=== PATIENT | female | born 1970 | race African-American/Black ===

== ENCOUNTER 2020-07-30 13:55 | Inpatient (IN) | payer MEDICARE, MEDICAID, SELFPAY ==
--- NOTE | ~2020-07-30 | US_ITS ---
EXAMINATION: US renal BI DATE: 07/31/2020 14:46 INDICATION: Urinary tract infection. TECHNIQUE: Multiple ultrasound grayscale images of the kidneys were obtained. COMPARISON: Ultrasound abdomen 07/13/2019 FINDINGS: The right kidney measures 13.0 x 6.8 x 7.1 cm. The left kidney measures 11.8 x 7.6 x 7.6 cm. The kidn eys demonstrate normal parenchymal echogenicity. There is a 2.0 cm cyst in right kidney. There is mil d bilateral hydronephrosis and hydroureter. The bladder is markedly distended with volume of 1084 mL. There is material at the right posterior bladder wall. IMPRESSION: 1. Mild bilateral hydronephrosis and hydroureter. 2. Markedly distended bladder. Material at the right posterior bladder wall may be hematoma or urothe lial carcinoma. Reviewed, dictated and finalized at location A. IMPRESSION: 1. Mild bilateral hydronephrosis and hydroureter. 2. Markedly distended bladder. Material at the right posterior bladder wall may be hematoma or urothelial carcinoma.
--- NOTE | ~2020-07-30 | XR_ITS ---
EXAMINATION: XR chest 2V DATE: 07/30/2020 14:32 INDICATION: Weakness. TECHNIQUE: Frontal and lateral views of the chest were obtained. COMPARISON: Chest 2 views 07/13/2019, neck CT 10/04/2019 FINDINGS: The lung volumes are small. A calcified right lung nodule and calcified right hilar lymph n odes are consistent with old granulomatous disease. No pleural effusion or pneumothorax. The heart si ze is normal. IMPRESSION: 1. Small lung volumes. Reviewed, dictated and finalized at location A. IMPRESSION: 1. Small lung volumes.
[2020-07-30 13:57] VITALS: BP 114/61; PULSE 99; RESP 18; TEMP 36.9; O2SAT 99
[2020-07-30 14:01] VITALS: PULSE 98
--- NOTE | 2020-07-30 14:02 | ECG_ITS ---
Measurements Intervals [place] Rate: 100 P: 61 AK: 176 QRS: -29 QRSD: 132 T: 32 QT: 339 QTc: 439 Interpretive Statements SINUS TACHYCARDIA RIGHT BUNDLE BRANCH BLOCK VOLTAGE CRITERIA FOR LVH MINIMAL Q WAVES- HIGH LATERAL LEADS ABNORMAL ECG Electronically Signed On 07-30-2020 14:25:02 CDT by Morris Francis D.O.
[2020-07-30 14:27] LABS: Basophils Percent Auto 0.4 % (0.2-1.2); Eosinophils Absolute Auto 0.1 K/mm3 (0-0.3); Eosinophils Percent Auto 0.5 % (0-4.4); Hematocrit 25.6 % (37.0-47.0); Hemoglobin 8.6 g/dL (12.0-15.0); Immature Granulocyte Absolute 0.04 K/mm3 (0.00-0.031); Immature Granulocyte Percent A 0.4 % (0-0.5); Lymphocytes Absolute Auto 0.86 K/mm3 (0.9-3.2); Lymphocytes Percent Auto 8.2 % (18.3-44.2); Mean Corpuscular HGB Conc 33.6 g/dl (32-36); Mean Corpuscular Volume 89.2 fl (80-100); Monocytes Absolute Auto 1.1 K/mm3 (0.1-0.6); Monocytes Percent Auto 10.1 % (2.6-8.5); Neutrophils Absolute Auto 8.5 K/mm3 (1.3-6.7); Neutrophils Percent Auto 80.4 % (45.5-73.1); Platelet Count Result 349 k/mm3 (150-375); Red Blood Count 2.87 M/mm3 (4.2-5.4); Red Cell Distribution Width 12.9 % (11.5-14.5); White Blood Count 10.5 K/mm3 (4.5-10.0)
[2020-07-30 14:38] LABS: Alanine Aminotransferase 34 U/L (4-35); Albumin Level 3.5 g/dL (3.5-5.1); Alkaline Phosphatase 226 U/L (38-126); Anion Gap 9 mmol/L (8-16); Aspartate Amino Transferase 45 U/L (14-36); Bilirubin,Total 0.4 mg/dL (0.2-1.3); Blood Urea Nitrogen 36 mg/dL (7-17); Calcium 8.6 mg/dL (8.4-10.2); Carbon Dioxide 22 mmol/L (22-30); Chloride 98 mmol/L (98-107); Estimated CRCL calculation 50 ml/min; Estimated Glomerular Filt Rate 49; Glucose 64 mg/dL (65-105); Potassium 4.4 mmol/L (3.4-5.0); Sodium 129 mmol/L (137-145)
--- NOTE | 2020-07-30 14:59 | ED.GENADULT ---
HPI - General Adult General Chief complaint: Weakness Stated complaint: weakness/lethargic Time Seen by Provider: 07/30/20 14:17 History of Present Illness HPI narrative: Patient is a 50-year-old female who presents from the skilled nursing with weakness. They found her slumped over earlier today. 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 Patient is oriented x3 but is slow to answer questions and has difficulty giving history due to previous stroke. There is concern patient may have UTI as she smells prominently of urine. Related Data Home Medications Medication Instructions Recorded Confirmed Januvia 100 mg PO DAILY 10/04/19 10/08/19 benztropine 0.5 mg PO DAILY 10/04/19 10/08/19 dorzolamide [Trusopt] See Rx Instructions .ROUTE .COMPLEX 10/04/19 10/08/19 haloperidol 5 mg PO DAILY 10/04/19 10/08/19 latanoprost [Xalatan] See Rx Instructions .ROUTE .COMPLEX 10/04/19 10/08/19 aspirin [Aspir-81] 81 mg PO QAM 10/08/19 10/08/19 gabapentin 07/30/20 glimepiride mg 07/30/20 methocarbamol mg 07/30/20 sertraline mg 07/30/20 07/30/20 sitagliptin [Januvia] mg 07/30/20 Allergies Allergy/AdvReac Type Severity Reaction Status Date / Time amoxicillin Allergy Unknown Unknown Verified 07/30/20 14:02 Penicillins Allergy Unknown Unknown Verified 07/30/20 14:02 cillins Allergy Mild hives, Uncoded 05/02/09 16:51 itching Review of Systems Review of Systems: ROS unobtainable: Yes unobtainable due to medical condition [facility] Social History Social History Social History: Single. Resides in subsidized apartment in [place], [place] (the [facility]). Smoking packs per day: 0.5 Smoking cigarettes per day: 10.0 Years smoked: 5 Smoking pack-years: 2.50 Smoking status: Never smoker Alcohol intake: former Substance use: never Additional occupation/education comments: disabled due to mental illness Gender identity (if verbalized by the patient): Female Spiritual care concerns: No Agree to blood products: Yes Exam Narrative: Exam Narrative: GENERAL: Chronically ill-appearing, well-nourished, and in no acute distress. HEAD: Normocephalic, atraumatic. ENT: Mucous membranes moist. CHEST: Clear to auscultation. No respiratory distress. HEART: Regular rate and rhythm. Normal peripheral pulses. ABDOMEN: Soft, nontender, nondistended, heme-negative stool on guaiac testing. EXTREMITIES: Normal range of motion. No edema. Chronic left-sided weakness SKIN: Warm, dry, no rash. NEURO: Alert and oriented x3. Course Course Emergency Course: Admit to hospitalist service. Significant UTI. Ceftriaxone ordered. Vital Signs Vital signs: Vital Signs Temperature 98.4 F 07/30/20 13:57 Pulse Rate 99 07/30/20 13:57 Respiratory Rate 18 07/30/20 13:57 Blood Pressure 114/61 07/30/20 13:57 Pulse Oximetry 99 07/30/20 13:57 Temperature 97.7 F 07/30/20 18:54 Pulse Rate 95 07/30/20 18:54 Respiratory Rate 18 07/30/20 18:54 Blood Pressure 145/78 H 07/30/20 18:54 Pulse Oximetry 100 07/30/20 18:54 Medical Decision Making Vital Signs Vital Signs: Vital Signs Temperature 98.4 F 07/30/20 13:57 Pulse Rate 99 07/30/20 13:57 Respiratory Rate 18 07/30/20 13:57 Blood Pressure 114/61 07/30/20 13:57 Pulse Oximetry 99 07/30/20 13:57 Temperature 97.7 F 07/30/20 18:54 Pulse Rate 95 07/30/20 18:54 Respiratory Rate 18 07/30/20 18:54 Blood Pressure 145/78 H 07/30/20 18:54 Pulse Oximetry 100 07/30/20 18:54 Lab Data Result diagrams: 07/30/20 14:18 07/30/20 14:18 Labs: Lab Results 07/30/20 07/30/20 07/30/20 Range/Units 14:18 14:18 14:49 WBC 10.5 H (4.5-10.0) K/mm3 RBC 2.87 L (4.2-5.4) M/mm3 Hgb 8.6 L D (12.0-15.0) g/dL Hct 25.6 L (37.0-47.0) % MCV 89.2 (80-100) fl MCH 30.0 (26-34) pg MCHC 33.6 (32-36) g/dl RDW 12.9 (1
[2020-07-30 15:00] LABS: Add Urine Microscopic? YES; Appearance Urine Turbid (Clear); Bacteria Urine 4+ /hpf; Bilirubin Urine Negative (Negative); Blood Urine 2+ (Negative); Color Urine Yellow (Yellow); Glucose Urine UA Negative (Negative); Ketones Urine Negative (Negative); Leukocyte Esterase Ur 2+ LEU/UL (Negative); Mucus Urine Rare /lpf; Nitrate Urine Negative (Negative); Protein Urine 2+ mg/dL (Negative); RBC Urine >75 /hpf (0-2); Specific Grav Ur 1.011 (1.001-1.035); Urobilinogen Urine Negative mg/dL (<2.0); WBC Urine >75 /hpf
[2020-07-30] MEDS: SODIUM CHLORIDE 0.9% IV 1,000 ML 999 ML IV CONT (15:12)
[2020-07-30 16:09] VITALS: BP 130/63; PULSE 95; RESP 17; O2SAT 98
[2020-07-30 17:16] VITALS: BP 142/77; PULSE 91; RESP 17; O2SAT 97
--- NOTE | 2020-07-30 18:32 | PC.NURSE ---
This patient, Jasmin Lopez, was admitted to Medical Room 343-01. Patient/family oriented to hospital policies and general routines including ID bracelet, bed and alarms, visiting hours, pain management, procedures, bathroom and other care routines, personal items, smoking policy, room service/diet, and visiting hours. Valuables list has been completed. Information on how to activate the Rapid Response Team has been discussed. Patient/Family are encouraged to report perceived risks to care and to ask questions if they do not understand what they are told or what they should do.
[2020-07-30 18:54] VITALS: BP 145/78; PULSE 95; RESP 18; TEMP 36.5; O2SAT 100
[2020-07-30 18:55] VITALS: BMI 26.9
[2020-07-30 18:56] VITALS: BMI 27.3
[2020-07-30] MEDS: SODIUM CHLORIDE 0.9% IV 1,000 ML 125 ML IV CONT (19:03)
[2020-07-30 22:00] VITALS: BP 142/84; PULSE 98; RESP 21; TEMP 36.4; O2SAT 100
--- NOTE | 2020-07-30 23:20 | PM.IMHP ---
H&P: HPI History of Present Illness Date/Time: 07/30/20 23:20 Chief complaint: uti,acute renal failure,anemia Narrative: This is a 50 year old Diabetic female with known left sided hemiparesis following a CVA who [facility] secondary to increased weakness. Apparently the patient was found slumped over at the jail. The patient denies any fevers, chills, cough, shortness of breath, abdominal pain, dysuria, hematuria or any active bleeding. She was evaluated in the ER and found to be anemic, with acute renal failure, and had a suspicious urinalysis for a possible UTI. The patient had verbalized that she thought she might have a UTI because of foul smelling urine. No other complaints. Review of Systems Review of Systems: All systems reviewed & are unremarkable except as noted in HPI and below PMFSH Past Medical History Medical History Anxiety Arthritis Cataracts, bilateral Cerebrovascular disease Diabetic retinopathy Glaucoma HLD (hyperlipidemia) HTN (hypertension) Hypertension, essential IDDM (insulin dependent diabetes mellitus) Peripheral polyneuropathy Schizophrenia Schizophrenia, undifferentiated Type 2 diabetes mellitus with hyperglycemia Surgical History Surgical History H/O removal of cyst Family History Family History Grandparent Diabetes mellitus Father Family history of cardiovascular disease Other Cerebrovascular accident Social History Social History Social History: Single. Resides in subsidized apartment in [place], [place] (the [facility]). Smoking packs per day: 0.5 Smoking cigarettes per day: 10.0 Years smoked: 5 Smoking pack-years: 2.50 Smoking status: Never smoker Alcohol intake: former Substance use: never Additional occupation/education comments: disabled due to mental illness Gender identity (if verbalized by the patient): Female Spiritual care concerns: No Agree to blood products: Yes Meds Home Medications and Allergies Home Medications Medication Instructions Recorded Confirmed Type Januvia 100 mg PO DAILY 10/04/19 07/30/20 History benztropine 0.5 mg PO DAILY 10/04/19 07/30/20 History dorzolamide [Trusopt] 1 drp OPHTHALMIC (EYE) BID 10/04/19 07/30/20 History haloperidol 5 mg PO DAILY 10/04/19 07/30/20 History latanoprost [Xalatan] 1 drp OPHTHALMIC (EYE) BID 10/04/19 07/30/20 History Lantus U-100 Insulin 30 units SUBCUT HS #30 ml 10/08/19 07/30/20 Rx acetaminophen [Mapap 650 mg PO Q6H PRN #30 tablet 10/08/19 07/30/20 Rx (acetaminophen)] aspirin [Aspir-81] 81 mg PO QAM 10/08/19 07/30/20 History clopidogrel 75 mg PO QAM #30 tablet 10/08/19 07/30/20 Rx docusate sodium 100 mg PO Q12HR #0 cap 10/20/19 07/30/20 Rx promethazine 12.5 mg PO Q4H PRN #0 tablet 10/20/19 07/30/20 Rx Vitamin C 1 tablet BYMOUTH DAILY 07/30/20 07/30/20 History ascorbic acid (vitamin C) 500 mg PO DAILY 07/30/20 07/30/20 History bisacodyl [Dulcolax (bisacodyl)] 10 mg CO DAILY PRN 07/30/20 07/30/20 History ergocalciferol (vitamin D2) 1,250 mcg PO WEEKLY 07/30/20 07/30/20 History ferrous sulfate 325 tab-cap BYMOUTH BID 07/30/20 07/30/20 History gabapentin 300 mg PO TID 07/30/20 07/30/20 History glimepiride 1 mg PO DAILY 07/30/20 07/30/20 History insulin aspart U-100 [Novolog 12 units SUBCUT TIDWM 07/30/20 07/30/20 History U-100 Insulin aspart] insulin aspart U-100 [Novolog See Rx Instructions .ROUTE .COMPLEX 07/30/20 07/30/20 History U-100 Insulin aspart] methocarbamol 750 mg PO DAILY 07/30/20 07/30/20 History sertraline 50 mg PO DAILY 07/30/20 07/30/20 History sitagliptin [Januvia] 100 mg PO DAILY 07/30/20 07/30/20 History Allergies Allergy/AdvReac Type Severity Reaction Status Date / Time amoxicillin Allergy Unknown Unkn
[2020-07-30 23:46] LABS: Hematocrit 28.5 % (37.0-47.0); Hemoglobin 9.5 g/dL (12.0-15.0)
[2020-07-31] VITALS (10 sets, daily range): BP systolic 123–157; BP diastolic 59–92; PULSE 101–114; RESP 12–20; TEMP 36.9–38; O2SAT 97–100
[2020-07-31 00:40] LABS: Glucose Point of Care 127 (65-105)
[2020-07-31] MEDS: SODIUM CHLORIDE 0.9% IV 1,000 ML 125 ML IV CONT ×3 (02:48→20:15)
[2020-07-31] MEDS: methocarbamoL 750 MG TABLET PO ×3 (06:03→21:05)
[2020-07-31 07:15] LABS: Basophils Percent Auto 0.3 % (0.2-1.2); Eosinophils Absolute Auto 0.1 K/mm3 (0-0.3); Eosinophils Percent Auto 0.8 % (0-4.4); Hematocrit 23.3 % (37.0-47.0); Hemoglobin 7.8 g/dL (12.0-15.0); Immature Granulocyte Absolute 0.03 K/mm3 (0.00-0.031); Immature Granulocyte Percent A 0.3 % (0-0.5); Lymphocytes Absolute Auto 1.69 K/mm3 (0.9-3.2); Lymphocytes Percent Auto 18.3 % (18.3-44.2); Mean Corpuscular HGB Conc 33.5 g/dl (32-36); Mean Corpuscular Hemoglobin 30.1 pg (26-34); Mean Platelet Volume 10.1 fl (7.4-10.4); Monocytes Absolute Auto 1.1 K/mm3 (0.1-0.6); Monocytes Percent Auto 11.7 % (2.6-8.5); Neutrophils Absolute Auto 6.4 K/mm3 (1.3-6.7); Neutrophils Percent Auto 68.6 % (45.5-73.1); Platelet Count Result 370 k/mm3 (150-375); Red Blood Count 2.59 M/mm3 (4.2-5.4); White Blood Count 9.3 K/mm3 (4.5-10.0)
[2020-07-31 07:33] LABS: Anion Gap 7 mmol/L (8-16); Blood Urea Nitrogen 34 mg/dL (7-17); Calcium 8.2 mg/dL (8.4-10.2); Carbon Dioxide 20 mmol/L (22-30); Chloride 105 mmol/L (98-107); Estimated CRCL calculation 58 ml/min; Estimated Glomerular Filt Rate > 60; Glucose 106 mg/dL (65-105); Potassium 4.3 mmol/L (3.4-5.0); Sodium 132 mmol/L (137-145)
[2020-07-31 08:11] LABS: Iron 33 ug/dL (37-170)
[2020-07-31 08:19] LABS: Percent Iron Saturation 17 % (20-50)
[2020-07-31 08:20] LABS: Transferrin 110 mg/dL (206-381)
[2020-07-31 08:46] LABS: Hepatitis B Surface Antigen Negative (Negative)
[2020-07-31] MEDS: INSULIN ASPART (*BKC) 100 UNITS/ML 12 UNITS SUB-Q ×2 (08:47→12:28)
[2020-07-31 08:48] LABS: Glucose Point of Care 116 (65-105)
[2020-07-31 08:51] LABS: HAV RESULT Negative (Negative); Hepatitis B Core IgM Result Negative (Negative)
[2020-07-31] MEDS: LATANOPROST 0.005% OP SOLN 2.5 ML BTL 1 DROP EACH EYE ×2 (08:52→18:51)
[2020-07-31] MEDS: HALOPERIDOL 5 MG TABLET PO (08:54)
[2020-07-31] MEDS: CLOPIDOGREL BISULFATE 75 MG TABLET PO (08:54)
[2020-07-31] MEDS: SERTRALINE HCL 50 MG TABLET PO (08:55)
[2020-07-31] MEDS: ASPIRIN 81 MG ENTERIC TABLET PO (08:55)
[2020-07-31] MEDS: DORZOLAMIDE HCL 2% OPHTH DROPS 1 DROP EACH EYE ×2 (08:55→16:35)
[2020-07-31] MEDS: FERROUS SULFATE 324 MG TABLET BY MOUTH ×2 (08:56→16:35)
[2020-07-31 09:03] LABS: Hepatitis C Virus Antibody Negative (Negative)
[2020-07-31] MEDS: BENZTROPINE MESYLATE 0.5 MG TABLET PO (09:19)
--- NOTE | 2020-07-31 10:27 | PM.IMPN ---
Progress Note: A&P Assessment and Plan (1) Complicated UTI (urinary tract infection): Code(s): N39.0 - Urinary tract infection, site not specified Status: Acute Assessment and Plan: UA was highly suspicious for UTI. The patient reports vomiting and nausea prior to admission. Urine culture was obtained and pending. Leukocytosis resolved. She feels much better. Continue IV ceftriaxone. Await final culture. Order renal US. (2) Acute renal failure: Qualifiers: Acute renal failure type: unspecified Qualified Code(s): N17.9 - Acute kidney failure, unspecified Code(s): N17.9 - Acute kidney failure, unspecified Status: Acute Assessment and Plan: Appears pre-renal. Likely due to UTI, poor PO intake, and GI loss given hx of vomiting. Cr is responding well to IV fluids. Continue gentle IV fluids. Continue to monitor renal function. Renally dose medications and avoid nephrotoxins. (3) Anemia: Qualifiers: Anemia type: unspecified type Qualified Code(s): D64.9 - Anemia, unspecified Code(s): D64.9 - Anemia, unspecified Status: Acute Assessment and Plan: Per ED documentation, guaiac testing was negative. Repeat stool occult blood testing. She has no signs of acute bleeding. She denies melena and hematochezia. UA demonstrated RBCs which is likely due to UTI. Iron studies are consistent with anemia of chronic disease. Vitamin B12 is low and will be replaced. Folate is pending. Continue to monitor closely. Hb is 7.8 and Hct 23.3. Will repeat H&H this afternoon. Transfuse PRN to maintain Hb >7. 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 Hold glimepiride and januvia. Continue lantus, mealtime insulin, and SSI. Continue ACHS glucose monitoring and hypoglycemia protocol. (5) Hypertension, essential: Code(s): I10 - Essential (primary) hypertension Status: Chronic Assessment and Plan: Stable. She is not on any prior to admission antihypertensives. Continue to monitor blood pressure. (6) Glaucoma: Qualifiers: Glaucoma type: unspecified Laterality: unspecified laterality Qualified Code(s): H40.9 - Unspecified glaucoma Code(s): H40.9 - Unspecified glaucoma Status: Chronic Assessment and Plan: Continue home eye drops. Subjective Date/time seen: 07/31/20 10:27 Mrs. Lopez is a 50 y.o. female with PMH significant for right hemispheric stroke with left hemiparesis who is seen in follow-up for a urinary tract infection. She has no concerns today and feels much better. She expresses that she does not want to go back to the prison because she does not like the food there. She denies dysuria, hematuria, urgency, and frequency. She reports a mild frontal headache but has no other complaints. She denies nausea, vomiting, and abdominal pain. She denies dizziness and lightheadedness. She denies chest pain and dyspnea. She is not having any constipation or diarrhea. Review of Systems Review of Systems: All systems reviewed & are unremarkable except as noted in HPI and below Exam Narrative: Exam Narrative: General: Pleasant, chronically-ill appearing, well-nourished 50 y.o. female lying supine in bed watching TV in no acute distress. HEENT: Normocephalic and atraumatic. Sclerae anicteric. Conjuctival pallor. PERRL. EOMI with exotropia of the left eye. Oral mucosa moist with no posterior pharyngeal erythema. Neck: Supple with large neck circumference. Cardiac: Regular rate and rhythm. S1 and S2 normal. Lungs: Lula
[2020-07-31 12:10] LABS: Glucose Point of Care 124 (65-105)
[2020-07-31] MEDS: CYANOCOBALAMIN INJ 1,000 MCG/ML VIAL 1000 MCG IM (13:19)
[2020-07-31 14:05] LABS: Folic Acid 10.2 ng/mL (2.76->20)
[2020-07-31 14:25] LABS: Hematocrit 24.5 % (37.0-47.0)
[2020-07-31 17:16] LABS: Glucose Point of Care 91 (65-105)
[2020-07-31] MEDS: INSULIN ASPART (*BKC) 100 UNITS/ML 6 UNITS SUB-Q (18:10)
[2020-07-31] MEDS: INSULIN GLARGINE (*BKC) 100 UNITS/ML 30 UNITS SUB-Q (21:04)
[2020-07-31] MEDS: DOCUSATE SODIUM 100 MG CAPSULE PO (21:05)
[2020-07-31 21:23] LABS: Glucose Point of Care 138 (65-105)
[2020-07-31] MEDS: ACETAMINOPHEN 325 MG TABLET 650 MG PO (21:57)
[2020-08-01 02:48] VITALS: BP 139/66; PULSE 91; RESP 12; TEMP 36.8; O2SAT 100
[2020-08-01] MEDS: SODIUM CHLORIDE 0.9% IV 1,000 ML 125 ML IV CONT (04:25)
[2020-08-01 04:43] VITALS: BP 135/51; PULSE 86; RESP 14; TEMP 36.3; O2SAT 96
[2020-08-01 06:18] LABS: Basophils Percent Auto 0.5 % (0.2-1.2); Eosinophils Absolute Auto 0.2 K/mm3 (0-0.3); Eosinophils Percent Auto 2.6 % (0-4.4); Hematocrit 22.1 % (37.0-47.0); Hemoglobin 7.3 g/dL (12.0-15.0); Immature Granulocyte Absolute 0.05 K/mm3 (0.00-0.031); Immature Granulocyte Percent A 0.6 % (0-0.5); Lymphocytes Absolute Auto 1.73 K/mm3 (0.9-3.2); Lymphocytes Percent Auto 20.3 % (18.3-44.2); Mean Corpuscular Hemoglobin 29.9 pg (26-34); Mean Corpuscular Volume 90.6 fl (80-100); Mean Platelet Volume 9.4 fl (7.4-10.4); Monocytes Percent Auto 11.2 % (2.6-8.5); Neutrophils Absolute Auto 5.5 K/mm3 (1.3-6.7); Neutrophils Percent Auto 64.8 % (45.5-73.1); Platelet Count Result 413 k/mm3 (150-375); Red Blood Count 2.44 M/mm3 (4.2-5.4); Red Cell Distribution Width 13.1 % (11.5-14.5); White Blood Count 8.5 K/mm3 (4.5-10.0)
[2020-08-01] MEDS: methocarbamoL 750 MG TABLET PO ×2 (06:29→14:53)
[2020-08-01 06:45] LABS: Anion Gap 5 mmol/L (8-16); Blood Urea Nitrogen 19 mg/dL (7-17); Calcium 8.5 mg/dL (8.4-10.2); Carbon Dioxide 21 mmol/L (22-30); Chloride 111 mmol/L (98-107); Estimated CRCL calculation 78 ml/min; Estimated Glomerular Filt Rate > 60; Glucose 107 mg/dL (65-105); Sodium 137 mmol/L (137-145)
[2020-08-01 07:37] LABS: Glucose Point of Care 102 (65-105)
[2020-08-01 08:00] VITALS: BP 171/77; PULSE 88; RESP 16; TEMP 36.2; O2SAT 97
[2020-08-01 08:41] LABS: Hematocrit 27.5 % (37.0-47.0); Hemoglobin 8.4 g/dL (12.0-15.0); Immature Reticulocyte Fraction 7.9 % (3.0-15.9); Reticulocyte Hemoglobin Conten 28.6 pg (28.2-35.7); Reticulocyte Percent 1.66 % (0.7-4.3); Reticulocytes Absolute 0.05 B/L (32.2-175.7)
[2020-08-01 09:26] LABS: Lactate Dehydrogenase 500 U/L (313-618)
[2020-08-01] MEDS: DORZOLAMIDE HCL 2% OPHTH DROPS 1 DROP EACH EYE ×2 (10:18→17:09)
[2020-08-01] MEDS: SERTRALINE HCL 50 MG TABLET PO (10:18)
[2020-08-01] MEDS: ASPIRIN 81 MG ENTERIC TABLET PO (10:19)
[2020-08-01] MEDS: FERROUS SULFATE 324 MG TABLET BY MOUTH ×2 (10:19→17:09)
[2020-08-01] MEDS: HALOPERIDOL 5 MG TABLET PO (10:19)
[2020-08-01] MEDS: DOCUSATE SODIUM 100 MG CAPSULE PO (10:19)
[2020-08-01] MEDS: LATANOPROST 0.005% OP SOLN 2.5 ML BTL 1 DROP EACH EYE ×2 (10:19→17:09)
[2020-08-01] MEDS: CLOPIDOGREL BISULFATE 75 MG TABLET PO (10:19)
[2020-08-01] MEDS: BENZTROPINE MESYLATE 0.5 MG TABLET PO (10:19)
[2020-08-01 11:43] LABS: Glucose Point of Care 128 (65-105)
[2020-08-01] MEDS: INSULIN ASPART (*BKC) 100 UNITS/ML SUB-Q ×2 (11:55→17:07)
[2020-08-01 12:00] VITALS: BP 177/74; PULSE 92; RESP 18; TEMP 36.6; O2SAT 100
--- NOTE | 2020-08-01 14:19 | WPDURCON ---
Assessment and Plan Assessment and plan (1) UTI (urinary tract infection): Code(s): N39.0 - Urinary tract infection, site not specified Status: Acute Assessment and Plan: urine cultures grown out multidrug sensitive E coli. Can be discharged on appropriate p.o. antibiotics (2) Urinary retention with incomplete bladder emptying: Code(s): R33.9 - Retention of urine, unspecified Status: Acute Assessment and Plan: very likely to be neurogenic secondary to her stroke and diabetes. Could also be transient due to urinary tract infection. He is stable for discharge back to her senior living today. Will need to be with a Bailey catheter. Outpatient follow-up in 1-2 weeks for a voiding trial. (3) Hydronephrosis: Code(s): N13.30 - Unspecified hydronephrosis Status: Acute Assessment and Plan: this is due to incomplete bladder emptying. Should resolve with Bailey catheter. Creatinine is normal Urology Consult Note HPI Date Seen: 08/01/20 Requesting Physician: Scarlett Willoughby PA-C Primary Care Provider: Armaan Clarke DO Consult Narrative Narrative: Jasmin Lopez is a 50 year old female With Karma paresis secondary to a stroke. She was sent in from her nursing facility with increased weakness and foul-smelling urine. She was diagnosed with a urinary tract infection. She has grown E coli which is multiple drug sensitive. As part of her workup she had a renal ultrasound. It shows mild bilateral hydronephrosis and a distended bladder with over 1 L. there is also some debris in the bladder likely secondary to her infection. She is a poor historian but she denies previous voiding symptoms. She denies previous history of urinary tract infection. She denies hematuria. I talked to the nurses aide. They have incision on the toilet and she does void small amounts. She is set for discharge today. Review of Systems Review of Systems: All systems reviewed & are unremarkable except as noted in HPI and below PMFSH Past Medical History Medical History Anxiety Arthritis Cataracts, bilateral Cerebrovascular disease Diabetic retinopathy Glaucoma HLD (hyperlipidemia) HTN (hypertension) Hypertension, essential IDDM (insulin dependent diabetes mellitus) Peripheral polyneuropathy Schizophrenia Schizophrenia, undifferentiated Type 2 diabetes mellitus with hyperglycemia Surgical History Surgical History H/O removal of cyst Family History Family History Grandparent Diabetes mellitus Father Family history of cardiovascular disease Other Cerebrovascular accident Social History Social History Social History: Single. Resides in subsidized apartment in [place], [place] ([facility]). Smoking packs per day: 0.5 Smoking cigarettes per day: 10.0 Years smoked: 5 Smoking pack-years: 2.50 Smoking status: Never smoker Alcohol intake: former Substance use: never Additional occupation/education comments: disabled due to mental illness Gender identity (if verbalized by the patient): Female Spiritual care concerns: No Agree to blood products: Yes Meds Home Medications and Allergies Home Medications Medication Instructions Recorded Confirmed Type Januvia 100 mg PO DAILY 10/04/19 07/30/20 History benztropine 0.5 mg PO DAILY 10/04/19 07/30/20 History dorzolamide [Trusopt] 1 drp OPHTHALMIC (EYE) BID 10/04/19 07/30/20 History haloperidol 5 mg PO DAILY 10/04/19 07/30/20 History latanoprost [Xalatan] 1 drp OPHTHALMIC (EYE) BID 10/04/19 07/30/20 History Lantus U-100 Insulin 30 units SUBCUT HS #30 ml 10/08/19 07/30/20 Rx acetaminophen [Mapap 650 mg PO Q6H PRN #30 tablet 10/08/19 07/30/20 Rx (acetaminophen)] aspirin [
--- NOTE | 2020-08-01 16:05 | PM.DS ---
DS: Admitting Diagnosis Admitting Diagnosis Admitting Diagnosis: uti,acute renal failure,anemia DS: Discharge Diagnosis Discharge Diagnosis (1) Complicated UTI (urinary tract infection): Code(s): N39.0 - Urinary tract infection, site not specified Status: Acute Assessment and Plan: Discharge Summary (Date of service 08/01/20): Mrs. Lopez is a 50 y.o. female with PMH significant for CVA with residual left sided weakness, HTN, HLD, IDDM, and schizophrenia who presented to the emergency department for the evaluation of weakness. Initial workup in the emergency department was notable for UA which was highly suspicious for UTI. Anemia was also noted with Hb 8.6 and Hct 25.6. She was admitted to the hospitalist service and treated with IV ceftriaxone for UTI. Urine culture demonstrated E. coli susceptible to ceftriaxone. She was discharged on PO cefdinir. She had evidence of mild hydronephrosis and hydroureter on renal ultrasound with markedly distended bladder and material at the right posterior bladder wall suggestive of hematoma vs. urothelial carcinoma. Bland catheter was placed and urology was consulted and recommended bland catheter at discharge with outpatient follow-up in 1-2 weeks. Retention was felt to be neurogenic due to hx of CVA vs acute due to UTI. She was found to be vitamin B12 deficient and hematology was consulted and recommended ferrous sulfate and vitamin B12 supplementation. She felt much better and was stable for discharge. She was cleared from a urology and hematology standpoint as well. She was discharged in stable condition on the afternoon of 08/01/20. (2) Acute renal failure: Qualifiers: Acute renal failure type: unspecified Qualified Code(s): N17.9 - Acute kidney failure, unspecified Code(s): N17.9 - Acute kidney failure, unspecified Status: Acute Assessment and Plan: Appears pre-renal. Likely due to UTI, poor PO intake, and GI loss given hx of vomiting. Cr is responding well to IV fluids. (3) Anemia: Qualifiers: Anemia type: unspecified type Qualified Code(s): D64.9 - Anemia, unspecified Code(s): D64.9 - Anemia, unspecified Status: Acute Assessment and Plan: Per ED documentation, guaiac testing was negative. She hads no signs of acute bleeding and denied melena and hematochezia. UA demonstrated RBCs which is likely due to UTI. Vitamin B12 was low replaced with 1,000mcg IM 07/31/20. She will need to continued vitamin B12 supplementation outpatient. Folate was sufficient. Hematology was consulted for further recommendations. H&H remained stable and hematology was fine for discharge from their standpoint. Hematology recommended she discharge on ferrous sulfate 325mg TID and vitamin B12 1,000 mcg daily. 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 Glimepiride and januvia were held while inpatient. Insulin regimen was continued. (5) Hypertension, essential: Code(s): I10 - Essential (primary) hypertension Status: Chronic Assessment and Plan: Blood pressures were reviewed and reasonably controlled. She was not on any prior to admission antihypertensives. (6) Glaucoma: Qualifiers: Glaucoma type: unspecified Laterality: unspecified laterality Qualified Code(s): H40.9 - Unspecified glaucoma Code(s): H40.9 - Unspecified glaucoma Status: Chronic Assessment and Plan: Home eye drops were continued. (7) Urinary retention with incomplete bladder emptying: Code(s): R33.9 - Retention
--- NOTE | 2020-08-01 16:42 | PDONCCN ---
HPI - Date of Consult Date/Time: 08/01/20 16:42 Requesting Physician: Scarlett Willoughby PA-C Primary Care Provider: Armaan Clarke, - Consult Narrative Reason for consult: Normocytic anemia Narrative: Jasmin Lopez is a 50 year old female This is a 50-year-old obese female with history of stroke and who is a jail resident was brought into the hospital with left-sided weakness. Nausea is complaining of generalized weakness. She is not able to 1 due to her stroke. She denies any hematuria and melena hematochezia. She denies any other bleeding complain. She denies any weight loss. She denies any bone pain. Urine analysis showed possible UTI. Renal ultrasound showed possibly bladder mass versus hematoma. She denies any history of sickle cell anemia. Review of Systems - Review of Systems All systems reviewed & are unremarkable except as noted in HPI and [facility] Medical History: Medical History (Last Reviewed 07/31/20 @ 04:03 by Armaan Bryant MD) Anxiety Arthritis Cataracts, bilateral Cerebrovascular disease Diabetic retinopathy Glaucoma HLD (hyperlipidemia) HTN (hypertension) Hypertension, essential IDDM (insulin dependent diabetes mellitus) Peripheral polyneuropathy Schizophrenia Schizophrenia, undifferentiated Type 2 diabetes mellitus with hyperglycemia Surgical History: Surgical History (Last Reviewed 07/31/20 @ 04:03 by Armaan Bryant MD) H/O removal of cyst Family History: Family History (Last Reviewed 07/31/20 @ 04:03 by Armaan Bryant MD) Grandparent Diabetes mellitus Father Family history of cardiovascular disease Other Cerebrovascular accident - Social History Social History: Social History (Last Reviewed 07/31/20 @ 04:03 by Armaan Bryant MD) Gender Identity: Gender identity (if verbalized by the patient): Female Alcohol Use: Alcohol intake: former Substance Use: Substance use: never Others: Spiritual care concerns: No Agree to blood products: Yes Smoking Status: Smoking status: Never smoker Smoking Pack-years: Smoking packs per day: 0.5 Smoking cigarettes per day: 10.0 Years smoked: 5 Smoking pack-years: 2.50 Meds Home Medications Medication Instructions Recorded Confirmed Type Januvia 100 mg PO DAILY 10/04/19 07/30/20 History benztropine 0.5 mg PO DAILY 10/04/19 07/30/20 History dorzolamide [Trusopt] 1 drp OPHTHALMIC (EYE) BID 10/04/19 07/30/20 History haloperidol 5 mg PO DAILY 10/04/19 07/30/20 History latanoprost [Xalatan] 1 drp OPHTHALMIC (EYE) BID 10/04/19 07/30/20 History Lantus U-100 Insulin 30 units SUBCUT HS #30 ml 10/08/19 07/30/20 Rx acetaminophen [Mapap 650 mg PO Q6H PRN #30 tablet 10/08/19 07/30/20 Rx (acetaminophen)] aspirin [Aspir-81] 81 mg PO QAM 10/08/19 07/30/20 History clopidogrel 75 mg PO QAM #30 tablet 10/08/19 07/30/20 Rx docusate sodium 100 mg PO Q12HR #0 cap 10/20/19 07/30/20 Rx promethazine 12.5 mg PO Q4H PRN #0 tablet 10/20/19 07/30/20 Rx Januvia 100 mg PO DAILY 07/30/20 07/30/20 History Vitamin C 1 tablet BYMOUTH DAILY 07/30/20 07/30/20 History ascorbic acid (vitamin C) 500 mg PO DAILY 07/30/20 07/30/20 History bisacodyl [Dulcolax (bisacodyl)] 10 mg SD DAILY PRN 07/30/20 07/30/20 History ergocalciferol (vitamin D2) 1,250 mcg PO WEEKLY 07/30/20 07/30/20 History ferrous sulfate 325 tab-cap BYMOUTH BID 07/30/20 07/30/20 History gabapentin 300 mg PO TID 07/30/20 07/30/20 History glimepiride 1 mg PO DAILY 07/30/20 07/30/20 History insulin aspart U-100 [Novolog 12 units SUBCUT TIDWM 07/30/20 07/30/20 History U-100 Insulin aspart] insulin aspart U-100 [Novolog See Rx Instructions .ROUTE .COMPLEX 07/30/20 07/30/20 History U-100 Insulin aspart] methocarbamol 750 mg PO DAILY 07/30/20 07/30/20 History sertraline 50 mg PO DAILY 07/30/20 07/30/20 History cefdinir 300 mg PO Q12H 5 Days #10 cap 08/01/20 Rx Allergies Allergy/AdvRe
[2020-08-01 17:13] LABS: Glucose Point of Care 117 (65-105)
[2020-08-04 22:36] LABS: Haptoglobin 370 mg/dL (43-212)
== END 2020-08-01 17:37 | DRG 690 ==
LOC: ANHED 16:28 → ANH3MED 17:22
PROVIDERS: Emergency Medicine; Family Medicine; Physician Assistant; Admitting Provider Hospitalist; Emergency Provider Emergency Medicine; PCP Internal Medicine; Visit Provider Hospitalist
DX: N39.0 Urinary tract infection, site not specified (principal); N17.9 Acute kidney failure, unspecified; I69.354 Hemiplegia and hemiparesis following cerebral infarction affecting left non-dominant side; D64.9 Anemia, unspecified; E11.9 Type 2 diabetes mellitus without complications; F20.9 Schizophrenia, unspecified; I10 Essential (primary) hypertension; B96.20 Unspecified Escherichia coli [E. coli] as the cause of diseases classified elsewhere; N13.30 Unspecified hydronephrosis
CPT/HCPCS: 36415; 71046; 76775; 80048; 80053; 80074; 81001; 82607; 82728; 82746; 83010; 83540; 83550; 83615; 84466; 85014; 85018; 85025; 85046; 87077; 87086; 87088; 87186; 93005; 96361; 96374; 97161; 97166; 99285; A9270; G0378; J0696; J1815; J3420; J7030

== ENCOUNTER 2020-08-13 17:28 | Inpatient (IN) | payer MEDICARE, MEDICAID, SELFPAY ==
[2020-08-13] VITALS (7 sets, daily range): BP systolic 101–141; BP diastolic 58–71; PULSE 94–110; RESP 16–20; TEMP 36.2–39.4; O2SAT 92–98; BMI 28.3
--- NOTE | ~2020-08-13 | XR_ITS ---
EXAMINATION: XR chest 1V portable INDICATION: Fever and headache TECHNIQUE: Portable AP chest at 1815 hours COMPARISON: 07/30/2020 FINDINGS: The lungs are free of acute opacities. There is no pleural effusion or pneumothorax. The ca rdiomediastinal silhouette is normal. The visualized bones and soft tissues are unremarkable. IMPRESSION: 1. No acute cardiopulmonary abnormality. Reviewed, dictated and finalized at location A.
--- NOTE | ~2020-08-13 | CT_ITS ---
EXAMINATION: CT brain wo con INDICATION: Generalized headache COMPARISON: 10/07/2019 TECHNIQUE: Standard unenhanced head CT. The dose-length product (DLP) was 605.33 mGy-cm. The mA was a djusted according to patient size. Iterative reconstruction technique was employed. FINDINGS: There is no intracranial hemorrhage, acute infarction, or abnormal mass lesion. There are o ld infarcts involving the right basal ganglia and the right frontal lobe zamorano radiata. There is ex vacuo enlargement of the right lateral ventricle. There is no abnormal mass effect or midline shift. The childress-white matter differentiation is normal. The basal cisterns are patent. The orbits are normal . Intracranial calcified cerebral atherosclerosis is noted. The paranasal sinuses, mastoids and tariq rium are normal. IMPRESSION: 1. Areas of prior infarction without acute intracranial abnormality. Reviewed, dictated and finalized at location A.
--- NOTE | 2020-08-13 17:41 | ECG_ITS ---
Measurements Intervals [place] Rate: 109 P: 45 MT: 175 QRS: -37 QRSD: 122 T: 46 QT: 335 QTc: 452 Interpretive Statements SINUS TACHYCARDIA LEFT AXIS DEVIATION RIGHT BUNDLE BRANCH BLOCK VOLTAGE CRITERIA FOR LVH MINIMAL Q WAVES- HIGH LATERAL LEADS ABNORMAL ECG Electronically Signed On 08-14-2020 7:43:04 CDT by Morris Francis D.O.
[2020-08-13 18:24] LABS: Basophils Absolute Auto 0.1 K/mm3 (0.0-0.1); Basophils Percent Auto 0.6 % (0.2-1.2); Eosinophils Absolute Auto 0.1 K/mm3 (0-0.3); Eosinophils Percent Auto 0.6 % (0-4.4); Hematocrit 29.9 % (37.0-47.0); Hemoglobin 9.4 g/dL (12.0-15.0); Immature Granulocyte Absolute 0.09 K/mm3 (0.00-0.031); Immature Granulocyte Percent A 0.6 % (0-0.5); Mean Corpuscular HGB Conc 31.4 g/dl (32-36); Mean Corpuscular Hemoglobin 29.5 pg (26-34); Mean Corpuscular Volume 93.7 fl (80-100); Mean Platelet Volume 10.1 fl (7.4-10.4); Monocytes Absolute Auto 1.3 K/mm3 (0.1-0.6); Monocytes Percent Auto 7.9 % (2.6-8.5); Neutrophils Absolute Auto 12.9 K/mm3 (1.3-6.7); Neutrophils Percent Auto 80.3 % (45.5-73.1); Platelet Count Result 442 k/mm3 (150-375); Red Blood Count 3.19 M/mm3 (4.2-5.4); Red Cell Distribution Width 13.3 % (11.5-14.5)
[2020-08-13 18:34] LABS: Add Urine Microscopic? YES; Amorphous Sediment Urine Few; Appearance Urine Cloudy (Clear); Bacteria Urine 2+ /hpf; Bilirubin Urine Negative (Negative); Blood Urine 1+ (Negative); Color Urine Yellow (Yellow); Glucose Urine UA Negative (Negative); Ketones Urine Negative (Negative); Leukocyte Esterase Ur 3+ LEU/UL (Negative); Nitrate Urine Negative (Negative); Protein Urine 1+ mg/dL (Negative); Specific Grav Ur 1.011 (1.001-1.035); Squamous Epithelial Cell Urine Occasional /hpf (Few); Urobilinogen Urine Negative mg/dL (<2.0); WBC Clumps Urine Present /HPF; WBC Urine >75 /hpf
[2020-08-13 18:37] LABS: Lactic Acid Reflex 2.5 mmol/L (0.7-2.1)
[2020-08-13 18:39] LABS: Alanine Aminotransferase 14 U/L (4-35); Albumin Level 3.6 g/dL (3.5-5.1); Alkaline Phosphatase 128 U/L (38-126); Anion Gap 7 mmol/L (8-16); Aspartate Amino Transferase 21 U/L (14-36); Bilirubin,Total 0.4 mg/dL (0.2-1.3); Blood Urea Nitrogen 29 mg/dL (7-17); Calcium 9.1 mg/dL (8.4-10.2); Carbon Dioxide 24 mmol/L (22-30); Chloride 100 mmol/L (98-107); Estimated Glomerular Filt Rate 58; Glucose 162 mg/dL (65-105); Potassium 5.1 mmol/L (3.4-5.0); Sodium 131 mmol/L (137-145)
[2020-08-13 18:44] LABS: Lipase 49 U/L (23-300)
[2020-08-13] MEDS: SODIUM CHLORIDE 0.9% IV 1,000 ML 999 ML IV CONT ×2 (18:50→19:49)
[2020-08-13 18:51] LABS: INR 1.1; Prothrombin Time 13.6 Seconds (11.1-14.7)
[2020-08-13 18:52] LABS: Partial Thromboplastin Time 32.8 SECONDS (22.3-36.8)
--- NOTE | 2020-08-13 18:55 | ED.HA ---
HPI - Headache General Chief Complaint: Headache Stated Complaint: headache Time Seen by Provider: 08/13/20 18:27 Source: patient Mode of arrival: EMS Limitations: no limitations History of Present Illness HPI Narrative: This is a 50 year old female that presents to the ER for headache x 3 days. Reports she has had intermittent headaches. Reports she feels generally unwell. Reports she had an episode of vomiting today. Noted to be febrile in the ED on arrival. Denies vision changes, chest pain, shortness of breath, abdominal pain, or new numbness or weakness. Related Data Home Medications Medication Instructions Recorded Confirmed benztropine 0.5 mg PO DAILY 10/04/19 07/30/20 dorzolamide [Trusopt] 1 drp OPHTHALMIC (EYE) BID 10/04/19 07/30/20 haloperidol 5 mg PO DAILY 10/04/19 07/30/20 latanoprost [Xalatan] 1 drp OPHTHALMIC (EYE) BID 10/04/19 07/30/20 aspirin [Aspir-81] 81 mg PO QAM 10/08/19 07/30/20 Januvia 100 mg PO DAILY 07/30/20 07/30/20 Vitamin C 1 tablet BYMOUTH DAILY 07/30/20 07/30/20 ergocalciferol (vitamin D2) 1,250 mcg PO WEEKLY 07/30/20 07/30/20 gabapentin 300 mg PO TID 07/30/20 07/30/20 glimepiride 1 mg PO DAILY 07/30/20 07/30/20 insulin aspart U-100 [Novolog 12 units SUBCUT TIDWM 07/30/20 07/30/20 U-100 Insulin aspart] methocarbamol 750 mg PO DAILY 07/30/20 07/30/20 sertraline 50 mg PO DAILY 07/30/20 07/30/20 Allergies Allergy/AdvReac Type Severity Reaction Status Date / Time amoxicillin Allergy Unknown Unknown Verified 08/13/20 17:48 Penicillins Allergy Unknown Unknown Verified 08/13/20 17:48 cillins Allergy Mild hives, Uncoded 08/13/20 17:48 itching Review of Systems Review of Systems: Narrative: CONSTITUTIONAL: Reports fever EYES: Denies visual changes ENT: Denies sore throat CARDIOVASCULAR: Denies chest pain RESPIRATORY: Denies cough or dyspnea. GASTROINTESTINAL: Reports nausea and vomiting. Denies abdominal pain GENITOURINARY: Denies dysuria or hematuria. NEUROLOGIC: Reports headache. Denies new numbness, or weakness. All systems reviewed & are unremarkable except as noted in HPI and below PMFSH Past Medical History Medical History (Updated 08/13/20 @ 22:18 by Inessa Boucher PA-C) Anxiety Arthritis Cataracts, bilateral Cerebrovascular disease Diabetic retinopathy Glaucoma HLD (hyperlipidemia) HTN (hypertension) Hypertension, essential IDDM (insulin dependent diabetes mellitus) Peripheral polyneuropathy Schizophrenia Schizophrenia, undifferentiated Type 2 diabetes mellitus with hyperglycemia Surgical History Surgical History H/O removal of cyst Family History Family History Grandparent Diabetes mellitus Father Family history of cardiovascular disease Other Cerebrovascular accident Social History Social History Social History: Single. Resides in subsidized apartment in [place], [place] ([facility] Smoking packs per day: 0.5 Smoking cigarettes per day: 10.0 Years smoked: 5 Smoking pack-years: 2.50 Smoking status: Never smoker Alcohol intake: former Substance use: never Additional occupation/education comments: disabled due to mental illness Gender identity (if verbalized by the patient): Female Spiritual care concerns: No Agree to blood products: Yes Exam Narrative: Exam Narrative: GENERAL: Well-appearing, well-nourished, and in no acute distress. HEAD: Normocephalic, atraumatic. EYES: PERRLA and EOMI. ENT: Nares clear, no rhinorrhea or epistaxis. Mucous membranes moist. Oropharynx without tonsillar hypertrophy exudate or other lesions. Bilateral TMs pearly childress non-bulging NECK: Supple. No adenopathy or masses. CHEST: Clear to auscultation. No respiratory distress. No wheezes rales or rhonchi HEART: Regular rate and rhythm. No murmur heard. Normal peripheral pulses. ABD
[2020-08-13 18:56] LABS: Troponin I < 0.012 ng/mL (0.000-0.034)
[2020-08-13] MEDS: diphenhydrAMINE HCl INJ 50 MG/ML VIAL 25 MG IV PUSH (20:16)
[2020-08-13] MEDS: IBUPROFEN IV 400 MG in SODIUM CHLORIDE 0.9% IV 100 ML 200 MG IVPB (20:16)
[2020-08-13] MEDS: METOCLOPRAMIDE HCL INJ 10 MG/2 ML VIAL IV PUSH (20:17)
[2020-08-13] MEDS: SODIUM CHLORIDE 0.9% IV 500 ML 999 ML IV CONT (21:12)
[2020-08-13 21:21] LABS: Reflex Lactic Acid Yes or No Add Lactic
--- NOTE | 2020-08-13 21:42 | PM.IMHP ---
H&P: HPI History of Present Illness Date/Time: 08/13/20 21:42 Chief complaint: headache Narrative: This is a pleasant 50-year-old diabetic female with known left side upper and lower extremity paralysis following stroke and well known to me from a recent hospitalization earlier this month who returned to the hospital today with a complaint of a headache. The patient has complained of intermittent global headaches for the past 3 days. The patient denies any new focal neurological deficits, visual changes, chest pain, shortness of breath, nausea, vomiting, numbness, tingling, or new weakness. The patient was diagnosed with a complicated UTI during her most recent hospitalization and this was thought to be due to urinary retention. The patient was evaluated by Urology during her most recent hospitalization and was discharged with a urinary catheter in place. She reports to me that the urinary catheter was recently removed few days ago. Tonight she denies any dysuria, hematuria, or other urinary symptoms. She denies any urinary retention. The patient was evaluated emergency room this evening and found to be septic with a fever, tachycardia, leukocytosis and a grossly abnormal urinalysis. She again was found to be in acute renal failure. Her most recent urine culture from earlier this month grew out E coli which was pansensitive. Patient has been started on ceftriaxone IV and we have been asked to admit the patient to the hospital for further care. She has no other complaints at this time. The patient was treated for her acute headache in the ER and has been given a 30cc /kg NS IV bolus. Review of Systems Review of Systems: All systems reviewed & are unremarkable except as noted in HPI and below PMFSH Past Medical History Medical History (Updated 08/13/20 @ 21:59 by Armaan Bryant MD) Anxiety Arthritis Cataracts, bilateral Cerebrovascular disease Diabetic retinopathy Glaucoma HLD (hyperlipidemia) HTN (hypertension) Hypertension, essential IDDM (insulin dependent diabetes mellitus) Peripheral polyneuropathy Schizophrenia Schizophrenia, undifferentiated Type 2 diabetes mellitus with hyperglycemia Surgical History Surgical History H/O removal of cyst Family History Family History Grandparent Diabetes mellitus Father Family history of cardiovascular disease Other Cerebrovascular accident Social History Social History Social History: Single. Resides in subsidized apartment in [place], [place] ([facility]). Smoking packs per day: 0.5 Smoking cigarettes per day: 10.0 Years smoked: 5 Smoking pack-years: 2.50 Smoking status: Never smoker Alcohol intake: former Substance use: never Additional occupation/education comments: disabled due to mental illness Gender identity (if verbalized by the patient): Female Spiritual care concerns: No Agree to blood products: Yes Meds Home Medications and Allergies Home Medications Medication Instructions Recorded Confirmed Type benztropine 0.5 mg PO DAILY 10/04/19 07/30/20 History dorzolamide [Trusopt] 1 drp OPHTHALMIC (EYE) BID 10/04/19 07/30/20 History haloperidol 5 mg PO DAILY 10/04/19 07/30/20 History latanoprost [Xalatan] 1 drp OPHTHALMIC (EYE) BID 10/04/19 07/30/20 History Lantus U-100 Insulin 30 units SUBCUT HS #30 ml 10/08/19 07/30/20 Rx aspirin [Aspir-81] 81 mg PO QAM 10/08/19 07/30/20 History clopidogrel 75 mg PO QAM #30 tablet 10/08/19 07/30/20 Rx docusate sodium 100 mg PO Q12HR #0 cap 10/20/19 07/30/20 Rx Januvia 100 mg PO DAILY 07/30/20 07/30/20 History Vitamin C 1 tablet BYMOUTH DAILY 07/30/20 07/30/20 History ergocalciferol (vitamin D2) 1,250 mcg PO WEEKLY 07/30/20 07/30/20 History gabapentin 300 mg PO TID 07/30/20 07/30/20 History glimepiride 1 mg PO SRI
[2020-08-13 21:52] LABS: Lactic Acid 1.9 mmol/L (0.7-2.1)
[2020-08-13 22:42] LABS: Anion Gap 6 mmol/L (8-16); Blood Urea Nitrogen 25 mg/dL (7-17); Calcium 8.1 mg/dL (8.4-10.2); Carbon Dioxide 21 mmol/L (22-30); Chloride 106 mmol/L (98-107); Estimated Glomerular Filt Rate 58; Glucose 160 mg/dL (65-105); Potassium 4.7 mmol/L (3.4-5.0); Sodium 133 mmol/L (137-145)
--- NOTE | 2020-08-13 22:50 | ADMGEN ---
This patient, Jasmin Lopez, was admitted to Medical Room 244-01 at 2235. Patient/family oriented to hospital policies and general routines including ID bracelet, bed and alarms, visiting hours, pain management, procedures, bathroom and other care routines, personal items, smoking policy, room service/diet, and visiting hours. Valuables list has been completed. Information on how to activate the Rapid Response Team has been discussed. Patient/Family are encouraged to report perceived risks to care and to ask questions if they do not understand what they are told or what they should do.
[2020-08-14] MEDS: ACETAMINOPHEN 325 MG TABLET 650 MG PO ×2 (04:29→11:31)
[2020-08-14 06:00] VITALS: BP 147/66; PULSE 96; RESP 18; TEMP 36.3; O2SAT 99
[2020-08-14 06:01] LABS: Basophils Absolute Auto 0.1 K/mm3 (0.0-0.1); Basophils Percent Auto 0.4 % (0.2-1.2); Eosinophils Absolute Auto 0.1 K/mm3 (0-0.3); Eosinophils Percent Auto 0.7 % (0-4.4); Hematocrit 28.2 % (37.0-47.0); Hemoglobin 8.9 g/dL (12.0-15.0); Immature Granulocyte Absolute 0.05 K/mm3 (0.00-0.031); Immature Granulocyte Percent A 0.4 % (0-0.5); Lymphocytes Absolute Auto 1.59 K/mm3 (0.9-3.2); Lymphocytes Percent Auto 11.4 % (18.3-44.2); Mean Corpuscular HGB Conc 31.6 g/dl (32-36); Mean Corpuscular Hemoglobin 29.6 pg (26-34); Mean Corpuscular Volume 93.7 fl (80-100); Mean Platelet Volume 9.7 fl (7.4-10.4); Monocytes Absolute Auto 1.1 K/mm3 (0.1-0.6); Monocytes Percent Auto 7.9 % (2.6-8.5); Neutrophils Absolute Auto 11.1 K/mm3 (1.3-6.7); Neutrophils Percent Auto 79.2 % (45.5-73.1); Platelet Count Result 395 k/mm3 (150-375); Red Blood Count 3.01 M/mm3 (4.2-5.4); Red Cell Distribution Width 13.2 % (11.5-14.5)
[2020-08-14 06:14] LABS: Anion Gap 6 mmol/L (8-16); Blood Urea Nitrogen 24 mg/dL (7-17); Calcium 8.6 mg/dL (8.4-10.2); Carbon Dioxide 25 mmol/L (22-30); Chloride 108 mmol/L (98-107); Estimated CRCL calculation 60 ml/min; Estimated Glomerular Filt Rate 58; Glucose 153 mg/dL (65-105); Sodium 139 mmol/L (137-145)
[2020-08-14 08:05] LABS: Glucose Point of Care 150 (65-105)
[2020-08-14] MEDS: HALOPERIDOL 5 MG TABLET PO (09:46)
[2020-08-14] MEDS: CLOPIDOGREL BISULFATE 75 MG TABLET PO (09:46)
[2020-08-14] MEDS: BENZTROPINE MESYLATE 0.5 MG TABLET PO (09:46)
[2020-08-14] MEDS: ASCORBIC ACID 500 MG TABLET PO (09:46)
[2020-08-14] MEDS: SERTRALINE HCL 50 MG TABLET PO (09:46)
[2020-08-14] MEDS: LATANOPROST 0.005% OP SOLN 2.5 ML BTL 1 DROP EACH EYE ×2 (09:46→17:18)
[2020-08-14] MEDS: FERROUS SULFATE 324 MG TABLET PO ×3 (09:46→17:18)
[2020-08-14] MEDS: methocarbamoL 750 MG TABLET PO (09:46)
[2020-08-14] MEDS: DORZOLAMIDE HCL 2% OPHTH DROPS 1 DROP EACH EYE ×2 (09:47→17:18)
--- NOTE | 2020-08-14 10:12 | PM.IMPN ---
Progress Note: A&P Assessment and Plan (1) Complicated UTI (urinary tract infection): Code(s): N39.0 - Urinary tract infection, site not specified Status: Acute Assessment and Plan: Likely related to the patient recently having a urinary catheter that was just removed a few days ago. E. coli on her last culture from 07/30/20 was resistant to ampicillin and cefazolin but otherwise pansensitive. Continue IV ceftriaxone. Continue antiemetics and antipyretics as needed. Await urine and blood cultures which are pending. (2) Acute renal failure: Qualifiers: Acute renal failure type: unspecified Qualified Code(s): N17.9 - Acute kidney failure, unspecified Code(s): N17.9 - Acute kidney failure, unspecified Status: Acute Assessment and Plan: Likely secondary to dehydration and UTI. Cr is 1.2 and BUN 24. She received 2.5L fluid bolus in the ED. She had evidence of urinary retention during her last stay. Will repeat BMP this afternoon and consider adding IV fluids back if it is not improving. (3) Urinary retention with incomplete bladder emptying: Code(s): R33.9 - Retention of urine, unspecified Status: Acute Assessment and Plan: Check bladder scan due to prior hx of urinary retention. Bailey was removed 3 days ago. (4) Severe sepsis: Code(s): A41.9 - Sepsis, unspecified organism; R65.20 - Severe sepsis without septic shock Status: Acute Assessment and Plan: Supported by fever, tachycardia, leukocytosis, and elevated lactic acid level. Source of sepsis appears to be urinary. Continue IV ceftriaxone. She received 2.5L fluid bolus in the emergency department. Lactic acid has normalized. She is hemodynamically stable. Blood and urine cultures were obtained and are pending. Await final cultures. (5) Hyperkalemia: Code(s): E87.5 - Hyperkalemia Status: Resolved Assessment and Plan: Mild hyperkalemia was likely secondary to GEGE. Potassium has normalized to 5.0 today. Continue to monitor. (6) Schizophrenia, undifferentiated: Code(s): F20.3 - Undifferentiated schizophrenia Status: Chronic Assessment and Plan: Mood is stable. Continue home regimen. (7) Anemia: Qualifiers: Anemia type: unspecified type Qualified Code(s): D64.9 - Anemia, unspecified Code(s): D64.9 - Anemia, unspecified Status: Chronic Assessment and Plan: Likely multifactorial. She was seen by hematology during her last hospitalization. H&H have improved. Vitamin B12 and iron were deficient and she is supposed to be taking ferrous sulfate 325mg PO TID and cyanocobalamin 1000mcg daily which will be resumed. She has no evidence of acute blood loss. Continue to monitor hemoglobin and hematocrit and transfuse PRN to maintain Hb >7. (8) IDDM (insulin dependent diabetes mellitus): Code(s): E11.9 - Type 2 diabetes mellitus without complications; Z79.4 - shelter (current) use of insulin Status: Chronic Assessment and Plan: Hemoglobin A1c 11.3% 09/2019. Will recheck. Blood sugars are adequately controlled. Hold januvia and glimepiride. Continue basal lantus at bedtime. Hold scheduled insulin with meals since blood sugars are at target. Continue ACHS glucose monitoring, sliding scale insulin, and hypoglycemia protocol. (9) Glaucoma: Qualifiers: Glaucoma type: unspecified Laterality: unspecified laterality Qualified Code(s): H40.9 - Unspecified glaucoma Code(s): H40.9 - Unspecified glaucoma Status: Chronic Assessment and Plan: Continue latanoprost and dorzolamide eye drops. Subjective Date/time seen: 08/14/20 10:12 Mrs. Lopez is a 50 y.o. female with PMH significant for right hemispheric stroke with left hemiparesis who is seen in follow-up for a urinary tract infection and GEGE. She is feeling well today. She reports a fronta
[2020-08-14 11:50] LABS: Glucose Point of Care 187 (65-105)
[2020-08-14 13:20] LABS: Anion Gap 5 mmol/L (8-16); Blood Urea Nitrogen 21 mg/dL (7-17); Calcium 8.7 mg/dL (8.4-10.2); Carbon Dioxide 26 mmol/L (22-30); Chloride 105 mmol/L (98-107); Estimated CRCL calculation 65 ml/min; Estimated Glomerular Filt Rate > 60; Glucose 187 mg/dL (65-105); Potassium 5.2 mmol/L (3.4-5.0); Sodium 136 mmol/L (137-145)
[2020-08-14 14:00] VITALS: BP 140/69; PULSE 107; RESP 16; TEMP 37.1; O2SAT 99
[2020-08-14 17:00] LABS: Glucose Point of Care 197 (65-105)
[2020-08-14] MEDS: GABAPENTIN 300 MG CAPSULE PO (17:18)
[2020-08-14] MEDS: DOCUSATE SODIUM 100 MG CAPSULE PO (21:12)
[2020-08-14] MEDS: INSULIN GLARGINE (*BKC) 100 UNITS/ML 30 UNITS SUB-Q (21:15)
[2020-08-14 21:52] VITALS: BP 115/68; PULSE 88; RESP 16; TEMP 37.2; O2SAT 97
[2020-08-14 21:52] LABS: Glucose Point of Care 195 (65-105)
[2020-08-15 05:42] VITALS: BP 112/61; PULSE 108; RESP 18; TEMP 37.1; O2SAT 100
[2020-08-15 06:06] LABS: Basophils Absolute Auto 0.1 K/mm3 (0.0-0.1); Basophils Percent Auto 0.6 % (0.2-1.2); Eosinophils Absolute Auto 0.1 K/mm3 (0-0.3); Eosinophils Percent Auto 0.7 % (0-4.4); Hematocrit 26.7 % (37.0-47.0); Hemoglobin 8.4 g/dL (12.0-15.0); Immature Granulocyte Absolute 0.07 K/mm3 (0.00-0.031); Immature Granulocyte Percent A 0.6 % (0-0.5); Lymphocytes Percent Auto 15.1 % (18.3-44.2); Mean Corpuscular HGB Conc 31.5 g/dl (32-36); Mean Corpuscular Hemoglobin 29.8 pg (26-34); Mean Corpuscular Volume 94.7 fl (80-100); Mean Platelet Volume 10.4 fl (7.4-10.4); Monocytes Absolute Auto 1.1 K/mm3 (0.1-0.6); Neutrophils Absolute Auto 9.3 K/mm3 (1.3-6.7); Platelet Count Result 391 k/mm3 (150-375); Red Blood Count 2.82 M/mm3 (4.2-5.4); Red Cell Distribution Width 13.3 % (11.5-14.5); White Blood Count 12.6 K/mm3 (4.5-10.0)
[2020-08-15 06:26] LABS: Anion Gap 7 mmol/L (8-16); Blood Urea Nitrogen 19 mg/dL (7-17); Calcium 8.9 mg/dL (8.4-10.2); Carbon Dioxide 26 mmol/L (22-30); Chloride 102 mmol/L (98-107); Estimated CRCL calculation 60 ml/min; Estimated Glomerular Filt Rate 58; Glucose 169 mg/dL (65-105); Potassium 4.9 mmol/L (3.4-5.0); Sodium 135 mmol/L (137-145)
[2020-08-15 07:49] LABS: Glucose Point of Care 165 (65-105)
[2020-08-15] MEDS: methocarbamoL 750 MG TABLET PO (10:24)
[2020-08-15] MEDS: SERTRALINE HCL 50 MG TABLET PO (10:24)
[2020-08-15] MEDS: FERROUS SULFATE 324 MG TABLET PO ×3 (10:24→17:07)
[2020-08-15] MEDS: CLOPIDOGREL BISULFATE 75 MG TABLET PO (10:24)
[2020-08-15] MEDS: HALOPERIDOL 5 MG TABLET PO (10:24)
[2020-08-15] MEDS: GABAPENTIN 300 MG CAPSULE PO ×3 (10:24→17:07)
[2020-08-15] MEDS: BENZTROPINE MESYLATE 0.5 MG TABLET PO (10:24)
[2020-08-15] MEDS: ASCORBIC ACID 500 MG TABLET PO (10:24)
[2020-08-15] MEDS: DORZOLAMIDE HCL 2% OPHTH DROPS 1 DROP EACH EYE ×2 (10:24→17:07)
[2020-08-15] MEDS: DOCUSATE SODIUM 100 MG CAPSULE PO ×2 (10:24→21:08)
[2020-08-15] MEDS: LATANOPROST 0.005% OP SOLN 2.5 ML BTL 1 DROP EACH EYE ×2 (10:25→17:07)
[2020-08-15] MEDS: SODIUM CHLORIDE 0.9% IV 1,000 ML 65 ML IV CONT (10:30)
[2020-08-15 11:23] LABS: Glucose Point of Care 159 (65-105)
[2020-08-15] MEDS: CYANOCOBALAMIN 1,000 MCG TABLET 1000 MCG PO (12:40)
--- NOTE | 2020-08-15 13:50 | PM.IMPN ---
Progress Note: A&P Assessment and Plan (1) Complicated UTI (urinary tract infection): Code(s): N39.0 - Urinary tract infection, site not specified Status: Acute Assessment and Plan: Likely related to the patient recently having a urinary catheter that was just removed a few days ago. E. coli on her last culture from 07/30/20 was resistant to ampicillin and cefazolin but otherwise pansensitive. Continue IV ceftriaxone. Preliminary urine culture demonstrates E. coli and klebsiella pneumoniae. Sensitivities are pending. Blood cultures reveal NGTD. Continue antiemetics and antipyretics as needed. (2) Acute renal failure: Qualifiers: Acute renal failure type: unspecified Qualified Code(s): N17.9 - Acute kidney failure, unspecified Code(s): N17.9 - Acute kidney failure, unspecified Status: Acute Assessment and Plan: Likely secondary to dehydration and UTI. She received 2.5L fluid bolus in the ED. She had evidence of urinary retention during her last stay and repeat bladder scan 08/14 demonstrated retention and bland was placed. Cr is 1.2 and BUN 19 today. Will add gentle IV fluids and continue to monitor. Check BMP daily. Avoid nephrotoxins and renally dose medications. (3) Urinary retention with incomplete bladder emptying: Code(s): R33.9 - Retention of urine, unspecified Status: Acute Assessment and Plan: Bland was reportedly removed at the facility 3 days prior to admission. She had evidence of urinary retention during her last stay 07/30-08/01. Etiology may be secondary to acute infection but it is also possible that she has neurogenic bladder due to hx of CVA. She was seen by urology during her previous hospitalization and Dr. Owens recommended bland at discharge with follow-up outpatient in 1-2 weeks. Bladder scan yesterday demonstrated 950cc residual and bland was placed. I have reached out to urology for further recommendations. (4) Abnormal ultrasound of bladder: Code(s): R93.41 - Abnormal radiologic findings on diagnostic imaging of renal pelvis, ureter, or bladder Status: Acute Assessment and Plan: Renal US 07/31 demonstrated material at the right posterior bladder wall which may be hematoma or urothelial carcinoma. She was seen by urology during her last hospital stay and outpatient follow-up was recommended. She will need a cystoscopy for further evaluation. I discussed this with the patient and her mother today and they verbalized understanding. I have also reached out to urology. (5) Severe sepsis: Code(s): A41.9 - Sepsis, unspecified organism; R65.20 - Severe sepsis without septic shock Status: Acute Assessment and Plan: Supported by fever, tachycardia, leukocytosis, and elevated lactic acid level. Source of sepsis appears to be urinary. Continue IV ceftriaxone. She received 2.5L fluid bolus in the emergency department. Lactic acid has normalized. She is hemodynamically stable. Blood cultures were obtained and are pending. Urine cultures demonstrate E. coli and klebsiella pneumoniae. Await final cultures. (6) Hyperkalemia: Code(s): E87.5 - Hyperkalemia Status: Resolved Assessment and Plan: Mild hyperkalemia is likely secondary to GEGE. Potassium has normalized to 4.9. Continue to monitor. (7) Schizophrenia, undifferentiated: Code(s): F20.3 - Undifferentiated schizophrenia Status: Chronic Assessment and Plan: Mood is stable. Continue home regimen. (8) Anemia: Qualifiers: Anemia type: unspecified type Qualified Code(s): D64.9 - Anemia, unspecified Code(s): D64.9 - Anemia, unspecified Status: Chronic Assessment and Plan: Likely multifactorial. She was seen by hematology during her last hospitalization. H&H have improved. Vitamin B12 and iron were deficient and she is supposed to be taking ferrous sulfate 325mg PO TID and c
[2020-08-15 14:00] VITALS: BP 151/73; PULSE 94; RESP 20; TEMP 36.4; O2SAT 100
[2020-08-15 16:25] LABS: Glucose Point of Care 153 (65-105)
[2020-08-15] MEDS: ENOXAPARIN 30 MG/0.3 ML SYRINGE SUB-Q (21:08)
[2020-08-15] MEDS: INSULIN GLARGINE (*BKC) 100 UNITS/ML 30 UNITS SUB-Q (21:08)
[2020-08-15 21:14] LABS: Glucose Point of Care 163 (65-105)
[2020-08-15 22:00] VITALS: BP 123/52; PULSE 98; RESP 16; TEMP 37.1; O2SAT 97
[2020-08-16] VITALS (8 sets, daily range): BP systolic 93–169; BP diastolic 58–74; PULSE 77–91; RESP 11–18; TEMP 35.9–36.9; O2SAT 95–100
[2020-08-16] MEDS: SODIUM CHLORIDE 0.9% IV 1,000 ML 65 ML IV CONT (01:51)
[2020-08-16 06:15] LABS: Basophils Percent Auto 0.4 % (0.2-1.2); Eosinophils Absolute Auto 0.1 K/mm3 (0-0.3); Hematocrit 24.5 % (37.0-47.0); Hemoglobin 7.8 g/dL (12.0-15.0); Immature Granulocyte Absolute 0.01 K/mm3 (0.00-0.031); Immature Granulocyte Percent A 0.1 % (0-0.5); Lymphocytes Absolute Auto 1.85 K/mm3 (0.9-3.2); Mean Corpuscular HGB Conc 31.8 g/dl (32-36); Mean Corpuscular Hemoglobin 29.9 pg (26-34); Mean Corpuscular Volume 93.9 fl (80-100); Mean Platelet Volume 10.3 fl (7.4-10.4); Monocytes Absolute Auto 0.8 K/mm3 (0.1-0.6); Monocytes Percent Auto 11.3 % (2.6-8.5); Neutrophils Percent Auto 59.2 % (45.5-73.1); Platelet Count Result 355 k/mm3 (150-375); Red Blood Count 2.61 M/mm3 (4.2-5.4); Red Cell Distribution Width 13.1 % (11.5-14.5); White Blood Count 6.8 K/mm3 (4.5-10.0)
[2020-08-16 06:33] LABS: Alanine Aminotransferase 13 U/L (4-35); Albumin Level 2.9 g/dL (3.5-5.1); Alkaline Phosphatase 142 U/L (38-126); Anion Gap 5 mmol/L (8-16); Aspartate Amino Transferase 16 U/L (14-36); Bilirubin,Total 0.2 mg/dL (0.2-1.3); Blood Urea Nitrogen 21 mg/dL (7-17); Calcium 9.2 mg/dL (8.4-10.2); Carbon Dioxide 26 mmol/L (22-30); Chloride 107 mmol/L (98-107); Estimated CRCL calculation 56 ml/min; Estimated Glomerular Filt Rate 53; Glucose 121 mg/dL (65-105); Magnesium 2.8 mg/dL (1.6-2.3); Potassium 4.6 mmol/L (3.4-5.0); Sodium 138 mmol/L (137-145)
[2020-08-16 06:40] LABS: Hemoglobin A1C 6.5 % (<5.7)
--- NOTE | 2020-08-16 07:53 | PC.NURSE ---
Consent obtained for diagnostic cystoscopy - from mother Julia Lopez. Patient sent to OR via stretcher with OR staff. SBAR completed and faxed to preop area.
[2020-08-16] MEDS: LACTATED RINGERS 1,000 ML 30 ML IV CONT (08:16)
[2020-08-16 08:23] LABS: Glucose Point of Care 108 (65-105)
--- NOTE | 2020-08-16 08:30 | WPDURCON ---
Assessment and Plan Assessment and plan (1) Urinary tract infection: Qualifiers: Hematuria presence: without hematuria Urinary tract infection type: acute cystitis Qualified Code(s): N30.00 - Acute cystitis without hematuria Code(s): N39.0 - Urinary tract infection, site not specified Status: Acute Assessment and Plan: Will plan to do a diagnostic cystoscopy today in the OR. Obtain Consent. Keep NPO. (2) Abnormal ultrasound of bladder: Code(s): R93.41 - Abnormal radiologic findings on diagnostic imaging of renal pelvis, ureter, or bladder Status: Acute Assessment and Plan: BETTY notes material on the bladder wall which will be evaluated further today during her cystoscopy. Bilateral hydronephrosis secondary to retention. Patient will need an indwelling bland that should be changed monthly at the [place], she would also likely benefit from an SP tube correction. Her retention is likely secondary to her stroke and also the cause of her chronic UTI's. (3) Hydronephrosis: Code(s): N13.30 - Unspecified hydronephrosis Status: Acute Urology Consult Note HPI Date Seen: 08/16/20 Requesting Physician: Florecita Cisse PA-C Primary Care Provider: Armaan Clarke DO Consult Narrative Narrative: Jasmin Lopez is a 50 year old female who presents to the hospital with intermittent headaches and vomiting on 08/13/2020. She was seen by Dr. Owens two weeks ago while hospitalized for a UTI. Her culture on 08/01/2020 grew E-Coli, she was treated for the UTI. Her BETTY at that time noted material along the bladder wall, but not specific to a mass or hematoma. It also noted 1L of urine in her bladder and bilateral hydronephrosis indicating an atonic bladder. She is s/p a stroke and lives in a retirement. She is non verbal but does answer yes and no to questions. She is a poor historian and has no family at the bedside. All information was obtained from the chart. Her WBC is 6.8 and creatinine is 1.30, urine culture is growing E-Coli and Klebsiella. She is not currently catheterized. Review of Systems Review of Systems: ROS unobtainable: Yes unobtainable due to mental status PMFSH Past Medical History Medical History Anxiety Arthritis Cataracts, bilateral Cerebrovascular disease Diabetic retinopathy Glaucoma HLD (hyperlipidemia) HTN (hypertension) Hypertension, essential IDDM (insulin dependent diabetes mellitus) Peripheral polyneuropathy Schizophrenia Schizophrenia, undifferentiated Type 2 diabetes mellitus with hyperglycemia Surgical History Surgical History H/O removal of cyst Family History Family History Grandparent Diabetes mellitus Father Family history of cardiovascular disease Other Cerebrovascular accident Social History Social History Social History: Single. Resides in subsidized apartment in [place], [place] (the [facility]). Smoking packs per day: 0.5 Smoking cigarettes per day: 10.0 Years smoked: 5 Smoking pack-years: 2.50 Smoking status: Never smoker Alcohol intake: former Substance use: former Substance use type: does not use Additional occupation/education comments: disabled due to mental illness Gender identity (if verbalized by the patient): Female Spiritual care concerns: No Agree to blood products: Yes Meds Home Medications and Allergies Home Medications Medication Instructions Recorded Confirmed Type benztropine 0.5 mg PO DAILY 10/04/19 08/13/20 History dorzolamide [Trusopt] 1 drp OPHTHALMIC (EYE) BID 10/04/19 08/13/20 History haloperidol 5 mg PO DAILY 10/04/19 08/13/20 History latanoprost [Xalatan] 1 drp OPHTHALMIC (EYE) BID 10/04/19 08/13/20 History Lantus U-100 Insulin 30 unit
--- NOTE | 2020-08-16 08:35 | WPDANESEPPF ---
Anes - Initial Pre Proc Eval Procedure: Operation Date: 08/16/20 09:30 Proposed Procedures p Diagnostic Cystoscopy - Jamar Estrella MD Date/Time: 08/16/20 08:35 Surgeon: Florecita Cisse PA-C Pre Op Diagnosis: Sepsis, UTI, GEGE Patient Data Age: 50 Gender: F Height: 5 ft 9 in Weight: 86.9 kg Last Vital Signs Temp 36.5 C 08/16/20 08:10 Pulse 91 08/16/20 08:10 Resp 18 08/16/20 08:10 BP 169/74 H 08/16/20 08:10 Pulse Ox 97 08/16/20 08:10 Allergies Allergy/AdvReac Type Severity Reaction Status Date / Time amoxicillin Allergy Mild Rash Verified 08/16/20 08:09 Penicillins Allergy Mild Unknown Verified 08/15/20 14:06 Home Medications Medication Instructions Recorded Confirmed Type benztropine 0.5 mg PO DAILY 10/04/19 08/13/20 History dorzolamide [Trusopt] 1 drp OPHTHALMIC (EYE) BID 10/04/19 08/13/20 History haloperidol 5 mg PO DAILY 10/04/19 08/13/20 History latanoprost [Xalatan] 1 drp OPHTHALMIC (EYE) BID 10/04/19 08/13/20 History Lantus U-100 Insulin 30 units SUBCUT HS #30 ml 10/08/19 08/13/20 Rx aspirin [Aspir-81] 81 mg PO QAM 10/08/19 08/13/20 History clopidogrel 75 mg PO QAM #30 tablet 10/08/19 08/13/20 Rx docusate sodium 100 mg PO Q12HR #0 cap 10/20/19 08/13/20 Rx Januvia 100 mg PO DAILY 07/30/20 08/13/20 History ascorbate calcium (vitamin C) 500 mg PO DAILY #0 07/30/20 08/13/20 History ergocalciferol (vitamin D2) 1,250 mcg PO WEEKLY 07/30/20 08/13/20 History gabapentin 300 mg PO TID 07/30/20 08/13/20 History glimepiride 1 mg PO DAILY 07/30/20 08/13/20 History insulin aspart U-100 [Novolog 12 units SUBCUT TIDWM 07/30/20 08/13/20 History U-100 Insulin aspart] methocarbamol 750 mg PO DAILY 07/30/20 08/13/20 History sertraline 50 mg PO DAILY 07/30/20 08/13/20 History cefdinir 300 mg PO Q12H 5 Days #10 cap 08/01/20 08/13/20 Rx ferrous sulfate [Iron (ferrous 325 mg PO BID 08/13/20 08/13/20 History sulfate)] Laboratory Tests 08/15/20 08/15/20 08/15/20 11:19 16:22 21:07 WBC RBC Hgb Hct MCV MCH MCHC RDW Plt Count MPV Immature Gran % (Auto) Neut % (Auto) Lymph % (Auto) [place] % (Auto) Eos % (Auto) Baso % (Auto) Lymph # (Auto) [place] # (Auto) Eos # (Auto) Baso # (Auto) Abs Immat Gran (auto) Absolute Neuts (auto) Absolute Nucleated RBC Nucleated RBC % Sodium Potassium Chloride Carbon Dioxide Anion Gap BUN Creatinine Estim Creat Clear Calc Estimated GFR Glucose POC Capillary Glucose 159 mg/dl H mg/dl 153 mg/dl H mg/dl 163 mg/dl H mg/dl (65-105) (65-105) (65-105) Hemoglobin A1c Calcium Magnesium Total Bilirubin AST ALT Alkaline Phosphatase Total Protein Albumin 08/16/20 08/16/20 08/16/20 05:40 05:40 05:40 WBC 6.8 K/mm3 K/mm3 (4.5-10.0) RBC 2.61 M/mm3 L M/mm3 (4.2-5.4) Hgb 7.8 g/dL L g/dL (12.0-15.0) Hct 24.5 % L % (37.0-47.0) MCV 93.9 fl fl (80-100) MCH 29.9 pg pg (26-34) MCHC 31.8 g/dl L g/dl (32-36) RDW 13.1 % % (11.5-14.5) Plt Count 355 k/mm3 k/mm3 (150-375) MPV 10.3 fl fl (7.4-10.4) Immature Gran % (Auto) 0.1 % % (0-0.5) Neut % (Auto) 59.2 % % (45.5-73.1) Lymph % (Auto) 27.0 % % (18.3-44.2) [place] % (Auto) 11.3 % H % (2.6-8.5) Eos % (Auto) 2.0 % % (0-4.4) Baso % (Auto) 0.4 % % (0.2-1.2) Lymph # (Auto) 1.85 K/mm3 K/mm3 (0.9-3.2) Sp[place]ding # (
--- NOTE | 2020-08-16 09:02 | WPDHPUPDATE1 ---
History and Physical Update Update Date/Time: 08/16/20 09:02 History and Physical has been reviewed, including an updated exam of the patient. There are NO changes in the patient's condition. Risks, benefits, and alternatives have been discussed and questions answered. Patient agrees to proceed with procedure. Plan for cystoscopy.
[2020-08-16] MEDS: LIDOCAINE HCL 2% GEL UROJET 10 ML PKG MUCOUS MEM (09:32)
--- NOTE | 2020-08-16 09:36 | P.OP_ITS ---
Procedure Note - Detailed Date of procedure: 08/16/20 Pre-op diagnosis: Sepsis, UTI, GEGE Post-op diagnosis: same Procedure performed: Cystoscopy Description of procedure: Patient is taken to the operative suite and correctly identified. Once anesthesia was obtained she was placed in dorsal lithotomy position and prepped and draped usual sterile fashion. Twenty-two Kiswahili scope was inserted in the bladder. She had 900 cc of residual urine which was extremely cloudy in nature. The bladder was irrigated out completely. Inspection of the bladder revealed no papillary growths. Both ureteral orifices normal anatomic position. Scope was removed. 2% viscous lidocaine was inserted urethra. Sixteen Kiswahili Bailey was placed and 10 cc were placed in balloon. She taken recovery room stable condition. This patient will require a chronic indwelling Bailey with monthly catheter exchanges. Anesthesia: GLMA Surgeon: Jamar Estrella MD Drains: Yes Packing: No Pathology: none sent Complications: No immediate complications Condition: stable Disposition: PACU
[2020-08-16 10:09] LABS: Glucose Point of Care 108 (65-105)
--- NOTE | 2020-08-16 10:19 | SUR.PHASEI ---
pt awakens easily. states she is hungry. meets discharge criteria.
[2020-08-16] MEDS: FERROUS SULFATE 324 MG TABLET PO ×3 (10:41→16:54)
[2020-08-16] MEDS: BENZTROPINE MESYLATE 0.5 MG TABLET PO (10:43)
[2020-08-16] MEDS: ASCORBIC ACID 500 MG TABLET PO (10:43)
--- NOTE | 2020-08-16 10:46 | PC.NURSE ---
Patient returned from surgery via stretcher with OR staff. Settled into room. No c/o pain. Bailey catheter in place and draining without difficulty.
--- NOTE | 2020-08-16 10:58 | PM.IMPN ---
Progress Note: A&P Assessment and Plan (1) Complicated UTI (urinary tract infection): Code(s): N39.0 - Urinary tract infection, site not specified Status: Acute Assessment and Plan: Likely related to the patient recently having a urinary catheter that was just removed a few days ago And now having urinary retention. E. coli on her last culture from 07/30/20 was resistant to ampicillin and cefazolin but otherwise pansensitive. urine culture is growing E coli and Klebsiella pneumonia, pending sensitivity report Continue IV ceftriaxone at this time. Blood cultures are negative to date. Patient went for a cystoscopy today by Dr. Estrella and he recommends chronic indwelling Bland catheter with changes every month. Continue antiemetics and antipyretics as needed. (2) Acute renal failure: Qualifiers: Acute renal failure type: unspecified Qualified Code(s): N17.9 - Acute kidney failure, unspecified Code(s): N17.9 - Acute kidney failure, unspecified Status: Acute Assessment and Plan: Likely secondary to dehydration and UTI. She received 2.5L fluid bolus in the ED. She had evidence of urinary retention during her last stay and repeat bladder scan 08/14 demonstrated retention of 950 cc and bland was placed. Cr is 1.3 and BUN 21 today. she was started on IV fluids last night and creatinine umberto slightly. Could be secondary to hydronephrosis from urinary retention. she otherwise appears euvolemic at this time Continue with Bland placement. Will continue gentle IV fluids and continue to monitor. Check BMP daily. Avoid nephrotoxins and renally dose medications. (3) Urinary retention with incomplete bladder emptying: Code(s): R33.9 - Retention of urine, unspecified Status: Acute Assessment and Plan: Bland was reportedly removed at the facility 3 days prior to admission. She had evidence of urinary retention during her last stay 07/30-08/01. Etiology may be secondary to acute infection but it is also possible that she has neurogenic bladder due to hx of CVA. She was seen by urology during her previous hospitalization and Dr. Owens recommended bland at discharge with follow-up outpatient in 1-2 weeks. Bladder scan on arrival showed demonstrated 950cc residual and bland was placed. urology to the patient for a cysto which showed no underlying pathology in otherwise recommend chronic indwelling Bland catheter with monthly catheter changes. Continue monitoring. Urology is input is greatly appreciated. Follow-up with them as an outpatient. (4) Abnormal ultrasound of bladder: Code(s): R93.41 - Abnormal radiologic findings on diagnostic imaging of renal pelvis, ureter, or bladder Status: Acute Assessment and Plan: Renal US 07/31 demonstrated material at the right posterior bladder wall which may be hematoma or urothelial carcinoma. She was seen by urology during her last hospital stay and outpatient follow-up was recommended. Urology to the patient for a cysto which showed no underlying pathology in otherwise recommend chronic indwelling Bland catheter with monthly catheter changes. (5) Severe sepsis: Code(s): A41.9 - Sepsis, unspecified organism; R65.20 - Severe sepsis without septic shock Status: Acute Assessment and Plan: Supported by fever, tachycardia, leukocytosis, and elevated lactic acid level. Source of sepsis appears to be urinary. Continue IV ceftriaxone. She received 2.5L fluid bolus in the emergency department. Lactic acid has normalized. She is hemodynamically stable. Blood cultures were obtained and are pending. Urine cultures demonstrate E. coli and klebsiella pneumoniae. Await final cultures. (6) Hyperkalemia: Code(s): E87.5 - Hyperkalemia Status: Resolved Assessment and Plan: Mild hyperkalemia is likely secondary to GEGE. Potassium has normalized to 4.6. Continue to monitor. (7)
[2020-08-16] MEDS: HALOPERIDOL 5 MG TABLET PO (11:14)
[2020-08-16] MEDS: DOCUSATE SODIUM 100 MG CAPSULE PO ×2 (11:14→20:56)
[2020-08-16] MEDS: CLOPIDOGREL BISULFATE 75 MG TABLET PO (11:14)
[2020-08-16] MEDS: GABAPENTIN 300 MG CAPSULE PO ×3 (11:14→16:54)
[2020-08-16] MEDS: LATANOPROST 0.005% OP SOLN 2.5 ML BTL 1 DROP EACH EYE ×2 (11:14→16:54)
[2020-08-16] MEDS: CYANOCOBALAMIN 1,000 MCG TABLET 1000 MCG PO (11:14)
[2020-08-16] MEDS: DORZOLAMIDE HCL 2% OPHTH DROPS 1 DROP EACH EYE ×2 (11:14→17:16)
[2020-08-16] MEDS: methocarbamoL 750 MG TABLET PO (11:15)
[2020-08-16] MEDS: SERTRALINE HCL 50 MG TABLET PO (11:15)
[2020-08-16 11:30] LABS: Glucose Point of Care 102 (65-105)
--- NOTE | 2020-08-16 11:30 | PC.NURSE ---
Called Florecita FONSECA about patient's scheduled insulin dose of Novolog 12 units SQ with blood glucose of 102. Orders received.
[2020-08-16] MEDS: INSULIN ASPART (*BKC) 100 UNITS/ML 8 UNITS SUB-Q (11:54)
[2020-08-16] MEDS: polyethylene glycoL 3350 17 GM POWD.PACK PO (13:48)
[2020-08-16 15:09] LABS: Hematocrit 25.3 % (37.0-47.0); Hemoglobin 7.9 g/dL (12.0-15.0)
[2020-08-16 16:20] LABS: Glucose Point of Care 89 (65-105)
--- NOTE | 2020-08-16 16:34 | PC.NURSE ---
Blood glucose 89. Called Florecita FONSECA to verify scheduled Novolog dose to be given. Orders received.
[2020-08-16] MEDS: INSULIN ASPART (*BKC) 100 UNITS/ML SUB-Q (16:53)
[2020-08-16] MEDS: SODIUM CHLORIDE 0.9% IV 1,000 ML 85 ML IV CONT (16:54)
[2020-08-16] MEDS: ENOXAPARIN 30 MG/0.3 ML SYRINGE SUB-Q (20:56)
[2020-08-16 21:59] LABS: Glucose Point of Care 105 (65-105)
[2020-08-16] MEDS: INSULIN GLARGINE (*BKC) 100 UNITS/ML 15 UNITS SUB-Q (21:59)
[2020-08-17] MEDS: SODIUM CHLORIDE 0.9% IV 1,000 ML 85 ML IV CONT (05:02)
[2020-08-17 05:52] VITALS: BP 169/76; PULSE 83; RESP 18; TEMP 36.1; O2SAT 99
[2020-08-17 06:34] LABS: Hematocrit 26.6 % (37.0-47.0); Hemoglobin 8.3 g/dL (12.0-15.0); Mean Corpuscular HGB Conc 31.2 g/dl (32-36); Mean Corpuscular Hemoglobin 29.7 pg (26-34); Mean Corpuscular Volume 95.3 fl (80-100); Mean Platelet Volume 9.8 fl (7.4-10.4); Platelet Count Result 382 k/mm3 (150-375); Red Blood Count 2.79 M/mm3 (4.2-5.4); Red Cell Distribution Width 12.9 % (11.5-14.5); White Blood Count 5.8 K/mm3 (4.5-10.0)
[2020-08-17 06:46] LABS: Anion Gap 7 mmol/L (8-16); Blood Urea Nitrogen 12 mg/dL (7-17); Calcium 9.3 mg/dL (8.4-10.2); Carbon Dioxide 29 mmol/L (22-30); Chloride 108 mmol/L (98-107); Estimated CRCL calculation 79 ml/min; Estimated Glomerular Filt Rate > 60; Glucose 84 mg/dL (65-105); Potassium 4.6 mmol/L (3.4-5.0); Sodium 144 mmol/L (137-145)
[2020-08-17 07:42] LABS: Glucose Point of Care 75 (65-105)
[2020-08-17] MEDS: FERROUS SULFATE 324 MG TABLET PO ×2 (09:24→12:45)
[2020-08-17] MEDS: HALOPERIDOL 5 MG TABLET PO (09:24)
[2020-08-17] MEDS: CYANOCOBALAMIN 1,000 MCG TABLET 1000 MCG PO (09:24)
[2020-08-17] MEDS: GABAPENTIN 300 MG CAPSULE PO ×2 (09:24→12:45)
[2020-08-17] MEDS: BENZTROPINE MESYLATE 0.5 MG TABLET PO (09:24)
[2020-08-17] MEDS: ERGOCALCIFEROL 50,000 UNIT CAPSULE 50000 UNITS PO (09:24)
[2020-08-17] MEDS: methocarbamoL 750 MG TABLET PO (09:24)
[2020-08-17] MEDS: DORZOLAMIDE HCL 2% OPHTH DROPS 1 DROP EACH EYE (09:24)
[2020-08-17] MEDS: LATANOPROST 0.005% OP SOLN 2.5 ML BTL 1 DROP EACH EYE (09:24)
[2020-08-17] MEDS: SERTRALINE HCL 50 MG TABLET PO (09:24)
[2020-08-17] MEDS: DOCUSATE SODIUM 100 MG CAPSULE PO (09:24)
[2020-08-17] MEDS: CLOPIDOGREL BISULFATE 75 MG TABLET PO (09:25)
[2020-08-17] MEDS: INSULIN ASPART (*BKC) 100 UNITS/ML 12 UNITS SUB-Q (09:25)
[2020-08-17] MEDS: ASCORBIC ACID 500 MG TABLET PO (09:25)
--- NOTE | 2020-08-17 10:53 | PM.DS ---
DS: Admitting Diagnosis Admitting Diagnosis Admitting Diagnosis: Sepsis, UTI, GEGE DS: Discharge Diagnosis Discharge Diagnosis (1) Complicated UTI (urinary tract infection): Code(s): N39.0 - Urinary tract infection, site not specified Status: Acute Assessment and Plan: Likely related to the patient recently having a urinary catheter that was just removed a few days ago And now having urinary retention. E. coli on her last culture from 07/30/20 was resistant to ampicillin and cefazolin but otherwise pansensitive. urine culture is growing E coli and Klebsiella pneumonia, With sensitivity report showing ESBL Klebsiella with sensitivities to cefepime, ertapenem, gentamicin, imipenem, Zosyn, tobramycin, and Bactrim. she was switched to IV cefepime last night Blood cultures are negative to date. Patient went for a cystoscopy today by Dr. Estrella and he recommends chronic indwelling Bland catheter with changes every month. At this time she is stable without any complaints. She will be discharged on Bactrim for 7 days Along with florastor probiotic (2) Acute renal failure: Qualifiers: Acute renal failure type: unspecified Qualified Code(s): N17.9 - Acute kidney failure, unspecified Code(s): N17.9 - Acute kidney failure, unspecified Status: Acute Assessment and Plan: Likely secondary to dehydration and UTI. She received 2.5L fluid bolus in the ED. She had evidence of urinary retention during her last stay and repeat bladder scan 08/14 demonstrated retention of 950 cc and bland was placed. Cr is 0.9 today, back to her baseline. she otherwise appears euvolemic at this time will check BMP in 1 week (3) Urinary retention with incomplete bladder emptying: Code(s): R33.9 - Retention of urine, unspecified Status: Acute Assessment and Plan: Bland was reportedly removed at the facility 3 days prior to admission. She had evidence of urinary retention during her last stay 07/30-08/01. Etiology may be secondary to acute infection but it is also possible that she has neurogenic bladder due to hx of CVA. She was seen by urology during her previous hospitalization and Dr. Owens recommended bland at discharge with follow-up outpatient in 1-2 weeks. Bladder scan on arrival showed demonstrated 950cc residual and bland was placed. urology to the patient for a cysto which showed no underlying pathology in otherwise recommend chronic indwelling Bland catheter with monthly catheter changes. she will follow-up with urology as an outpatient and continue changes once monthly (4) Abnormal ultrasound of bladder: Code(s): R93.41 - Abnormal radiologic findings on diagnostic imaging of renal pelvis, ureter, or bladder Status: Acute Assessment and Plan: Renal US 07/31 demonstrated material at the right posterior bladder wall which may be hematoma or urothelial carcinoma. She was seen by urology during her last hospital stay and outpatient follow-up was recommended. Urology to the patient for a cysto which showed no underlying pathology in otherwise recommend chronic indwelling Bland catheter with monthly catheter changes. (5) Severe sepsis: Code(s): A41.9 - Sepsis, unspecified organism; R65.20 - Severe sepsis without septic shock Status: Acute Assessment and Plan: Supported by fever, tachycardia, leukocytosis, and elevated lactic acid level. Source of sepsis appears to be urinary. Continue IV ceftriaxone. She received 2.5L fluid bolus in the emergency department. Lactic acid has normalized. She is hemodynamically stable. Blood cultures were obtained and negative at this time. Urine cultures show a resistant bacteria in antibiotics have been changed based on the sensitivity results. she is at her baseline at this time. (6) Hyperkalemia: Code(s): E87.5 - Hyperkalemia Status: Resolved Assessment and Plan: Mild
--- NOTE | 2020-08-17 12:04 | WPDUROPN2 ---
Progress Note: A&P Assessment and Plan (1) Abnormal ultrasound of bladder: Code(s): R93.41 - Abnormal radiologic findings on diagnostic imaging of renal pelvis, ureter, or bladder Status: Acute Assessment and Plan: Normal Cystoscopy yesterday with DR. Estrella. No masses or clots present in the bladder. (2) Urinary tract infection: Qualifiers: Hematuria presence: without hematuria Urinary tract infection type: acute cystitis Qualified Code(s): N30.00 - Acute cystitis without hematuria Code(s): N39.0 - Urinary tract infection, site not specified Status: Acute Assessment and Plan: Continue IV antibiotics. (3) Hydronephrosis: Code(s): N13.30 - Unspecified hydronephrosis Status: Acute Assessment and Plan: Will likely resolve since catheter has been placed. Will do a BETTY to ensure. THis is also the cause of her chronic UTI's, upper tracts are normal on imaging and cysto was negative for urologic concerns. (4) Urinary retention with incomplete bladder emptying: Code(s): R33.9 - Retention of urine, unspecified Status: Acute Assessment and Plan: Keep a catheter in indefinitely and change monthly at [place]. THis should decrease the amount of UTI's for the patient since she is now allowing her bladder to drain. No further evaluation needed. Subjective Subjective Date/Time Seen: 08/17/20 12:04 POD #1 Diagnostic Cystoscopy, normal. Review of Systems Review of Systems: ROS unobtainable: Yes unobtainable due to mental status Exam Resp: Effort & Inspection: normal respiratory effort Cardio: Rate: regular rate GI: GI Palp: Yes Soft to palpation and No Tenderness to palpation present (GI) Urinary Catheter: Urinary Catheter: patent and draining and urine clear Extrem: General: no edema Objective Data Vital Signs Vital Signs: Vital Signs - 24 hr 08/16/20 13:24 08/16/20 22:01 08/16/20 22:35 Temperature 96.7 F L 97.1 F L Pulse Rate 81 85 77 Respiratory Rate 18 18 Blood Pressure 93/67 L 149/74 H Pulse Oximetry 100 98 95 08/17/20 05:52 Temperature 97 F L Pulse Rate 83 Respiratory Rate 18 Blood Pressure 169/76 H Pulse Oximetry 99 Intake/Output Intake/Output: Intake & Output 09/2708/15/20 08/16/20 08/17/20 23:59 23:59 23:59 23:59 Intake Total 2180 1230 3680 1350 Output Total 3150 375 1100 3800 Balance -391 179 0062 -2450 Meds/Results Medications: Active Medications Generic Name Dose Route Start Last Admin Trade Name Freq PRN Reason Stop Dose Admin Acetaminophen 650 mg 08/13/20 22:00 08/14/20 11:31 Tylenol Tablet PO 650 mg Q4H PRN Administration Mild Pain (1-3) or Fever Ascorbic Acid 500 mg 08/14/20 09:00 08/17/20 09:25 Vitamin C PO 500 mg DAILY VITO Administration Benztropine Mesylate 0.5 mg 08/14/20 09:00 08/17/20 09:24 Benztropine Mesylate PO 0.5 mg DAILY VITO Administration Clopidogrel Bisulfate 75 mg 08/14/20 09:00 08/17/20 09:25 Plavix PO 75 mg QAM VITO Administration Cyanocobalamin 1,000 mcg 08/15/20 09:00 08/17/20 09:24 Vitamin B-12 Tab PO 1,000 mcg QAM VITO Administration Dextrose 12.5 gm 08/13/20 21:59 Dextrose 50% Syringe IV PUSH PRN PRN Hypoglycemia Protocol Docusate Sodium 100 mg 08/14/20 09:00 08/17/20 09:24 Colace Capsule PO 100 mg Q12HR VITO Administration Dorzolamide HCl 1 drop 08/14/20 09:00 08/17/20 09:24 Trusopt EACH EYE 1 drop BID VITO Administration Enoxaparin Sodium 30 mg 08/15/20 21:00 08/16/20 20:56 Lovenox SUB-Q 30 mg HS VITO Administration Ergocalciferol 50,000 unit 08/17/20 09:00 08/17/20 09:24 Drisdol PO 50,000 unit WEEKLY VITO Administration Fentanyl Citrate 25 mcg 08/16/20 08:36 Sublimaze IV PUSH Q2M PRN Pain Ferrous Sulfate 324 mg 08/14/20 12:00 08/17/20 09:24 Ferrous Sulfate PO 324 mg TIDWM VITO Administration Ga
[2020-08-17 12:07] LABS: Glucose Point of Care 60 (65-105)
--- NOTE | 2020-08-17 12:48 | WPDANESPN ---
Anes - Prog Note Post-Op Date/Time: 08/17/20 12:48 Cardiovascular status: normal Respiratory status: normal Airway patency: baseline Mental status: baseline Post-Op hydration status: normal Vital Signs: Last Vital Signs Temp 36.1 C L 08/17/20 05:52 Pulse 83 08/17/20 05:52 Resp 18 08/17/20 05:52 BP 169/76 H 08/17/20 05:52 Pulse Ox 99 08/17/20 05:52 Pain Score (VAS): 0/10. Patient resting in bedside chair at time of assessment, appears comfortable. No additional concerns or issues addressed by patient at time of assessment. I/O: Intake & Output 08/16/20 08/17/20 08/17/20 23:59 07:59 15:59 Intake Total 2290 1110 240 Output Total 1100 3800 Balance 1190 -2690 240 Laboratory Tests 08/17/20 05:52 08/17/20 05:52 08/16/20 08/16/20 08/16/20 14:23 16:14 20:55 WBC RBC Hgb 7.9 L Hct 25.3 L MCV MCH MCHC RDW Plt Count MPV Sodium Potassium Chloride Carbon Dioxide Anion Gap BUN Creatinine Estim Creat Clear Calc Estimated GFR Glucose POC Capillary Glucose 89 105 Calcium 08/17/20 08/17/20 08/17/20 05:52 05:52 07:36 WBC 5.8 RBC 2.79 L Hgb 8.3 L Hct 26.6 L MCV 95.3 MCH 29.7 MCHC 31.2 L RDW 12.9 Plt Count 382 H MPV 9.8 Sodium 144 Potassium 4.6 Chloride 108 H Carbon Dioxide 29 Anion Gap 7 L BUN 12 D Creatinine 0.90 Estim Creat Clear Calc 79 Estimated GFR > 60 Glucose 84 POC Capillary Glucose 75 Calcium 9.3 08/17/20 11:50 WBC RBC Hgb Hct MCV MCH MCHC RDW Plt Count MPV Sodium Potassium Chloride Carbon Dioxide Anion Gap BUN Creatinine Estim Creat Clear Calc Estimated GFR Glucose POC Capillary Glucose 60 L Calcium Microbiology 08/13/20 18:13 Urine Catheterized Urine Culture - Final Escherichia Coli Klebsiella pnemoniae (ESBL) Post-procedural complaints: none Patient Feedback: Patient satisfied with anesthetic care.
[2020-08-17 13:52] LABS: Glucose Point of Care 79 (65-105)
--- NOTE | 2020-08-23 15:25 | PC.NURSE ---
Blood cx showed no growth
== END 2020-08-17 13:28 | DRG 698 ==
LOC: ANHED 21:18 → ANH2MED 22:18
PROVIDERS: Emergency Medicine; Physician Assistant; Urology; Admitting Provider Family Medicine; Emergency Provider Emergency Medicine; PCP Internal Medicine; Visit Provider Physician Assistant
PROC: 0TJB8ZZ Inspection of Bladder, Via Natural or Artificial Opening Endoscopic (ICD-10-PCS; CPT 52352; principal; 2020-08-16 09:30)
DX: T83.511A Infection and inflammatory reaction due to indwelling urethral catheter, initial encounter (principal); A41.9 Sepsis, unspecified organism; R65.20 Severe sepsis without septic shock; N17.9 Acute kidney failure, unspecified; I69.354 Hemiplegia and hemiparesis following cerebral infarction affecting left non-dominant side; N13.30 Unspecified hydronephrosis; N39.0 Urinary tract infection, site not specified; B96.20 Unspecified Escherichia coli [E. coli] as the cause of diseases classified elsewhere; B96.1 Klebsiella pneumoniae [K. pneumoniae] as the cause of diseases classified elsewhere; E86.0 Dehydration; R33.9 Retention of urine, unspecified; E87.5 Hyperkalemia; F20.3 Undifferentiated schizophrenia; D64.9 Anemia, unspecified; E11.9 Type 2 diabetes mellitus without complications; H40.9 Unspecified glaucoma; E11.319 Type 2 diabetes mellitus with unspecified diabetic retinopathy without macular edema; E78.5 Hyperlipidemia, unspecified; E11.42 Type 2 diabetes mellitus with diabetic polyneuropathy; I10 Essential (primary) hypertension; M19.90 Unspecified osteoarthritis, unspecified site; Z79.4 Long term (current) use of insulin
CPT/HCPCS: 36415; 51701; 70450; 71045; 80048; 80053; 81001; 83036; 83605; 83690; 83735; 84484; 85014; 85018; 85025; 85027; 85610; 85730; 86140; 87040; 87077; 87086; 87088; 87186; 93005; 96361; 96365; 96367; 96375; 97110; 97161; 97166; 97535; 99285; A9270; C1769; J0131; J0692; J0696; J1200; J1650; J1741; J1815; J2250; J2704; J2765; J3010; J7030; J7040; J7120

== ENCOUNTER 2020-11-29 09:02 | Inpatient (IN) | payer MEDICARE, MEDICAID, SELFPAY ==
[2020-11-29] VITALS (61 sets, daily range): BP systolic 127–217; BP diastolic 68–108; PULSE 104–122; RESP 10–24; TEMP 36.8–36.9; O2SAT 94–100; BMI 25.5
--- NOTE | ~2020-11-29 | CT_ITS ---
EXAMINATION: CT brain wo con DATE: 11/29/2020 16:46 INDICATION: Multiple strokes presenting with nausea and vomiting of indeterminate etiology.. TECHNIQUE: Computed tomography (CT) of the head was performed without intravenous contrast. Sagittal and coronal reconstructions were performed. The mA was adjusted according to patient size. Iterative reconstruction technique was employed. The dose-length product was 605.33 mGy-cm. COMPARISON: head CT dated 08/13/20 FINDINGS: Portable change in regions of encephalomalacia consistent with chronic infarcts involving the right b stanislaw ganglia, corpus callosum and right frontal lobe zamorano radiata. No acute intracranial hemorrhage , acute infarction or abnormal extra axial fluid collection. Mild ex vacuo dilation of the anterior h orn of the right lateral ventricle. Ventricles are otherwise normal and symmetric. No mass/mass effec t. The orbits, paranasal sinuses and mastoid air cells are normal. Stable appearance of chronic galea l scarring at the vertex. Intracranial calcified cerebral atherosclerosis is noted. IMPRESSION: 1. No acute intracranial process. 2. Old infarcts involving the right basal ganglia, corpus callosum and right frontal lobe zamorano radi maximo. Reviewed, dictated and finalized at location A. T ETIOLOGIST IMPRESSION: 1. No acute intracranial process. 2. Old infarcts involving the right basal ganglia, corpus callosum and right fr ontal lobe zamorano radiata.
--- NOTE | ~2020-11-29 | XR_ITS ---
EXAMINATION: XR chest 1V DATE: 11/29/2020 10:24 INDICATION: Nausea and vomiting. TECHNIQUE: A single frontal view of the chest was obtained. COMPARISON: Chest single view 08/13/2020 FINDINGS: Calcified pulmonary nodules and calcified hilar lymph nodes are consistent with old granulo matous disease. No pleural effusion or pneumothorax. The heart size is normal. IMPRESSION: 1. No acute cardiopulmonary disease. Reviewed, dictated and finalized at location A. E OILER
--- NOTE | ~2020-11-29 | CT_ITS ---
EXAMINATION: CT abdomen pelvis w con EXAM DATE: 11/29/2020 10:18 INDICATION: Nausea vomiting constipation. TECHNIQUE: Spiral CT of the abdomen and pelvis was performed following intravenous injection of 100 m L Omnipaque 350. Axial, coronal and sagittal images were reviewed. The dose-length product (DLP) fo r this examination was 1162.42 mGy-cm. The exposure was tailored according to patient size (auto mA exposure control), and iterative reconstruction (ASIR) was used as additional dose reduction techniqu e. There is no prior study for comparison. FINDINGS: The liver, spleen, adrenal glands and pancreas are unremarkable. Gallbladder is unremarkab le. No biliary obstruction. Portal and splenic veins are patent. Kidneys enhance symmetrically. Po ssible enhancing right renal urothelium, correlate with urinalysis. There is no hydronephrosis. There is a right renal lesion consistent with cyst measuring 2.1 cm. The uterus and ovaries are unremarka ble, no adnexal mass. There is a Bailey catheter in a collapsed bladder. There is no retroperitoneal or pelvic lymphadenopathy. There is mild scattered arteriosclerotic disease. The appendix is normal. The stomach and small bowel are unremarkable. There is expected amount of c olonic stool. No free intraperitoneal gas. The heart is normal in size. There are no pericardial or pleural effusions. The lung bases are unremarkable. There are no osteoblastic or osteolytic les ions identified. IMPRESSION: 1. Possible right-sided upper urinary tract infection, correlate with urinalysis. 2. Chronic findings. Reviewed, dictated and finalized at location B. SETTER IMPRESSION: 1. Possible right-sided upper urinary tract infection, correlate with urinalys is. 2. Chronic findings.
[2020-11-29 09:23] LABS: Basophils Absolute Auto 0.1 K/mm3 (0.0-0.1); Basophils Percent Auto 0.4 % (0.2-1.2); Hematocrit 36.4 % (37.0-47.0); Hemoglobin 12.3 g/dL (12.0-15.0); Immature Granulocyte Absolute 0.05 K/mm3 (0.00-0.031); Immature Granulocyte Percent A 0.4 % (0-0.5); Lymphocytes Absolute Auto 1.85 K/mm3 (0.9-3.2); Lymphocytes Percent Auto 14.8 % (18.3-44.2); Mean Corpuscular HGB Conc 33.8 g/dl (32-36); Mean Corpuscular Hemoglobin 29.9 pg (26-34); Mean Corpuscular Volume 88.3 fl (80-100); Mean Platelet Volume 10.5 fl (7.4-10.4); Monocytes Absolute Auto 0.6 K/mm3 (0.1-0.6); Monocytes Percent Auto 4.9 % (2.6-8.5); Neutrophils Percent Auto 79.5 % (45.5-73.1); Platelet Count Result 351 k/mm3 (150-375); Red Blood Count 4.12 M/mm3 (4.2-5.4); Red Cell Distribution Width 12.8 % (11.5-14.5); White Blood Count 12.5 K/mm3 (4.5-10.0)
[2020-11-29 09:27] LABS: Add Urine Microscopic? YES; Appearance Urine Cloudy (Clear); Bacteria Urine Trace /hpf; Bilirubin Urine Negative (Negative); Blood Urine 1+ (Negative); Color Urine Straw (Yellow); Glucose Urine UA 3+ mg/dL (Negative); Ketones Urine 1+ mg/dL (Negative); Leukocyte Esterase Ur 1+ LEU/UL (Negative); Mucus Urine Rare /lpf; Nitrate Urine Negative (Negative); Protein Urine 3+ mg/dL (Negative); RBC Urine 21-50 /hpf (0-2); Specific Grav Ur 1.021 (1.001-1.035); Squamous Epithelial Cell Urine Rare /hpf (Few); Urobilinogen Urine Negative mg/dL (<2.0); WBC Urine 51-75 /hpf
[2020-11-29 09:35] LABS: Alanine Aminotransferase 21 U/L (4-35); Albumin Level 4.4 g/dL (3.5-5.1); Alkaline Phosphatase 151 U/L (38-126); Anion Gap 7 mmol/L (8-16); Aspartate Amino Transferase 24 U/L (14-36); Bilirubin,Total 0.4 mg/dL (0.2-1.3); Blood Urea Nitrogen 20 mg/dL (7-17); Calcium 9.8 mg/dL (8.4-10.2); Carbon Dioxide 29 mmol/L (22-30); Chloride 100 mmol/L (98-107); Estimated CRCL calculation 88 ml/min; Estimated Glomerular Filt Rate > 60; Glucose 321 mg/dL (65-105); Lipase 31 U/L (23-300); Sodium 136 mmol/L (137-145)
--- NOTE | 2020-11-29 09:47 | ED.GENADULT ---
HPI - General Adult General Chief complaint: Nausea/Vomiting/Diarrhea Stated complaint: NAUSEA/VOMITING Time Seen by Provider: 11/29/20 09:12 Source: patient and family (mother) Mode of arrival: EMS Limitations: physical limitation (left sided deficit due to two prior strokes) History of Present Illness HPI narrative: Patient presents with chief complaint of nausea and vomiting that began last night at 10:30 PM. Patient denies having abdominal pain but states that she has had constipation for the past 2 to 3 days. Patient's mother states that she generally has bowel movements daily or is giving her Dulcolax and is then able to have a bowel movement but for the past 2 days she has not been able to. Patient denies any fever, chills, cough, chest pain, shortness of breath, changes in mentation or speech. Patient has a chronic neurologic deficits on the left side and with slow speech that are results of 2 strokes 1 in 2014 and in September 2019. Patient does not have a history of abdominal issues or having frequent bouts of nausea and vomiting or constipation. Patient has not seen any blood in previous stools. Patient has a chronic indwelling Bailey catheter and has not noted foul-smelling or discolored urine. Related Data Home Medications Medication Instructions Recorded Confirmed dorzolamide [Trusopt] 1 drp OPHTHALMIC (EYE) BID 10/04/19 08/25/20 latanoprost [Xalatan] 1 drp OPHTHALMIC (EYE) BID 10/04/19 08/25/20 Allergies Allergy/AdvReac Type Severity Reaction Status Date / Time amoxicillin Allergy Mild Rash Verified 08/16/20 08:09 Penicillins Allergy Mild Unknown Verified 08/15/20 14:06 Review of Systems Review of Systems: Narrative: CONSTITUTIONAL: Denies fever, chills, or sweats. EYES: Denies visual changes, redness, or discharge. ENT: Denies rhinorrhea, congestion, sore throat, or otalgia. CARDIOVASCULAR: Denies chest pain, palpitations, or edema. RESPIRATORY: Denies cough or dyspnea. GASTROINTESTINAL: Reports nausea, vomiting, and constipation denies abdominal pain or diarrhea. GENITOURINARY: Denies dysuria or hematuria. SKIN: Denies rash or itching. MUSCULOSKELETAL: Denies back pain, joint pain, or myalgia. NEUROLOGIC: Denies headache, numbness, dizziness, or weakness. PSYCHIATRIC: Denies anxiety or depression. PMFSH Past Medical History Medical History (Updated 11/29/20 @ 19:08 by Ruba Sainz PA-C) Anxiety Arthritis Cataracts, bilateral Cerebrovascular disease Diabetic retinopathy Glaucoma History of stroke with current residual effects HLD (hyperlipidemia) HTN (hypertension) Hypertension, essential IDDM (insulin dependent diabetes mellitus) Peripheral polyneuropathy Schizophrenia Schizophrenia, undifferentiated Type 2 diabetes mellitus with hyperglycemia Surgical History Surgical History H/O removal of cyst Family History Family History Grandparent Diabetes mellitus Father Family history of cardiovascular disease Other Cerebrovascular accident Social History Social History Social History: Single. Resides in subsidized apartment in [place], [place] (the [facility]). Smoking packs per day: 0.5 Smoking cigarettes per day: 10.0 Years smoked: 5 Smoking pack-years: 2.50 Smoking status: Never smoker Alcohol intake: former Substance use: former Substance use type: does not use Additional occupation/education comments: disabled due to mental illness Gender identity (if verbalized by the patient): Female Spiritual care concerns: No Agree to blood products: Yes Exam Narrative: Exam Narrative: GENERAL: well-nourished in no acute distress. HEAD: Normocephalic, atraumatic. EYES: PERRLA and EOMI. NECK: Supple. No adenopathy or masses. CHEST: Clear to auscultation. No respiratory distress. No wheezes rales
[2020-11-29] MEDS: hydrALAZINE HCL 20 MG/ML VIAL IV PUSH (12:47)
[2020-11-29 12:54] LABS: Glucose Point of Care 287 (65-105)
--- NOTE | 2020-11-29 12:54 | PC.NURSE ---
Blood glucose was 287 at 12:54
[2020-11-29] MEDS: INSULIN ASPART (*BKC) 100 UNITS/ML SUB-Q (13:28)
[2020-11-29] MEDS: ONDANSETRON INJ 4 MG/2 ML VIAL (13:37)
[2020-11-29 14:38] LABS: Glucose Point of Care 323 (65-105)
--- NOTE | 2020-11-29 14:41 | ECG_ITS ---
Measurements Intervals [place] Rate: 117 P: 187 [place]: 217 QRS: -43 QRSD: 133 T: 56 QT: 349 QTc: 487 Interpretive Statements SINUS TACHYCARDIA LEFT AXIS DEVIATION RIGHT BUNDLE BRANCH BLOCK VOLTAGE CRITERIA FOR LVH BASELINE ARTIFACT- I, II, III, AVR, AVL, AVF, V1-V3 ABNORMAL ECG Electronically Signed On 11-29-2020 15:17:23 CENTRIFUGAL OPERATOR by Morris Francis D.O.
[2020-11-29] MEDS: SODIUM CHLORIDE 0.9% IV 1,000 ML 999 ML IV CONT (14:51)
[2020-11-29 15:19] LABS: Troponin I < 0.012 ng/mL (0.000-0.034)
[2020-11-29] MEDS: METOCLOPRAMIDE HCL INJ 10 MG/2 ML VIAL (16:10)
[2020-11-29 16:52] LABS: Lactate Dehydrogenase 508 U/L (313-618)
[2020-11-29 16:53] LABS: Lactic Acid Reflex 2.2 mmol/L (0.7-2.1)
--- NOTE | 2020-11-29 19:23 | ADMGEN ---
This patient, Jasmin Lopez, was admitted to Medical Room 252-01. Patient/family oriented to hospital policies and general routines including ID bracelet, bed and alarms, visiting hours, pain management, procedures, bathroom and other care routines, personal items, smoking policy, room service/diet, and visiting hours. Information on how to activate the Rapid Response Team has been discussed. Patient/Family are encouraged to report perceived risks to care and to ask questions if they do not understand what they are told or what they should do.
[2020-11-29] MEDS: SODIUM CHLORIDE 0.9% IV 1,000 ML 125 ML IV CONT (19:38)
[2020-11-29 19:44] LABS: Reflex Lactic Acid Yes or No Add Lactic
[2020-11-29 20:25] LABS: Lactic Acid 1.9 mmol/L (0.7-2.1)
--- NOTE | 2020-11-29 20:29 | PM.IMHP ---
H&P: HPI History of Present Illness Date/Time: 11/29/20 20:29 Chief Complaint: Nausea and vomiting Narrative: Jasmin Lopez is a 50 year old female With a past medical history of severe intercranial carotid stenosis bilaterally, multiple CVAs, type 2 diabetes, ESBL Klebsiella UTI and chronic urinary retention with chronic indwelling Bailey catheter since July 2020 who presented to the ER via EMS from home due to nausea and vomiting since last night. Her nausea was improved after Zofran administration by EMS. The patient denies having any fevers or chills. She has not been having any abdominal pain. She has not had a bowel movement in a couple of days despite taking stool softeners but does not feel constipated. Review of Systems Review of Systems: Narrative: 12 systems were reviewed with pertinent positives and negatives per HPI. Except as documented in the HPI, all other systems were reviewed and are negative. [facility] Past Medical History Medical History Anxiety Arthritis B12 deficiency July 2020 Cataracts, bilateral Cerebrovascular disease CVA 2014 and September 2019. The CVA 2019 involved the right caudate nucleus, right frontal and right parietal regions resulting in chronic left-sided deficits and delayed speech Chronic indwelling Bailey catheter since July 2020. Patient had recurrent urinary retention and hydronephrosis when Bailey catheter was discontinued. Followed by Dr. Estrella Diabetic retinopathy Glaucoma HLD (hyperlipidemia) Hypertension, essential IDDM (insulin dependent diabetes mellitus) 08/16/2020 hemoglobin A1c 6.5 Intracranial carotid stenosis, bilateral severe Iron deficiency anemia July 2020 due to nutritional deficiencies Peripheral polyneuropathy Schizophrenia, undifferentiated Type 2 diabetes mellitus with hyperglycemia Surgical History Surgical History H/O removal of cyst History of cystoscopy Family History Family History Grandparent Diabetes mellitus Father Family history of cardiovascular disease Other Cerebrovascular accident Social History Social History (Updated 11/30/20 @ 09:45 by Leslie Peña DO) Social History: Single. Resides in subsidized apartment in [place], [place] (the [facility]). She is dependent upon her mother for activities of daily living. She is wheelchair dependent. Smoking packs per day: 0.5 Smoking cigarettes per day: 10.0 Years smoked: 5 Smoking pack-years: 2.50 Smoking status: Never smoker Alcohol intake: never Substance use: never Substance use type: does not use Additional occupation/education comments: disabled due to mental illness Gender identity (if verbalized by the patient): Female Spiritual care concerns: No Agree to blood products: Yes Meds Home Medications and Allergies Home Medications Medication Instructions Recorded Confirmed Type dorzolamide [Trusopt] 1 drp OPHTHALMIC (EYE) BID 10/04/19 11/29/20 History latanoprost [Xalatan] 1 drp OPHTHALMIC (EYE) BID 10/04/19 11/29/20 History docusate sodium 100 mg PO Q12HR #0 cap 10/20/19 11/29/20 Rx cyanocobalamin (vitamin B-12) 1,000 mcg PO QAM #30 tablet 08/17/20 11/29/20 Rx [Vitamin B-12] aspirin 81 mg tablet,delayed 81 mg PO QAM #90 tablet 09/26/20 11/29/20 Rx release benztropine 0.5 mg tablet 0.5 mg PO DAILY #90 tablet 09/26/20 11/29/20 Rx gabapentin 300 mg capsule 300 mg PO TID #90 cap 09/26/20 11/29/20 Rx glimepiride 1 mg tablet 1 mg PO DAILY #90 tablet 09/26/20 11/29/20 Rx haloperidol 5 mg tablet 5 mg PO DAILY #90 tablet 09/26/20 11/29/20 Rx methocarbamol 750 mg tablet 750 mg PO DAILY #90 tablet 09/26/20 11/29/20 Rx sertraline 50 mg tablet 50 mg PO DAILY #90 tablet 09/26/20 11/29/20 Rx insulin aspart U-100 100 unit/mL 12 unit SUBCUT .COMPLEX #4 vial 09/27/20
[2020-11-29 22:20] LABS: Glucose Point of Care 250 (65-105)
[2020-11-29] MEDS: ONDANSETRON INJ 4 MG/2 ML VIAL IV PUSH (22:58)
[2020-11-30] MEDS: PROMETHAZINE HCL 25 MG/ML AMPUL IM (00:47)
[2020-11-30 00:59] LABS: Glucose Point of Care 271 (65-105)
[2020-11-30] MEDS: INSULIN GLARGINE (*BKC) 100 UNITS/ML 10 UNITS SUB-Q (02:01)
[2020-11-30 02:10] LABS: Glucose Point of Care 301 (65-105)
[2020-11-30] MEDS: hydrALAZINE HCL 20 MG/ML VIAL 10 MG IV PUSH (05:07)
[2020-11-30 05:57] LABS: Anion Gap 6 mmol/L (8-16); Blood Urea Nitrogen 21 mg/dL (7-17); Carbon Dioxide 26 mmol/L (22-30); Chloride 104 mmol/L (98-107); Estimated CRCL calculation 78 ml/min; Estimated Glomerular Filt Rate > 60; Glucose 294 mg/dL (65-105); Potassium 3.8 mmol/L (3.4-5.0); Sodium 136 mmol/L (137-145)
[2020-11-30 05:59] LABS: Hematocrit 32.2 % (37.0-47.0); Hemoglobin 10.8 g/dL (12.0-15.0); Mean Corpuscular HGB Conc 33.5 g/dl (32-36); Mean Corpuscular Hemoglobin 29.8 pg (26-34); Mean Platelet Volume 10.5 fl (7.4-10.4); Platelet Count Result 364 k/mm3 (150-375); Red Blood Count 3.62 M/mm3 (4.2-5.4)
[2020-11-30 06:00] VITALS: BP 210/88; PULSE 106; RESP 20; TEMP 36.7; O2SAT 96
[2020-11-30 06:36] LABS: Glucose Point of Care 283 (65-105)
[2020-11-30] MEDS: SODIUM CHLORIDE 0.9% IV 1,000 ML 125 ML IV CONT (07:20)
[2020-11-30 07:57] VITALS: BP 158/79; PULSE 66; RESP 16; TEMP 36.7; O2SAT 97
[2020-11-30] MEDS: methocarbamoL 750 MG TABLET PO (07:59)
[2020-11-30] MEDS: GABAPENTIN 300 MG CAPSULE PO ×3 (07:59→16:42)
[2020-11-30] MEDS: CYANOCOBALAMIN 1,000 MCG TABLET 1000 MCG PO (07:59)
[2020-11-30] MEDS: ASPIRIN 81 MG ENTERIC TABLET PO (07:59)
[2020-11-30] MEDS: BENZTROPINE MESYLATE 0.5 MG TABLET PO (07:59)
[2020-11-30] MEDS: SERTRALINE HCL 50 MG TABLET PO (07:59)
[2020-11-30] MEDS: DOCUSATE SODIUM 100 MG CAPSULE PO ×2 (07:59→20:04)
[2020-11-30] MEDS: HALOPERIDOL 5 MG TABLET PO (07:59)
[2020-11-30] MEDS: DORZOLAMIDE HCL 2% OPHTH DROPS 1 DROP EACH EYE ×2 (08:05→16:41)
[2020-11-30] MEDS: ENOXAPARIN 40 MG/0.4 ML SYRINGE SUB-Q (08:05)
[2020-11-30] MEDS: LATANOPROST 0.005% OP SOLN 2.5 ML BTL 1 DROP EACH EYE ×2 (08:11→16:45)
--- NOTE | 2020-11-30 08:42 | WPDURCON ---
Assessment and Plan Assessment and plan (1) Chronic indwelling Bland catheter: Code(s): Z97.8 - Presence of other specified devices Status: Acute Assessment and Plan: Would recommend suppressive antibiotics after treatment of UTI. Trimethoprim 100mg HS. CT scan/Cystoscopy negative for anatomic abnormality. Likely secondary to chronic indwelling bland/retention. (2) Urinary tract infection: Qualifiers: Hematuria presence: with hematuria Urinary tract infection type: site unspecified Qualified Code(s): N39.0 - Urinary tract infection, site not specified; R31.9 - Hematuria, unspecified Code(s): N39.0 - Urinary tract infection, site not specified Status: Acute Assessment and Plan: Continue IV antibiotics, tailor to culture results. (3) Atonic bladder: Code(s): N31.2 - Flaccid neuropathic bladder, not elsewhere classified Status: Acute Assessment and Plan: Continue monthly catheter changes at [place]. No further evaluation needed at this time. Urology Consult Note HPI Date Seen: 11/30/20 Requesting Physician: Irving Cobos PA-C Primary Care Provider: Armaan Clarke DO Consult Narrative Narrative: Jasmin Lopez is a 50 year old female who presented with nausea, vomiting and weakness to the ER yesterday from the [place] where she resides that began the night before on 11/28/2020. She is known to us and has had a Cystoscopy in 07/[address] Estrella d/t chronic UTI, however no anatomic abnormalities were found, she was found to have 900cc of urine in her bladder. It was then determined that she had an atonic bladder secondary to stroke and that she would need a bland indefinitely with monthly catheter changes. She had a CT scan abdomen/pelvis on 11/29/2020 when she arrived at the ER which suggested possible right pyelonephritis. Her UA is also suggestive of a UTI. Urine culture is pending. She has an elevated WBC of 13.0 and creatinine of 0.80. She is non verbal d/t two previous strokes in 2015 and one in 2019. All information was obtained from the chart and Ney Sainz in the ER. Review of Systems Review of Systems: ROS unobtainable: Yes unobtainable due to mental status PMFSH Past Medical History Medical History Anxiety Arthritis B12 deficiency July 2020 Cataracts, bilateral Cerebrovascular disease CVA 2014 and September 2019. The CVA 2018 involved the right caudate nucleus, right frontal and right parietal regions resulting in chronic left-sided deficits and delayed speech Chronic indwelling Bland catheter since July 2020. Patient had recurrent urinary retention and hydronephrosis when Bland catheter was discontinued. Followed by Dr. Estrella Diabetic retinopathy Glaucoma HLD (hyperlipidemia) Hypertension, essential IDDM (insulin dependent diabetes mellitus) 08/16/2020 hemoglobin A1c 6.5 Intracranial carotid stenosis, bilateral severe Iron deficiency anemia July 2020 due to nutritional deficiencies Peripheral polyneuropathy Schizophrenia, undifferentiated Type 2 diabetes mellitus with hyperglycemia Surgical History Surgical History H/O removal of cyst History of cystoscopy Family History Family History Grandparent Diabetes mellitus Father Family history of cardiovascular disease Other Cerebrovascular accident Social History Social History Social History: Single. Resides in subsidized apartment in [place], [place] (the [facility] Smoking packs per day: 0.5 Smoking cigarettes per day: 10.0 Years smoked: 5 Smoking pack-years: 2.50 Smoking status: Never smoker Alcohol intake: never Substance use: never Substance use type: does not use Additional occupation/education comments:
[2020-11-30] MEDS: INSULIN ASPART (*BKC) 100 UNITS/ML SUB-Q ×2 (08:44→11:45)
[2020-11-30] MEDS: INSULIN ASPART (*BKC) 100 UNITS/ML 12 UNITS SUB-Q ×3 (08:45→17:44)
[2020-11-30 09:09] LABS: Glucose Point of Care 288 (65-105)
--- NOTE | 2020-11-30 10:15 | P.PNIM_ITS ---
Progress Note: A&P Assessment and Plan (1) UTI (urinary tract infection): Qualifiers: Urinary tract infection type: catheter-associated UTI Indwelling urinary catheter type: indwelling urethral catheter Encounter type: initial encounter Qualified Code(s): T83.511A - Infection and inflammatory reaction due to indwelling urethral catheter, initial encounter; N39.0 - Urinary tract inf ection, site not specified Code(s): N39.0 - Urinary tract infection, site not specified Status: Acute Assessment and Plan: UA suspicious for UTI. Patient has a chronic indwelling Bailey catheter. The patient's catheter was changed by the nursing staff when she arrived to the medical floor. Rocephin initially given in ER but was switched to IV levaquin given previous history of ESBL klebsiella UTI. * Await BCx and UCx results; tailor antibiotics to cultures * Continue with IV levaquin until then * Monitor * Will stop IV fluids as patient tolerating diet * Urology consulted and appreciate recommendations; likely plan on suppressive antibiotics after current treatment (2) Sepsis: Qualifiers: Sepsis acute organ dysfunction status: without acute organ dysfunction Sepsis type: sepsis due to unspecified organism Qualified Code(s): A41.9 - Sepsis, unspecified organism Code(s): A41.9 - Sepsis, unspecified organism Status: Acute Assessment and Plan: SIRS criteria met with tachycardia, leukocytosis, and lactic acid mildly elevated at 2.2, and improved to WNL after IV fluids; appears chronic urinary catheter associated UTI as suspected source. HR has improved, WBC up to 13.0k * Continue treatment with IV levaquin for UTI as above * Will stop IV fluids as BP is elevated and HR has now improved * Monitor Closely (3) Nausea & vomiting: Qualifiers: Vomiting Intractability: unspecified Vomiting type: unspecified Qualified Code(s): R11.2 - Nausea with vomiting, unspecified Code(s): R11.2 - Nausea with vomiting, unspecified Status: Acute Assessment and Plan: Likely related to infection. This has improved this morning and she is tolerating liquid diet. * Advance diet as tolerated to diabetic diet. * Continue with Phenergan as needed (4) Type 2 diabetes mellitus with hyperglycemia: Qualifiers: Diabetes mellitus terminal system operator insulin use: with usp use Qualified Code(s): E11.65 - Type 2 diabetes mellitus with hyperglycemia; Z79.4 - retirement (current) use of insulin Code(s): E11.65 - Type 2 diabetes mellitus with hyperglycemia Status: Chronic Assessment and Plan: BGL in 200s * Home insulin resumed today * Accuchecks ACHS, hypoglycemia protocol, correctional insulin, diabetic diet when tolerating diet (5) Hypertension: Qualifiers: Hypertension type: unspecified Qualified Code(s): I10 - Essential (primary) hypertension Code(s): I10 - Essential (primary) hypertension Status: Acute Assessment and Plan: BP has been as high as 200s sys intermittently. * Will stop IV fluids * Will do IV hydralazine prn with parameters * Monitor closely * If no improvement, will consider additional BP medications Subjective Date/time seen: 11/30/20 10:15 Interval history: Patient is a 50 yo F with history of severe intercranial carotid stenosis bilaterally, multiple CVAs, type 2 diabetes, ESBL Klebsiella UTI and chromosomal disorders counselor
--- NOTE | 2020-11-30 10:15 | PM.IMPN ---
Progress Note: A&P Assessment and Plan (1) UTI (urinary tract infection): Qualifiers: Urinary tract infection type: catheter-associated UTI Indwelling urinary catheter type: indwelling urethral catheter Encounter type: initial encounter Qualified Code(s): T83.511A - Infection and inflammatory reaction due to indwelling urethral catheter, initial encounter; N39.0 - Urinary tract infection, site not specified Code(s): N39.0 - Urinary tract infection, site not specified Status: Acute Assessment and Plan: UA suspicious for UTI. Patient has a chronic indwelling Bailey catheter. The patient's catheter was changed by the nursing staff when she arrived to the medical floor. Rocephin initially given in ER but was switched to IV levaquin given previous history of ESBL klebsiella UTI. Await BCx and UCx results; tailor antibiotics to cultures Continue with IV levaquin until then Monitor Will stop IV fluids as patient tolerating diet Urology consulted and appreciate recommendations; likely plan on suppressive antibiotics after current treatment (2) Sepsis: Qualifiers: Sepsis acute organ dysfunction status: without acute organ dysfunction Sepsis type: sepsis due to unspecified organism Qualified Code(s): A41.9 - Sepsis, unspecified organism Code(s): A41.9 - Sepsis, unspecified organism Status: Acute Assessment and Plan: SIRS criteria met with tachycardia, leukocytosis, and lactic acid mildly elevated at 2.2, and improved to WNL after IV fluids; appears chronic urinary catheter associated UTI as suspected source. HR has improved, WBC up to 13.0k Continue treatment with IV levaquin for UTI as above Will stop IV fluids as BP is elevated and HR has now improved Monitor Closely (3) Nausea & vomiting: Qualifiers: Vomiting Intractability: unspecified Vomiting type: unspecified Qualified Code(s): R11.2 - Nausea with vomiting, unspecified Code(s): R11.2 - Nausea with vomiting, unspecified Status: Acute Assessment and Plan: Likely related to infection. This has improved this morning and she is tolerating liquid diet. Advance diet as tolerated to diabetic diet. Continue with Phenergan as needed (4) Type 2 diabetes mellitus with hyperglycemia: Qualifiers: Diabetes mellitus termite renewal inspector insulin use: with correction use Qualified Code(s): E11.65 - Type 2 diabetes mellitus with hyperglycemia; Z79.4 - predatory animal exterminator (current) use of insulin Code(s): E11.65 - Type 2 diabetes mellitus with hyperglycemia Status: Chronic Assessment and Plan: BGL in 200s Home insulin resumed today Accuchecks ACHS, hypoglycemia protocol, correctional insulin, diabetic diet when tolerating diet (5) Hypertension: Qualifiers: Hypertension type: unspecified Qualified Code(s): I10 - Essential (primary) hypertension Code(s): I10 - Essential (primary) hypertension Status: Acute Assessment and Plan: BP has been as high as 200s sys intermittently. Will stop IV fluids Will do IV hydralazine prn with parameters Monitor closely If no improvement, will consider additional BP medications Subjective Date/time seen: 11/30/20 10:15 Interval history: Patient is a 50 yo F with history of severe intercranial carotid stenosis bilaterally, multiple CVAs, type 2 diabetes, ESBL Klebsiella UTI and chronic urinary retention with chronic indwelling Bailey catheter since July 2020 who is seen in follow of for UTI/Sepsis as well as n/v likely due to same. Patient states she feels much better this morning and desired to try a liquid diet which she is tolerating fine thus far. She is not nauseous or vomiting any more. No other complaints at the moment.
[2020-11-30 11:55] LABS: Glucose Point of Care 309 (65-105)
[2020-11-30 14:00] VITALS: BP 150/69; PULSE 98; RESP 18; TEMP 36.7; O2SAT 98
[2020-11-30 16:18] VITALS: O2SAT 98
[2020-11-30] MEDS: INSULIN GLARGINE (*BKC) 100 UNITS/ML 30 UNITS SUB-Q (17:43)
[2020-11-30 17:56] LABS: Glucose Point of Care 104 (65-105)
[2020-11-30 20:00] VITALS: BP 144/68; PULSE 97; RESP 18; TEMP 36.8; O2SAT 96
[2020-11-30] MEDS: ONDANSETRON INJ 4 MG/2 ML VIAL IV PUSH (20:20)
[2020-11-30 21:31] LABS: Glucose Point of Care 118 (65-105)
[2020-12-01 01:03] LABS: Glucose Point of Care 153 (65-105)
[2020-12-01 04:00] VITALS: BP 171/81; PULSE 97; RESP 18; TEMP 36.6; O2SAT 100
[2020-12-01 05:47] LABS: Glucose Point of Care 210 (65-105)
[2020-12-01 06:01] LABS: Basophils Percent Auto 0.3 % (0.2-1.2); Eosinophils Percent Auto 0.2 % (0-4.4); Hematocrit 32.8 % (37.0-47.0); Hemoglobin 10.6 g/dL (12.0-15.0); Immature Granulocyte Absolute 0.05 K/mm3 (0.00-0.031); Immature Granulocyte Percent A 0.4 % (0-0.5); Lymphocytes Absolute Auto 2.77 K/mm3 (0.9-3.2); Lymphocytes Percent Auto 22.5 % (18.3-44.2); Mean Corpuscular HGB Conc 32.3 g/dl (32-36); Mean Corpuscular Hemoglobin 29.2 pg (26-34); Mean Corpuscular Volume 90.4 fl (80-100); Mean Platelet Volume 10.2 fl (7.4-10.4); Monocytes Absolute Auto 1.1 K/mm3 (0.1-0.6); Monocytes Percent Auto 9.2 % (2.6-8.5); Neutrophils Absolute Auto 8.3 K/mm3 (1.3-6.7); Neutrophils Percent Auto 67.4 % (45.5-73.1); Platelet Count Result 332 k/mm3 (150-375); Red Blood Count 3.63 M/mm3 (4.2-5.4); Red Cell Distribution Width 12.8 % (11.5-14.5); White Blood Count 12.3 K/mm3 (4.5-10.0)
[2020-12-01 06:03] LABS: Anion Gap 6 mmol/L (8-16); Blood Urea Nitrogen 23 mg/dL (7-17); Calcium 8.7 mg/dL (8.4-10.2); Carbon Dioxide 25 mmol/L (22-30); Chloride 102 mmol/L (98-107); Estimated CRCL calculation 78 ml/min; Estimated Glomerular Filt Rate > 60; Glucose 207 mg/dL (65-105); Magnesium 2.4 mg/dL (1.6-2.3); Potassium 3.7 mmol/L (3.4-5.0); Sodium 133 mmol/L (137-145)
--- NOTE | 2020-12-01 08:10 | PCOTNOTE ---
Attempted OT evaluation this AM. Patient declined any/all activity despite encouragement that working with therapy will help make her stronger and benefits of getting out of bed. She replies, I don't care anymore. I just want to take a nap. Will continue to attempt.
[2020-12-01] MEDS: INSULIN ASPART (*BKC) 100 UNITS/ML SUB-Q (08:43)
[2020-12-01] MEDS: INSULIN ASPART (*BKC) 100 UNITS/ML 12 UNITS SUB-Q ×3 (08:44→17:01)
[2020-12-01] MEDS: HALOPERIDOL 5 MG TABLET PO (08:45)
[2020-12-01] MEDS: SERTRALINE HCL 50 MG TABLET PO (08:45)
[2020-12-01] MEDS: methocarbamoL 750 MG TABLET PO (08:45)
[2020-12-01] MEDS: DORZOLAMIDE HCL 2% OPHTH DROPS 1 DROP EACH EYE ×2 (08:45→16:59)
[2020-12-01] MEDS: ASPIRIN 81 MG ENTERIC TABLET PO (08:45)
[2020-12-01] MEDS: GABAPENTIN 300 MG CAPSULE PO ×3 (08:45→16:58)
[2020-12-01] MEDS: CYANOCOBALAMIN 1,000 MCG TABLET 1000 MCG PO (08:45)
[2020-12-01] MEDS: ERTAPENEM 1 GM/NS 50 ML 1 GM/50 ML BAG IVPB (08:46)
[2020-12-01] MEDS: ENOXAPARIN 40 MG/0.4 ML SYRINGE SUB-Q (08:46)
[2020-12-01] MEDS: LATANOPROST 0.005% OP SOLN 2.5 ML BTL 1 DROP EACH EYE ×2 (08:46→16:59)
[2020-12-01] MEDS: BENZTROPINE MESYLATE 0.5 MG TABLET PO (08:46)
[2020-12-01] MEDS: DOCUSATE SODIUM 100 MG CAPSULE PO ×2 (08:46→20:04)
[2020-12-01 08:59] LABS: Glucose Point of Care 243 (65-105)
[2020-12-01 11:43] LABS: Glucose Point of Care 177 (65-105)
--- NOTE | 2020-12-01 12:59 | PM.IMPN ---
Progress Note: A&P Assessment and Plan (1) UTI (urinary tract infection): Qualifiers: Urinary tract infection type: catheter-associated UTI Indwelling urinary catheter type: indwelling urethral catheter Encounter type: initial encounter Qualified Code(s): T83.511A - Infection and inflammatory reaction due to indwelling urethral catheter, initial encounter; N39.0 - Urinary tract infection, site not specified Code(s): N39.0 - Urinary tract infection, site not specified Status: Acute Assessment and Plan: UA suspicious for UTI. UCx now growing klebsiella pneumoniae sensitive to ertapenem. Patient has a chronic indwelling Bailey catheter. The patient's catheter was changed by the nursing staff when she arrived to the medical floor. Was on Rocephin, then Levaquin initially, although UCx shows klebsiella ESBL resistent to levaquin and was transitioned to ertapenem today. Continue ertapenem IV today; day #1 Will likely transition to PO Bactrim at discharge Monitor Urology consulted and appreciate recommendations; likely plan on suppressive antibiotics after current treatment (2) Sepsis: Qualifiers: Sepsis acute organ dysfunction status: without acute organ dysfunction Sepsis type: sepsis due to unspecified organism Qualified Code(s): A41.9 - Sepsis, unspecified organism Code(s): A41.9 - Sepsis, unspecified organism Status: Acute Assessment and Plan: SIRS criteria met with tachycardia, leukocytosis, and lactic acid mildly elevated at 2.2, and improved to WNL after IV fluids; appears chronic urinary catheter associated UTI as suspected source. HR has improved, WBC down to 12.3k Continue treatment with IV ertapenem for UTI as above Monitor Closely (3) Nausea & vomiting: Qualifiers: Vomiting Intractability: unspecified Vomiting type: unspecified Qualified Code(s): R11.2 - Nausea with vomiting, unspecified Code(s): R11.2 - Nausea with vomiting, unspecified Status: Acute Assessment and Plan: Likely related to infection. Appears to have resolved today. Continue with current diabetic diet Continue with Phenergan as needed (4) Type 2 diabetes mellitus with hyperglycemia: Qualifiers: Diabetes mellitus intermediate school teacher insulin use: with detention use Qualified Code(s): E11.65 - Type 2 diabetes mellitus with hyperglycemia; Z79.4 - predatory animal exterminator (current) use of insulin Code(s): E11.65 - Type 2 diabetes mellitus with hyperglycemia Status: Chronic Assessment and Plan: BGL in 200s Continue home insulin regimen Accuchecks ACHS, hypoglycemia protocol, correctional insulin, diabetic diet (5) Hypertension: Qualifiers: Hypertension type: unspecified Qualified Code(s): I10 - Essential (primary) hypertension Code(s): I10 - Essential (primary) hypertension Status: Acute Assessment and Plan: BP improved but still a bit elevated at 170s sys this morning Will continue IV hydralazine prn with parameters Monitor closely If no improvement, will consider additional BP medications Subjective Date/time seen: 12/01/20 12:59 Interval history: Patient is a 50 yo F with history of severe intercranial carotid stenosis bilaterally, multiple CVAs, type 2 diabetes, ESBL Klebsiella UTI and chronic urinary retention with chronic indwelling Bailey catheter since July 2020 who is seen in follow of for UTI/Sepsis as well as n/v likely due to same. Patient states she feels well this morning. She is tolerating diet thus far. No N/v today. No other complaints at the moment. Denies f/c/s, cp/palpitations, sob/cough, abd pain, issues with Bailey, calf pain/swelling. She is minimally verbal but able to nod yes or shaker her head no and can spea
[2020-12-01 14:00] VITALS: BP 135/75; PULSE 90; RESP 19; TEMP 37; O2SAT 100
[2020-12-01 16:52] LABS: Glucose Point of Care 94 (65-105)
[2020-12-01] MEDS: INSULIN GLARGINE (*BKC) 100 UNITS/ML 30 UNITS SUB-Q (17:00)
[2020-12-01 20:00] VITALS: BP 103/55; PULSE 87; RESP 18; TEMP 36.3; O2SAT 99
[2020-12-01 20:42] LABS: Glucose Point of Care 247 (65-105)
[2020-12-02 00:24] VITALS: PULSE 73; RESP 19; O2SAT 92
[2020-12-02 04:00] VITALS: BP 119/62; PULSE 79; RESP 20; TEMP 36.6; O2SAT 99
[2020-12-02 05:43] LABS: Basophils Absolute Auto 0.1 K/mm3 (0.0-0.1); Basophils Percent Auto 0.7 % (0.2-1.2); Eosinophils Absolute Auto 0.1 K/mm3 (0-0.3); Eosinophils Percent Auto 1.2 % (0-4.4); Hematocrit 32.9 % (37.0-47.0); Hemoglobin 10.8 g/dL (12.0-15.0); Immature Granulocyte Absolute 0.02 K/mm3 (0.00-0.031); Immature Granulocyte Percent A 0.2 % (0-0.5); Lymphocytes Percent Auto 50.6 % (18.3-44.2); Mean Corpuscular HGB Conc 32.8 g/dl (32-36); Mean Corpuscular Hemoglobin 29.3 pg (26-34); Mean Corpuscular Volume 89.4 fl (80-100); Mean Platelet Volume 10.1 fl (7.4-10.4); Monocytes Absolute Auto 0.7 K/mm3 (0.1-0.6); Monocytes Percent Auto 7.5 % (2.6-8.5); Neutrophils Absolute Auto 3.9 K/mm3 (1.3-6.7); Neutrophils Percent Auto 39.8 % (45.5-73.1); Platelet Count Result 295 k/mm3 (150-375); Red Blood Count 3.68 M/mm3 (4.2-5.4); Red Cell Distribution Width 12.4 % (11.5-14.5); White Blood Count 9.9 K/mm3 (4.5-10.0)
[2020-12-02 05:48] LABS: Anion Gap 3 mmol/L (8-16); Blood Urea Nitrogen 21 mg/dL (7-17); Calcium 8.7 mg/dL (8.4-10.2); Carbon Dioxide 27 mmol/L (22-30); Chloride 105 mmol/L (98-107); Estimated CRCL calculation 78 ml/min; Estimated Glomerular Filt Rate > 60; Glucose 90 mg/dL (65-105); Magnesium 2.5 mg/dL (1.6-2.3); Potassium 3.3 mmol/L (3.4-5.0); Sodium 135 mmol/L (137-145)
[2020-12-02 06:03] LABS: Hemoglobin A1C 8.8 % (<5.7)
--- NOTE | 2020-12-02 08:29 | PM.DS ---
DS: Admitting Diagnosis Admitting Diagnosis Admitting Diagnosis: Sepsis/UTI, GEGE DS: Discharge Diagnosis Discharge Diagnosis (1) UTI (urinary tract infection): Qualifiers: Encounter type: initial encounter Indwelling urinary catheter type: indwelling urethral catheter Urinary tract infection type: catheter-associated UTI Qualified Code(s): T83.511A - Infection and inflammatory reaction due to indwelling urethral catheter, initial encounter; N39.0 - Urinary tract infection, site not specified Code(s): N39.0 - Urinary tract infection, site not specified Status: Acute Assessment and Plan: UA suspicious for UTI. UCx now growing klebsiella pneumoniae sensitive to ertapenem. Patient has a chronic indwelling Bailey catheter. The patient's catheter was changed by the nursing staff when she arrived to the medical floor. Was on Rocephin, then Levaquin initially, although UCx shows klebsiella ESBL resistent to levaquin and was transitioned to ertapenem on 12/01. She has significant clinical improvement during her hospital course Will do ertapenem IV today; day #2 Discharge today Will do trimethoprim/sulfamethoxazole at discharge through 12/07; then transition to trimethoprim 100 mg QHS per Urology recommendations F/u with PCP and Urology Urology consulted and appreciate recommendations (2) Sepsis: Qualifiers: Sepsis acute organ dysfunction status: without acute organ dysfunction Sepsis type: sepsis due to unspecified organism Qualified Code(s): A41.9 - Sepsis, unspecified organism Code(s): A41.9 - Sepsis, unspecified organism Status: Acute Assessment and Plan: SIRS criteria met with tachycardia, leukocytosis, and lactic acid mildly elevated at 2.2, and improved to WNL after IV fluids; appears chronic urinary catheter associated UTI as suspected source. HR has improved, WBC down to 9.9k Continue treatment with IV ertapenem and PO bactrim for UTI as above Monitor Closely (3) Nausea & vomiting: Qualifiers: Vomiting Intractability: unspecified Vomiting type: unspecified Qualified Code(s): R11.2 - Nausea with vomiting, unspecified Code(s): R11.2 - Nausea with vomiting, unspecified Status: Resolved Assessment and Plan: Likely related to infection. 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 Likely related to infection. Discussed with Mother, Julia,, (with permission) and recommended daily BP monitoring with f/u with PCP DS: Summary Hospital Course Reason for hospitalization: Nausea vomiting, CAUTI/sepsis Hospital Course: Date of arrival: 11/29/20 Date of discharge: 12/02/20 Patient is a 50 year old female with a past medical history of severe intracranial carotid stenosis bilaterally, multiple CVAs, type 2 diabetes, ESBL Klebsiella UTI and chronic urinary retention with chronic indwelling Bailey catheter since July 2020 who presented to the ER on 11/29 via EM
[2020-12-02] MEDS: ERTAPENEM 1 GM/NS 50 ML 1 GM/50 ML BAG IVPB (09:16)
[2020-12-02 09:20] LABS: Glucose Point of Care 108 (65-105)
[2020-12-02] MEDS: DORZOLAMIDE HCL 2% OPHTH DROPS 1 DROP EACH EYE (09:20)
[2020-12-02] MEDS: ENOXAPARIN 40 MG/0.4 ML SYRINGE SUB-Q (09:20)
[2020-12-02] MEDS: ASPIRIN 81 MG ENTERIC TABLET PO (09:21)
[2020-12-02] MEDS: CYANOCOBALAMIN 1,000 MCG TABLET 1000 MCG PO (09:21)
[2020-12-02] MEDS: HALOPERIDOL 5 MG TABLET PO (09:21)
[2020-12-02] MEDS: DOCUSATE SODIUM 100 MG CAPSULE PO (09:21)
[2020-12-02] MEDS: BENZTROPINE MESYLATE 0.5 MG TABLET PO (09:21)
[2020-12-02] MEDS: GABAPENTIN 300 MG CAPSULE PO ×2 (09:21→12:51)
[2020-12-02] MEDS: methocarbamoL 750 MG TABLET PO (09:22)
[2020-12-02] MEDS: SERTRALINE HCL 50 MG TABLET PO (09:22)
[2020-12-02] MEDS: LATANOPROST 0.005% OP SOLN 2.5 ML BTL 1 DROP EACH EYE (09:23)
[2020-12-02] MEDS: INSULIN ASPART (*BKC) 100 UNITS/ML 12 UNITS SUB-Q ×2 (09:29→12:51)
[2020-12-02] MEDS: POTASSIUM CHLORIDE 20 MEQ PACKET (FOR LIQUID) 40 MEQ PO (09:34)
[2020-12-02 12:29] LABS: Glucose Point of Care 109 (65-105)
[2020-12-02 13:55] VITALS: BP 121/61; PULSE 89; RESP 16; TEMP 36.4; O2SAT 100
--- NOTE | 2020-12-02 14:14 | WPDUROPN2 ---
Progress Note: A&P Assessment and Plan (1) UTI (urinary tract infection): Qualifiers: Urinary tract infection type: catheter-associated UTI Indwelling urinary catheter type: indwelling urethral catheter Encounter type: initial encounter Qualified Code(s): T83.511A - Infection and inflammatory reaction due to indwelling urethral catheter, initial encounter; N39.0 - Urinary tract infection, site not specified Code(s): N39.0 - Urinary tract infection, site not specified Status: Acute Assessment and Plan: Continue Ertapenem, when stable, ok to start Bactrim. 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 She will be discharged home and not to a NH. (3) Chronic UTI: Code(s): N39.0 - Urinary tract infection, site not specified Status: Acute Assessment and Plan: When finished with Bactrim, start Trimethoprim HS to prevent further UTI's. NO further evaluation needed. Subjective Subjective Date/Time Seen: 12/02/20 14:14 Urine Culture growing Klebsiella, sensitive to Bactrim/Trimethoprim. Patient was changed to Ertapenem yesterday and is doing well. Review of Systems Cardiovascular: Cardiovascular: Denies chest pain Respiratory: Respiratory: Reports no additional respiratory complaints Gastrointestinal: Gastrointestinal: Denies abdominal pain, Denies nausea and Denies vomiting Genitourinary: Genitourinary: Denies hematuria and Denies flank pain Exam Resp: Effort & Inspection: normal respiratory effort Cardio: Rate: regular rate GI: GI Palp: Yes Soft to palpation and No Tenderness to palpation present (GI) : General: Yes no CVA tenderness Urinary Catheter: Urinary Catheter: patent and draining and urine clear Extrem: General: no edema Objective Data Vital Signs Vital Signs: Vital Signs - 24 hr 12/01/20 20:00 12/02/20 00:24 12/02/20 04:00 Temperature 97.3 F L 97.8 F Pulse Rate 87 73 79 Respiratory Rate 18 19 20 Blood Pressure 103/55 L 119/62 Pulse Oximetry 99 92 99 12/02/20 13:55 Temperature 97.6 F Pulse Rate 89 Respiratory Rate 16 Blood Pressure 121/61 Pulse Oximetry 100 Intake/Output Intake/Output: Intake & Output 0111/30/20 12/01/20 12/02/20 23:59 23:59 23:59 23:59 Intake Total 1200 3113 1318 1330 Output Total 938 2405 1950 Balance 1200 8897 -0244 -213 Meds/Results Medications: Active Medications Generic Name Dose Route Start Last Admin Trade Name Freq PRN Reason Stop Dose Admin Aspirin 81 mg 11/30/20 09:00 12/02/20 09:21 Aspirin 81 Mg Enteric Tablet PO 81 mg QAM VITO Administration Benztropine Mesylate 0.5 mg 11/30/20 09:00 12/02/20 09:21 Benztropine Mesylate 0.5 Mg Tablet PO 0.5 mg DAILY VITO Administration Cyanocobalamin 1,000 mcg 11/30/20 09:00 12/02/20 09:21 Cyanocobalamin 1,000 Mcg Tablet PO 1,000 mcg QAM VITO Administration Dextrose 12.5 gm 11/29/20 20:14 Dextrose 50% 25 Gm/50 Ml Syringe IV PUSH PRN PRN Hypoglycemia Protocol Docusate Sodium 100 mg 11/30/20 09:00 12/02/20 09:21 Docusate Sodium 100 Mg Capsule PO 100 mg Q12HR VITO Administration Dorzolamide HCl 1 drop 11/30/20 09:00 12/02/20 09:20 Dorzolamide Hcl 2% Ophth Drops EACH EYE 1 drop BID VITO Administration Enoxaparin Sodium 40 mg 11/30/20 09:00 12/02/20 09:20 Enoxaparin 40 Mg/0.4 Ml Syringe SUB-Q 40 mg DAILY VITO Administration Gabapentin 300 mg 11/30/20 09:00 12/02/20 12:51 Gabapentin 300 Mg Capsule PO 300 mg TID VITO Administration Glucagon 1 mg 11/29/20 20:14 Glucagon For Inj 1 Mg Vial IM PRN PRN Hypoglycemia Protocol Glucose 15 gm 11/29/20 20:14 Glucose Oral Gel 15 Gm Of Glucse In 37.5 Gm Tube PO PRN PRN Hypoglycemia Protocol Yves
== END 2020-12-02 16:30 | disposition home or self-care (01) | DRG 698 ==
LOC: ANHED 09:14 → ANH2MED 18:28
PROVIDERS: Internal Medicine; Physician Assistant; Admitting Provider Family Medicine; Emergency Provider Emergency Medicine; PCP Internal Medicine; Visit Provider Family Medicine
DX: T83.511A Infection and inflammatory reaction due to indwelling urethral catheter, initial encounter (principal); A41.9 Sepsis, unspecified organism; I69.354 Hemiplegia and hemiparesis following cerebral infarction affecting left non-dominant side; F41.9 Anxiety disorder, unspecified; E11.319 Type 2 diabetes mellitus with unspecified diabetic retinopathy without macular edema; E11.65 Type 2 diabetes mellitus with hyperglycemia; E78.5 Hyperlipidemia, unspecified; F20.9 Schizophrenia, unspecified; I69.392 Facial weakness following cerebral infarction; B96.1 Klebsiella pneumoniae [K. pneumoniae] as the cause of diseases classified elsewhere; N31.2 Flaccid neuropathic bladder, not elsewhere classified
CPT/HCPCS: 36415; 70450; 71045; 74177; 80048; 80053; 81001; 82948; 83036; 83605; 83615; 83690; 83735; 84484; 85025; 85027; 87040; 87077; 87086; 87088; 87186; 93005; 96361; 96365; 96367; 96372; 96375; 96376; 97161; 97165; 99285; A9270; G0378; J0360; J0696; J1335; J1650; J1815; J1956; J2405; J2550; J2765; J7030; Q9967

== ENCOUNTER 2020-12-08 18:52 | Emergency (ER) | payer MEDICARE, MEDICAID, SELFPAY ==
[2020-12-08 18:58] VITALS: BP 124/84; PULSE 80; RESP 11; TEMP 35.9; O2SAT 99
[2020-12-08 19:30] VITALS: BP 133/73; PULSE 80; RESP 13; O2SAT 100
--- NOTE | 2020-12-08 19:50 | ED.DENTAL ---
HPI - Dental/Oral General Chief complaint: Dental/Oral <ИРИНА Rivera Last Filed: 12/08/20 19:58> Stated complaint: mouth pain <ИРИНА Rivera Last Filed: 12/08/20 19:58> Time Seen by Provider: 12/08/20 19:19 <ИРИНА Rivera Last Filed: 12/08/20 19:58> Source: patient and family <ИРИНА Rivera Last Filed: 12/08/20 19:58> Mode of arrival: EMS <ИРИНА Rivera Last Filed: 12/08/20 19:58> Limitations: no limitations <ИРИНА Rivera Last Filed: 12/08/20 19:58> History of Present Illness HPI Narrative: Patient is a 50-year-old female who presents to emergency department per EMS with family for evaluation of left sided tongue pain patient notes mild aching discomfort worse with eating and drinking patient has complained of the pain for 2 days patient presents with her mother patient with history of CVA and is bedbound patient thought maybe she had thrush secondary to being on recent antibiotics. On initial evaluation it is noted she has a small superficial abrasion to the posterior lateral tongue adjacent to a sharp fractured tooth which is rubbing on the tongue causing the injury no other abnormalities of the oropharynx <ИРИНА Rivera Last Filed: 12/08/20 19:58> Related Data Home medications: Home Medications Medication Instructions Recorded Confirmed dorzolamide [Trusopt] 1 drp OPHTHALMIC (EYE) BID 10/04/19 11/29/20 latanoprost [Xalatan] 1 drp OPHTHALMIC (EYE) BID 10/04/19 11/29/20 <ИРИНА Rivera Last Filed: 12/08/20 19:58> Allergies/adverse reactions: Allergies Allergy/AdvReac Type Severity Reaction Status Date / Time amoxicillin Allergy Mild Rash Verified 12/08/20 19:06 Penicillins Allergy Mild Unknown Verified 12/08/20 19:06 <ИРИНА Rivera Last Filed: 12/08/20 19:58> Review of Systems Review of Systems: All systems reviewed & are unremarkable except as noted in HPI and below <ИРИНА Rivera Last Filed: 12/08/20 19:58> [facility] Past Medical History Medical History: Medical History Anxiety Arthritis B12 deficiency July 2020 Cataracts, bilateral Cerebrovascular disease CVA 2014 and September 2019. The CVA 2018 involved the right caudate nucleus, right frontal and right parietal regions resulting in chronic left-sided deficits and delayed speech Chronic indwelling Bailey catheter since July 2020. Patient had recurrent urinary retention and hydronephrosis when Bailey catheter was discontinued. Followed by Dr. Estrella Diabetic retinopathy Glaucoma HLD (hyperlipidemia) Hypertension, essential IDDM (insulin dependent diabetes mellitus) 08/16/2020 hemoglobin A1c 6.5 Intracranial carotid stenosis, bilateral severe Iron deficiency anemia July 2020 due to nutritional deficiencies Peripheral polyneuropathy Schizophrenia, undifferentiated Type 2 diabetes mellitus with hyperglycemia <Charly Wilder PA-C - Last Filed: 12/08/20 19:58> Surgical History Surgical History: Surgical History H/O removal of cyst History of cystoscopy <Charly Wilder PA-C - Last Filed: 12/08/20 19:58> Family History Family History: Family History Grandparent Diabetes mellitus Father Family history of cardiovascular disease Other Cerebrovascular accident <Charly Wilder PA-C - Last Filed: 12/08/20 19:58> Social History Social History: Social History Social History: Single. Resides in subsidized apartment in [place], [place] ([facility]). She is dependent upon her mother for activities of daily living. She is wheelchair dependent. Smoking packs per day: 0.5 Smoking cigarettes per day: 10.0 Years smoke
[2020-12-08] MEDS: HYDROcodone/acetaminophen (*CRX) 5-325 MG TABLET 1 TAB PO (19:59)
[2020-12-08] MEDS: LIDOCAINE HCL 2% VISC SOLN 15 ML UDC PO (20:00)
--- NOTE | 2020-12-08 20:22 | PC.NURSE ---
Called [facility] for pt transfer back home, forrester gave estimated time of arrival 0100
[2020-12-08 21:00] VITALS: BP 110/64; PULSE 77; RESP 10; O2SAT 100
--- NOTE | 2020-12-08 21:27 | PC.NURSE ---
updated eta from forrester 0142
[2020-12-08 23:00] VITALS: BP 103/67; PULSE 76; RESP 11
[2020-12-09 00:15] VITALS: BP 105/65; PULSE 75; RESP 10
[2020-12-09 01:19] VITALS: BP 128/71; PULSE 77; RESP 13; O2SAT 99
[2020-12-09 04:05] VITALS: BP 140/82; PULSE 79; RESP 18; O2SAT 99
[2020-12-09 05:35] VITALS: BP 139/80; PULSE 78; RESP 18; O2SAT 99
== END 2020-12-09 05:40 | disposition home or self-care (01) ==
PROVIDERS: Emergency Provider General Practice; PCP Internal Medicine
DX: S00.512A Abrasion of oral cavity, initial encounter (principal); K02.9 Dental caries, unspecified; I69.954 Hemiplegia and hemiparesis following unspecified cerebrovascular disease affecting left non-dominant side; E11.319 Type 2 diabetes mellitus with unspecified diabetic retinopathy without macular edema; E78.5 Hyperlipidemia, unspecified; I10 Essential (primary) hypertension; D50.9 Iron deficiency anemia, unspecified; E11.42 Type 2 diabetes mellitus with diabetic polyneuropathy; F20.3 Undifferentiated schizophrenia; Z99.3 Dependence on wheelchair; F17.210 Nicotine dependence, cigarettes, uncomplicated; Z79.4 Long term (current) use of insulin; X58.XXXA Exposure to other specified factors, initial encounter; H40.9 Unspecified glaucoma
CPT/HCPCS: 99283; A9270

== ENCOUNTER 2020-12-16 23:45 | Inpatient (IN) | payer MEDICARE, MEDICAID, SELFPAY ==
--- NOTE | ~2020-12-16 | CT_ITS ---
EXAMINATION: CT abdomen pelvis w con DATE: 12/17/2020 01:59 INDICATION: Vomiting. Distended abdomen. TECHNIQUE: Computed tomography (CT) of the abdomen and pelvis was performed with 100 mL Omnipaque-350 intravenous contrast. Automated exposure control and iterative reconstruction technique were employe d. The dose-length product was 1046.41 mGy-cm. COMPARISON: 11/29/2020 FINDINGS: Dependent atelectasis at the bilateral lung bases. Heart size is normal. No pericardial or pleural ef fusion. Liver, gallbladder, pancreas and bilateral adrenal glands are normal. Splenic calcifications consistent with old granulomatous disease. Bilateral renal cysts, the largest on the right measuring 2 cm. No hydronephrosis. There is however mild urothelial enhancement at the bilateral renal pelvises sees and along the ureters. There is diffuse wall thickening of the bladder with mild haziness to th e surrounding fat suggestive of cystitis. Bailey catheter in the bladder. 6 cm ball of stool at the re ctum. Bowels are otherwise unremarkable. Normal appendix. 2 cm peripherally enhancing likely corpus l uteum cyst at the right ovary. Several small subserosal uterine fibroids. Trace amount of likely phys iologic free fluid in the pelvis. No abscess or free intraperitoneal gas. No pathologically enlarged abdominal or pelvic lymphadenopathy. IMPRESSION: 1. Urothelial enhancement at the bilateral renal pelvises sees and wall thickening and surrounding in flammatory stranding at the bladder which raises concern for cystitis and ascending urinary tract inf ection. Correlate with urinalysis. 2. 6 cm ball of stool at the rectum which could be seen with constipation/fecal impaction. 3. Fibroid uterus. Reviewed, dictated and finalized at location A. ILE TECHNICAL OFFICER IMPRESSION: 1. Urothelial enhancement at the bilateral renal pelvises sees and wall thicken ing and surrounding inflammatory stranding at the bladder which raises concern for cystitis and ascending urinary tract infection. Correlate with urinalysis. 2. 6 cm ball of stool at the rectum which could be seen with constipation/fecal impaction. 3. Fibroid uterus.
--- NOTE | ~2020-12-16 | CT_ITS ---
EXAMINATION: CTA chest PE protocol DATE: 12/17/2020 05:56 INDICATION: Tachycardia. TECHNIQUE: Computed tomography (CT) pulmonary angiogram of the chest was performed with 100 mL Omnipa que-350 intravenous contrast. Additional 3D reconstructions utilizing coronal maximum intensity proje ction (MIP) were performed. Automated exposure control and iterative reconstruction technique were em ployed. The dose-length product was 600.31 mGy-cm. COMPARISON: None FINDINGS: Excellent contrast opacification of the pulmonary arteries. There is mild streak artifact from dense contrast in the superior vena cava and right atrium. Mild scattered respiratory motion artifact which does not significantly limit evaluation. No pulmonary embolism. Gradient of groundglass opacities in the dependent lungs most likely representing atelectasis. Calcified pulmonary nodules, the largest a t the right apex along with calcified right hilar and mediastinal lymph nodes and splenic calcificati ons, all consistent with old granulomatous disease. No pleural effusion or pneumothorax. Heart size i s normal. Small amount of atherosclerotic coronary artery calcific effusion. Thoracic aorta is normal in caliber with no dissection. No pathologically enlarged thoracic lymphadenopathy. Small sliding-ty pe hiatal hernia. Bones are unremarkable. IMPRESSION: 1. No pulmonary embolism. 2. Dependent groundglass opacities in the bilateral lower lobes and favor atelectasis over pulmonary edema or pneumonia. Plantar. Small sliding-type hiatal hernia. Reviewed, dictated and finalized at location A. OLL MANAGER IMPRESSION: 1. No pulmonary embolism. 2. Dependent groundglass opacities in the bilateral lower lobes and favor atele ctasis over pulmonary edema or pneumonia. Plantar. Small sliding-type hiatal he rnia.
[2020-12-16 23:50] VITALS: BP 194/90; RESP 22; TEMP 36.4
[2020-12-17] VITALS (26 sets, daily range): BP systolic 91–185; BP diastolic 66–92; PULSE 90–139; RESP 9–20; TEMP 36–36.7; O2SAT 95–100; BMI 26.0
--- NOTE | 2020-12-17 00:14 | ED.ABDPAIN ---
HPI - Abdominal Pain General Chief Complaint: Abdominal Pain Stated Complaint: N/V UTI Time Seen by Provider: 12/17/20 00:00 Source: family Mode of arrival: ambulatory Limitations: other (nonverbal) History of Present Illness HPI narrative: A 50-year-old nonverbal patient comes into the emergency department tonight with complaints of nausea vomiting and constipation. Her family member/caregiver is present with her. She states that she has been nauseated and vomiting multiple times today. She states that she was just seen at a urologist office at [facility], was diagnosed with UTI and given a prescription for antibiotics. Patient has not started these yet. She also notes that the patient has multiple dental issues including fractured teeth which are causing to rub on the side of her tongue which is perhaps causing some issues with the nausea, the family member thinks. Related Data Home Medications Medication Instructions Recorded Confirmed dorzolamide [Trusopt] 1 drp OPHTHALMIC (EYE) BID 10/04/19 12/15/20 latanoprost [Xalatan] 1 drp OPHTHALMIC (EYE) BID 10/04/19 12/15/20 Allergies Allergy/AdvReac Type Severity Reaction Status Date / Time amoxicillin Allergy Mild Rash Verified 12/17/20 00:41 Penicillins Allergy Mild Unknown Verified 12/17/20 00:41 Review of Systems Review of Systems: ROS unobtainable: Yes unobtainable due to mental status PMFSH Past Medical History Medical History Anxiety Arthritis B12 deficiency July 2020 Cataracts, bilateral Cerebrovascular disease CVA 2014 and September 2019. The CVA 2018 involved the right caudate nucleus, right frontal and right parietal regions resulting in chronic left-sided deficits and delayed speech Chronic indwelling Bailey catheter since July 2020. Patient had recurrent urinary retention and hydronephrosis when Bailey catheter was discontinued. Followed by Dr. Estrella Diabetes Diabetic retinopathy Glaucoma HLD (hyperlipidemia) Hypertension, essential IDDM (insulin dependent diabetes mellitus) 08/16/2020 hemoglobin A1c 6.5 Intracranial carotid stenosis, bilateral severe Iron deficiency anemia July 2020 due to nutritional deficiencies Peripheral polyneuropathy Schizophrenia, undifferentiated Type 2 diabetes mellitus with hyperglycemia Surgical History Surgical History H/O removal of cyst History of cystoscopy Family History Family History Grandparent Diabetes mellitus Father Family history of cardiovascular disease Other Cerebrovascular accident Social History Social History Social History: Single. Resides in subsidized apartment in [place], [place] (the [facility]). She is dependent upon her mother for activities of daily living. She is wheelchair dependent. Years smoked: 5 Smoking status: Never smoker Alcohol intake: never Substance use: never Substance use type: does not use Additional occupation/education comments: disabled due to mental illness Gender identity (if verbalized by the patient): Female Spiritual care concerns: No Agree to blood products: Yes Exam Narrative: Exam Narrative: GENERAL: Well-appearing, well-nourished, and in no acute distress. HEAD: Normocephalic, atraumatic. EYES: PERRLA and EOMI. ENT: Nares clear, no rhinorrhea or epistaxis. Mucous membranes moist. Severe decay/fractures of tooth 17 and 18. oropharynx without tonsillar hypertrophy exudate or other lesions. Bilateral TMs pearly childress nonbulging NECK: Supple. No adenopathy or masses. No carotid bruits or JVD CHEST: Clear to auscultation. No respiratory distress. No wheezes rales or rhonchi HEART: Obese abdomen, regular rate and rhythm. No murmur heard. Normal peripheral pulses. ABDOMEN: Soft, nontender, n
[2020-12-17] MEDS: MORPHINE SULFATE (*CRX) 4 MG/ML INJ IV PUSH ×2 (00:25→04:26)
[2020-12-17] MEDS: LACTATED RINGERS 1,000 ML 999 ML IV CONT ×2 (00:25→06:20)
[2020-12-17] MEDS: ONDANSETRON INJ 4 MG/2 ML VIAL IV PUSH ×5 (00:26→23:47)
--- NOTE | 2020-12-17 00:56 | PC.NURSE ---
haz tech drawing blood now. bland tubing clamped to collect specimen. patient more alert. able to state that morphine did help with pain. wants a diet 7up. will discuss with provider. has CT ordered.
[2020-12-17 01:24] LABS: Basophils Percent Auto 0.2 % (0.2-1.2); Hematocrit 33.3 % (37.0-47.0); Hemoglobin 10.9 g/dL (12.0-15.0); Immature Granulocyte Absolute 0.02 K/mm3 (0.00-0.031); Immature Granulocyte Percent A 0.2 % (0-0.5); Lymphocytes Absolute Auto 1.16 K/mm3 (0.9-3.2); Mean Corpuscular HGB Conc 32.7 g/dl (32-36); Mean Corpuscular Hemoglobin 30.2 pg (26-34); Mean Corpuscular Volume 92.2 fl (80-100); Mean Platelet Volume 10.2 fl (7.4-10.4); Monocytes Absolute Auto 0.3 K/mm3 (0.1-0.6); Monocytes Percent Auto 2.7 % (2.6-8.5); Neutrophils Absolute Auto 9.1 K/mm3 (1.3-6.7); Neutrophils Percent Auto 85.9 % (45.5-73.1); Platelet Count Result 327 k/mm3 (150-375); Red Blood Count 3.61 M/mm3 (4.2-5.4); Red Cell Distribution Width 12.8 % (11.5-14.5); White Blood Count 10.6 K/mm3 (4.5-10.0)
--- NOTE | 2020-12-17 01:30 | PC.NURSE ---
patient's home med list updated in her chart using bottles provided by patient's mother. mother given sprite. patient taken to CT. patient and mother aware that we need CT results before we can let patient have anything PO.
[2020-12-17 01:33] LABS: Add Urine Microscopic? YES; Appearance Urine Turbid (Clear); Bilirubin Urine Negative (Negative); Blood Urine 1+ (Negative); Color Urine Yellow (Yellow); Glucose Urine UA 3+ mg/dL (Negative); Ketones Urine 1+ mg/dL (Negative); Leukocyte Esterase Ur 2+ LEU/UL (Negative); Nitrate Urine Negative (Negative); Protein Urine 2+ mg/dL (Negative); Specific Grav Ur 1.015 (1.001-1.035); Urobilinogen Urine Negative mg/dL (<2.0); WBC Clumps Urine Present /HPF; WBC Urine >75 /hpf
[2020-12-17 01:36] LABS: Alanine Aminotransferase 17 U/L (4-35); Alkaline Phosphatase 108 U/L (38-126); Anion Gap 8 mmol/L (8-16); Aspartate Amino Transferase 21 U/L (14-36); Bilirubin,Total 0.3 mg/dL (0.2-1.3); Blood Urea Nitrogen 17 mg/dL (7-17); Calcium 9.1 mg/dL (8.4-10.2); Carbon Dioxide 19 mmol/L (22-30); Chloride 106 mmol/L (98-107); Estimated Glomerular Filt Rate > 60; Glucose 260 mg/dL (65-105); Lipase 34 U/L (23-300); Potassium 5.1 mmol/L (3.4-5.0); Sodium 133 mmol/L (137-145)
[2020-12-17 01:37] LABS: Lactic Acid Reflex 1.5 mmol/L (0.7-2.1)
--- NOTE | 2020-12-17 02:30 | PC.NURSE ---
additional urine collected from port on bland. lab did accept the first specimen sent. patient's mother updated on current treatment plan. waiting for CT results. mother hopes to take the patient back home.
--- NOTE | 2020-12-17 03:08 | PC.NURSE ---
Called [facility] to request transport. ETA 0445 [facility], [facility] not available this night for transport.
--- NOTE | 2020-12-17 03:12 | PC.NURSE ---
EMS contacted for transport back to patient's home. mother present now and will be present at arrival home. bland to stay in. will take out her SL when EMS arrives. patient given diet white soda. more alert and talking now. denies needs or pain. PCS form on chart for EMS. will give standard patient discharge instructions to patient's mother. report given to Oly NAPIER.
--- NOTE | 2020-12-17 03:35 | PC.NURSE ---
Pt noted to have an elevated HR. ERP made aware. Orders placed for EKG and pain and nausea meds. Pt declines medications at this time.
--- NOTE | 2020-12-17 03:51 | ECG_ITS ---
Measurements Intervals [place] Rate: 140 P: 183 MI: 108 QRS: -52 QRSD: 126 T: 21 QT: 303 QTc: 463 Interpretive Statements SUPRAVENTRICULAR TACHYCARDIA RIGHT BUNDLE BRANCH BLOCK LEFT ANTERIOR FASCICULAR BLOCK ABNORMAL ECG Electronically Signed On 12-17-2020 6:55:11 REFINING EQUIPMENT OPERATOR by Morris Francis D.O.
[2020-12-17] MEDS: LACTATED RINGERS 1,000 ML 999 ML (04:02)
--- NOTE | 2020-12-17 04:20 | PC.NURSE ---
Pt noted to have vomited in room.
--- NOTE | 2020-12-17 05:53 | PC.NURSE ---
Pt to CT
--- NOTE | 2020-12-17 08:49 | ADMGEN ---
This patient, Jasmin Lopez, was admitted to 2 Medical Room 240-01. Patient/family oriented to hospital policies and general routines including ID bracelet, bed and alarms, visiting hours, pain management, procedures, bathroom and other care routines, personal items, smoking policy, room service/diet, and visiting hours. Information on how to activate the Rapid Response Team has been discussed. Patient/Family are encouraged to report perceived risks to care and to ask questions if they do not understand what they are told or what they should do.
[2020-12-17 11:04] LABS: Troponin I < 0.012 ng/mL (0.000-0.034)
[2020-12-17] MEDS: SODIUM CHLORIDE 0.9% IV 1,000 ML 125 ML IV CONT ×2 (12:10→20:10)
[2020-12-17] MEDS: PROMETHAZINE HCL 25 MG/ML AMPUL 12.5 MG IV PUSH ×2 (12:13→20:13)
[2020-12-17] MEDS: ERTAPENEM 1 GM/NS 50 ML 1 GM/50 ML BAG IVPB (12:18)
[2020-12-17 12:21] LABS: Glucose Point of Care 230 (65-105)
--- NOTE | 2020-12-17 12:34 | PM.IMHP ---
H&P: HPI History of Present Illness Date/Time: 12/17/20 12:34 Chief Complaint: Nausea and vomiting Narrative: Date of visit 12/17/2020. [id number] Jasmin Lopez is a 50 year old female with type 2 diabetes mellitus indwelling Bailey since secondary to retention and recurrent UTIs, and status post CVA who presented to the emergency room with nausea and vomiting. She presented in a similar fashion the 1st part of on the when she was found to have Klebsiella UTI which was ESBL positive. She took Septra DS until the than transitioned to trimethoprim HS per urology.. She has had nausea and vomiting now again for the last 48 hours but no abdominal pain or fevers. In the ER she was tachycardic with persistence nausea and thus was admitted for observation. Review of Systems Review of Systems: Narrative: [place] weight is stable appetite good Eyes no double vision scotoma CV no chest pain or palpitation GI as per present illness no melena hematochezia chronic Bailey Integument no skin breakdown rashes Neuropsych no seizures no syncope, chronic schizophrenia PMFSH Past Medical History Medical History Anxiety Arthritis B12 deficiency July 2020 Cataracts, bilateral Cerebrovascular disease CVA 2014 and September 2019. The CVA 2018 involved the right caudate nucleus, right frontal and right parietal regions resulting in chronic left-sided deficits and delayed speech Chronic indwelling Bailey catheter since July 2020. Patient had recurrent urinary retention and hydronephrosis when Bailey catheter was discontinued. Followed by Dr. Estrella Diabetes Diabetic retinopathy Glaucoma HLD (hyperlipidemia) Hypertension, essential IDDM (insulin dependent diabetes mellitus) 08/16/2020 hemoglobin A1c 6.5 Intracranial carotid stenosis, bilateral severe Iron deficiency anemia July 2020 due to nutritional deficiencies Peripheral polyneuropathy Schizophrenia, undifferentiated Type 2 diabetes mellitus with hyperglycemia Surgical History Surgical History H/O removal of cyst History of cystoscopy Family History Family History Grandparent Diabetes mellitus Father Family history of cardiovascular disease Other Cerebrovascular accident Social History Social History (Updated 12/17/20 @ 12:44 by Claudy Pichardo MD) Social History: Single. Resides in subsidized apartment in [place], [place] (the [facility]). She is dependent upon her mother for activities of daily living. She is wheelchair dependent. Years smoked: 5 Smoking status: Former smoker Alcohol intake: never Substance use: never Substance use type: does not use Additional occupation/education comments: disabled due to mental illness Gender identity (if verbalized by the patient): Female Spiritual care concerns: No Agree to blood products: Yes Meds Home Medications and Allergies Home Medications Medication Instructions Recorded Confirmed Type dorzolamide [Trusopt] 1 drp OPHTHALMIC (EYE) BID 10/04/19 12/17/20 History latanoprost [Xalatan] 1 drp OPHTHALMIC (EYE) BID 10/04/19 12/17/20 History trimethoprim 100 mg PO HS #30 tablet 11/30/20 12/17/20 Rx aspirin 81 mg tablet,delayed 81 mg PO QAM #90 tablet 12/15/20 12/17/20 Rx release benztropine 0.5 mg tablet 0.5 mg PO DAILY #90 tablet 12/15/20 12/17/20 Rx ergocalciferol (vitamin D2) 1,250 1,250 mcg PO WEEKLY #4 cap 12/15/20 12/17/20 Rx mcg (50,000 unit) capsule gabapentin 300 mg capsule 300 mg PO TID #90 cap 12/15/20 12/17/20 Rx glimepiride 1 mg tablet 1 mg PO DAILY #90 tablet 12/15/20 12/17/20 Rx haloperidol 5 mg tablet 5 mg PO DAILY #90 tablet 12/15/20 12/17/20 Rx methocarbamol 750 mg tablet 750 mg PO DAILY #90 tablet 12/15/20 12/17/20 Rx sertraline 50 mg tablet
[2020-12-17] MEDS: INSULIN ASPART (*BKC) 100 UNITS/ML SUB-Q ×2 (12:42→18:19)
[2020-12-17 16:44] LABS: Glucose Point of Care 220 (65-105)
[2020-12-17] MEDS: PHARMACIST COMMUNICATION ORDER 1 EACH XX (18:19)
[2020-12-17 19:00] LABS: Glucose Point of Care 222 (65-105)
[2020-12-17] MEDS: LATANOPROST 0.005% OP SOLN 2.5 ML BTL 1 DROP EACH EYE (20:12)
[2020-12-17] MEDS: DORZOLAMIDE HCL 2% OPHTH DROPS 1 DROP EACH EYE (20:12)
[2020-12-17] MEDS: INSULIN GLARGINE (*BKC) 100 UNITS/ML SUB-Q (20:27)
[2020-12-17 21:07] LABS: Glucose Point of Care 225 (65-105)
[2020-12-18] VITALS (9 sets, daily range): BP systolic 110–189; BP diastolic 55–83; PULSE 86–102; RESP 16–18; TEMP 36.2–37.1; O2SAT 98–100
[2020-12-18] MEDS: PROMETHAZINE HCL 25 MG/ML AMPUL 12.5 MG IV PUSH ×2 (01:19→05:45)
[2020-12-18] MEDS: ONDANSETRON INJ 4 MG/2 ML VIAL IV PUSH ×2 (03:33→11:58)
[2020-12-18] MEDS: SODIUM CHLORIDE 0.9% IV 1,000 ML 125 ML IV CONT (03:35)
[2020-12-18 05:16] LABS: Basophils Percent Auto 0.2 % (0.2-1.2); Eosinophils Percent Auto 0.1 % (0-4.4); Hematocrit 36.1 % (37.0-47.0); Hemoglobin 11.9 g/dL (12.0-15.0); Immature Granulocyte Absolute 0.03 K/mm3 (0.00-0.031); Immature Granulocyte Percent A 0.3 % (0-0.5); Lymphocytes Percent Auto 14.1 % (18.3-44.2); Mean Corpuscular Hemoglobin 29.8 pg (26-34); Mean Corpuscular Volume 90.5 fl (80-100); Mean Platelet Volume 10.4 fl (7.4-10.4); Monocytes Absolute Auto 0.6 K/mm3 (0.1-0.6); Monocytes Percent Auto 5.9 % (2.6-8.5); Neutrophils Absolute Auto 8.4 K/mm3 (1.3-6.7); Neutrophils Percent Auto 79.4 % (45.5-73.1); Platelet Count Result 352 k/mm3 (150-375); Red Blood Count 3.99 M/mm3 (4.2-5.4); Red Cell Distribution Width 12.8 % (11.5-14.5); White Blood Count 10.6 K/mm3 (4.5-10.0)
[2020-12-18] MEDS: MORPHINE SULFATE (*CRX) 2 MG/ML INJ IV PUSH (05:55)
[2020-12-18 06:04] LABS: Anion Gap 7 mmol/L (8-16); Blood Urea Nitrogen 11 mg/dL (7-17); Carbon Dioxide 24 mmol/L (22-30); Chloride 102 mmol/L (98-107); Estimated CRCL calculation 88 ml/min; Potassium 3.6 mmol/L (3.4-5.0); Sodium 133 mmol/L (137-145)
[2020-12-18 06:05] LABS: Calcium 8.7 mg/dL (8.4-10.2); Estimated Glomerular Filt Rate > 60; Glucose 237 mg/dL (65-105)
[2020-12-18 07:46] LABS: Glucose Point of Care 245 (65-105)
[2020-12-18] MEDS: LATANOPROST 0.005% OP SOLN 2.5 ML BTL 1 DROP EACH EYE ×2 (08:16→20:28)
[2020-12-18] MEDS: DORZOLAMIDE HCL 2% OPHTH DROPS 1 DROP EACH EYE ×2 (08:16→20:27)
[2020-12-18] MEDS: HALOPERIDOL 5 MG TABLET PO (08:18)
[2020-12-18] MEDS: SERTRALINE HCL 50 MG TABLET PO (08:18)
[2020-12-18] MEDS: BENZTROPINE MESYLATE 0.5 MG TABLET PO (08:18)
[2020-12-18] MEDS: methocarbamoL 750 MG TABLET PO (08:18)
[2020-12-18] MEDS: GABAPENTIN 300 MG CAPSULE PO ×3 (08:18→17:03)
[2020-12-18] MEDS: INSULIN ASPART (*BKC) 100 UNITS/ML SUB-Q ×3 (08:44→17:03)
[2020-12-18] MEDS: amLODIPine BESYLATE 5 MG TABLET PO (08:44)
--- NOTE | 2020-12-18 11:16 | PM.IMPN ---
Progress Note: A&P Assessment and Plan (1) Nausea and vomiting: Qualifiers: Vomiting Intractability: non-intractable Vomiting type: unspecified Qualified Code(s): R11.2 - Nausea with vomiting, unspecified Code(s): R11.2 - Nausea with vomiting, unspecified Status: Acute Assessment and Plan: Still some nausea and emesis and will continue antiemetics and hydration. Probable secondary to urine infection. CT abdomen revealed with looked to be probably chronic cystitis (2) Chronic UTI: Code(s): N39.0 - Urinary tract infection, site not specified Status: Acute Assessment and Plan: Patient's last culture grew ESBL so started ertapenem that was sensitive to before, but culture today is growing greater than 100,000 enterococcus. Allergic to penicillin so will start vancomycin. No fever or leukocytosis but with the nausea vomiting and tachycardia we treating. With indwelling Bailey not a candidate for treatment unless she develops sepsis. (3) IDDM (insulin dependent diabetes mellitus): Code(s): E11.9 - Type 2 diabetes mellitus without complications; Z79.4 - terminal make up operator (current) use of insulin Status: Chronic Assessment and Plan: A1c was 6.5 in July. Will continue HS Lantus along with sliding scale. FBS today 12/18 237 (4) Tachycardia: Code(s): R00.0 - Tachycardia, unspecified Status: Acute Assessment and Plan: Suspect it is a reaction to the nausea vomiting and some probably volume depletion. Continue hydration. Rate now in the 90s (5) DVT prophylaxis: Code(s): Z29.9 - Encounter for prophylactic measures, unspecified Status: Acute Assessment and Plan: Changed to mechanical with hematemesis (6) Hematemesis: Code(s): K92.0 - Hematemesis Status: Acute Assessment and Plan: Some blood in emesis. Will hold Lovenox, start PPI, and av seen by GI. Serial hemoglobins Subjective Date/time seen: 12/18/20 11:16 Interval history: 50-year-old with recurrent UTI and chronic indwelling Bailey admitted with nausea and vomiting.. Urine looks to be infected and judicious recently treated for ESBL Klebsiella. No fever no chills. Still nauseated this a.m. and has had some blood in her emesis. No abdominal pain. Exam Narrative: Exam Narrative: Blood pressure 184/82 pulse is 94 afebrile Pupils equal reactive, sclera anicteric Mouth poor dentition but appears normal mucosa Neck no bruits no adenopathy Lungs clear CV regular rate rhythm ABD soft nontender bowel sounds are present though slightly decreased unchanged Extremities without edema dorsalis pedis posterior tibial 1+ at best Neuro alert cooperative flaccid left side from previous CVA, but no new focal deficits Objective Data Vital Signs Vital Signs: Vital Signs - 24 hr 12/17/20 12:00 12/17/20 14:00 12/17/20 16:00 Temperature 36.1 C L Pulse Rate 97 98 96 Respiratory Rate 12 Blood Pressure 182/83 H Pulse Oximetry 100 12/17/20 20:00 12/17/20 22:00 12/18/20 00:00 Temperature 36.2 C L Pulse Rate 94 94 91 Respiratory Rate 18 Blood Pressure 185/74 H Pulse Oximetry 100 12/18/20 04:00 12/18/20 04:57 12/18/20 08:00 Temperature 36.2 C L Pulse Rate 99 99 102 H Respiratory Rate 18 Blood Pressure 189/83 H Pulse Oximetry 100 Intake/Output Intake/Output: Intake & Output 12/15/20 12/16/20 12/17/20 12/18/20 23:59 23:59 23:59 23:59 Intake Total 4350 1360 Output To
[2020-12-18] MEDS: SODIUM CHLORIDE 0.9% IV 1,000 ML 100 ML IV CONT (11:54)
[2020-12-18 12:38] LABS: Glucose Point of Care 247 (65-105)
[2020-12-18 12:38] LABS: Glucose Point of Care 240 (65-105)
[2020-12-18] MEDS: PANTOPRAZOLE SODIUM IV 40 MG VIAL IV PUSH ×2 (13:28→20:27)
[2020-12-18 16:14] LABS: Hematocrit 32.5 % (37.0-47.0); Hemoglobin 11.1 g/dL (12.0-15.0); Mean Corpuscular HGB Conc 34.2 g/dl (32-36); Mean Corpuscular Hemoglobin 30.5 pg (26-34); Mean Corpuscular Volume 89.3 fl (80-100); Mean Platelet Volume 10.3 fl (7.4-10.4); Platelet Count Result 356 k/mm3 (150-375); Red Blood Count 3.64 M/mm3 (4.2-5.4); Red Cell Distribution Width 12.8 % (11.5-14.5); White Blood Count 11.7 K/mm3 (4.5-10.0)
[2020-12-18 16:25] LABS: Glucose Point of Care 311 (65-105)
[2020-12-18] MEDS: INSULIN GLARGINE (*BKC) 100 UNITS/ML SUB-Q (20:32)
[2020-12-18 21:18] LABS: Glucose Point of Care 265 (65-105)
[2020-12-19] VITALS (9 sets, daily range): BP systolic 144–154; BP diastolic 75–85; PULSE 79–98; RESP 16–18; TEMP 36.2–37.5; O2SAT 96–100; BMI 26.0
[2020-12-19 05:38] LABS: Basophils Absolute Auto 0.1 K/mm3 (0.0-0.1); Basophils Percent Auto 0.5 % (0.2-1.2); Eosinophils Absolute Auto 0.1 K/mm3 (0-0.3); Eosinophils Percent Auto 0.7 % (0-4.4); Hematocrit 32.6 % (37.0-47.0); Hemoglobin 10.4 g/dL (12.0-15.0); Immature Granulocyte Absolute 0.03 K/mm3 (0.00-0.031); Immature Granulocyte Percent A 0.3 % (0-0.5); Lymphocytes Absolute Auto 3.94 K/mm3 (0.9-3.2); Lymphocytes Percent Auto 36.7 % (18.3-44.2); Mean Corpuscular HGB Conc 31.9 g/dl (32-36); Mean Corpuscular Hemoglobin 29.6 pg (26-34); Mean Corpuscular Volume 92.9 fl (80-100); Mean Platelet Volume 10.3 fl (7.4-10.4); Monocytes Absolute Auto 0.7 K/mm3 (0.1-0.6); Monocytes Percent Auto 6.6 % (2.6-8.5); Neutrophils Absolute Auto 5.9 K/mm3 (1.3-6.7); Neutrophils Percent Auto 55.2 % (45.5-73.1); Platelet Count Result 332 k/mm3 (150-375); Red Blood Count 3.51 M/mm3 (4.2-5.4); Red Cell Distribution Width 12.9 % (11.5-14.5); White Blood Count 10.8 K/mm3 (4.5-10.0)
[2020-12-19 05:52] LABS: Alanine Aminotransferase 23 U/L (4-35); Albumin Level 3.4 g/dL (3.5-5.1); Alkaline Phosphatase 86 U/L (38-126); Anion Gap 6 mmol/L (8-16); Aspartate Amino Transferase 30 U/L (14-36); Bilirubin,Total 0.6 mg/dL (0.2-1.3); Blood Urea Nitrogen 14 mg/dL (7-17); Calcium 8.6 mg/dL (8.4-10.2); Carbon Dioxide 22 mmol/L (22-30); Chloride 106 mmol/L (98-107); Estimated CRCL calculation 78 ml/min; Estimated Glomerular Filt Rate > 60; Glucose 209 mg/dL (65-105); Potassium 3.9 mmol/L (3.4-5.0); Sodium 134 mmol/L (137-145)
[2020-12-19] MEDS: SODIUM CHLORIDE 0.9% IV 1,000 ML 100 ML IV CONT ×2 (05:56→20:38)
[2020-12-19 07:50] LABS: Glucose Point of Care 234 (65-105)
[2020-12-19] MEDS: INSULIN ASPART (*BKC) 100 UNITS/ML SUB-Q ×3 (08:17→17:44)
--- NOTE | 2020-12-19 08:20 | WPDGICN ---
Assessment and Plan Assessment and plan (1) Nausea and vomiting: Qualifiers: Vomiting Intractability: non-intractable Vomiting type: unspecified Qualified Code(s): R11.2 - Nausea with vomiting, unspecified Code(s): R11.2 - Nausea with vomiting, unspecified Status: Acute Assessment and Plan: Patient had appears to have protracted in recurrent nausea vomiting. Etiology of this remains unclear. She does have diabetes mellitus raising the Bronson of gastroparesis. She does have a urinary tract infection raising the question of stress gastritis. Plan is to monitor hemoglobin which is mildly anemic at this point. Maintain patient on proton pump inhibitor therapy. Consider brief trial of Reglan. CT scan suggest moderate stool burden raising the question of constipation laxatives may be of some benefit. Should symptoms persist an EGD can be performed electively. There is a question of possible hematemesis. This is not been documented her confirmed in notes. Plan to continue to monitor hemoglobin , current hemoglobin felt to be stable compared to previous labs. (2) Fracture of tooth: Qualifiers: Encounter type: initial encounter Fracture type: closed Qualified Code(s): S02.5XXA - Fracture of tooth (traumatic), initial encounter for closed fracture Code(s): S02.5XXA - Fracture of tooth (traumatic), initial encounter for closed fracture Status: Acute Assessment and Plan: Patient has a tooth fracture eventually seen a dentist may be of some benefit for this period is possible this could contribute to lesions in her mouth and any bleeding described. (3) Constipation: Qualifiers: Constipation type: slow transit constipation Qualified Code(s): K59.01 - Slow transit constipation Code(s): K59.00 - Constipation, unspecified Status: Acute Assessment and Plan: Stool softeners laxatives suggested as needed. (4) Diabetes: Code(s): E11.9 - Type 2 diabetes mellitus without complications Status: Acute (5) UTI (urinary tract infection): Qualifiers: Urinary tract infection type: catheter-associated UTI Indwelling urinary catheter type: indwelling urethral catheter Encounter type: initial encounter Qualified Code(s): T83.511A - Infection and inflammatory reaction due to indwelling urethral catheter, initial encounter; N39.0 - Urinary tract infection, site not specified Code(s): N39.0 - Urinary tract infection, site not specified Status: Acute (6) Atonic bladder: Code(s): N31.2 - Flaccid neuropathic bladder, not elsewhere classified Status: Acute GI Consult Note Consult date/time: 12/19/20 08:20 HPI: Jasmin Lopez is a 50 year old female I am asked to see at the request of the hospitalist service. Patient apparently admitted hospital with protracted nausea vomiting. Consult request that blood may have been noted in the vomitus. But I cannot find this documented in the record. Patient refuses or is unable to give any additional history. She apparently has a an ongoing urinary tract infection with indwelling Bailey catheter. At home she is at bedrest. Suffers from insulin-dependent diabetes mellitus period was in the hospital with a urinary tract infection 2 weeks ago. She is felt to have recurrent urinary tract infection at the present time currently on broad-spectrum antibiotic coverage. She states that she feels nauseated. She denies any obvious bleeding. She does not wish to undergraduate intern give me any additional insight. Very poor historian. Review of Systems Review of Systems: ROS unobtainable: Yes unobtainable due to medical condition [facility] Past Medical History Medical History Anxiety Arthritis B12 deficiency July 2020 Cataracts, bilateral Cerebrovascular disease CVA 2014 and September 2019. The CVA 2018 involved the right caudate n
[2020-12-19] MEDS: amLODIPine BESYLATE 5 MG TABLET PO (08:23)
[2020-12-19] MEDS: GABAPENTIN 300 MG CAPSULE PO (08:23)
[2020-12-19] MEDS: DORZOLAMIDE HCL 2% OPHTH DROPS 1 DROP EACH EYE ×2 (08:23→20:36)
[2020-12-19] MEDS: BENZTROPINE MESYLATE 0.5 MG TABLET PO (08:23)
[2020-12-19] MEDS: SERTRALINE HCL 50 MG TABLET PO (08:24)
[2020-12-19] MEDS: PANTOPRAZOLE SODIUM IV 40 MG VIAL IV PUSH ×2 (08:24→20:35)
[2020-12-19] MEDS: methocarbamoL 750 MG TABLET PO (08:24)
[2020-12-19] MEDS: LATANOPROST 0.005% OP SOLN 2.5 ML BTL 1 DROP EACH EYE ×2 (08:24→20:36)
[2020-12-19] MEDS: HALOPERIDOL 5 MG TABLET PO (08:24)
[2020-12-19] MEDS: ONDANSETRON INJ 4 MG/2 ML VIAL IV PUSH ×2 (09:11→19:20)
[2020-12-19 11:59] LABS: Glucose Point of Care 256 (65-105)
--- NOTE | 2020-12-19 14:12 | PCNSR ---
On 12/19/20, the student, Glenna Crowder, provided care and completed [facility] documentation on this patient. I have reviewed the student's documentation and agree with the findings.
--- NOTE | 2020-12-19 15:23 | PM.IMPN ---
Progress Note: A&P Assessment and Plan (1) Nausea and vomiting: Qualifiers: Vomiting Intractability: non-intractable Vomiting type: unspecified Qualified Code(s): R11.2 - Nausea with vomiting, unspecified Code(s): R11.2 - Nausea with vomiting, unspecified Status: Acute Assessment and Plan: Still with nausea and emesis. Continue antiemetics and hydration. Probable secondary to urine infection. Continue supportive care. Continue IV fluids. (2) Chronic UTI: Code(s): N39.0 - Urinary tract infection, site not specified Status: Acute Assessment and Plan: Patient's last culture grew ESBL so started ertapenem that was sensitive to before, but culture today is growing greater than 100,[address] A/P showing urothelial enhancement at the bilateral renal pelvises sees and wall thickening and surrounding inflammatory stranding at the bladder. Concerns for cystitis and ascending urinary tract infection but WBC 10K and no fevers. Allergic to penicillin so started on vancomycin. Continue for now. Change to Macrobid when able to eat. (3) IDDM (insulin dependent diabetes mellitus): Code(s): E11.9 - Type 2 diabetes mellitus without complications; Z79.4 - shelter (current) use of insulin Status: Chronic Assessment and Plan: A1c was 6.5 in July. The patient's blood glucose was reviewed on 12/19 Glucose remains poorly controlled. Continue AccuCheks covering with sliding scale. Hypoglycemia protocol available as needed. Continue current medications. Will advance HS Lantus (4) Tachycardia: Code(s): R00.0 - Tachycardia, unspecified Status: Acute Assessment and Plan: Possible SVT by EKG. Suspect it is a reaction to the nausea vomiting and some probably volume depletion. Continue hydration. No recurrence on tele. If stable tomorrow, will stop tele (5) DVT prophylaxis: Code(s): Z29.9 - Encounter for prophylactic measures, unspecified Status: Acute Assessment and Plan: SCDs (6) Hematemesis: Code(s): K92.0 - Hematemesis Status: Acute Assessment and Plan: Some blood in emesis. Lovenox held and she was started on a PPI. Seen by GI. Serial hemoglobins stable. Appreciate GI input. (7) Constipation: Qualifiers: Constipation type: slow transit constipation Qualified Code(s): K59.01 - Slow transit constipation Code(s): K59.00 - Constipation, unspecified Status: Acute Assessment and Plan: CT A/P showing 6 cm ball of stool at the rectum which could be seen with constipation/fecal impaction. Soap suds enema today. Add laxatives. Subjective Date/time seen: 12/19/20 15:23 Interval history: Date of service 12/19/2020 50-year-old with recurrent UTI and chronic indwelling Bailey admitted with nausea and vomiting.. Assuming care. Chart reviewed. Patient still having nausea and vomiting. No bowel movements recently. No chest pain or shortness of breath. Not eating. She is requesting a laxative. Exam Narrative: Exam Narrative: AF 99.5 150/85 80 16 100% ra Gen - NARD lying almost flat in bed Chest - CTA bilaterally, nml RR CV - RRR S1/S2; telemetry showing PVCs Abd - Soft, NT/ND, Positive BS Ext - No pedal edema Psych - Nml mood and affect Skin - Warm and dry Neuro - alert and cooperative; flaccid left side from previous CVA Objective Data Vital Signs Vital Signs: Vital Signs - 24 hr 12/18/20 16:00 12/18/20 20:00 12/18/20 21:48 Temperature 97.3 F L Pulse Rate 100 87 87 Respiratory Rate 16 16 Blood Pressure 110/55 L Pulse Oximetry 98 98 12/19/20 01:04 12/19/20 04:00 12/19/20 06:00 Temperature 97.1 F L Pulse Rate 79 89 98 Respiratory Rate 16 Blood Pressure 144/75 H Pulse Oximetry 100 12/19/20 08:00 12/19/20 12:00 12/19/20 14:00 Temperature 99.5 F Pulse Rate 97 98 80 Respiratory Rate
[2020-12-19 17:37] LABS: Glucose Point of Care 243 (65-105)
[2020-12-19] MEDS: BISACODYL 5 MG TABLET EC PO (17:51)
[2020-12-19] MEDS: BISACODYL 10 MG SUPPOSITORY RECTAL (17:51)
[2020-12-19] MEDS: INSULIN GLARGINE (*BKC) 100 UNITS/ML 10 UNITS SUB-Q (20:40)
[2020-12-19 20:55] LABS: Glucose Point of Care 215 (65-105)
[2020-12-19 23:59] LABS: Vancomycin Trough 13.7 ug/mL (10.0-20.0)
[2020-12-20] VITALS (8 sets, daily range): BP systolic 116–176; BP diastolic 60–81; PULSE 87–98; RESP 18–20; TEMP 36.3–36.7; O2SAT 98–100
[2020-12-20 05:00] LABS: Hematocrit 32.4 % (37.0-47.0); Hemoglobin 10.9 g/dL (12.0-15.0); Mean Corpuscular HGB Conc 33.6 g/dl (32-36); Mean Corpuscular Hemoglobin 29.6 pg (26-34); Mean Platelet Volume 10.2 fl (7.4-10.4); Platelet Count Result 349 k/mm3 (150-375); Red Blood Count 3.68 M/mm3 (4.2-5.4); White Blood Count 10.4 K/mm3 (4.5-10.0)
[2020-12-20 05:06] LABS: Albumin Level 3.5 g/dL (3.5-5.1); Anion Gap 7 mmol/L (8-16); Blood Urea Nitrogen 10 mg/dL (7-17); Calcium 8.7 mg/dL (8.4-10.2); Carbon Dioxide 24 mmol/L (22-30); Chloride 102 mmol/L (98-107); Estimated CRCL calculation 88 ml/min; Estimated Glomerular Filt Rate > 60; Glucose 242 mg/dL (65-105); Phosphorus 2.7 mg/dL (2.5-4.5); Potassium 3.7 mmol/L (3.4-5.0); Sodium 133 mmol/L (137-145)
[2020-12-20] MEDS: ONDANSETRON INJ 4 MG/2 ML VIAL IV PUSH (05:45)
[2020-12-20 08:08] LABS: Glucose Point of Care 229 (65-105)
[2020-12-20] MEDS: PROMETHAZINE HCL 25 MG/ML AMPUL 12.5 MG IV PUSH (08:36)
[2020-12-20] MEDS: INSULIN ASPART (*BKC) 100 UNITS/ML SUB-Q ×2 (08:44→13:01)
[2020-12-20] MEDS: LATANOPROST 0.005% OP SOLN 2.5 ML BTL 1 DROP EACH EYE ×2 (08:48→20:30)
[2020-12-20] MEDS: PANTOPRAZOLE SODIUM IV 40 MG VIAL IV PUSH ×2 (08:48→20:30)
[2020-12-20] MEDS: DORZOLAMIDE HCL 2% OPHTH DROPS 1 DROP EACH EYE ×2 (08:49→20:30)
[2020-12-20] MEDS: GABAPENTIN 300 MG CAPSULE PO ×3 (10:13→17:22)
[2020-12-20] MEDS: BENZTROPINE MESYLATE 0.5 MG TABLET PO (10:14)
[2020-12-20] MEDS: amLODIPine BESYLATE 5 MG TABLET PO (10:14)
[2020-12-20] MEDS: methocarbamoL 750 MG TABLET PO (10:15)
[2020-12-20] MEDS: HALOPERIDOL 5 MG TABLET PO (10:15)
[2020-12-20] MEDS: SERTRALINE HCL 50 MG TABLET PO (10:15)
[2020-12-20] MEDS: BISACODYL 5 MG TABLET EC PO (10:21)
--- NOTE | 2020-12-20 10:52 | WPDGIPROGNO ---
Progress Note: A&P Assessment and Plan (1) Nausea and vomiting: Qualifiers: Vomiting Intractability: non-intractable Vomiting type: unspecified Qualified Code(s): R11.2 - Nausea with vomiting, unspecified Code(s): R11.2 - Nausea with vomiting, unspecified Status: Acute Assessment and Plan: Nausea vomiting persists. Likely related to urinary tract infection or constipation. Small amount of blood noted in emesis may be from poor dentition. No need to pursue endoscopy at this time. (2) Fracture of tooth: Qualifiers: Encounter type: initial encounter Fracture type: closed Qualified Code(s): S02.5XXA - Fracture of tooth (traumatic), initial encounter for closed fracture Code(s): S02.5XXA - Fracture of tooth (traumatic), initial encounter for closed fracture Status: Acute (3) Constipation: Qualifiers: Constipation type: slow transit constipation Qualified Code(s): K59.01 - Slow transit constipation Code(s): K59.00 - Constipation, unspecified Status: Acute Assessment and Plan: Stool softeners and laxatives advised for treatment of her constipation. (4) UTI (urinary tract infection): Qualifiers: Urinary tract infection type: catheter-associated UTI Indwelling urinary catheter type: indwelling urethral catheter Encounter type: initial encounter Qualified Code(s): T83.511A - Infection and inflammatory reaction due to indwelling urethral catheter, initial encounter; N39.0 - Urinary tract infection, site not specified Code(s): N39.0 - Urinary tract infection, site not specified Status: Acute Assessment and Plan: Patient appears to have recurrent urinary tract infection. This is likely etiology for her nausea. Continue treatment according to Urology or primary care service. (5) Anemia: Qualifiers: Anemia type: unspecified type Qualified Code(s): D64.9 - Anemia, unspecified Code(s): D64.9 - Anemia, unspecified Status: Chronic Assessment and Plan: Patient's hemoglobin is stable but mildly low. Would suggest following conservatively at this point. Subjective Date/time seen: 12/20/20 10:52 Patient continues to complain of nausea. Case discussed with nursing staff. They report 2 days ago patient had 1 1cm speck of dark blood in emesis. Patient denies any obvious blood in her emesis that she is visualized. Review of Systems Review of Systems: All systems reviewed & are unremarkable except as noted in HPI and below Exam Narrative: Exam Narrative: Physical exam reveals patient to be somewhat uncomfortable. Remains of bed rest. HEENT exam reveals her to be anicteric. Lungs are clear. Heart without murmur. Abdomen bowel sounds present soft nontender. Objective Data Vital Signs Vital Signs: Vital Signs - 24 hr 12/19/20 12:00 12/19/20 14:00 12/19/20 16:00 Temperature 99.5 F Pulse Rate 98 80 97 Respiratory Rate 16 Blood Pressure 150/85 H Pulse Oximetry 100 12/19/20 20:00 12/19/20 22:00 12/20/20 00:00 Temperature 97.8 F Pulse Rate 94 94 93 Respiratory Rate 16 18 Blood Pressure 154/78 H Pulse Oximetry 100 96 12/20/20 04:00 12/20/20 05:11 12/20/20 09:49 Temperature 97.3 F L Pulse Rate 92 93 Respiratory Rate 18 Blood Pressure 176/81 H Pulse Oximetry 99 99 Intake/Output Intake/Output: Intake & Output 12/17/20 12/18/20 12/19/20 12/20/20 23:59 23:59 23:59 23:59 Intake Total 4440 4660 2680 970 Output Total 3550 1325 1050 800 Balance 890 3335 1630 170 Meds/Results Medications: Active Medications Generic Name Dose Route Start Last Admin Trade Name Freq PRN Reason Stop Dose Admin Amlodipine Besylate 5 mg 12/18/20 09:00 12/20/20 10:14 Amlodipine Besylate 5 Mg Tablet PO 5 mg QAM VITO Administration Benztropine Mesylate 0.5 mg 12/18/20 09:00 12/20/20 10:14 Benztropine Mesylate 0.5 Mg Tablet PO 0.5
[2020-12-20 11:41] LABS: Glucose Point of Care 264 (65-105)
--- NOTE | 2020-12-20 17:11 | PM.IMPN ---
Progress Note: A&P Assessment and Plan (1) Nausea and vomiting: Qualifiers: Vomiting Intractability: non-intractable Vomiting type: unspecified Qualified Code(s): R11.2 - Nausea with vomiting, unspecified Code(s): R11.2 - Nausea with vomiting, unspecified Status: Acute Assessment and Plan: Nausea is better. DIet advanced this morning. She could go home if eats okay. Stop IV fluids. Continue antiemetics. Continue supportive care. Called back later and RN states patient ate only 5% of her meal. Will see how she does for dinner and breakfast. Reglan contraindicated. (2) Chronic UTI: Code(s): N39.0 - Urinary tract infection, site not specified Status: Acute Assessment and Plan: Patient's last culture grew ESBL so started ertapenem that was sensitive to before, but culture now is growing greater than 100,[address] A/P showing urothelial enhancement at the bilateral renal pelvises sees and wall thickening and surrounding inflammatory stranding at the bladder. Concerns for cystitis and ascending urinary tract infection but WBC 10K and no fevers. Allergic to penicillin so started on vancomycin. Continue for now. Change to Macrobid when able to eat. (3) IDDM (insulin dependent diabetes mellitus): Code(s): E11.9 - Type 2 diabetes mellitus without complications; Z79.4 - jail (current) use of insulin Status: Chronic Assessment and Plan: A1c was 6.5 in July. The patient's blood glucose was reviewed on 2/2 Glucose still remains poorly controlled. Continue AccuCheks covering with sliding scale. Hypoglycemia protocol available as needed. Continue current medications. Will advance HS Lantus again (4) Tachycardia: Code(s): R00.0 - Tachycardia, unspecified Status: Acute Assessment and Plan: Possible SVT by EKG. Suspect it is a reaction to the nausea vomiting and some probably volume depletion. No recurrence on tele. Stable so will stop tele. (5) DVT prophylaxis: Code(s): Z29.9 - Encounter for prophylactic measures, unspecified Status: Acute Assessment and Plan: SCDs (6) Hematemesis: Code(s): K92.0 - Hematemesis Status: Acute Assessment and Plan: Some blood in emesis. Lovenox held and she was started on a PPI. Seen by GI. Serial hemoglobins stable. Appreciate GI input. (7) Constipation: Qualifiers: Constipation type: slow transit constipation Qualified Code(s): K59.01 - Slow transit constipation Code(s): K59.00 - Constipation, unspecified Status: Acute Assessment and Plan: CT A/P showing 6 cm ball of stool at the rectum which could be seen with constipation/fecal impaction. Multiple BMs listed since admission. Continue dulcolax. Subjective Date/time seen: 12/20/20 17:11 Interval history: Date of service 12/20 11AM 50-year-old with recurrent UTI and chronic indwelling Bailey admitted with nausea and vomiting.. Nausea better but not eating much. She is requesting diet to be advanced. She wants to go home. Slept okay. no CP or SOB. Exam Narrative: Exam Narrative: AF 98.0 138/60 90 18 100% ra Gen - NARD Chest - CTA bilaterally, nml RR CV - RRR S1/S2; telemetry showing no significant dysrhythmias Abd - Soft, NT/ND, Positive BS - Bailey secured draining clear yellow urine Ext - No pedal edema Psych - Nml mood and affect Skin - Warm and dry Neuro - alert and cooperative; flaccid left side from previous CVA Objective Data Vital Signs Vital Signs: Vital Signs - 24 hr 12/19/20 20:00 12/19/20 22:00 12/20/20 00:00 Temperature 97.8 F Pulse Rate 94 94 93 Respiratory Rate 16 18 Blood Pressure 154/78 H Pulse Oximetry 100 96 12/20/20 04:00 12/20/20 05:11 12/20/20 08:00 Temperature 97.3 F L Pulse Rate 92 93 98 Respiratory Rate 18 Blood Pressure 176/81 H Pulse Oximetry 99
[2020-12-20 17:19] LABS: Glucose Point of Care 192 (65-105)
--- NOTE | 2020-12-20 18:00 | PC.NURSE ---
On 12/20/20, the student, [Marianne aguilar ], provided care and completed [facility] documentation on this patient. I have reviewed the student's documentation and agree with the findings.
[2020-12-20] MEDS: INSULIN GLARGINE (*BKC) 100 UNITS/ML 15 UNITS SUB-Q (20:30)
[2020-12-20 20:58] LABS: Glucose Point of Care 239 (65-105)
[2020-12-20 23:21] LABS: Glucose Point of Care 236 (65-105)
[2020-12-21 00:34] VITALS: BP 134/64; PULSE 86; RESP 16; TEMP 36.1; O2SAT 100
[2020-12-21 04:49] VITALS: BP 109/70; PULSE 82; RESP 18; TEMP 36.1; O2SAT 100
[2020-12-21 07:57] LABS: Glucose Point of Care 163 (65-105)
[2020-12-21] MEDS: DORZOLAMIDE HCL 2% OPHTH DROPS 1 DROP EACH EYE (08:13)
[2020-12-21] MEDS: LATANOPROST 0.005% OP SOLN 2.5 ML BTL 1 DROP EACH EYE (08:13)
[2020-12-21] MEDS: BENZTROPINE MESYLATE 0.5 MG TABLET PO (08:13)
[2020-12-21] MEDS: amLODIPine BESYLATE 5 MG TABLET PO (08:13)
[2020-12-21] MEDS: ERGOCALCIFEROL 50,000 UNIT CAPSULE 50000 UNITS PO (08:14)
[2020-12-21] MEDS: HALOPERIDOL 5 MG TABLET PO (08:14)
[2020-12-21] MEDS: methocarbamoL 750 MG TABLET PO (08:14)
[2020-12-21] MEDS: PANTOPRAZOLE SODIUM IV 40 MG VIAL IV PUSH (08:14)
[2020-12-21] MEDS: GABAPENTIN 300 MG CAPSULE PO ×2 (08:14→13:04)
[2020-12-21] MEDS: SERTRALINE HCL 50 MG TABLET PO (08:14)
[2020-12-21] MEDS: BISACODYL 5 MG TABLET EC PO (08:19)
--- NOTE | 2020-12-21 08:32 | WPDGIPROGNO ---
Progress Note: A&P Assessment and Plan (1) Nausea and vomiting: Qualifiers: Vomiting Intractability: non-intractable Vomiting type: unspecified Qualified Code(s): R11.2 - Nausea with vomiting, unspecified Code(s): R11.2 - Nausea with vomiting, unspecified Status: Acute Assessment and Plan: Nausea and vomiting resolved. Likely related to urinary tract infection and/or constipation. (2) Hematemesis: Code(s): K92.0 - Hematemesis Status: Acute Assessment and Plan: One small clot of blood identified in emesis on initial presentation. No additional bleeding subsequently. Hemoglobin has remained stable. This may be related to poor dentition. Agree with acid suppression early discharge no investigation felt warranted at this time. (3) Fracture of tooth: Qualifiers: Encounter type: initial encounter Fracture type: closed Qualified Code(s): S02.5XXA - Fracture of tooth (traumatic), initial encounter for closed fracture Code(s): S02.5XXA - Fracture of tooth (traumatic), initial encounter for closed fracture Status: Acute (4) Constipation: Qualifiers: Constipation type: slow transit constipation Qualified Code(s): K59.01 - Slow transit constipation Code(s): K59.00 - Constipation, unspecified Status: Acute (5) Diabetes: Code(s): E11.9 - Type 2 diabetes mellitus without complications Status: Acute (6) UTI (urinary tract infection): Qualifiers: Urinary tract infection type: catheter-associated UTI Indwelling urinary catheter type: indwelling urethral catheter Encounter type: initial encounter Qualified Code(s): T83.511A - Infection and inflammatory reaction due to indwelling urethral catheter, initial encounter; N39.0 - Urinary tract infection, site not specified Code(s): N39.0 - Urinary tract infection, site not specified Status: Acute Subjective Date/time seen: 12/21/20 08:32 patient reports no additional nausea. No longer vomiting. No bleeding evident. Hemoglobin has remained stable. Patient anxious to go home. She denies abdominal pain. Review of Systems Review of Systems: All systems reviewed & are unremarkable except as noted in HPI and below Exam Narrative: Exam Narrative: Physical exam reveals patient to be alert. Vital signs are stable. HEENT exam she is anicteric. Lungs are clear. Heart without murmur. Abdomen bowel sounds present soft nontender with no organomegaly. Objective Data Vital Signs Vital Signs: Vital Signs - 24 hr 12/20/20 09:49 12/20/20 12:00 12/20/20 14:00 Temperature 98.0 F Pulse Rate 98 90 Respiratory Rate 18 Blood Pressure 138/60 Pulse Oximetry 99 100 12/20/20 21:59 12/21/20 00:34 12/21/20 04:49 Temperature 97.4 F L 97 F L 96.9 F L Pulse Rate 87 86 82 Respiratory Rate 20 16 18 Blood Pressure 116/63 134/64 109/70 Pulse Oximetry 98 100 100 Intake/Output Intake/Output: Intake & Output 12/18/20 12/19/20 12/20/20 12/21/20 23:59 23:59 23:59 23:59 Intake Total 4660 2680 2940 310 Output Total 1325 1050 2000 200 Balance 3335 1630 940 110 Meds/Results Medications: Active Medications Generic Name Dose Route Start Last Admin Trade Name Freq PRN Reason Stop Dose Admin Amlodipine Besylate 5 mg 12/18/20 09:00 12/21/20 08:13 Amlodipine Besylate 5 Mg Tablet PO 5 mg QAM VITO Administration Benztropine Mesylate 0.5 mg 12/18/20 09:00 12/21/20 08:13 Benztropine Mesylate 0.5 Mg Tablet PO 0.5 mg DAILY VITO Administration Bisacodyl 5 mg 12/20/20 09:00 12/21/20 08:19 Bisacodyl 5 Mg Tablet Ec PO 5 mg QAM VITO Administration Dextrose 12.5 gm 12/17/20 11:15 Dextrose 50% 25 Gm/50 Ml Syringe IV PUSH PRN PRN Hypoglycemia Protocol Dorzolamide HCl 1 drop 12/17/20 21:00 12/21/20 08:13 Dorzolamide Hcl 2% Ophth Drops EACH EYE 1 drop Q12HR VITO Administration Ergocal
--- NOTE | 2020-12-21 09:37 | PM.DS ---
DS: Admitting Diagnosis Admitting Diagnosis Admitting Diagnosis: Nausea vomiting DS: Discharge Diagnosis Discharge Diagnosis (1) Nausea and vomiting: Qualifiers: Vomiting Intractability: non-intractable Vomiting type: unspecified Qualified Code(s): R11.2 - Nausea with vomiting, unspecified Code(s): R11.2 - Nausea with vomiting, unspecified Status: Acute Assessment and Plan: Patient with nausea and vomiting. She was started on clears. This was felt related to her infection and she had improvement with treatment of the infection. Her diet was advanced. She is tolerating oral intake but not taking in much. Discussed with mother who states patient has been a poor eater since her stroke. She does take glucerna regularly at home. (2) Chronic UTI: Code(s): N39.0 - Urinary tract infection, site not specified Status: Acute Assessment and Plan: Patient's last culture grew ESBL so started ertapenem that was sensitive to before, but culture now is growing greater than 100,[address] A/P showing urothelial enhancement at the bilateral renal pelvises and wall thickening and surrounding inflammatory stranding at the bladder. Concerns for cystitis and ascending urinary tract infection but WBC 10K and no fevers. Allergic to penicillin so started on vancomycin. Changed to Macrobid at discharge. (3) IDDM (insulin dependent diabetes mellitus): Code(s): E11.9 - Type 2 diabetes mellitus without complications; Z79.4 - remote computer terminal operator (current) use of insulin Status: Chronic Assessment and Plan: A1c was 6.5 in July. The patient's blood glucose was monitored closely. Glucose was elevated at times and Lantus advanced. She was monitored with AccuCheks covering with sliding scale. Hypoglycemia protocol was available as needed. (4) Tachycardia: Code(s): R00.0 - Tachycardia, unspecified Status: Acute Assessment and Plan: Possible SVT by EKG. Suspect it is a reaction to the nausea and vomiting and some probably volume depletion. No recurrence on tele. (5) Hematemesis: Code(s): K92.0 - Hematemesis Status: Acute Assessment and Plan: Some blood in emesis once. Lovenox held and she was started on a PPI. Seen by GI but she was just monitored clinically. Serial hemoglobins stable. Appreciate GI input. (6) Constipation: Qualifiers: Constipation type: slow transit constipation Qualified Code(s): K59.01 - Slow transit constipation Code(s): K59.00 - Constipation, unspecified Status: Acute Assessment and Plan: CT A/P showing 6 cm ball of stool at the rectum which could be seen with constipation/fecal impaction. Treated with enemas and laxatives. Multiple BMs listed since admission. DS: Summary Hospital Course Reason for hospitalization: 50 year old female with DM, CVA, chronic indwelling Bailey secondary to retention and recurrent UTIs who presented to the emergency room with nausea and vomiting. Please see H&P for details. Hospital Course: Please see above for details of the hospital course. Time Spent with Patient Time attestation: Total time spent providing and/or coordinating discharge services: 35 minutes Time spent: Greater than 30 minutes Exam Narrative: Exam Narrative: AF 96.9 109/70 82 18 100% ra Gen - NARD Chest - CTA bilaterally anteriorly and in the flanks, nml RR CV - RRR S1/S2 Abd - Soft, NT/ND, Positive BS - Bailey secured draining yellow urine Ext - No pedal edema Psych - Nml mood and affect Skin - Warm and dry Neuro - alert and cooperative; flaccid left side from previous CVA DS: Data Data Completed and Pending Labs on day of discharge: Labs from last 24 hours 12/21/20 12/20/20 12/20/20 07:54 23:18 20:29 POC Capillary Glucose 163 H 236 H 239 H 12/20/20 12/20/20 17:09 11:28 POC Capillary Glucose 192 H 264 H
[2020-12-21 11:43] LABS: Glucose Point of Care 210 (65-105)
[2020-12-21] MEDS: INSULIN ASPART (*BKC) 100 UNITS/ML SUB-Q (11:47)
[2020-12-21 13:46] VITALS: BP 122/54; PULSE 80; RESP 20; TEMP 36.4; O2SAT 100
== END 2020-12-21 14:30 | disposition home or self-care (01) | DRG 699 ==
LOC: ANHED 12-17 07:20 → ANH2MED 12-17 08:26
PROVIDERS: Admitting Provider Internal Medicine; Emergency Provider Emergency Medicine; PCP Internal Medicine; Visit Provider Internal Medicine
DX: T83.511A Infection and inflammatory reaction due to indwelling urethral catheter, initial encounter (principal); I47.1 Supraventricular tachycardia; I69.354 Hemiplegia and hemiparesis following cerebral infarction affecting left non-dominant side; K92.0 Hematemesis; N39.0 Urinary tract infection, site not specified; B95.2 Enterococcus as the cause of diseases classified elsewhere; I69.328 Other speech and language deficits following cerebral infarction; E11.319 Type 2 diabetes mellitus with unspecified diabetic retinopathy without macular edema; R33.8 Other retention of urine; E11.42 Type 2 diabetes mellitus with diabetic polyneuropathy; E11.65 Type 2 diabetes mellitus with hyperglycemia; K59.00 Constipation, unspecified; M19.90 Unspecified osteoarthritis, unspecified site; E53.8 Deficiency of other specified B group vitamins; H40.9 Unspecified glaucoma; F41.9 Anxiety disorder, unspecified; I10 Essential (primary) hypertension; S02.5XXA Fracture of tooth (traumatic), initial encounter for closed fracture; E78.5 Hyperlipidemia, unspecified; I65.23 Occlusion and stenosis of bilateral carotid arteries; D64.9 Anemia, unspecified; X58.XXXA Exposure to other specified factors, initial encounter; D50.9 Iron deficiency anemia, unspecified; F20.3 Undifferentiated schizophrenia; Z79.4 Long term (current) use of insulin; Z99.3 Dependence on wheelchair
CPT/HCPCS: 36415; 71275; 74177; 80048; 80053; 80069; 80076; 80202; 81001; 82948; 83605; 83690; 83735; 84443; 84484; 85025; 85027; 87077; 87086; 87088; 87186; 93005; 96361; 96365; 96367; 96375; 96376; 99285; A9270; C9113; G0378; J0696; J1335; J1815; J2270; J2405; J2550; J3370; J3480; J7030; J7120; Q9967

== ENCOUNTER 2020-12-26 05:58 | Emergency (ER) | payer MEDICARE, MEDICAID, SELFPAY ==
[2020-12-26] VITALS (10 sets, daily range): BP systolic 115–133; BP diastolic 74–76; PULSE 87; RESP 18; TEMP 36.1; O2SAT 96–100
--- NOTE | 2020-12-26 06:13 | ED.FEMALEGU ---
HPI - Female Genitourinary General Chief complaint: Urogenital-Female Stated complaint: catheter not draining Time Seen by Provider: 12/26/20 06:05 History of Present Illness HPI Narrative: Patient is a 50-year-old female with history of CVA with paralysis who presents to the ER with urinary catheter obstruction. Has not had drainage since yesterday. Yesterday urine output became very cloudy. Patient has a firm lower abdomen that is nontender. No fevers or chills or sweats. Patient has no reports of pain. Patient last had her catheter changed over a month ago. She typically follows with urology here. Chart review shows recent Enterococcus infection in the urine that was sensitive to ampicillin/Macrobid/vancomycin. Patient is currently taking Macrobid and Bactrim. Related Data Home Medications Medication Instructions Recorded Confirmed dorzolamide [Trusopt] 1 drp OPHTHALMIC (EYE) BID 10/04/19 12/17/20 latanoprost [Xalatan] 1 drp OPHTHALMIC (EYE) BID 10/04/19 12/17/20 Allergies Allergy/AdvReac Type Severity Reaction Status Date / Time amoxicillin Allergy Mild Rash Verified 12/17/20 00:41 Penicillins Allergy Mild Unknown Verified 12/17/20 00:41 Review of Systems Review of Systems: All systems reviewed & are unremarkable except as noted in HPI and below Constitutional: Constitutional: Denies chills and Denies fatigue Gastrointestinal: Gastrointestinal: Denies abdominal pain, Reports nausea and Denies vomiting Genitourinary: Genitourinary: Denies nocturia and Denies dysuria Comments: Nondraining indwelling Bailey. [facility] Past Medical History Medical History Anxiety Arthritis B12 deficiency July 2020 Cataracts, bilateral Cerebrovascular disease CVA 2014 and September 2019. The CVA 2018 involved the right caudate nucleus, right frontal and right parietal regions resulting in chronic left-sided deficits and delayed speech Chronic indwelling Bailey catheter since July 2020. Patient had recurrent urinary retention and hydronephrosis when Bailey catheter was discontinued. Followed by Dr. Estrella Diabetes Diabetic retinopathy Glaucoma HLD (hyperlipidemia) Hypertension, essential IDDM (insulin dependent diabetes mellitus) 08/16/2020 hemoglobin A1c 6.5 Intracranial carotid stenosis, bilateral severe Iron deficiency anemia July 2020 due to nutritional deficiencies Peripheral polyneuropathy Schizophrenia, undifferentiated Type 2 diabetes mellitus with hyperglycemia Surgical History Surgical History H/O removal of cyst History of cystoscopy Family History Family History Grandparent Diabetes mellitus Father Family history of cardiovascular disease Other Cerebrovascular accident Social History Social History (Updated 12/17/20 @ 12:44 by Claudy Pichardo MD) Social History: Single. Resides in subsidized apartment in [place], [place] (the [facility]). She is dependent upon her mother for activities of daily living. She is wheelchair dependent. Years smoked: 5 Smoking status: Former smoker Alcohol intake: never Substance use: never Substance use type: does not use Additional occupation/education comments: disabled due to mental illness Gender identity (if verbalized by the patient): Female Spiritual care concerns: No Agree to blood products: Yes Exam Narrative: Exam Narrative: GENERAL: Chronically ill-appearing, obese, and in no acute distress. HEAD: Normocephalic, atraumatic. ENT: Mucous membranes moist. ABDOMEN: Soft, nontender, nondistended, bladder palpable in lower abdomen and firm. EXTREMITIES: Left side flaccid paralysis with atrophy noted. SKIN: Warm, dry, no rash. NEURO: Awake alert, cooperative. PSYCH: Normal mood and affect. Course Course Emergency Course: Bailey catheter exchanged
--- NOTE | 2020-12-26 06:45 | PC.NURSE ---
bland cath change # [id number]
[2020-12-26 06:55] LABS: Add Urine Microscopic? YES; Appearance Urine Turbid (Clear); Bilirubin Urine Negative (Negative); Color Urine Yellow (Yellow); Glucose Urine UA Negative (Negative); Ketones Urine Negative (Negative); Leukocyte Esterase Ur 3+ LEU/UL (Negative); Nitrate Urine Negative (Negative); Protein Urine 1+ mg/dL (Negative); RBC Urine 51-75 /hpf (0-2); Urobilinogen Urine Negative mg/dL (<2.0); WBC Clumps Urine Present /HPF; WBC Urine >75 /hpf
[2020-12-26 06:57] LABS: Blood Urine Negative (Negative)
--- NOTE | 2020-12-26 07:15 | PC.NURSE ---
Received report from Justin NAPIER. patient here due to urinary retention. Bailey catheter replaced with immediate urine return of 1800ml out. waiting for EMS transfer back home. lives with her mother who provides her care after CVA. alert. answers questions. aware of plan. breakfast tray ordered.
--- NOTE | 2020-12-26 07:43 | PC.NURSE ---
contacted [facility] to transfer patient home. eta [phone]
--- NOTE | 2020-12-26 08:28 | PC.NURSE ---
[facility] has arrived
== END 2020-12-26 08:37 | disposition home or self-care (01) ==
PROVIDERS: Emergency Provider Emergency Medicine; PCP Internal Medicine
DX: T83.091A Other mechanical complication of indwelling urethral catheter, initial encounter (principal); R33.9 Retention of urine, unspecified; I69.928 Other speech and language deficits following unspecified cerebrovascular disease; I69.954 Hemiplegia and hemiparesis following unspecified cerebrovascular disease affecting left non-dominant side; E11.319 Type 2 diabetes mellitus with unspecified diabetic retinopathy without macular edema; E11.42 Type 2 diabetes mellitus with diabetic polyneuropathy; Z79.84 Long term (current) use of oral hypoglycemic drugs; H40.9 Unspecified glaucoma; Z86.2 Personal history of diseases of the blood and blood-forming organs and certain disorders involving the immune mechanism; E78.5 Hyperlipidemia, unspecified; I10 Essential (primary) hypertension; Z87.891 Personal history of nicotine dependence
CPT/HCPCS: 81001; 99283

== ENCOUNTER 2021-01-26 08:35 | Inpatient (IN) | payer MEDICARE, MEDICAID, SELFPAY ==
[2021-01-26] VITALS (20 sets, daily range): BP systolic 116–201; BP diastolic 53–108; PULSE 103–122; RESP 8–23; TEMP 36.3–36.7; O2SAT 17–100; BMI 25.2
--- NOTE | ~2021-01-26 | XR_ITS ---
EXAMINATION: XR chest 1V portable EXAM DATE: 01/26/2021 09:22 INDICATION: Nausea, vomiting, weakness. TECHNIQUE: Portable AP frontal chest x-ray was obtained. Comparison is made to prior examination from 11/29/2020. FINDINGS: There is right upper lobe granuloma. The lungs are otherwise clear. There are no pleural e ffusions. The cardiomediastinal silhouette is within normal limits. There is no pneumothorax suspec honey. The bones and soft tissues are unremarkable. IMPRESSION: No acute cardiopulmonary findings. Reviewed, dictated and finalized at location B. [employer]
--- NOTE | ~2021-01-26 | CT_ITS ---
EXAMINATION: CT abdomen pelvis w con DATE: 01/26/2021 09:59 INDICATION: Vomiting. TECHNIQUE: Computed tomography (CT) of the abdomen and pelvis was performed with 100 mL Omnipaque 350 intravenous contrast. Automated exposure control and iterative reconstruction technique were employe d. The dose-length product was 739.69 mGy-cm. COMPARISON: CT abdomen and pelvis 12/17/2020 FINDINGS: The visualized portions of the lung bases demonstrate mild atelectasis. There are calcified pleural plaques on the right. No pleural effusion. The heart size is normal. No pericardial effusion . The liver and gallbladder are normal. Calcifications in the spleen are consistent with old granulom atous disease. The pancreas and adrenal glands are normal. There are cysts in the kidneys measuring u p to 2.3 cm on the right. The bladder is decompressed by a Bailey catheter. There is diffuse bladder w all thickening, consistent with cystitis. There is a 3.5 cm cyst in left ovary, likely a follicular c yst. Stool distends the rectum. The appendix is normal. There are no pathologically enlarged lymph no gretel. There are small fibroids in the uterus. There is no free intraperitoneal fluid. There is an old fracture of right eighth rib. There is mild lumbar spondylosis. IMPRESSION: 1. Cystitis. 2. Stool distends the rectum. Reviewed, dictated and finalized at location A. [facility] [employer]
--- NOTE | 2021-01-26 08:48 | ECG_ITS ---
Measurements Intervals [place] Rate: 104 P: 79 MS: 195 QRS: -40 QRSD: 127 T: 44 QT: 373 QTc: 491 Interpretive Statements SINUS TACHYCARDIA LEFT AXIS DEVIATION INCOMPLETE RIGHT BUNDLE BRANCH BLOCK BASELINE ARTIFACT- I, II, AVR ABNORMAL ECG Electronically Signed On 01-26-2021 9:08:36 CONSTRUCTION SCHEDULER by Morris Francis D.O.
--- NOTE | 2021-01-26 09:12 | ED.NAVMDI ---
HPI - Nausea/Vomiting/Diarrhea General Chief complaint: Nausea/Vomiting/Diarrhea Stated complaint: vomiting Time Seen by Provider: 01/26/21 08:36 Source: patient Mode of arrival: EMS Limitations: no limitations History of Present Illness HPI Narrative: This is a 50 year old female with history of CVA with left side paralysis, hypertension and DM who presents for evaluation of nausea and vomiting. She developed nausea and vomiting last night after dinner. she has continued to have vomiting and she is unable to tolerate anything by mouth. She denies abdominal pain, chest pain, cough or diarrhea. She denies sick contacts. She has not checked her blood sugar today. She has a chronic indwelling bland which she states was changed in the past couple of days. Related Data Home Medications Medication Instructions Recorded Confirmed dorzolamide [Trusopt] 1 drp OPHTHALMIC (EYE) BID 10/04/19 01/26/21 latanoprost [Xalatan] 1 drp OPHTHALMIC (EYE) BID 10/04/19 01/26/21 insulin aspart U-100 100 unit/mL 12 unit SUBCUT TID 01/17/21 01/26/21 (3 mL) subcutaneous pen Basaglar KwikPen U-100 Insulin 30 unit SUBCUT HS 01/26/21 01/26/21 tramadol 50 mg PO Q6H PRN 01/26/21 01/26/21 Allergies Allergy/AdvReac Type Severity Reaction Status Date / Time amoxicillin Allergy Mild Rash Verified 01/26/21 11:15 Penicillins Allergy Mild Unknown Verified 01/26/21 11:15 Review of Systems Review of Systems: All systems reviewed & are unremarkable except as noted in HPI and below Constitutional: Constitutional: Denies chills and Denies fever(s) Cardiovascular: Cardiovascular: Denies chest pain Respiratory: Respiratory: Denies cough and Denies dyspnea Gastrointestinal: Gastrointestinal: Denies abdominal pain, Denies diarrhea, Reports nausea and Reports vomiting Neurologic: Reports weakness (left side from stroke) [facility] Past Medical History Medical History Anxiety Arthritis B12 deficiency July 2020 Cataracts, bilateral Cerebrovascular disease CVA 2014 and September 2019. The CVA 2018 involved the right caudate nucleus, right frontal and right parietal regions resulting in chronic left-sided deficits and delayed speech Chronic indwelling Bland catheter since July 2020. Patient had recurrent urinary retention and hydronephrosis when Bland catheter was discontinued. Followed by Dr. Estrella Diabetes Diabetic retinopathy Glaucoma HLD (hyperlipidemia) Hypertension, essential IDDM (insulin dependent diabetes mellitus) 08/16/2020 hemoglobin A1c 6.5 Intracranial carotid stenosis, bilateral severe Iron deficiency anemia July 2020 due to nutritional deficiencies Peripheral polyneuropathy Schizophrenia, undifferentiated Type 2 diabetes mellitus with hyperglycemia Surgical History Surgical History H/O removal of cyst History of cystoscopy Family History Family History Grandparent Diabetes mellitus Father Family history of cardiovascular disease Other Cerebrovascular accident Social History Social History Social History: Single. Resides in subsidized apartment in [place], [place] (the [facility]). She is dependent upon her mother for activities of daily living. She is wheelchair dependent. Years smoked: 5 Smoking status: Former smoker Alcohol intake: never Substance use: never Substance use type: does not use Additional occupation/education comments: disabled due to mental illness Gender identity (if verbalized by the patient): Female Spiritual care concerns: No Agree to blood products: Yes Exam Const: General: alert and ill appearing chronically Orientation/consciousness: patient oriented x3 Eyes: Pupils: Equal, round and reactive pupils present EOM:
[2021-01-26 09:14] LABS: Basophils Percent Auto 0.4 % (0.2-1.2); Hematocrit 34.4 % (37.0-47.0); Hemoglobin 11.4 g/dL (12.0-15.0); Immature Granulocyte Absolute 0.06 K/mm3 (0.00-0.031); Immature Granulocyte Percent A 0.5 % (0-0.5); Lymphocytes Percent Auto 12.4 % (18.3-44.2); Mean Corpuscular HGB Conc 33.1 g/dl (32-36); Mean Corpuscular Hemoglobin 29.7 pg (26-34); Mean Corpuscular Volume 89.6 fl (80-100); Mean Platelet Volume 10.3 fl (7.4-10.4); Monocytes Absolute Auto 0.5 K/mm3 (0.1-0.6); Monocytes Percent Auto 4.3 % (2.6-8.5); Neutrophils Absolute Auto 9.3 K/mm3 (1.3-6.7); Neutrophils Percent Auto 82.4 % (45.5-73.1); Platelet Count Result 367 k/mm3 (150-375); Red Blood Count 3.84 M/mm3 (4.2-5.4); Red Cell Distribution Width 12.8 % (11.5-14.5); White Blood Count 11.3 K/mm3 (4.5-10.0)
[2021-01-26] MEDS: ONDANSETRON INJ 4 MG/2 ML VIAL IV PUSH ×2 (09:14→17:59)
[2021-01-26] MEDS: LACTATED RINGERS 1,000 ML 999 ML IV CONT ×2 (09:14→09:51)
[2021-01-26 09:19] LABS: Bacteria Urine Trace /hpf; Mucus Urine Rare /lpf; RBC Urine 51-75 /hpf (0-2); Squamous Epithelial Cell Urine Rare /hpf (Few); WBC Clumps Urine Present /HPF; WBC Urine >75 /hpf
[2021-01-26 09:23] LABS: Alanine Aminotransferase 26 U/L (4-35); Albumin Level 4.5 g/dL (3.5-5.1); Alkaline Phosphatase 107 U/L (38-126); Anion Gap 11 mmol/L (8-16); Aspartate Amino Transferase 25 U/L (14-36); Bilirubin,Total 0.3 mg/dL (0.2-1.3); Blood Urea Nitrogen 15 mg/dL (7-17); Calcium 9.9 mg/dL (8.4-10.2); Carbon Dioxide 25 mmol/L (22-30); Chloride 102 mmol/L (98-107); Estimated CRCL calculation 88 ml/min; Estimated Glomerular Filt Rate > 60; Glucose 305 mg/dL (65-105); Lipase 39 U/L (23-300); Potassium 4.5 mmol/L (3.4-5.0); Sodium 138 mmol/L (137-145)
[2021-01-26 09:27] LABS: Appearance Urine Cloudy (Clear); Bilirubin Urine Negative (Negative); Blood Urine 2+ (Negative); Glucose Urine UA 3+ mg/dL (Negative); Ketones Urine 3+ mg/dL (Negative); Leukocyte Esterase Ur 1+ LEU/UL (Negative); Nitrate Urine Negative (Negative); Protein Urine 3+ mg/dL (Negative); Specific Grav Ur 1.025 (1.001-1.035); Urobilinogen Urine 0.2 mg/dL (<2.0)
[2021-01-26 09:28] LABS: Add Urine Microscopic? YES; Color Urine Light Yellow (Yellow)
[2021-01-26 09:43] LABS: Glucose Point of Care 262 (65-105)
[2021-01-26] MEDS: METOCLOPRAMIDE HCL INJ 10 MG/2 ML VIAL IV PUSH (09:52)
[2021-01-26] MEDS: amLODIPine BESYLATE 5 MG TABLET PO (10:42)
[2021-01-26 10:49] LABS: Fractional Inspired Oxygen 21 %; HCO3 VBG 5.2 mEq/l (24.0-30.0); pH VBG 7.288 (7.300-7.400)
[2021-01-26 10:51] LABS: PCO2 VBG 11.2 mmHg (42.0-48.0)
[2021-01-26 11:21] LABS: Magnesium 2.1 mg/dL (1.6-2.3); Phosphorus 3.6 mg/dL (2.5-4.5)
[2021-01-26 11:22] LABS: Beta-Hydroxybutyrate/Acetoacetate 1.28 mmol/L (0.02-0.27)
[2021-01-26] MEDS: PROMETHAZINE HCL 25 MG/ML AMPUL 12.5 MG IV PUSH (11:25)
[2021-01-26] MEDS: hydrALAZINE HCL 20 MG/ML VIAL IV PUSH (11:25)
[2021-01-26 13:15] LABS: Anion Gap 12 mmol/L (8-16); Blood Urea Nitrogen 14 mg/dL (7-17); Calcium 9.7 mg/dL (8.4-10.2); Carbon Dioxide 21 mmol/L (22-30); Chloride 102 mmol/L (98-107); Estimated CRCL calculation 120 ml/min; Estimated Glomerular Filt Rate > 60; Glucose 281 mg/dL (65-105); Potassium 4.2 mmol/L (3.4-5.0); Sodium 135 mmol/L (137-145)
[2021-01-26] MEDS: INSULIN HUMAN REGULAR (*BKC) 100 UNITS/ML 6 UNITS SUB-Q (13:26)
[2021-01-26 14:10] LABS: Glucose Point of Care 262 (65-105)
--- NOTE | 2021-01-26 14:47 | ADMGEN ---
This patient, Jasmin Lopez, was admitted to Medical Room 248-01. Patient/family oriented to hospital policies and general routines including ID bracelet, bed and alarms, visiting hours, pain management, procedures, bathroom and other care routines, personal items, smoking policy, room service/diet, and visiting hours. Information on how to activate the Rapid Response Team has been discussed. Patient/Family are encouraged to report perceived risks to care and to ask questions if they do not understand what they are told or what they should do.
[2021-01-26] MEDS: LACTATED RINGERS 1,000 ML 125 ML IV CONT (14:55)
--- NOTE | 2021-01-26 16:07 | PM.IMHP ---
H&P: HPI History of Present Illness Date/Time: 01/26/21 16:00 who has had CVAs in the past with left side effect. The patient has a chronic indwelling Bailey catheter. I am not sure when he had been changed last. The patient had ESBL on 1 of her urine cultures in the last 1 was found to be Enterococcus. The patient was discharged from this hospital on 12/21/2020. At that time she was treated with vancomycin. The patient had returned to the emergency a few days after that. The patient now returns to the emergency room today with intractable nausea vomiting. She continued to vomit today and was unable to tolerate anything by mouth. She has no fever chills but her heart rates in the 120s. Most likely she is dehydrated. The patient lives in her own apartment but her mother's her caregiver. The patient is not focal with Levophed is shaking her head yes or no to answer questions. Patient's beta hydroxybutyrate acetoacetate is 1.2 today. Her urine was found to be positive for UTI. Her blood sugar is 281 today. H&H 11.4 and 34.4. Patient initially was started on Rocephin however she has had resistant bacteria in her urine in the past. And Reglan and Phenergan in the emergency room. She tells me that she is no longer nauseated. She was also given Norvasc and Apresoline for her elevated blood pressure. She was given a 1 time dose of insulin due to her elevated blood sugar. Her anion gap was closed. She is being admitted for observation on the date of service of 01/26/2021. Chief Complaint: Nausea and vomiting Review of Systems Constitutional: Constitutional: Reports as per HPI and Reports no additional constitutional complaints Eyes: Eyes: Reports as per HPI and Reports no additional eye complaints ENT: Reports system reviewed and no additional complaints, except as documented and Reports Normal hearing present Cardiovascular: Cardiovascular: Reports no additional cardiovascular complaints Respiratory: Respiratory: Reports as per HPI and Reports no additional respiratory complaints Gastrointestinal: Gastrointestinal: Reports as per HPI and Reports no additional gastrointestinal complaints Genitourinary: Genitourinary: Reports no additional female genitourinary complaints Musculoskeletal: Musculoskeletal: Reports no additional musculoskeletal complaints Integumentary/Breasts: Skin/Breast: Reports system reviewed and no additional complaints, except as docu Neurologic: Reports system reviewed and no additional complaints, except as documented and Reports Normal hearing present Psychiatric: Psychiatric: Reports no additional psychiatric complaints and Reports as per HPI Hematologic/Lymphatic: Hematologic/Lymphatic: Reports no additional hematologic/lymphatic complaints Allergic/Immunologic: Allergic/Immunologic: Reports no additional allergic/immunologic complaints [facility] Past Medical History Medical History Anxiety Arthritis B12 deficiency July 2020 Cataracts, bilateral Cerebrovascular disease CVA 2014 and September 2019. The CVA 2018 involved the right caudate nucleus, right frontal and right parietal regions resulting in chronic left-sided deficits and delayed speech Chronic indwelling Bailey catheter since July 2020. Patient had recurrent urinary retention and hydronephrosis when Bailey catheter was discontinued. Followed by Dr. Estrella Diabetes Diabetic retinopathy Glaucoma HLD (hyperlipidemia) Hypertension, essential IDDM (insulin dependent diabetes mellitus) 08/16/2020 hemoglobin A1c 6.5 Intracranial carotid stenosis, bilateral severe Iron deficiency anemia July 2020 due to nutritional deficiencies Peripheral polyneuropathy Schizophrenia, undifferentiated Type 2 diabetes mellitus with hyperglycemia Surgical History Surgical History H/O removal of cyst History of cystoscopy Family Histo
[2021-01-26 17:15] LABS: Hemoglobin A1C 7.6 % (<5.7)
[2021-01-26] MEDS: INSULIN ASPART (*BKC) 100 UNITS/ML SUB-Q (17:52)
[2021-01-26 17:59] LABS: Glucose Point of Care 241 (65-105)
[2021-01-26] MEDS: hydrALAZINE HCL 20 MG/ML VIAL 10 MG IV PUSH (17:59)
[2021-01-26] MEDS: FAMOTIDINE 20 MG/2 ML VIAL IV PUSH (20:30)
[2021-01-26 21:25] LABS: Glucose Point of Care 256 (65-105)
[2021-01-26] MEDS: GABAPENTIN 300 MG CAPSULE PO (21:26)
[2021-01-26] MEDS: DORZOLAMIDE HCL 2% OPHTH DROPS 1 DROP EACH EYE (21:26)
[2021-01-26] MEDS: INSULIN GLARGINE (*BKC) 100 UNITS/ML 15 UNITS SUB-Q (21:49)
[2021-01-27] VITALS (10 sets, daily range): BP systolic 129–151; BP diastolic 70–88; PULSE 88–108; RESP 16; TEMP 36.1–36.4; O2SAT 96–100; BMI 25.2
[2021-01-27] MEDS: LACTATED RINGERS 1,000 ML 125 ML IV CONT ×2 (01:29→11:11)
[2021-01-27] MEDS: GABAPENTIN 300 MG CAPSULE PO ×3 (05:49→21:26)
[2021-01-27 06:22] LABS: Basophils Absolute Auto 0.1 K/mm3 (0.0-0.1); Basophils Percent Auto 0.4 % (0.2-1.2); Eosinophils Percent Auto 0.1 % (0-4.4); Hematocrit 30.9 % (37.0-47.0); Hemoglobin 10.2 g/dL (12.0-15.0); Immature Granulocyte Absolute 0.04 K/mm3 (0.00-0.031); Immature Granulocyte Percent A 0.3 % (0-0.5); Lymphocytes Absolute Auto 2.97 K/mm3 (0.9-3.2); Lymphocytes Percent Auto 22.2 % (18.3-44.2); Mean Corpuscular Hemoglobin 29.5 pg (26-34); Mean Corpuscular Volume 89.3 fl (80-100); Mean Platelet Volume 10.2 fl (7.4-10.4); Monocytes Absolute Auto 1.2 K/mm3 (0.1-0.6); Monocytes Percent Auto 8.6 % (2.6-8.5); Neutrophils Absolute Auto 9.2 K/mm3 (1.3-6.7); Neutrophils Percent Auto 68.4 % (45.5-73.1); Platelet Count Result 360 k/mm3 (150-375); Red Blood Count 3.46 M/mm3 (4.2-5.4); Red Cell Distribution Width 13.1 % (11.5-14.5); White Blood Count 13.4 K/mm3 (4.5-10.0)
[2021-01-27 06:37] LABS: Alanine Aminotransferase 19 U/L (4-35); Albumin Level 3.8 g/dL (3.5-5.1); Alkaline Phosphatase 80 U/L (38-126); Anion Gap 7 mmol/L (8-16); Aspartate Amino Transferase 20 U/L (14-36); Bilirubin,Total 0.3 mg/dL (0.2-1.3); Blood Urea Nitrogen 16 mg/dL (7-17); Calcium 9.5 mg/dL (8.4-10.2); Carbon Dioxide 25 mmol/L (22-30); Chloride 105 mmol/L (98-107); Estimated CRCL calculation 88 ml/min; Estimated Glomerular Filt Rate > 60; Glucose 243 mg/dL (65-105); Sodium 137 mmol/L (137-145)
[2021-01-27 08:09] LABS: Glucose Point of Care 217 (65-105)
[2021-01-27] MEDS: ENOXAPARIN 40 MG/0.4 ML SYRINGE SUB-Q (08:20)
[2021-01-27] MEDS: FAMOTIDINE 20 MG/2 ML VIAL IV PUSH ×2 (08:20→21:26)
[2021-01-27] MEDS: SERTRALINE HCL 50 MG TABLET PO (08:21)
[2021-01-27] MEDS: amLODIPine BESYLATE 5 MG TABLET PO (08:21)
[2021-01-27] MEDS: HALOPERIDOL 5 MG TABLET PO (08:21)
[2021-01-27] MEDS: BENZTROPINE MESYLATE 0.5 MG TABLET PO (08:21)
[2021-01-27] MEDS: DOCUSATE SODIUM 100 MG CAPSULE PO ×2 (08:21→15:07)
[2021-01-27] MEDS: ASPIRIN 81 MG ENTERIC TABLET PO (08:21)
[2021-01-27] MEDS: GLIMEPIRIDE 1 MG TABLET PO (08:21)
[2021-01-27] MEDS: methocarbamoL 750 MG TABLET PO (08:21)
[2021-01-27] MEDS: DORZOLAMIDE HCL 2% OPHTH DROPS 1 DROP EACH EYE ×2 (08:22→21:26)
[2021-01-27] MEDS: INSULIN ASPART (*BKC) 100 UNITS/ML SUB-Q (08:31)
[2021-01-27 09:49] LABS: Device ROOM AIR
[2021-01-27 11:39] LABS: Glucose Point of Care 192 (65-105)
--- NOTE | 2021-01-27 13:41 | PM.IMPN ---
Progress Note: A&P Assessment and Plan (1) Urinary tract infection: Qualifiers: Hematuria presence: with hematuria Urinary tract infection type: site unspecified Qualified Code(s): N39.0 - Urinary tract infection, site not specified; R31.9 - Hematuria, unspecified Code(s): N39.0 - Urinary tract infection, site not specified Status: Acute Assessment and Plan: Chronic indwelling Bailey catheter associated UTI with nausea and vomiting. Recent hospital admissions for same. Continue IV vancomycin (day 2) based on previous culture results while awaiting urine and blood cultures. Deescalate antibiotics once micro results are available. She is followed by urologist in [facility] for atonic bladder with permanent Bailey catheter and frequent urinary tract infections. In the past she has grown ESBL Klebsiella and more recently grew Enterococcus in urine. Continue supportive care to treat nausea and vomiting, now resolved today. Advance diet and continue antiemetics. (2) Tachycardia: Code(s): R00.0 - Tachycardia, unspecified Status: Acute Assessment and Plan: Intermittent sinus tachycardia, mild. Suspect related to acute illness. Will monitor. (3) IDDM (insulin dependent diabetes mellitus): Code(s): E11.9 - Type 2 diabetes mellitus without complications; Z79.4 - meterman (current) use of insulin Status: Chronic Assessment and Plan: A1c 7.6%. Blood sugars in 200s today, anion gap is 7. Continue glimepiride. Add back meal-time Novolog. Continue to monitor with accu-cheks and adjust treatment as needed, cover with SSI. (4) Hypertension, essential: Code(s): I10 - Essential (primary) hypertension Status: Chronic Assessment and Plan: Patient was started on Norvasc her last admission, continue this as well as PRN hydralazine. BPs very elevated on arrival 200/79 now improved today last 151/88. Monitor BP and adjust treatment as needed. (5) Nausea & vomiting: Qualifiers: Vomiting Intractability: unspecified Vomiting type: unspecified Qualified Code(s): R11.2 - Nausea with vomiting, unspecified Code(s): R11.2 - Nausea with vomiting, unspecified Status: Resolved Assessment and Plan: Resolved, none today. Continue with IV fluids, decrease rate. Continue with Pepcid. Continue with IV Zofran. Advance to full liquid diet. (6) Constipation: Qualifiers: Constipation type: slow transit constipation Qualified Code(s): K59.01 - Slow transit constipation Code(s): K59.00 - Constipation, unspecified Status: Acute Assessment and Plan: Rectum distended with stool on imaging. Give soapsuds enema and start bowel regimen. Subjective Date/time seen: 01/27/21 13:15 Interval history: Ms. Lopez is a 50yo F admitted for UTI and nausea, vomiting. She tells me her nausea and vomiting have resolved today. She denies chest pain or shortness of breath. She does not remember when her last bowel movement was however RN tells me she had BM this morning. She is tolerating clear liquid diet and wants more to eat. No abdominal pain. Review of Systems Review of Systems: All systems reviewed & are unremarkable except as noted in HPI and below Exam Narrative: Exam Narrative: General: Female resting comfortably sitting up in bedside chair in no acute distress. HEENT: Normocephalic, EOMI, oral mucosa moist. Cardiovascular: Rate and rhythm are regular. Telemetry shows sinus rhythm rates in 90s. Respiratory: Lungs clear to auscultation bilaterally. Respirations even and non-labored. Tolerating room air. Abdomen: Soft, non-tender, non-distended, bowel sounds are pres
--- NOTE | 2021-01-27 13:52 | PC.NURSE ---
On 01/27/21, the student, [Anel Barger ], provided care and completed [facility] documentation on this patient. I have reviewed the student's documentation and agree with the findings.
[2021-01-27 16:35] LABS: Glucose Point of Care 107 (65-105)
[2021-01-27 20:33] LABS: Glucose Point of Care 141 (65-105)
[2021-01-27] MEDS: INSULIN GLARGINE (*BKC) 100 UNITS/ML 30 UNITS SUB-Q (21:25)
[2021-01-27] MEDS: LACTATED RINGERS 1,000 ML 75 ML IV CONT (21:25)
[2021-01-27] MEDS: LATANOPROST 0.005% OP SOLN 2.5 ML BTL 1 DROP EACH EYE (21:26)
[2021-01-28 04:28] LABS: Basophils Absolute Auto 0.1 K/mm3 (0.0-0.1); Eosinophils Absolute Auto 0.1 K/mm3 (0-0.3); Eosinophils Percent Auto 1.3 % (0-4.4); Hematocrit 31.8 % (37.0-47.0); Hemoglobin 10.1 g/dL (12.0-15.0); Immature Granulocyte Absolute 0.01 K/mm3 (0.00-0.031); Immature Granulocyte Percent A 0.1 % (0-0.5); Lymphocytes Absolute Auto 3.08 K/mm3 (0.9-3.2); Lymphocytes Percent Auto 45.8 % (18.3-44.2); Mean Corpuscular HGB Conc 31.8 g/dl (32-36); Mean Corpuscular Hemoglobin 30.2 pg (26-34); Mean Corpuscular Volume 95.2 fl (80-100); Monocytes Absolute Auto 0.4 K/mm3 (0.1-0.6); Monocytes Percent Auto 6.1 % (2.6-8.5); Neutrophils Absolute Auto 3.1 K/mm3 (1.3-6.7); Neutrophils Percent Auto 45.7 % (45.5-73.1); Red Blood Count 3.34 M/mm3 (4.2-5.4); White Blood Count 6.7 K/mm3 (4.5-10.0)
[2021-01-28 04:39] LABS: Anion Gap 6 mmol/L (8-16); Blood Urea Nitrogen 13 mg/dL (7-17); Calcium 9.1 mg/dL (8.4-10.2); Carbon Dioxide 25 mmol/L (22-30); Chloride 108 mmol/L (98-107); Estimated CRCL calculation 102 ml/min; Estimated Glomerular Filt Rate > 60; Glucose 125 mg/dL (65-105); Magnesium 2.1 mg/dL (1.6-2.3); Potassium 3.5 mmol/L (3.4-5.0); Sodium 139 mmol/L (137-145)
[2021-01-28 05:00] VITALS: BP 155/78; PULSE 89; RESP 18; TEMP 37.4; O2SAT 100
[2021-01-28 05:03] LABS: Vancomycin Trough 16.6 ug/mL (10.0-20.0)
[2021-01-28] MEDS: GABAPENTIN 300 MG CAPSULE PO (05:28)
[2021-01-28 07:40] LABS: Glucose Point of Care 128 (65-105)
[2021-01-28] MEDS: BENZTROPINE MESYLATE 0.5 MG TABLET PO (09:07)
[2021-01-28] MEDS: ASPIRIN 81 MG ENTERIC TABLET PO (09:07)
[2021-01-28] MEDS: amLODIPine BESYLATE 5 MG TABLET PO (09:07)
[2021-01-28] MEDS: GLIMEPIRIDE 1 MG TABLET PO (09:07)
[2021-01-28] MEDS: HALOPERIDOL 5 MG TABLET PO (09:08)
[2021-01-28] MEDS: methocarbamoL 750 MG TABLET PO (09:08)
[2021-01-28] MEDS: SERTRALINE HCL 50 MG TABLET PO (09:08)
[2021-01-28] MEDS: DORZOLAMIDE HCL 2% OPHTH DROPS 1 DROP EACH EYE (09:08)
[2021-01-28] MEDS: DOCUSATE SODIUM 100 MG CAPSULE PO (09:08)
[2021-01-28] MEDS: CIPROFLOXACIN 500 MG TAB PO (09:08)
[2021-01-28] MEDS: FAMOTIDINE 20 MG/2 ML VIAL IV PUSH (09:09)
[2021-01-28] MEDS: ENOXAPARIN 40 MG/0.4 ML SYRINGE SUB-Q (09:09)
[2021-01-28 09:42] VITALS: O2SAT 98
[2021-01-28 11:58] LABS: Glucose Point of Care 179 (65-105)
--- NOTE | 2021-01-28 13:29 | PM.DS ---
DS: Admitting Diagnosis Admitting Diagnosis Admitting Diagnosis: Vomiting, UTI DS: Discharge Diagnosis Discharge Diagnosis (1) Urinary tract infection: Qualifiers: Hematuria presence: with hematuria Urinary tract infection type: site unspecified Qualified Code(s): N39.0 - Urinary tract infection, site not specified; R31.9 - Hematuria, unspecified Code(s): N39.0 - Urinary tract infection, site not specified Status: Acute Assessment and Plan: Date of Admission 01/26/21 Date of Discharge/DOS 01/28/21 Ms. Lopez is a 50yo F with history of frequent UTIs, multiple CVAs and is mostly wheelchair-bound from same, chronic indwelling Bailey catheter due to atonic bladder, hypertension and type 2 diabetes who presented to the ED for evaluation of nausea and vomiting. Patient was found to have another urinary tract infection. She was initially started on IV vancomycin due to history of drug-resistant bacteria in the past. CT abdomen/pelvis showed evidence consistent with cystitis in addition to stool distending the rectum. She was treated with enema and bowel regimen, continue regular bowel regimen after discharge. Urine culture grew Pseduomonas and her IV vancomycin was transitioned to oral ciprofloxacin. She had no further nausea or vomiting during admission and was feeling improved overall. She will continue to follow up with her established urologist in [facility] who she sees for chronic Bailey catheter due to atonic bladder and frequent UTIs. She is overall improved and is hemodynamically stable for discharge 01/28/21 with instructions to follow up with PCP and her urologist. Chronic indwelling Bailey catheter associated UTI with nausea and vomiting. Recent hospital admissions for same. Treated with 3 days of IV vancomycin, transitioned to oral ciprofloxacin based on urine culture growing Pseudomonas. Blood cultures negative. (2) Tachycardia: Code(s): R00.0 - Tachycardia, unspecified Status: Acute Assessment and Plan: Intermittent sinus tachycardia, mild. Suspect related to acute illness. No chest pain. (3) IDDM (insulin dependent diabetes mellitus): Code(s): E11.9 - Type 2 diabetes mellitus without complications; Z79.4 - USP (current) use of insulin Status: Chronic Assessment and Plan: A1c 7.6%. (4) Hypertension, essential: Code(s): I10 - Essential (primary) hypertension Status: Chronic Assessment and Plan: Patient was started on Norvasc her last admission, continue this as well as PRN hydralazine. BPs very elevated on arrival, now improved. (5) Nausea & vomiting: Qualifiers: Vomiting Intractability: unspecified Vomiting type: unspecified Qualified Code(s): R11.2 - Nausea with vomiting, unspecified Code(s): R11.2 - Nausea with vomiting, unspecified Status: Resolved Assessment and Plan: Resolved, none today. Treated with bowel rest, antiemetics, IV hydration. (6) Constipation: Qualifiers: Constipation type: slow transit constipation Qualified Code(s): K59.01 - Slow transit constipation Code(s): K59.00 - Constipation, unspecified Status: Acute Assessment and Plan: Rectum distended with stool on imaging. Gave soapsuds enema and start bowel regimen. Recommend continued bowel regimen at home to avoid constipation. DS: Summary Hospital Course Hospital Course: See above Time Spent with Patient Time attestation: Total time spent providing and/or coordinating discharge services: 40 minutes Exam Narrative: Exam Narrative: General: Female resting comfortably sitting up in bedside c
[2021-01-28 15:25] VITALS: BP 151/75; PULSE 93; RESP 16; TEMP 36.7; O2SAT 100
[2021-01-28 16:25] VITALS: BP 122/65; PULSE 95; RESP 22; TEMP 36.8; O2SAT 100
--- NOTE | 2021-02-02 13:40 | PC.NURSE ---
Blood cx are negative
== END 2021-01-28 16:15 | disposition home health service (06) | DRG 699 ==
LOC: ANHED 08:43 → ANH2MED 13:48
PROVIDERS: Nurse Practitioner; Physician Assistant; Admitting Provider Internal Medicine; Emergency Provider General Practice; PCP Internal Medicine; Visit Provider Family Medicine
DX: T83.511A Infection and inflammatory reaction due to indwelling urethral catheter, initial encounter (principal); I69.354 Hemiplegia and hemiparesis following cerebral infarction affecting left non-dominant side; R47.89 Other speech disturbances; N39.0 Urinary tract infection, site not specified; R00.0 Tachycardia, unspecified; I10 Essential (primary) hypertension; K59.01 Slow transit constipation; R11.2 Nausea with vomiting, unspecified; E11.319 Type 2 diabetes mellitus with unspecified diabetic retinopathy without macular edema; E11.65 Type 2 diabetes mellitus with hyperglycemia; E78.5 Hyperlipidemia, unspecified; F20.3 Undifferentiated schizophrenia; H40.9 Unspecified glaucoma; E53.8 Deficiency of other specified B group vitamins; M19.90 Unspecified osteoarthritis, unspecified site; F41.9 Anxiety disorder, unspecified; Z79.4 Long term (current) use of insulin; Z87.891 Personal history of nicotine dependence
CPT/HCPCS: 36415; 71045; 74177; 80048; 80053; 80202; 81001; 81025; 82010; 82803; 82948; 83036; 83690; 83735; 84100; 85025; 87040; 87077; 87086; 87088; 87186; 93005; 96361; 96365; 96366; 96367; 96372; 96375; 96376; 99285; A9270; G0378; J0360; J0696; J1650; J1815; J2405; J2550; J2765; J3370; J7120; Q9967

== ENCOUNTER 2021-08-08 09:59 | Outpatient (RCR) | payer MEDICARE, MEDICAID, SELFPAY ==
--- NOTE | 2021-08-08 11:28 | PTOPEVAL ---
Thank you for referring Jasmin Lopez to [facility].? The patient is scheduled to be seen for therapy?1 x/week for 8 weeks. Please review, sign, date and return this plan of care EDILSON. I agree with and certify that the following plan of care is medically necessary. Referring Physician Date Attending Provider: Armaan Clarke, DO Past Medical History Source of Past Medical History Patient,Family/Significant Other,Recalled from Previous Visit, Confirmed with Patient/ Family Neurological History Hx Cerebrovascular Accident (CVA) Yes: SEP 2019 and 2014 Cardiovascular History Hx Cardiac Arrhythmia Yes Hx Hypercholesterolemia Yes Hx Hypertension Yes Respiratory History Hx Sleep Apnea Yes Gastrointestinal History Hx Gastroesophageal Reflux Disease Yes Genitourinary History Hx Genitourinary Disorders No Significant History Musculoskeletal History Hx Arthritis Yes Hx Back Pain Yes Hx Rheumatoid Arthritis Yes Hematological History Hx Hematological Disorders No Significant History Endocrine History Hx Diabetes Yes HEENT History Hx Cataracts Yes Hx Glaucoma Yes Hx Epistaxis Yes Hx Sinus Problems Yes Integumentary History Hx Skin Disorders No Significant History Reproductive History Hx Reproductive Disorders No Significant History Psychosocial History Hx Anxiety Yes Hx Depression Yes Hx Schizophrenia Yes Pain History History of Any Previous or Ongoing No Significant History Instance of Pain Anesthesia History Hx Anesthesia Reactions No Significant History Evaluation Information Problem Diagnosis CVA Onset 2014, 09/2019 Additional Evaluation Detail Pt and mother want pt to walk. She received home health therapy 2 months ago. history:Acute infarctions of the right caudate nucleus, lentiform nucleus and multiple foci in the right frontal and parietal lobes. No associated hemorrhage or significant mass effect acute rehab 10/09/19-10/21/19, the DC to LT facility at [facility]. Subjective Information Pt is in the wc 4 hr intervals Query Text:As Reported By Patient/ unless out of house then 6-7 Family hrs. She has mild skin
--- NOTE | 2021-09-05 10:41 | PCPTNOTE ---
Admitting Provider: Attending Provider: Armaan Clarke DO Patient:Jasmin Lopez Date of :1970 Therapy Discharge Note Patient has not returned for any further treatments since 08/08/2021, therefore she will be discharged at this time. Patient?s initial visit was on 08/08/2021 10:00 and she had a total of 1 visits. The goals have been not met due to she was seen for 1 visit. Thank you for referring this patient to [facility]. Please review, sign, date and return this discharge summary EDILSON. I have been updated about the patient's current status and I agree with discharge from the above service at this time. Referring Physician Date
== END 2021-10-23 11:15 | disposition home or self-care (01) ==
LOC: ANHPT 09:59
PROVIDERS: PCP Internal Medicine; Visit Provider Internal Medicine
DX: I69.30 Unspecified sequelae of cerebral infarction (principal)
CPT/HCPCS: 97163; 97542

== ENCOUNTER 2021-08-09 09:34 | Emergency (ER) | payer MEDICARE, MEDICAID, SELFPAY ==
[2021-08-09 09:38] VITALS: BP 159/63; PULSE 99; RESP 16; TEMP 36.3; O2SAT 100
--- NOTE | 2021-08-09 11:38 | ED.GENADULT ---
HPI - General Adult General Chief complaint: Urogenital-Female <Charly Wilder PA-C - Last Filed: 08/09/21 11:41> Stated complaint: needs bland cath changed <ИРИНА Rivera Last Filed: 08/09/21 11:41> Time Seen by Provider: 08/09/21 10:31 <ИРИНА Rivera Last Filed: 08/09/21 11:41> Source: patient and RN notes reviewed <ИРИНА Rivera Last Filed: 08/09/21 11:41> Mode of arrival: ambulatory <ИРИНА Rivera Last Filed: 08/09/21 11:41> Limitations: no limitations <ИРИНА Rivera Last Filed: 08/09/21 11:41> History of Present Illness HPI narrative: Patient 51-year-old female who presents with mother who is the POA and lives with the patient patient has history of strokes and is disabled from the strokes patient has an indwelling Bland catheter mother presents noting they would like the catheter change they have no other complaints denying any illness or other complaints patient on arrival is pleasant lying in the room in the bed and does not appear distressed patient denies any other complaints has had the indwelling catheter long-term last changed a month ago <ИРИНА Rivera Last Filed: 08/09/21 11:41> Related Data Home medications: Home Medications Medication Instructions Recorded Confirmed dorzolamide [Trusopt] 1 drp OPHTHALMIC (EYE) BID 10/04/19 07/03/21 latanoprost [Xalatan] 1 drp OPHTHALMIC (EYE) BID 10/04/19 07/03/21 insulin aspart U-100 100 unit/mL 12 unit SUBCUT TID 01/17/21 07/03/21 (3 mL) subcutaneous pen ibuprofen 800 mg tablet 800 mg PO Q6H PRN 01/31/21 07/03/21 <ИРИНА Rivera Last Filed: 08/09/21 11:41> Allergies/adverse reactions: Allergies Allergy/AdvReac Type Severity Reaction Status Date / Time amoxicillin Allergy Mild Rash Verified 01/26/21 11:15 Penicillins Allergy Mild Unknown Verified 01/26/21 11:15 <ИРИНА Rivera Last Filed: 08/09/21 11:41> Review of Systems Review of Systems: All systems reviewed & are unremarkable except as noted in HPI and below <Charly Wilder PA-C - Last Filed: 08/09/21 11:41> [facility] Past Medical History Medical History: Medical History Anxiety Arthritis B12 deficiency July 2020 Cataracts, bilateral Cerebrovascular disease CVA 2014 and September 2019. The CVA 2018 involved the right caudate nucleus, right frontal and right parietal regions resulting in chronic left-sided deficits and delayed speech Chronic indwelling Bland catheter since July 2020. Patient had recurrent urinary retention and hydronephrosis when Bland catheter was discontinued. Followed by Dr. Estrella Diabetes Diabetic retinopathy Glaucoma HLD (hyperlipidemia) Hypertension, essential IDDM (insulin dependent diabetes mellitus) 08/16/2020 hemoglobin A1c 6.5 Intracranial carotid stenosis, bilateral severe Iron deficiency anemia July 2020 due to nutritional deficiencies Peripheral polyneuropathy Schizophrenia, undifferentiated Type 2 diabetes mellitus with hyperglycemia <Charly Wilder PA-C - Last Filed: 08/09/21 11:41> Surgical History Surgical History: Surgical History H/O removal of cyst History of cystoscopy <Charly Wilder PA-C - Last Filed: 08/09/21 11:41> Family History Family History: Family History Grandparent Diabetes mellitus Father Family history of cardiovascular disease Other Cerebrovascular accident <Charly Wilder PA-C - Last Filed: 08/09/21 11:41> Social History Social History: Social History Social History: Single. Resides in subsidized apartment in [place], [place] (the [facility]). She is dependent upon her mother for activities of daily living. She is whe
--- NOTE | 2021-08-09 12:03 | PCCCNOTE ---
Spoke with mother of patient regarding patient's insurance benefits. Her primary physician has recommended patient come to the ER every 4 weeks for bland catheter change. Spoke with Vonnie, patient's career development manager with Medicaid who recommends that patient's mother contact pt's primary physician for referral to Home Health as patient currently qualifies for Home Health and Physical Therapy. Prior Home Health agency determined patient had reached her potential and stopped physical therapy services. Vonnie recommended that patient's mother contact the primary physician, obtain a referral for Home Health and have patient re-evaluated for services. Information and Home Health agency list provided to patient's mother.
== END 2021-08-09 12:00 | disposition home or self-care (01) ==
PROVIDERS: Emergency Provider General Practice; PCP Internal Medicine
DX: Z46.6 Encounter for fitting and adjustment of urinary device (principal); I69.354 Hemiplegia and hemiparesis following cerebral infarction affecting left non-dominant side; I69.928 Other speech and language deficits following unspecified cerebrovascular disease; E11.319 Type 2 diabetes mellitus with unspecified diabetic retinopathy without macular edema; E11.42 Type 2 diabetes mellitus with diabetic polyneuropathy; H40.9 Unspecified glaucoma; I10 Essential (primary) hypertension; I65.23 Occlusion and stenosis of bilateral carotid arteries; F20.3 Undifferentiated schizophrenia; F41.9 Anxiety disorder, unspecified; E53.8 Deficiency of other specified B group vitamins; Z86.2 Personal history of diseases of the blood and blood-forming organs and certain disorders involving the immune mechanism; Z79.4 Long term (current) use of insulin; Z79.82 Long term (current) use of aspirin
CPT/HCPCS: 51702; 99283

== ENCOUNTER 2021-10-16 13:46 | Inpatient (IN) | payer MEDICARE, MEDICAID, SELFPAY ==
[2021-10-16] VITALS (7 sets, daily range): BP systolic 133–171; BP diastolic 64–82; PULSE 81–86; RESP 18–21; TEMP 36.1–37; O2SAT 99–100; BMI 26.2
--- NOTE | ~2021-10-16 | US_ITS ---
EXAMINATION: US renal BI DATE: 10/19/2021 10:03 INDICATION: Elevated creatinine TECHNIQUE: Multiple ultrasound grayscale images of the kidneys were obtained. COMPARISON: 07/31/2020 FINDINGS: The right kidney measures 13.9 x 5.8 x 7.6 cm. The left kidney measures 4.4 x 6.9 x 6.6 cm. The kidne ys demonstrate normal echogenicity. 1.5 cm right renal cyst. There is no hydronephrosis in either kid reshma. No stones identified. The bladder is compressed around a Bailey catheter which limits evaluation .. IMPRESSION: 1. 1.5 similar left renal cyst. No hydronephrosis in either kidney. Reviewed, dictated and finalized at location A. DDLE BUG
[2021-10-16 14:24] LABS: Basophils Absolute Auto 0.1 K/mm3 (0.0-0.1); Basophils Percent Auto 0.9 % (0.2-1.2); Eosinophils Absolute Auto 0.3 K/mm3 (0-0.3); Hematocrit 21.7 % (37.0-47.0); Immature Granulocyte Absolute 0.02 K/mm3 (0.00-0.031); Immature Granulocyte Percent A 0.2 % (0-0.5); Lymphocytes Absolute Auto 2.48 K/mm3 (0.9-3.2); Lymphocytes Percent Auto 29.4 % (18.3-44.2); Mean Corpuscular HGB Conc 31.8 g/dl (32-36); Mean Corpuscular Hemoglobin 27.9 pg (26-34); Mean Corpuscular Volume 87.9 fl (80-100); Mean Platelet Volume 9.3 fl (7.4-10.4); Monocytes Absolute Auto 0.6 K/mm3 (0.1-0.6); Neutrophils Absolute Auto 4.9 K/mm3 (1.3-6.7); Neutrophils Percent Auto 58.5 % (45.5-73.1); Platelet Count Result 448 k/mm3 (150-375); Red Blood Count 2.47 M/mm3 (4.2-5.4); Red Cell Distribution Width 14.6 % (11.5-14.5); White Blood Count 8.4 K/mm3 (4.5-10.0)
[2021-10-16 14:30] LABS: Hemoglobin 6.9 g/dL (12.0-15.0)
[2021-10-16 14:38] LABS: Alanine Aminotransferase 16 U/L (4-35); Albumin Level 4.2 g/dL (3.5-5.1); Alkaline Phosphatase 170 U/L (38-126); Anion Gap 9 mmol/L (8-16); Aspartate Amino Transferase 20 U/L (14-36); Bilirubin,Total 0.2 mg/dL (0.2-1.3); Blood Urea Nitrogen 32 mg/dL (7-17); Calcium 9.5 mg/dL (8.4-10.2); Carbon Dioxide 21 mmol/L (22-30); Chloride 102 mmol/L (98-107); Estimated CRCL calculation 45 ml/min; Estimated Glomerular Filt Rate 45; Glucose 148 mg/dL (65-110); Sodium 132 mmol/L (137-145)
--- NOTE | 2021-10-16 17:50 | ED.GENADULT ---
HPI - General Adult General Chief complaint: Recheck/Abnormal Lab/Rx Stated complaint: Sent by doctor. Time Seen by Provider: 10/16/21 16:58 Source: patient Mode of arrival: ambulatory Limitations: no limitations History of Present Illness HPI narrative: Patient presents to the emergency department per the suggestion of her PCP for repeat lab work. She is here in the company of her mother, with whom she lives, who helps provide additional details related to patient's history. Mother indicates that patient had an appointment with her PCP on 09/01/21. She had labs performed last Saturday and was contacted by her provider today informing her she had impaired renal function and her hemoglobin and hematocrit were low. She was advised to come to the hospital for further evaluation. Patient states that she had noted some blood in her urine two days ago. She consumed some baking soda water at that time and her symptoms resolved. She denies any hematuria or other urinary symptoms at this time. Denies any rectal bleeding, blood in the stool, black appearance of her stool. She is not on any blood thinners. No personal or family history of colon cancer. Patient has never had a colonoscopy. She denies any fatigue, dizziness, weakness. She denies any fever, chills, chest pain, abdominal pain, nausea, vomiting, any other abnormal symptoms. She states she otherwise feels quite well. She did have a stroke and has left-sided hemiparalysis. Related Data Home Medications Medication Instructions Recorded Confirmed dorzolamide [Trusopt] 1 drp OPHTHALMIC (EYE) BID 10/04/19 07/03/21 latanoprost [Xalatan] 1 drp OPHTHALMIC (EYE) BID 10/04/19 07/03/21 insulin aspart U-100 100 unit/mL 12 unit SUBCUT TID 01/17/21 07/03/21 (3 mL) subcutaneous pen ibuprofen 800 mg tablet 800 mg PO Q6H PRN 01/31/21 07/03/21 Allergies Allergy/AdvReac Type Severity Reaction Status Date / Time amoxicillin Allergy Mild Rash Verified 10/16/21 17:08 Penicillins Allergy Mild Unknown Verified 10/16/21 17:08 Review of Systems Review of Systems: CONSTITUTIONAL: Denies fever, chills, or sweats. EYES: Denies visual changes, redness, or discharge. ENT: Denies rhinorrhea, congestion, sore throat, or otalgia. CARDIOVASCULAR: Denies chest pain, palpitations, or edema. RESPIRATORY: Denies cough or dyspnea. GASTROINTESTINAL: Denies abdominal pain, nausea, vomiting, or diarrhea. GENITOURINARY: Reports hematuria two days ago, now resolved. Denies dysuria or other urinary symptoms SKIN: Denies rash or itching. MUSCULOSKELETAL: Denies back pain, joint pain, or myalgia. NEUROLOGIC: Reports chronic left sided hemiparalysis. Denies headache, numbness, dizziness, or generalized weakness. PSYCHIATRIC: Denies anxiety or depression. [facility] Past Medical History Medical History Acute renal insufficiency Anxiety Arthritis B12 deficiency July 2020 Cataracts, bilateral Cerebrovascular disease CVA 2014 and September 2019. The CVA 2018 involved the right caudate nucleus, right frontal and right parietal regions resulting in chronic left-sided deficits and delayed speech Chronic indwelling Bailey catheter since July 2020. Patient had recurrent urinary retention and hydronephrosis when Bailey catheter was discontinued. Followed by Dr. Estrella Diabetes Diabetic retinopathy Glaucoma HLD (hyperlipidemia) Hypertension, essential IDDM (insulin dependent diabetes mellitus) 08/16/2020 hemoglobin A1c 6.5 Intracranial carotid stenosis, bilateral severe Iron deficiency anemia July 2020 due to nutritional deficiencies Peripheral polyneuropathy Schizophrenia, undifferentiated Type 2 diabetes mellitus with hyperglycemia Surgical History Surgical History H/O removal of cyst History of cystoscopy Family History Family History (Reviewed 10/16/21 @ 17:55 by Nahid Johnson
--- NOTE | 2021-10-16 18:01 | PC.NURSE ---
pt refuses iv start and transfusion. pt states that she feels fine . pt encouraged to talk with family member present regarding iv and transfusion. primary nurse notified.
[2021-10-16 18:53] LABS: Prothrombin Time 13.1 Seconds (11.1-14.7)
[2021-10-16 18:54] LABS: Partial Thromboplastin Time 30.9 SECONDS (22.3-36.8)
[2021-10-16 18:57] LABS: Add Urine Microscopic? YES; Appearance Urine Turbid (Clear); Bacteria Urine 2+ /hpf; Bilirubin Urine Negative (Negative); Blood Urine 3+ (Negative); Color Urine Yellow (Yellow); Glucose Urine UA Negative (Negative); Ketones Urine Negative (Negative); Leukocyte Esterase Ur 3+ LEU/UL (Negative); Nitrate Urine Negative (Negative); Protein Urine 2+ mg/dL (Negative); RBC Urine >75 /hpf (0-2); Specific Grav Ur 1.016 (1.001-1.035); Urobilinogen Urine Negative mg/dL (<2.0); WBC Clumps Urine Present /HPF; WBC Urine >75 /hpf
[2021-10-16 19:04] LABS: Creatine Kinase 74 U/L (30-135); Lipase 79 U/L (23-300)
--- NOTE | 2021-10-16 19:37 | PM.IMHP ---
H&P: HPI History of Present Illness Date/Time: 10/16/21 19:37 Chief Complaint: Abnormal labs Narrative: This is a 51-year-old female with past medical history significant for stroke with residual left-sided hemiparesis, type 2 diabetes mellitus, glaucoma, tonic bladder with chronic indwelling Bailey catheter recurrent urinary tract infections patient uses a wheelchair to get around. Patient presented to the emergency room after she was urged by her primary care physician due to abnormal lab work done at her last visit. At the time of my visit patient denied any discomfort, any nausea, any vomiting, abdominal pain, pain or burning with urination, chills ,rigors, fevers, cough, sputum production, shortness of breath, her appetite has been good. Preliminary workup on lab work obtained in emergency room she was found to have a hemoglobin of 6.9 and urinalysis was significant for numerous wbc's present. Decision has been made to admit the patient for further evaluation management and treatment. Review of Systems Review of Systems: Abnormal lab work Constitutional: Constitutional: Denies chills, Denies fatigue, Denies fever(s), Denies lethargy, Denies malaise, Denies night sweats, Denies poor appetite and Denies weakness Eyes: Eyes: Denies change in vision ENT: Denies dysphagia, Denies vertigo, Denies dizziness, Denies nasal congestion, Denies nasal discharge, Denies nasal obstruction and Denies odynophagia Cardiovascular: Cardiovascular: Denies pedal edema, Denies leg edema, Denies lightheadedness, Denies radiating jaw, neck or arm pain, Denies palpitations, Denies dyspnea, Denies dyspnea on exertion and Denies orthopnea Respiratory: Respiratory: Denies cough and Denies dyspnea Gastrointestinal: Gastrointestinal: Denies abdominal pain, Denies dyspepsia, Denies heartburn, Denies diarrhea, Denies nausea and Denies vomiting Genitourinary: Genitourinary: Denies dysuria Musculoskeletal: Musculoskeletal: Denies arthralgias and Denies joint swelling Integumentary/Breasts: Skin/Breast: Denies rash Neurologic: Comments: Left-sided hemiparesis Psychiatric: Psychiatric: Reports no additional psychiatric complaints and Reports as per HPI Endocrine: Endocrine: Reports no additional endocrine complaints and Reports as per HPI Hematologic/Lymphatic: Hematologic/Lymphatic: Reports no additional hematologic/lymphatic complaints and Reports as per HPI Allergic/Immunologic: Allergic/Immunologic: Reports no additional allergic/immunologic complaints and Reports as per HPI PMF Past Medical History Medical History Acute renal insufficiency Anxiety Arthritis B12 deficiency July 2020 Cataracts, bilateral Cerebrovascular disease CVA 2014 and September 2019. The CVA 2018 involved the right caudate nucleus, right frontal and right parietal regions resulting in chronic left-sided deficits and delayed speech Chronic indwelling Bailey catheter since July 2020. Patient had recurrent urinary retention and hydronephrosis when Bailey catheter was discontinued. Followed by Dr. Estrella Diabetes Diabetic retinopathy Glaucoma HLD (hyperlipidemia) Hypertension, essential IDDM (insulin dependent diabetes mellitus) 08/16/2020 hemoglobin A1c 6.5 Intracranial carotid stenosis, bilateral severe Iron deficiency anemia July 2020 due to nutritional deficiencies Peripheral polyneuropathy Schizophrenia, undifferentiated Type 2 diabetes mellitus with hyperglycemia Surgical History Surgical History H/O removal of cyst History of cystoscopy Family History Family History Grandparent Diabetes mellitus Father Family history of cardiovascular disease Other Cerebrovascular accident Social History Social History Soci
--- NOTE | 2021-10-16 21:07 | ADMGEN ---
This patient, Jasmin Lopez, was admitted to Medical Room 245-. Patient/family oriented to hospital policies and general routines including ID bracelet, bed and alarms, visiting hours, pain management, procedures, bathroom and other care routines, personal items, smoking policy, room service/diet, and visiting hours. Information on how to activate the Rapid Response Team has been discussed. Patient/Family are encouraged to report perceived risks to care and to ask questions if they do not understand what they are told or what they should do.
[2021-10-16] MEDS: SODIUM CHLORIDE 0.9% IV 250 ML 30 ML IV CONT (21:15)
[2021-10-16 21:44] LABS: Glucose Point of Care 135 mg/dl (65-105)
[2021-10-17] VITALS (17 sets, daily range): BP systolic 148–180; BP diastolic 55–83; PULSE 77–92; RESP 14–21; TEMP 36.2–37; O2SAT 10–100; BMI 26.2
[2021-10-17] MEDS: SODIUM CHLORIDE 0.9% IV 1,000 ML 100 ML IV CONT (04:37)
[2021-10-17 05:42] LABS: Basophils Absolute Auto 0.1 K/mm3 (0.0-0.1); Basophils Percent Auto 0.9 % (0.2-1.2); Eosinophils Absolute Auto 0.4 K/mm3 (0-0.3); Eosinophils Percent Auto 3.7 % (0-4.4); Hemoglobin 10.3 g/dL (12.0-15.0); Immature Granulocyte Absolute 0.04 K/mm3 (0.00-0.031); Immature Granulocyte Percent A 0.4 % (0-0.5); Lymphocytes Absolute Auto 2.07 K/mm3 (0.9-3.2); Lymphocytes Percent Auto 20.7 % (18.3-44.2); Mean Corpuscular HGB Conc 32.2 g/dl (32-36); Mean Corpuscular Hemoglobin 28.3 pg (26-34); Mean Corpuscular Volume 87.9 fl (80-100); Mean Platelet Volume 9.8 fl (7.4-10.4); Monocytes Absolute Auto 0.8 K/mm3 (0.1-0.6); Monocytes Percent Auto 7.7 % (2.6-8.5); Neutrophils Absolute Auto 6.7 K/mm3 (1.3-6.7); Neutrophils Percent Auto 66.6 % (45.5-73.1); Platelet Count Result 430 k/mm3 (150-375); Red Blood Count 3.64 M/mm3 (4.2-5.4); Red Cell Distribution Width 14.5 % (11.5-14.5)
[2021-10-17 05:46] LABS: Anion Gap 9 mmol/L (8-16); Blood Urea Nitrogen 30 mg/dL (7-17); Calcium 9.2 mg/dL (8.4-10.2); Carbon Dioxide 21 mmol/L (22-30); Chloride 105 mmol/L (98-107); Estimated CRCL calculation 49 ml/min; Estimated Glomerular Filt Rate 58; Glucose 207 mg/dL (65-110); Potassium 4.7 mmol/L (3.4-5.0); Sodium 135 mmol/L (137-145)
[2021-10-17 07:52] LABS: Glucose Point of Care 194 mg/dl (65-105)
[2021-10-17] MEDS: LATANOPROST 0.005% OP SOLN 2.5 ML BTL 1 DROP EACH EYE ×2 (08:18→17:13)
[2021-10-17] MEDS: BENZTROPINE MESYLATE 0.5 MG TABLET PO (08:19)
[2021-10-17] MEDS: ONDANSETRON INJ 4 MG/2 ML VIAL IV PUSH (08:19)
[2021-10-17] MEDS: methocarbamoL 750 MG TABLET PO (08:20)
[2021-10-17] MEDS: ENOXAPARIN 40 MG/0.4 ML SYRINGE SUB-Q (08:20)
[2021-10-17] MEDS: GABAPENTIN 300 MG CAPSULE PO ×3 (08:20→17:06)
[2021-10-17] MEDS: SERTRALINE HCL 50 MG TABLET PO (08:20)
[2021-10-17] MEDS: ASPIRIN 81 MG ENTERIC TABLET PO (08:20)
[2021-10-17] MEDS: DORZOLAMIDE HCL 2% OPHTH DROPS 1 DROP EACH EYE ×2 (08:30→17:05)
--- NOTE | 2021-10-17 10:40 | PM.IMPN ---
Progress Note: A&P Assessment and Plan (1) Urinary tract infection: Qualifiers: Hematuria presence: with hematuria Urinary tract infection type: acute cystitis Qualified Code(s): N30.01 - Acute cystitis with hematuria Code(s): N39.0 - Urinary tract infection, site not specified Status: Acute Assessment and Plan: Patient is being placed on levofloxacin Await urine cultures bland cather urine is red (2) GEGE (acute kidney injury): Code(s): N17.9 - Acute kidney failure, unspecified Status: Acute Assessment and Plan: Gentle hydration check BMP (3) Chronic indwelling Bland catheter: Code(s): Z97.8 - Presence of other specified devices Status: Acute Assessment and Plan: Catheter care Follow-up in outpatient setting (4) IDDM (insulin dependent diabetes mellitus): Code(s): E11.9 - Type 2 diabetes mellitus without complications; Z79.4 - intermediate (current) use of insulin Status: Chronic Assessment and Plan: Continue home meds Accu-Cheks AC and HS (5) KENDRA (obstructive sleep apnea): Code(s): G47.33 - Obstructive sleep apnea (adult) (pediatric) Status: Acute Assessment and Plan: CPAP at nighttime (6) History of stroke with current residual effects: Code(s): I69.30 - Unspecified sequelae of cerebral infarction Status: Acute Assessment and Plan: Patient with residual left side hemiplegia Patient is wheelchair bound PT/OT in the hospital Subjective Date/time seen: 10/17/21 10:40 Interval history: 51-year-old female with past medical history significant for stroke with residual left-sided hemiparesis, type 2 diabetes mellitus, glaucoma, tonic bladder with chronic indwelling Bland catheter recurrent urinary tract infections patient uses a wheelchair to get around. Pts Bp are running high today and she has some complaints of lowback pain. Review of Systems Review of Systems: All systems reviewed & are unremarkable except as noted in HPI and below Exam Const: General: cooperative, comfortable, no acute distress, well developed, alert, awake and ill appearing chronically Nutritional Appearance: thin Orientation/consciousness: patient oriented x3 Resp: Effort & Inspection: normal respiratory effort and able to speak in complete sentences Auscultation: clear to auscultation bilaterally, no crackles, no rales, no rhonchi and no wheezes Cardio: Jugular venous distension: no JVD Rate: regular rate Rhythm: regular rhythm Heart sounds: S1 normal heart sound present and S2 normal heart sound present GI: Inspection: normal to inspection Urinary Catheter: Urinary Catheter: patent and draining and urine red Skin: Rashes: no rashes Wounds: no wounds Neuro: General: patient oriented x3, CN's II-XI intact bilaterally and Unable to assess gait Cranial nerves: Yes CN's II-XII intact bilaterally and Yes Equal, round and reactive pupils present Cognition (Neuro): normal cognition Speech: normal speech Motor exam (neuro): Other motor observations present (weakness of left side arm 3/5, pt is tilted to the left, left leg 4/5 ) Objective Data Vital Signs Vital Signs: Vital Signs - 24 hr 10/16/21 13:59 10/16/21 18:31 10/16/21 21:14 Temperature 37.0 C 36.1 C L Pulse Rate 84 86 84 Respiratory Rate 18 18 21 H Blood Pressure 133/67 143/82 H 160/67 H Pulse Oximetry 100 99 100 10/16/21 21:30 10/16/21 22:00 10/16/21 22:30 Temperature 36.6 C 36.1 C L 36.4 C Pulse Rate 82 84 81 Respiratory Rate 21 H 21 H 21 H Blood Pressure 167/64 H 160/67 H 154/75 H Pulse Oximetry 100 100 100 10/16/21 23:45 10/17/21 00:00 10/17/21 00:30 Temperature 36.3 C L 37.0 C Pulse Rate 81 80 82 Respiratory Rate 21 H 21 H Blood Pressure 171/78 H 166/73 H Pulse Oximetry 100 100 10/17/21 00:50 10/17/21 01:50 10/17/21 02:00 Temperature 36.3 C L 36.8 C 36.9 C Pulse Rate 81 80 77 Respiratory Rate 21 H 21 H 21 H Blood
--- NOTE | 2021-10-17 10:48 | PC.NURSE ---
On 10/17/21, the student, [Janet Callaway ], provided care and completed [facility] documentation on this patient. I have reviewed the student's documentation and agree with the findings.
[2021-10-17 11:32] LABS: Glucose Point of Care 214 mg/dl (65-105)
[2021-10-17] MEDS: ACETAMINOPHEN 325 MG TABLET 650 MG PO (11:47)
[2021-10-17] MEDS: INSULIN ASPART (*BKC) 100 UNITS/ML SUB-Q (11:50)
[2021-10-17] MEDS: LIDOCAINE 5% PATCH 1 PATCH TRANSDERM (12:18)
[2021-10-17 16:25] LABS: Glucose Point of Care 172 mg/dl (65-105)
[2021-10-17] MEDS: amLODIPine BESYLATE 5 MG TABLET PO (17:41)
[2021-10-17] MEDS: SODIUM CHLORIDE 0.9% IV 1,000 ML 50 ML IV CONT (20:48)
[2021-10-17] MEDS: HALOPERIDOL 5 MG TABLET PO (20:48)
[2021-10-17] MEDS: INSULIN GLARGINE (*BKC) 100 UNITS/ML 7 UNITS SUB-Q (20:52)
[2021-10-17 21:53] LABS: Glucose Point of Care 281 mg/dl (65-105)
[2021-10-18] VITALS (11 sets, daily range): BP systolic 116–192; BP diastolic 52–92; PULSE 79–98; RESP 16–18; TEMP 36.4–36.9; O2SAT 98–100
[2021-10-18 00:51] LABS: Glucose Point of Care 181 mg/dl (65-105)
--- NOTE | 2021-10-18 07:19 | P.CDI_ITS ---
CDI Query Clarification Request -UTI documented -10/16 urine culture growing >100,00 Klebsiella pnemoniae -Chronic indwelling bland catheter documented Please clarify if UTI is: * Due to/associated with chronic indwelling catheter * Not due to/ associated with chronic indwelling catheter * Unable to determine <Светлана Choi RN - Last Filed: 10/18/21 07:21> 1. Urinary tract infection is questionable in a patient with chronic indwelling catheter and no clinical signs and symptoms of genitourinary tract infection. Patient is afebrile with a normal white count. Vital signs are stable. Apparently patient was sent to the hospital due to low hemoglobin. Suspect this is asymptomatic bacteriuria with colonization of a catheter. At this point I will stop the antibiotics and patient can be monitored as an outpatient. <Mariana Nelson MD - Last Filed: 10/19/21 19:01>
[2021-10-18 07:51] LABS: Glucose Point of Care 161 mg/dl (65-105)
[2021-10-18 08:12] LABS: Anion Gap 6 mmol/L (8-16); Blood Urea Nitrogen 26 mg/dL (7-17); Calcium 9.1 mg/dL (8.4-10.2); Carbon Dioxide 21 mmol/L (22-30); Chloride 109 mmol/L (98-107); Estimated CRCL calculation 46 ml/min; Estimated Glomerular Filt Rate 53; Glucose 179 mg/dL (65-110); Sodium 136 mmol/L (137-145)
[2021-10-18] MEDS: LATANOPROST 0.005% OP SOLN 2.5 ML BTL 1 DROP EACH EYE ×2 (10:06→16:33)
[2021-10-18] MEDS: ASPIRIN 81 MG ENTERIC TABLET PO (10:07)
[2021-10-18] MEDS: GABAPENTIN 300 MG CAPSULE PO ×3 (10:09→16:28)
[2021-10-18] MEDS: BENZTROPINE MESYLATE 0.5 MG TABLET PO (10:09)
[2021-10-18] MEDS: SERTRALINE HCL 50 MG TABLET PO (10:10)
[2021-10-18] MEDS: amLODIPine BESYLATE 5 MG TABLET PO ×2 (10:11→15:37)
[2021-10-18] MEDS: ERGOCALCIFEROL 50,000 UNIT CAPSULE 50000 UNITS PO (10:12)
[2021-10-18] MEDS: LIDOCAINE 5% PATCH 1 PATCH TRANSDERM (10:15)
[2021-10-18] MEDS: DORZOLAMIDE HCL 2% OPHTH DROPS 1 DROP EACH EYE ×2 (10:20→17:19)
[2021-10-18] MEDS: ACETAMINOPHEN 325 MG TABLET 650 MG PO (10:28)
[2021-10-18 11:59] LABS: Glucose Point of Care 202 mg/dl (65-105)
[2021-10-18] MEDS: INSULIN ASPART (*BKC) 100 UNITS/ML SUB-Q ×2 (12:02→16:27)
[2021-10-18] MEDS: ERTAPENEM SODIUM 0.5 GM in SODIUM CHLORIDE 0.9% IV 50 ML IVPB (14:42)
[2021-10-18] MEDS: CHLORTHALIDONE 12.5 MG TAB PO (16:28)
[2021-10-18] MEDS: SODIUM CHLORIDE 0.9% IV 1,000 ML 50 ML IV CONT (17:23)
[2021-10-18 17:29] LABS: Glucose Point of Care 213 mg/dl (65-105)
--- NOTE | 2021-10-18 17:59 | PM.IMPN ---
Progress Note: A&P Assessment and Plan (1) Urinary tract infection: Qualifiers: Hematuria presence: with hematuria Urinary tract infection type: acute cystitis Qualified Code(s): N30.01 - Acute cystitis with hematuria Code(s): N39.0 - Urinary tract infection, site not specified Status: Acute Assessment and Plan: Patient with presenting with hematuria, diagnosed with urinary tract infection and empirically placed on levofloxacin On admission urine cultures were read; currently urine is clearing up. Urine culture reveals Klebsiella sensitive to ertapenem. Patient was switched to ertapenem. (2) GEGE (acute kidney injury): Code(s): N17.9 - Acute kidney failure, unspecified Status: Acute Assessment and Plan: Acute nonoliguric kidney injury. Baseline creatinine 0.70.8 as of June 2021. Recent creatinine was 1.3 on 10/09/2021. Patient admitted with a creatinine of 1.6, slowly improving with gentle hydration. Review on home medication; patient was recently on high-dose NSAID, ibuprofen 800 mg every 6 hour, which, given her history of chronic diabetes may cause acute injury observe on admission. Patient was educated to avoid using NSAIDs. This may be related to diabetic nephropathy. Will send a urine albumin to creatinine ratio and protein to creatinine ratio. (3) Chronic indwelling Bailey catheter: Code(s): Z97.8 - Presence of other specified devices Status: Acute Assessment and Plan: Catheter care Follow-up in outpatient setting (4) IDDM (insulin dependent diabetes mellitus): Code(s): E11.9 - Type 2 diabetes mellitus without complications; Z79.4 - termite control technician (current) use of insulin Status: Chronic Assessment and Plan: This morning blood glucose was 178. Accu-Chek in the 161-213 range. Perform HGB A1c. Continue home meds Accu-Cheks AC and HS (5) KENDRA (obstructive sleep apnea): Code(s): G47.33 - Obstructive sleep apnea (adult) (pediatric) Status: Acute Assessment and Plan: CPAP at nighttime (6) History of stroke with current residual effects: Code(s): I69.30 - Unspecified sequelae of cerebral infarction Status: Acute Assessment and Plan: Patient with residual left side hemiplegia Patient is wheelchair bound PT/OT in the hospital (7) Uncontrolled hypertension: Code(s): I10 - Essential (primary) hypertension Status: Acute Assessment and Plan: Review on home medication; patient was recently on no blood pressure medication. Patient presented with mild GEGE, that can be explained by NSAID intake and is already improving. We will continue amlodipine 10 mg PO daily, start mild dose of diuretic and hydralazine. Given longstanding diabetes melitus, patient would somehow benefit from LEANNE/ARB as part of an antihypertensive regimen. Given recent GEGE, albeit resolving, I would defer to nephrology the timing of initiation of ACEI/ARB. Subjective Date/time seen: 10/18/21 08:30 S: Patient was examined at the bedside. She reports headaches. She was medicated with Tylenol. She denies any other complaints. Interval history: 51-year-old female with past medical history significant for stroke with residual left-sided hemiparesis, type 2 diabetes mellitus, glaucoma, tonic bladder with chronic indwelling Bailey catheter recurrent urinary tract infections patient uses a wheelchair to get around. Pts Bp are running high today and she has some complaints of lowback pain. Review of Systems Review of Systems: All systems reviewed & are unremarkable except as noted in HPI and below Constitutional: Constitutional: Denies chills, Denies fatigue, Denies fever(s), Denies lethargy, Denies malaise, Denies night sweats, Denies poor appetite and Denies weakness Eyes: Eyes: Denies change in vision ENT: Denies dysphagia, Denies vertigo, Denies dizziness, Denies nasal congestion, Denies nasal discharge, Denies nasal obstruction
[2021-10-18] MEDS: hydrALAZINE HCL 50 MG TABLET PO ×2 (18:53→21:10)
--- NOTE | 2021-10-18 19:19 | PM.CNNEP ---
Assessment and Plan Assessment and plan (1) Uncontrolled hypertension: Code(s): I10 - Essential (primary) hypertension Status: Acute Assessment and Plan: The patient has difficult to control hypertension. As an outpatient she was on no blood pressure medicine. She tells me that she has had uncontrolled hypertension for years but I wonder how accurate this is. Currently the blood pressure is quite high. So she has been given amlodipine then hydralazine plus chlorthalidone and her blood pressure has come back down. Will gradually bring the blood pressure down to the 150s. If she has been chronically high it would be better to slowly take it from 150s to 120s over the next few months. Consider a CTA of the abdomen. Will check a thyroid and PTH as well as renin and aldosterone since her blood pressure is so high. (2) GEGE (acute kidney injury): Code(s): N17.9 - Acute kidney failure, unspecified Status: Acute Assessment and Plan: Patient's creatinine was high on admission. She was taking nonsteroidal anti-inflammatory agents. We will hold this medication. She also was very anemic. This could cause some pre renal issues. Obstruction is always possible. Will check a renal ultrasound Rhabdomyolysis is possible as well. Will check a CPK Her platelet count is okay so I do not think this is Hus TTP. Glomerular nephritis and interstitial nephritis or unlikely in this clinical scenario. Will check a renal ultrasound and urine electrolytes. (3) Anemia: Qualifiers: Anemia type: unspecified type Qualified Code(s): D64.9 - Anemia, unspecified Code(s): D64.9 - Anemia, unspecified Status: Acute Assessment and Plan: Anemia was pronounced when she was admitted. She has now received some transfusions. Will check iron levels and stool guaiacs. (4) Pyuria: Code(s): R82.81 - Pyuria Status: Acute Assessment and Plan: The patient always has white cells in her urine. She has a chronic Bailey catheter in place. One would question whether some of this is colonization. She has no symptoms no fever and no white count. Should be get Infectious Disease involved? (5) KENDRA (obstructive sleep apnea): Code(s): G47.33 - Obstructive sleep apnea (adult) (pediatric) Status: Acute Assessment and Plan: Patient has sleep apnea and uses CPAP machine at home. History of Present Illness Reason for Consult Consult date: 10/18/21 Chief Complaint Chief complaint: Anemia, Hypokalemia, UTI History of Present Illness Narrative: Jasmin is a very pleasant 51-year-old lady who has multiple medical problems including diabetes, hypertension, stroke in 2019 causing left-sided weakness, glaucoma, atonic bladder with chronic indwelling Bailey, B12 deficiency, hyperlipidemia, anemia, schizophrenia,0 and neuropathy. The patient had a visit with her primary care physician who [facility]. The labs came back abnormal so she was sent to the emergency room. In the ER she was evaluated. She is found to have pyuria. She has been placed on antibiotics. She was found to have very high blood pressure. She was treated with amlodipine and then recently chlorthalidone and hydralazine were added and the blood pressure seems to have gotten a little bit better this evening. Her creatinine was also high on admission. Normally her creatinine runs about 0.5-1.02. On the 09 of October her creatinine was 1.3 and then on October 13 her creatinine was up to 1.6. On admission this time her creatinine was 1.5. She was given some IV fluids and is come down to 1.3. The patient says she has had hypertension for years. It has always been difficult to control. She has never had a heart attack. Although she did have a stroke in 2019. The patient denies any bloody urine foamy urine kidney stones. Does have a chronic indwelling Bailey. She almost always has white cells in her
[2021-10-18 20:18] LABS: Creatine Kinase 51 U/L (30-135)
[2021-10-18 20:39] LABS: Parathyroid Intact 61.6 pg/mL (7.5-53.5)
[2021-10-18] MEDS: INSULIN GLARGINE (*BKC) 100 UNITS/ML 7 UNITS SUB-Q (21:09)
[2021-10-18 21:10] LABS: Iron 32 ug/dL (37-170)
[2021-10-18] MEDS: HALOPERIDOL 5 MG TABLET PO (21:10)
[2021-10-18 21:20] LABS: Glucose Point of Care 227 mg/dl (65-105)
[2021-10-18 21:20] LABS: Percent Iron Saturation 17 % (20-50)
[2021-10-19 00:40] LABS: Creatinine Urine 61.9 mg/dL; Total Protein Urine Random 87 mg/dL; Ur Ttl Prot Creatinine Ratio 1.41 mg/mg (0-0.20)
[2021-10-19 00:45] LABS: Sodium Urine Random 83 meq/L
[2021-10-19 00:52] LABS: Creatinine Urine 62.4 mg/dL; Total Protein Urine Random 109 mg/dL; Ur Ttl Prot Creatinine Ratio 1.75 mg/mg (0-0.20)
[2021-10-19 01:32] LABS: MALB Creatinine Ratio 749.2 mg/g (0-30); Microalbumin Urine Random 467.5 mg/L (0-16.7)
[2021-10-19 03:12] LABS: IFOB Positive Control Positive; Immunochemical Fecal Occult Bl Negative (N)
[2021-10-19 03:35] VITALS: BP 151/76; PULSE 85; RESP 17; TEMP 36.4; O2SAT 99
[2021-10-19 06:48] LABS: Albumin Level 3.6 g/dL (3.5-5.1); Anion Gap 8 mmol/L (8-16); Blood Urea Nitrogen 25 mg/dL (7-17); Calcium 9.2 mg/dL (8.4-10.2); Carbon Dioxide 19 mmol/L (22-30); Chloride 108 mmol/L (98-107); Estimated CRCL calculation 49 ml/min; Estimated Glomerular Filt Rate 58; Glucose 195 mg/dL (65-110); Phosphorus 4.6 mg/dL (2.5-4.5); Potassium 4.8 mmol/L (3.4-5.0); Sodium 135 mmol/L (137-145)
--- NOTE | 2021-10-19 07:35 | PM.PNNEP ---
Progress Note: A&P Assessment and Plan (1) Uncontrolled hypertension: Code(s): I10 - Essential (primary) hypertension Status: Acute Assessment and Plan: The patient has difficult to control hypertension. Labs to investigate underlying causes are pending. will do a CT angio down the line but not now because of the recent renal insufficiency. She is currently on amlodipine, chlorthalidone, and hydralazine. Her systolic is running in the 150s. Considering how high her systolic was before will leave things the way they are now and keep the blood pressure about the same. (2) GEGE (acute kidney injury): Code(s): N17.9 - Acute kidney failure, unspecified Status: Acute Assessment and Plan: Patient's creatinine was high on admission. Will get an ultrasound. Urine electrolytes non pre renal UA of course shows pyuria. CK is normal She was taking nonsteroidal anti-inflammatory agents. We will hold this medication. She also was very anemic. This could cause some pre renal issues. Obstruction is always possible. Will check a renal ultrasound . This has been ordered in the meantime will continue IV fluids. (3) Anemia: Qualifiers: Anemia type: unspecified type Qualified Code(s): D64.9 - Anemia, unspecified Code(s): D64.9 - Anemia, unspecified Status: Acute Assessment and Plan: Anemia was pronounced when she was admitted. She has now received some transfusions. iron levels are low. Check stool guaiac give Venofer (4) Pyuria: Code(s): R82.81 - Pyuria Status: Acute Assessment and Plan: The patient always has white cells in her urine. She has a chronic Bailey catheter in place. One would question whether some of this is colonization. She has no symptoms no fever and no white count. Should be get Infectious Disease involved? (5) KENDRA (obstructive sleep apnea): Code(s): G47.33 - Obstructive sleep apnea (adult) (pediatric) Status: Acute Assessment and Plan: Patient has sleep apnea and uses CPAP machine at home. Subjective Date/time seen: 10/19/21 07:35 Interval history: Patient is alert. Seems a bit more spontaneous. No shortness of breath or chest pain. Review of Systems Cardiovascular: Cardiovascular: Reports no additional cardiovascular complaints Respiratory: Respiratory: Reports no additional respiratory complaints Gastrointestinal: Gastrointestinal: Reports no additional gastrointestinal complaints Genitourinary: Genitourinary: Reports no additional female genitourinary complaints Exam Narrative: WDWN in NAD Left hemiplegia. skin no rash head ncat lungs clear cor reg no rub abd BS+ nontender and soft ext no edema. Objective Data Vital Signs Vital Signs: Vital Signs - 24 hr 10/18/21 08:00 10/18/21 08:29 10/18/21 12:00 Temperature 36.4 C Pulse Rate 87 82 86 Respiratory Rate 16 Blood Pressure 157/68 H Pulse Oximetry 100 10/18/21 14:53 10/18/21 15:21 10/18/21 18:45 Temperature 36.7 C Pulse Rate 83 Respiratory Rate 18 Blood Pressure 185/92 H 192/90 H 145/56 H Pulse Oximetry 100 10/18/21 19:35 10/18/21 20:00 10/18/21 23:07 Temperature 36.7 C 36.9 C Pulse Rate 79 81 81 Respiratory Rate 16 17 17 Blood Pressure 141/56 H 132/52 L Pulse Oximetry 98 100 100 10/19/21 03:35 Temperature 36.4 C L Pulse Rate 85 Respiratory Rate 17 Blood Pressure 151/76 H Pulse Oximetry 99 Intake/Output Intake/Output: Intake & Output 10/16/21 10/17/21 10/18/21 10/19/21 23:59 23:59 23:59 23:59 Intake Total 400 3740 2250 100 Output Total 4400 3750 800 Balance 400 660 -1500 -700 Meds/Results Medications: Active Medications Generic Name Dose Route Start Last Admin Trade Name Freq PRN Reason Stop Dose Admin Acetaminophen 650 mg 10/16/21 19:31 10/18/21 10:28 Acetaminophen 325 Mg Tablet PO 650 mg Q4
[2021-10-19 07:53] LABS: Glucose Point of Care 173 mg/dl (65-105)
[2021-10-19] MEDS: LIDOCAINE HCL 1% LOCAL INJ 2 ML AMPUL 5 ML INFILTRATE (08:45)
[2021-10-19] MEDS: IRON SUCROSE COMPLEX 200 MG in SODIUM CHLORIDE 0.9% IV 50 ML 120 MG IVPB (10:11)
[2021-10-19] MEDS: LATANOPROST 0.005% OP SOLN 2.5 ML BTL 1 DROP EACH EYE ×2 (10:12→16:55)
[2021-10-19] MEDS: DORZOLAMIDE HCL 2% OPHTH DROPS 1 DROP EACH EYE ×2 (10:12→16:55)
[2021-10-19] MEDS: LIDOCAINE 5% PATCH 1 PATCH TRANSDERM (10:12)
[2021-10-19] MEDS: CHLORTHALIDONE 12.5 MG TAB PO (10:12)
[2021-10-19] MEDS: SERTRALINE HCL 50 MG TABLET PO (10:12)
[2021-10-19] MEDS: GABAPENTIN 300 MG CAPSULE PO ×3 (10:12→16:55)
[2021-10-19] MEDS: BENZTROPINE MESYLATE 0.5 MG TABLET PO (10:13)
[2021-10-19] MEDS: ASPIRIN 81 MG ENTERIC TABLET PO (10:13)
[2021-10-19] MEDS: amLODIPine BESYLATE 5 MG TABLET 10 MG PO (10:13)
[2021-10-19 10:15] VITALS: BP 168/74; PULSE 87; RESP 20; TEMP 36.1; O2SAT 100
[2021-10-19 11:21] LABS: Glucose Point of Care 179 mg/dl (65-105)
--- NOTE | 2021-10-19 11:50 | PM.IMPN ---
Progress Note: A&P Assessment and Plan (1) Urinary tract infection: Qualifiers: Hematuria presence: with hematuria Urinary tract infection type: acute cystitis Qualified Code(s): N30.01 - Acute cystitis with hematuria Code(s): N39.0 - Urinary tract infection, site not specified Status: Acute Assessment and Plan: Patient with presenting with hematuria, diagnosed with urinary tract infection and empirically placed on levofloxacin Urine culture reveals Klebsiella sensitive to ertapenem. Patient was switched to ertapenem. For to ID recommendation for antibiotic stewardship (2) GEGE (acute kidney injury): Code(s): N17.9 - Acute kidney failure, unspecified Status: Acute Assessment and Plan: Acute nonoliguric kidney injury. Baseline creatinine 0.70.8 as of June 2021. Recent creatinine was 1.3 on 10/09/2021. Patient admitted with a creatinine of 1.6, slowly improving with gentle hydration. Review on home medication; patient was recently on high-dose NSAID, ibuprofen 800 mg every 6 hour, which, given her history of chronic diabetes may cause acute injury observed on admission. Patient was educated to avoid using NSAIDs. This may be related to diabetic nephropathy. albumin to creatinine ratio 749 and protein to creatinine ratio is 1.7. Patient may benefit from utilization of Khadar inhibitor/ARB in the future. We will defer to Nephrology the appropriate timing for in a sedation of KHADAR-inhibitor given recent episode of acute kidney injury.. (3) Chronic indwelling Bailey catheter: Code(s): Z97.8 - Presence of other specified devices Status: Acute Assessment and Plan: Catheter care Follow-up in outpatient setting (4) IDDM (insulin dependent diabetes mellitus): Code(s): E11.9 - Type 2 diabetes mellitus without complications; Z79.4 - custodial (current) use of insulin Status: Chronic Assessment and Plan: This morning blood glucose was 195. Accu-Chek in the 173-179 range. Follow up HGB A1c. Continue home meds Accu-Cheks AC and HS (5) KENDRA (obstructive sleep apnea): Code(s): G47.33 - Obstructive sleep apnea (adult) (pediatric) Status: Acute Assessment and Plan: CPAP at nighttime (6) History of stroke with current residual effects: Code(s): I69.30 - Unspecified sequelae of cerebral infarction Status: Acute Assessment and Plan: Patient with residual left side hemiplegia Patient is wheelchair bound PT/OT in the hospital (7) Uncontrolled hypertension: Code(s): I10 - Essential (primary) hypertension Status: Acute Assessment and Plan: Currently blood pressure is improving. We should aim at progressive blood pressure control in the outpatient setting over several weeks. Current blood pressure 168/74, which is appropriate for now. Review on home medication; patient was recently on no blood pressure medication. The mother at the bedside admits to elevated blood pressure measurements at home in the 200s in the past. There is a strong family history of hypertension on both sides. Patient presented with mild GEGE, that can be explained by NSAID intake and is already improving. We will continue amlodipine 10 mg PO daily, start mild dose of diuretic and hydralazine(PRN for systolic BP more than 170). Given longstanding diabetes melitus, patient would somehow benefit from KHADAR/ARB as part of an antihypertensive regimen. Given recent GEGE, albeit resolving, I would defer to nephrology the timing of initiation of ACEI/ARB. Subjective Date/time seen: 10/19/21 11:50 s: Patient is examined at the bedside in the company of her mother. She denies any complaints. Her blood pressures are improving overnight. Interval history: Patient is awake alert and oriented. She denies chest pain shortness of breath. There is no edema. Review of Systems Review of Systems: All systems reviewed & are unremarkable except as noted in HPI
[2021-10-19] MEDS: ACETAMINOPHEN 325 MG TABLET 650 MG PO (12:33)
[2021-10-19 12:43] VITALS: BP 153/66
[2021-10-19] MEDS: ERTAPENEM SODIUM 0.5 GM in SODIUM CHLORIDE 0.9% IV 50 ML IVPB (13:39)
[2021-10-19] MEDS: SALINE LOCK FLUSH 10 ML IV PUSH ×2 (13:43→20:36)
[2021-10-19 13:46] VITALS: BP 149/68; PULSE 92; RESP 16; TEMP 36.2; O2SAT 100
--- NOTE | 2021-10-19 15:04 | PCOTNOTE ---
Attempted to see patient twice this date. First attempt, patient was with vascular access. Second attempt, patient was in testing.
[2021-10-19] MEDS: SODIUM CHLORIDE 0.9% IV 1,000 ML 50 ML IV CONT (15:14)
[2021-10-19 16:00] VITALS: BP 137/72; PULSE 87; RESP 18; TEMP 36.4; O2SAT 100
[2021-10-19 16:28] LABS: Glucose Point of Care 220 mg/dl (65-105)
[2021-10-19] MEDS: INSULIN ASPART (*BKC) 100 UNITS/ML SUB-Q (16:54)
--- NOTE | 2021-10-19 18:13 | WPDCN ---
Assessment and Plan Additional Plan Assessment and plan: 1. Urinary tract infection? In a patient with chronic indwelling catheter and no clinical signs and symptoms of genitourinary tract infection. Patient is afebrile with a normal white count. Vital signs are stable. Apparently patient was sent to the hospital due to low hemoglobin. Suspect this is asymptomatic bacteriuria with colonization of a catheter. At this point I would recommend to stop antibiotics and observe closely. 2. Chronic renal insufficiency with a creatinine of 1.2 and GFR of 52. 3. 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 No new focal deficit. Decubitus area examined with some scarring of soft tissue suggestive of pressure related injury. No signs of acute infection. Rotate q.2 hours. 4. Type 2 diabetes recommend tight glycemic control. 5. Date of service October 19, 2021. Case discussed with hospitalist. HPI Data of Consult Date/Time: 10/19/21 18:13 Requesting Physician: Freeman Finch MD Primary Care Provider: Armaan Clarke DO Consult Narrative Narrative: Jasmin Lopez is a 51 year old female with significant past medical history for cerebrovascular accident and residual left-sided hemiparesis, type 2 diabetes, atonic bladder with chronic indwelling catheter, glaucoma apparently sent to the emergency room due to a hemoglobin of 6.9 from her primary care physician's office. In the emergency room a urinalysis and a urine culture done showed an extended beta lactamase resistant Klebsiella pneumoniae. Initially patient was given levofloxacin and subsequently transitioned to ertapenem. Patient denied any abdominal pain. No fever or chills. No nausea or vomiting. No documented fever. White count is within normal limits and stable vital signs. I was requested to see her for further recommendation. Patient currently states she feels fine with no complaint. Wants to go home. Review of Systems Constitutional: Constitutional: Reports no additional constitutional complaints Eyes: Eyes: Reports no additional eye complaints ENT: Reports system reviewed and no additional complaints, except as documented Cardiovascular: Cardiovascular: Reports no additional cardiovascular complaints Respiratory: Respiratory: Reports no additional respiratory complaints Gastrointestinal: Gastrointestinal: Reports no additional gastrointestinal complaints Genitourinary: Genitourinary: Reports no additional female genitourinary complaints Musculoskeletal: Musculoskeletal: Reports no additional musculoskeletal complaints Integumentary/Breasts: Skin/Breast: Reports system reviewed and no additional complaints, except as docu Neurologic: Reports system reviewed and no additional complaints, except as documented Psychiatric: Psychiatric: Reports no additional psychiatric complaints Endocrine: Endocrine: Reports no additional endocrine complaints Hematologic/Lymphatic: Hematologic/Lymphatic: Reports no additional hematologic/lymphatic complaints Allergic/Immunologic: Allergic/Immunologic: Reports no additional allergic/immunologic complaints [facility] Past Medical History Medical History (Updated 10/18/21 @ 19:30 by Connor Mcmillan MD) Acute renal insufficiency Anxiety Arthritis B12 deficiency July 2020 Cataracts, bilateral Cerebrovascular disease CVA 2014 and September 2019. The CVA 2018 involved the right caudate nucleus, right frontal and right parietal regions resulting in chronic left-sided deficits and delayed speech Chronic indwelling Bailey catheter since July 2020. Patient had recurrent urinary retention and hydronephrosis when Bailey catheter was discontinued. Followed by Dr. Estrella Diabetes Diabetic retinopathy Glaucoma HLD (hyperlipidemia) Hypertension, essential IDDM (insulin dependent diabetes mellitus) 08/16/2020 hemoglobin A1c 6.5 Intracranial carotid stenosis, bilateral severe Iron deficie
[2021-10-19 20:00] VITALS: BP 133/56; PULSE 86; RESP 21; TEMP 36.2; O2SAT 100
[2021-10-19] MEDS: INSULIN GLARGINE (*BKC) 100 UNITS/ML 7 UNITS SUB-Q (20:32)
[2021-10-19] MEDS: HALOPERIDOL 5 MG TABLET PO (20:36)
[2021-10-19 20:42] LABS: Glucose Point of Care 238 mg/dl (65-105)
[2021-10-20] VITALS: BP 128/63; PULSE 82; RESP 21; TEMP 36; O2SAT 100
[2021-10-20 04:00] VITALS: BP 145/84; PULSE 90; RESP 21; TEMP 36.4; O2SAT 100
[2021-10-20 04:44] LABS: Hematocrit 26.6 % (37.0-47.0); Hemoglobin 8.7 g/dL (12.0-15.0); Mean Corpuscular HGB Conc 32.7 g/dl (32-36); Mean Corpuscular Hemoglobin 28.6 pg (26-34); Mean Corpuscular Volume 87.5 fl (80-100); Mean Platelet Volume 9.1 fl (7.4-10.4); Platelet Count Result 386 k/mm3 (150-375); Red Blood Count 3.04 M/mm3 (4.2-5.4); Red Cell Distribution Width 14.4 % (11.5-14.5); White Blood Count 9.7 K/mm3 (4.5-10.0)
[2021-10-20] MEDS: SALINE LOCK FLUSH 10 ML IV PUSH (06:08)
[2021-10-20 07:55] LABS: Glucose Point of Care 181 mg/dl (65-105)
[2021-10-20 08:00] VITALS: BP 151/81; PULSE 93; RESP 20; TEMP 36.3; O2SAT 100
--- NOTE | 2021-10-20 08:23 | PM.DS ---
DS: Admitting Diagnosis Discharge Date 10/20/2021 Admitting Diagnosis (1) Urinary tract infection: (2) GEGE (acute kidney injury): (3) Chronic indwelling Bailey catheter: (4) IDDM (insulin dependent diabetes mellitus): (5) KENDRA (obstructive sleep apnea): (6) History of stroke with current residual effect. DS: Discharge Diagnosis Discharge Diagnosis (1) Urinary tract infection: Qualifiers: Hematuria presence: with hematuria Urinary tract infection type: acute cystitis Qualified Code(s): N30.01 - Acute cystitis with hematuria Code(s): N39.0 - Urinary tract infection, site not specified Status: Acute Assessment and Plan: Patient with presenting with hematuria, diagnosed with urinary tract infection and empirically placed on levofloxacin Urine culture reveals Klebsiella sensitive to ertapenem. Patient was switched to ertapenem. For to ID recommendation for antibiotic stewardship (2) GEGE (acute kidney injury): Code(s): N17.9 - Acute kidney failure, unspecified Status: Acute Assessment and Plan: Acute nonoliguric kidney injury. Baseline creatinine 0.70.8 as of June 2021. Recent creatinine was 1.3 on 10/09/2021. Patient admitted with a creatinine of 1.6, slowly improving with gentle hydration. Review on home medication; patient was recently on high-dose NSAID, ibuprofen 800 mg every 6 hour, which, given her history of chronic diabetes may cause acute injury observed on admission. Patient was educated to avoid using NSAIDs. This may be related to diabetic nephropathy. albumin to creatinine ratio 749 and protein to creatinine ratio is 1.7. Patient may benefit from utilization of Khadar inhibitor/ARB in the future. We will defer to Nephrology the appropriate timing for in a sedation of KHADAR-inhibitor given recent episode of acute kidney injury.. (3) Chronic indwelling Bailey catheter: Code(s): Z97.8 - Presence of other specified devices Status: Acute Assessment and Plan: Catheter care Follow-up in outpatient setting (4) IDDM (insulin dependent diabetes mellitus): Code(s): E11.9 - Type 2 diabetes mellitus without complications; Z79.4 - residential (current) use of insulin Status: Chronic Assessment and Plan: This morning blood glucose was 195. Accu-Chek in the 173-179 range. Follow up HGB A1c. Continue home meds Accu-Cheks AC and HS (5) KENDRA (obstructive sleep apnea): Code(s): G47.33 - Obstructive sleep apnea (adult) (pediatric) Status: Acute Assessment and Plan: CPAP at nighttime (6) History of stroke with current residual effects: Code(s): I69.30 - Unspecified sequelae of cerebral infarction Status: Acute Assessment and Plan: Patient with residual left side hemiplegia Patient is wheelchair bound PT/OT in the hospital (7) Uncontrolled hypertension: Code(s): I10 - Essential (primary) hypertension Status: Acute Assessment and Plan: Currently blood pressure is improving. We should aim at progressive blood pressure control in the outpatient setting over several weeks. Current blood pressure 168/74, which is appropriate for now. Review on home medication; patient was recently on no blood pressure medication. The mother at the bedside admits to elevated blood pressure measurements at home in the 200s in the past. There is a strong family history of hypertension on both sides. Patient presented with mild GEGE, that can be explained by NSAID intake and is already improving. We will continue amlodipine 10 mg PO daily, start mild dose of diuretic and hydralazine(PRN for systolic BP more than 170). Given longstanding diabetes melitus, patient would somehow benefit from KHADAR/ARB as part of an antihypertensive regimen. Given recent GEGE, albeit resolving, I would defer to nephrology the timing of initiation of ACEI/ARB. DS: Summary Hospital Course Reason for hospitalization: Abnormal labs. Hospital Course
[2021-10-20] MEDS: IRON SUCROSE COMPLEX 200 MG in SODIUM CHLORIDE 0.9% IV 50 ML 120 MG IVPB (09:44)
[2021-10-20] MEDS: SERTRALINE HCL 50 MG TABLET PO (09:50)
[2021-10-20] MEDS: ASPIRIN 81 MG ENTERIC TABLET PO (09:50)
[2021-10-20] MEDS: GABAPENTIN 300 MG CAPSULE PO (09:51)
[2021-10-20] MEDS: BENZTROPINE MESYLATE 0.5 MG TABLET PO (09:52)
[2021-10-20] MEDS: CHLORTHALIDONE 12.5 MG TAB PO (09:52)
[2021-10-20 09:53] VITALS: RESP 20; O2SAT 100
[2021-10-20] MEDS: LIDOCAINE 5% PATCH 1 PATCH TRANSDERM (09:53)
[2021-10-20] MEDS: LATANOPROST 0.005% OP SOLN 2.5 ML BTL 1 DROP EACH EYE (09:53)
[2021-10-20] MEDS: DORZOLAMIDE HCL 2% OPHTH DROPS 1 DROP EACH EYE (09:53)
[2021-10-20] MEDS: amLODIPine BESYLATE 5 MG TABLET 10 MG PO (09:53)
[2021-10-24 15:16] LABS: Renin 0.64 ng/mL/h (0.25-5.82)
== END 2021-10-20 10:50 | disposition home or self-care (01) | DRG 812 ==
LOC: ANHED 18:58 → ANH2MED 10-17 11:50
PROVIDERS: Family Medicine; Internal Medicine Nephrology; Physician Assistant; Admitting Provider Internal Medicine; Emergency Provider Nurse Practitioner; PCP Internal Medicine; Visit Provider Internal Medicine
DX: D50.9 Iron deficiency anemia, unspecified (principal); N17.9 Acute kidney failure, unspecified; I69.354 Hemiplegia and hemiparesis following cerebral infarction affecting left non-dominant side; R82.71 Bacteriuria; E11.21 Type 2 diabetes mellitus with diabetic nephropathy; G47.33 Obstructive sleep apnea (adult) (pediatric); I10 Essential (primary) hypertension; T39.395A Adverse effect of other nonsteroidal anti-inflammatory drugs [NSAID], initial encounter; H40.9 Unspecified glaucoma; E11.319 Type 2 diabetes mellitus with unspecified diabetic retinopathy without macular edema; E78.5 Hyperlipidemia, unspecified; D63.1 Anemia in chronic kidney disease; E53.8 Deficiency of other specified B group vitamins; M19.90 Unspecified osteoarthritis, unspecified site; F20.9 Schizophrenia, unspecified; F41.9 Anxiety disorder, unspecified; Z79.4 Long term (current) use of insulin; Z87.891 Personal history of nicotine dependence; Z99.3 Dependence on wheelchair
CPT/HCPCS: 36415; 36430; 36569; 76775; 80048; 80053; 80069; 81001; 81050; 82043; 82088; 82274; 82550; 82570; 82728; 82948; 83540; 83550; 83690; 83970; 84156; 84244; 84300; 84443; 85025; 85027; 85610; 85730; 86850; 86900; 86901; 86920; 87077; 87086; 87088; 87186; 96365; 97110; 97162; 97166; 97530; 99285; A9270; C1751; J0696; J1335; J1650; J1756; J1815; J1956; J2405; J7030; J7050; P9016

== ENCOUNTER 2022-06-13 08:34 | Outpatient (CLI) | payer MEDICARE, MEDICAID, SELFPAY ==
--- NOTE | ~2022-06-13 | US_ITS ---
EXAMINATION: US renal BI DATE: 06/13/2022 10:47 INDICATION: Chronic kidney disease stage III TECHNIQUE: Multiple grayscale and Doppler ultrasound images of the kidneys were obtained. COMPARISON: 10/19/2021 FINDINGS: The right kidney measures 12.0 x 5.9 x 7.2 cm and contains a 1.6 cm cyst with septation. Th e left kidney measures 11.2 x 6.4 x 5.9 cm. The kidneys demonstrate normal parenchymal echogenicity. There is no hydronephrosis. The bladder is decompressed by a Bailey catheter. IMPRESSION: 1. Normal kidneys without hydronephrosis. Reviewed, dictated and finalized at location B.
== END 2022-06-13 08:35 | disposition home or self-care (01) ==
PROVIDERS: Visit Provider Internal Medicine Nephrology
DX: E11.22 Type 2 diabetes mellitus with diabetic chronic kidney disease (principal); I12.9 Hypertensive chronic kidney disease with stage 1 through stage 4 chronic kidney disease, or unspecified chronic kidney disease; N18.32 Chronic kidney disease, stage 3b; D63.1 Anemia in chronic kidney disease
CPT/HCPCS: 76775

== ENCOUNTER 2022-07-10 22:48 | Inpatient (IN) | payer MEDICARE, MEDICAID, SELFPAY ==
--- NOTE | ~2022-07-10 | XR_ITS ---
EXAMINATION: XR barium swallow modified DATE: 07/12/2022 13:02 INDICATION: Aspiration. TECHNIQUE: The patient was given barium-containing material of multiple consistencies to swallow by t he speech pathologist while I performed fluoroscopy. Fluoroscopy exposure time was 1.7 minutes. The n umber of fluoroscopy images saved to the PACS was 1. Dose-area product was 2.877 Gy-cm^2. FINDINGS: There was reduced lingual movement. There was reduced tongue base retraction. IMPRESSION: 1. No laryngeal penetration or aspiration. 2. Please refer to the speech therapy report for recommendations. Reviewed, dictated and finalized at location A.
--- NOTE | ~2022-07-10 | CT_ITS ---
EXAMINATION: CT abdomen pelvis wo con DATE: 07/12/2022 20:50 INDICATION: Gross hematuria TECHNIQUE: Computed tomography (CT) of the abdomen and pelvis was performed without intravenous contr ast. Automated exposure control and iterative reconstruction technique were employed. The dose-length product was 1541.19 mGy-cm. COMPARISON: None FINDINGS: Partial visualized small to moderate-sized bilateral pleural effusions with dependent atelectasis in the bilateral lower lobes. Groundglass opacities and some smooth septal line thickening at the lung b ases consistent with mild pulmonary edema. Peripheral calcified pleural plaques at the posterior righ t lower lobe. Heart size is normal. No pericardial effusion. Oral barium contrast in the stomach and proximal small bowel. Liver, gallbladder, pancreas and bilateral adrenal glands are normal. Splenic c alcific lesions consistent with old granulomatous disease. Bailey catheter and small amount of gas wit hin the bladder. Mild right hydroureteronephrosis. There is increased attenuation in the dependent as pect of the right renal pelvis and upper pole calyx likely representing blood. 2 cm cyst at the upper pole of the right kidney. Left kidney and ureter are normal. No evident urolithiasis. The right meenu ry no bowel obstruction. Normal appendix. Uterus and bilateral adnexa are unremarkable. Small amount of likely physiologic free fluid in the pelvis. Extensive body wall edema extending from the lower ch est through the abdomen and pelvis into the proximal thighs. Heterotopic ossification at the proximal bilateral hamstring tendons, left greater than right. Anterior fusion at L5-S1. IMPRESSION: 1. Mild right hydroureteronephrosis with increased attenuation in the right renal collecting system c onsistent with reported history of gross hematuria. No urolithiasis or other etiology for the hematur ia identified. 2. Mild pulmonary edema at the lung bases with small to moderate size bilateral pleural effusions and extensive body wall edema. Reviewed, dictated and finalized at location A. IMPRESSION: 1. Mild right hydroureteronephrosis with increased attenuation in the right susie al collecting system consistent with reported history of gross hematuria. No ur olithiasis or other etiology for the hematuria identified. 2. Mild pulmonary edema at the lung bases with small to moderate size bilateral pleural effusions and extensive body wall edema.
--- NOTE | ~2022-07-10 | XR_ITS ---
EXAMINATION: XR chest 1V portable DATE: 07/13/2022 05:34 INDICATION: Shortness of breath. TECHNIQUE: A single frontal view of the chest was obtained. COMPARISON: Chest single view 07/11/2022, CT abdomen and pelvis 07/12/2022 FINDINGS: The lung volumes are small. A calcified right lung nodule is consistent with old granulomat ous disease. There are airspace opacities involving all lung zones bilaterally. No pleural effusion o r pneumothorax. The heart size is normal. IMPRESSION: 1. Small lung volumes with stable diffuse lung disease, consistent with atelectasis and pulmonary estuardo ma versus pneumonia. Reviewed, dictated and finalized at location A. IMPRESSION: 1. Small lung volumes with stable diffuse lung disease, consistent with atelect asis and pulmonary edema versus pneumonia.
--- NOTE | ~2022-07-10 | XR_ITS ---
EXAMINATION: XR chest 1V portable Exam Date/Time: 07/11/2022 19:18 CDT HISTORY: c/o sob/ coughing after eating,possible aspiration Comparison: 01/26/2021. RESULT: Lines, tubes, and devices: None. Lungs and pleura: Diffuse reticular opacities. Patchy opacities in the left lung base. Minor fissure fluid. Left angle blunting Cardiomediastinal silhouette: Stable. Other: No acute osseous or upper abdominal finding. IMPRESSION: Left lower lung atelectasis/consolidation, could also represent aspiration in the appropriate clinica l context. Pulmonary edema. Small left pleural effusion. Reviewed, dictated and finalized at location K. IMPRESSION: Left lower lung atelectasis/consolidation, could also represent aspiration in t he appropriate clinical context. Pulmonary edema. Small left pleural effusion.
--- NOTE | ~2022-07-10 | XR_ITS ---
EXAMINATION: XR abdomen/kub 1V DATE: 07/12/2022 17:02 INDICATION: Gross hematuria TECHNIQUE: A supine view of the abdomen on 2 radiographs was obtained. COMPARISON: CT abdomen and pelvis dated 01/26/2021 FINDINGS: No dilated loops of bowel to suggest obstruction. Oral contrast material within the gastric fundus. N o suspicious calcifications identified in the abdomen or pelvis. Lung bases are clear. Heart size is normal. Bones are unremarkable accounting for slight leftward rotation of the patient. IMPRESSION: 1. Normal bowel gas pattern. No evident urolithiasis. Correlate with planned CT of the abdomen and pe lvis. Reviewed, dictated and finalized at location A. IMPRESSION: 1. Normal bowel gas pattern. No evident urolithiasis. Correlate with planned CT of the abdomen and pelvis.
[2022-07-10 22:47] VITALS: BP 186/81; PULSE 73; RESP 14; O2SAT 98
[2022-07-10 23:25] LABS: Appearance Urine Clear (Clear); Bilirubin Urine Negative (Negative); Blood Urine 3+ (Negative); Color Urine Yellow (Yellow); Glucose Urine UA Negative (Negative); Ketones Urine Negative (Negative); Leukocyte Esterase Ur 2+ LEU/UL (Negative); Nitrate Urine Negative (Negative); Protein Urine 1+ mg/dL (Negative); Specific Grav Ur 1.015 (1.001-1.035); Urobilinogen Urine 0.2 mg/dL (<2.0); pH Urine 7.5 (5.0-9.0)
[2022-07-10 23:28] LABS: Bacteria Urine Trace /hpf; Mucus Urine Rare /lpf; Squamous Epithelial Cell Urine Rare /hpf (Few); Transitional Epi Cells Urine Rare /hpf (None Seen); WBC Clumps Urine Present /HPF; WBC Urine 51-75 /hpf
[2022-07-10 23:32] LABS: Add Urine Microscopic? YES
[2022-07-10 23:44] LABS: Basophils Absolute Auto 0.1 K/mm3 (0.0-0.1); Basophils Percent Auto 0.5 % (0.2-1.2); Eosinophils Absolute Auto 0.3 K/mm3 (0-0.3); Eosinophils Percent Auto 1.3 % (0-4.4); Hematocrit 26.6 % (37.0-47.0); Hemoglobin 8.6 g/dL (12.0-15.0); Immature Granulocyte Percent A 0.5 % (0-0.5); Lymphocytes Absolute Auto 2.37 K/mm3 (0.9-3.2); Lymphocytes Percent Auto 12.5 % (18.3-44.2); Mean Corpuscular HGB Conc 32.3 g/dl (32-36); Mean Corpuscular Hemoglobin 30.6 pg (26-34); Mean Corpuscular Volume 94.7 fl (80-100); Mean Platelet Volume 9.2 fl (7.4-10.4); Monocytes Percent Auto 5.2 % (2.6-8.5); Neutrophils Absolute Auto 15.2 K/mm3 (1.3-6.7); Platelet Count Result 532 k/mm3 (150-375); Red Blood Count 2.81 M/mm3 (4.2-5.4); Red Cell Distribution Width 13.2 % (11.5-14.5)
[2022-07-10 23:53] LABS: Alanine Aminotransferase 46 U/L (6-35); Albumin Level 3.8 g/dL (3.5-5.1); Alkaline Phosphatase 218 U/L (38-126); Anion Gap 9 mmol/L (8-16); Aspartate Amino Transferase 52 U/L (14-36); Bilirubin,Total 0.2 mg/dL (0.2-1.3); Blood Urea Nitrogen 62 mg/dL (7-17); Calcium 8.6 mg/dL (8.4-10.2); Carbon Dioxide 26 mmol/L (22-30); Chloride 99 mmol/L (98-107); Estimated CRCL calculation 20 ml/min; Estimated Glomerular Filt Rate 19; Glucose 115 mg/dL (65-110); Potassium 5.3 mmol/L (3.4-5.0); Sodium 134 mmol/L (137-145)
[2022-07-11] VITALS (10 sets, daily range): BP systolic 156–180; BP diastolic 62–86; PULSE 71–81; RESP 10–20; TEMP 36.3–37.1; O2SAT 91–100; BMI 29.5
--- NOTE | 2022-07-11 00:17 | ED.FEMALEGU ---
HPI - Female Genitourinary General Chief complaint: Urogenital-Female Stated complaint: bland cath issues; SARMIENTO Time Seen by Provider: 07/10/22 22:58 History of Present Illness HPI Narrative: Pt is a 52 y/o female, PMHx of CVA, atonic bladder with chronic indwelling Bland catheter, hyperlipidemia, HTN and IDDM, presents to ED via POV with one day hx of decreased urine output from her urinary catheter, with sensation is full and she has felt nauseated with a headache. She denies associated CP, SOB, focal abdominal discomfort, vomiting, diarrhea, constipation or hematuria. She has no known sick contacts or COV concerns. Related Data Home Medications Medication Instructions Recorded Confirmed dorzolamide 2 % eye drops (Trusopt) 1 drp ophthalmic (eye) BID 10/04/19 10/26/21 latanoprost 0.005 % eye drops 1 drp ophthalmic (eye) BID 10/04/19 10/26/21 (Xalatan) insulin aspart U-100 100 unit/mL 6 unit subcut TID PRN Hyperglycemia 01/17/21 10/26/21 (3 mL) subcutaneous pen (Novolog Flexpen U-100 Insulin aspart) haloperidol 5 mg tablet 5 mg PO HS 10/16/21 10/26/21 insulin glargine 100 unit/mL (3 7 unit subcut HS 10/16/21 10/26/21 mL) subcutaneous pen (Basaglar KwikPen U-100 Insulin) atorvastatin 07/10/22 07/10/22 atorvastatin 20 mg tablet mg 07/10/22 07/10/22 carvedilol 12.5 mg tablet mg 07/10/22 Allergies Allergy/AdvReac Type Severity Reaction Status Date / Time amoxicillin Allergy Mild Rash Verified 10/16/21 17:08 Penicillins Allergy Mild Unknown Verified 10/16/21 17:08 Review of Systems Constitutional: Comments: refer to HPI Gastrointestinal: Comments: refer to HPI Genitourinary: Comments: refer to HPI [facility] Past Medical History Medical History Acute renal insufficiency Anxiety Arthritis B12 deficiency July 2020 Cataracts, bilateral Cerebrovascular disease CVA 2014 and September 2019. The CVA 2018 involved the right caudate nucleus, right frontal and right parietal regions resulting in chronic left-sided deficits and delayed speech Chronic indwelling Bland catheter since July 2020. Patient had recurrent urinary retention and hydronephrosis when Bland catheter was discontinued. Followed by Dr. Estrella Diabetes Diabetic retinopathy Glaucoma HLD (hyperlipidemia) Hypertension, essential IDDM (insulin dependent diabetes mellitus) 08/16/2020 hemoglobin A1c 6.5 Intracranial carotid stenosis, bilateral severe Iron deficiency anemia July 2020 due to nutritional deficiencies Peripheral polyneuropathy Pyuria Schizophrenia, undifferentiated Type 2 diabetes mellitus with hyperglycemia Surgical History Surgical History H/O removal of cyst History of cystoscopy Family History Family History Grandparent Diabetes mellitus Father Family history of cardiovascular disease Other Cerebrovascular accident Social History Social History Social History: Single. Resides in subsidized apartment in [place], [place] (the [facility]). She is dependent upon her mother for activities of daily living. She is wheelchair dependent. Years smoked: 5 Smoking status: Former smoker Alcohol intake: unknown Substance use: unknown Substance use type: does not use Additional occupation/education comments: disabled due to mental illness Gender identity (if verbalized by the patient): Female Spiritual care concerns: No Agree to blood products: Yes Exam Const: General: no acute distress and alert Other: pt appears older than stated age. She is alert, conversant with slurred speech that is chronic-residual S/P CVA HENMT: Head: normal to inspection Mouth: Yes Normal oral and palatal mucosa present and Yes lip normal Eyes: Conjunctivae: conjunctivae normal Ne
[2022-07-11] MEDS: SODIUM CHLORIDE 0.9% IV 1,000 ML 999 ML IV CONT (01:00)
[2022-07-11] MEDS: ERTAPENEM SODIUM 0.5 GM in SODIUM CHLORIDE 0.9% IV 50 ML IVPB (02:07)
[2022-07-11 02:32] LABS: Glucose Point of Care 132 mg/dl (65-105)
[2022-07-11] MEDS: SODIUM CHLORIDE 0.9% IV 1,000 ML 125 ML IV CONT ×3 (02:41→17:20)
[2022-07-11] MEDS: SODIUM POLYSTYRENE SULFONONATE 15 GM/60 ML BTL PO (02:58)
--- NOTE | 2022-07-11 03:54 | ADMGEN ---
This patient, Jasmin Lopez, was admitted to [facility] Surg Room 332-02. Patient/family oriented to hospital policies and general routines including ID bracelet, bed and alarms, visiting hours, pain management, procedures, bathroom and other care routines, personal items, smoking policy, room service/diet, and visiting hours. Information on how to activate the Rapid Response Team has been discussed. Patient/Family are encouraged to report perceived risks to care and to ask questions if they do not understand what they are told or what they should do.
--- NOTE | 2022-07-11 04:59 | PC.NURSE ---
Pt came with indwelling Bland catheter obstruction, see assessment notes dated 07/10 at 2256 by Tanya Smallwood RN. Previous bland removed due to urinary obstruction, 900 bladder scan. New bland catheter inserted in ED at this time. Aprox 900MLS urine output initially, cloudy. Pt up to floor and BLAND CATHETER ordered placed.
--- NOTE | 2022-07-11 05:43 | PM.IMHP ---
H&P: HPI History of Present Illness Date/Time: 07/11/22 05:43 Chief Complaint: Bailey catheter not draining Narrative: 52-year-old female with a complex past medical history including multiple CVAs, severe carotid artery disease, type 2 diabetes mellitus, chronic kidney disease, chronic urinary retention with chronic indwelling Bailey catheter with history of ESBL Klebsiella UTI who presented to the ER with dysfunction urine catheter. The patient reported that she has been having some abdominal discomfort and nausea for 2 days. Her Bailey catheter was changed a 2 or 3 days ago due to her symptoms. Then on the morning of the her urine stops draining. Her abdominal pain worsened. She denies having any fevers or chills. However her urine had been darker and more turbid over the last 3 days. Bladder scan performed in the ER demonstrated over 900 mL of urinary retention. She denies having any constipation. She does not think she has been having any changes in her stools. She denies any chest pain or shortness of breath. She has not been having cough or congestion. She reports that her appetite has been stable despite some associated nausea with her abdominal symptoms. She has not had any vomiting. She has chronic hemiplegia of the left upper and lower extremity due to prior stroke. She gets up to the wheelchair daily. She can not stand to pivot but cannot ambulate. She denies any headache or visual changes. Her blood pressures on arrival to the ER were elevated to the 180s systolic. She did miss her evening dose of antihypertensives. Review of Systems Review of Systems: 12 systems were reviewed with pertinent positives and negatives per HPI. Except as documented in the HPI, all other systems were reviewed and are negative. [facility] Past Medical History Medical History (Updated 07/11/22 @ 07:50 by Leslie Peña DO) Anxiety Arthritis B12 deficiency July 2020 Cataracts, bilateral Cerebrovascular disease CVA 2014 and September 2019. The CVA 2018 involved the right caudate nucleus, right frontal and right parietal regions resulting in chronic left-sided deficits and delayed speech Chronic indwelling Bailey catheter since July 2020. Patient had recurrent urinary retention and hydronephrosis when Bailey catheter was discontinued. Followed by Dr. Estrella Chronic kidney disease, stage 3 Diabetes Diabetic retinopathy Glaucoma HLD (hyperlipidemia) Hypertension, essential IDDM (insulin dependent diabetes mellitus) 10/09/2021 hemoglobin A1c 8.5 Intracranial carotid stenosis, bilateral severe Iron deficiency anemia July 2020 due to nutritional deficiencies KENDRA (obstructive sleep apnea) Not on CPAP Peripheral polyneuropathy Schizophrenia, undifferentiated Surgical History Surgical History H/O removal of cyst History of cystoscopy Family History Family History Grandparent Diabetes mellitus Father Family history of cardiovascular disease Other Cerebrovascular accident Social History Social History (Updated 07/11/22 @ 07:52 by Leslie Peña DO) Social History: Single. Resides in subsidized apartment in [place], [place] (the [facility]). She is dependent upon her mother for activities of daily living. She is wheelchair dependent. Years smoked: 5 Smoking status: Former smoker Alcohol intake: former Drinks per week: 1 Substance use: never Substance use type: does not use Additional occupation/education comments: She has been on disability since a young age due to her schizophrenia. She now has multiple physical disabilities. Gender identity (if verbalized by the patient): Female Spiritual care concerns: No Agree to blood products: Yes Meds Home Medications and Allergies Home Medications Medication Instructions Recorded Confirmed Type dorzolamide 2 % eye d
[2022-07-11 07:26] LABS: Glucose Point of Care 234 mg/dl (65-105)
--- NOTE | 2022-07-11 07:42 | PC.NURSE ---
called MD holly, accu check 234 this morning with no insulin orders, inquiring about home insulin orders restarting.
[2022-07-11 08:16] LABS: Basophils Absolute Auto 0.1 K/mm3 (0.0-0.1); Basophils Percent Auto 0.5 % (0.2-1.2); Eosinophils Absolute Auto 0.2 K/mm3 (0-0.3); Eosinophils Percent Auto 1.5 % (0-4.4); Hematocrit 27.7 % (37.0-47.0); Hemoglobin 8.6 g/dL (12.0-15.0); Immature Granulocyte Absolute 0.07 K/mm3 (0.00-0.031); Immature Granulocyte Percent A 0.4 % (0-0.5); Lymphocytes Absolute Auto 1.79 K/mm3 (0.9-3.2); Lymphocytes Percent Auto 11.4 % (18.3-44.2); Mean Corpuscular Hemoglobin 30.7 pg (26-34); Mean Corpuscular Volume 98.9 fl (80-100); Mean Platelet Volume 9.5 fl (7.4-10.4); Monocytes Absolute Auto 0.8 K/mm3 (0.1-0.6); Monocytes Percent Auto 4.9 % (2.6-8.5); Neutrophils Absolute Auto 12.7 K/mm3 (1.3-6.7); Neutrophils Percent Auto 81.3 % (45.5-73.1); Platelet Count Result 495 k/mm3 (150-375); Red Cell Distribution Width 13.2 % (11.5-14.5); White Blood Count 15.7 K/mm3 (4.5-10.0)
[2022-07-11 08:28] LABS: Anion Gap 9 mmol/L (8-16); Blood Urea Nitrogen 58 mg/dL (7-17); Calcium 8.1 mg/dL (8.4-10.2); Carbon Dioxide 23 mmol/L (22-30); Chloride 104 mmol/L (98-107); Estimated CRCL calculation 24 ml/min; Estimated Glomerular Filt Rate 19; Glucose 201 mg/dL (65-110); Potassium 5.5 mmol/L (3.4-5.0); Sodium 136 mmol/L (137-145)
[2022-07-11] MEDS: ENOXAPARIN 30 MG/0.3 ML SYRINGE SUB-Q (08:52)
[2022-07-11] MEDS: ERGOCALCIFEROL 50,000 UNIT CAPSULE 50000 UNITS PO (08:53)
[2022-07-11] MEDS: LIDOCAINE 5% PATCH 1 PATCH TRANSDERM (08:53)
[2022-07-11] MEDS: FERROUS SULFATE 324 MG TABLET PO ×2 (08:53→16:08)
[2022-07-11] MEDS: ASPIRIN 81 MG ENTERIC TABLET PO (08:53)
[2022-07-11] MEDS: amLODIPine BESYLATE 5 MG TABLET 10 MG PO (08:53)
[2022-07-11] MEDS: DORZOLAMIDE HCL 2% OPHTH DROPS 1 DROP EACH EYE ×2 (08:53→16:08)
[2022-07-11] MEDS: BENZTROPINE MESYLATE 0.5 MG TABLET PO (08:53)
[2022-07-11] MEDS: SERTRALINE HCL 50 MG TABLET PO (08:54)
[2022-07-11] MEDS: ATORVASTATIN 20 MG TABLET PO (08:54)
[2022-07-11] MEDS: carvediloL 12.5 MG TABLET PO ×2 (08:54→20:53)
[2022-07-11] MEDS: ACETAMINOPHEN 325 MG TABLET 650 MG PO ×2 (10:18→14:41)
[2022-07-11 11:19] LABS: Glucose Point of Care 385 mg/dl (65-105)
[2022-07-11] MEDS: INSULIN ASPART (*BKC) 100 UNITS/ML SUB-Q ×3 (11:25→16:16)
--- NOTE | 2022-07-11 12:27 | PC.NURSE ---
called MD Bennett r/t pt c/o pain continues since receiving tylenol this morning at around 10 am, inquiring about stronger pain medication, pt continues to c/o pain.
--- NOTE | 2022-07-11 12:33 | PC.NURSE ---
called updated pt mother via telephone, also inquiring about eye drops and pain medication pt takes. No answer at this time.
[2022-07-11] MEDS: hydrALAZINE HCL 20 MG/ML VIAL 10 MG IV PUSH (16:08)
[2022-07-11 16:12] LABS: Glucose Point of Care 177 mg/dl (65-105)
[2022-07-11] MEDS: CALCIUM GLUC 1,000 MG/NS 100ML 1,000 MG/100 ML BAG 200 MG IVPB (17:38)
--- NOTE | 2022-07-11 17:59 | PM.IMPN ---
Progress Note: A&P Assessment and Plan (1) Urinary tract infection: Qualifiers: Hematuria presence: with hematuria Urinary tract infection type: acute cystitis Qualified Code(s): N30.01 - Acute cystitis with hematuria Code(s): N39.0 - Urinary tract infection, site not specified Status: Acute Assessment and Plan: Blood and urine cultures pending. Given history of ESBL Klebsiella UTI, will continue ertapenem (2) Acute hyperkalemia: Code(s): E87.5 - Hyperkalemia Status: Acute Assessment and Plan: Potassium 5.5 this morning. Will repeat now the patient has been given insulin and Kayexalate. Check EKG. Will give calcium 2 g (3) Acute kidney injury superimposed on chronic kidney disease: Code(s): N17.9 - Acute kidney failure, unspecified; N18.9 - Chronic kidney disease, unspecified Status: Acute Assessment and Plan: Likely due to Bailey obstruction. Baseline creatinine around 1.5. Continue to monitor. Maintenance IV fluids (4) Transaminitis: Code(s): R74.01 - Elevation of levels of liver transaminase levels Status: Acute Assessment and Plan: Continue to monitor (5) IDDM (insulin dependent diabetes mellitus): Code(s): E11.9 - Type 2 diabetes mellitus without complications; Z79.4 - prison (current) use of insulin Status: Chronic Assessment and Plan: Continue Lantus and increase NovoLog to 5 units with meals (6) Hypertension, essential: Code(s): I10 - Essential (primary) hypertension Status: Chronic Assessment and Plan: Continue carvedilol, amlodipine. Holding chlorthalidone (7) CVA (cerebral vascular accident): Qualifiers: CVA mechanism: unspecified Qualified Code(s): I63.9 - Cerebral infarction, unspecified Code(s): I63.9 - Cerebral infarction, unspecified Status: Acute Assessment and Plan: Continue aspirin and statin Subjective Date/time seen: 07/11/22 17:59 Patient examined, chart reviewed. No new events. Bailey catheter now draining. Patient reported back pain to RN earlier in the day, however now improved. RN reports concern for patient coughing after eating Review of Systems Review of Systems: Ten point ROS reviewed, negative unless otherwise specified per subjective Exam Narrative: Weight 90.8 kg BMI 29.6 Const: Other: Chronically debilitated, obese, appears older than stated age HENMT: Other: Mucous membranes are dry, no oral pharyngeal erythema, crowded posterior oropharynx chronic facial droop, irritation the skin of left side of the mouth Eyes: Other: Positive conjunctival pallor, no scleral icterus, pupils are equal and reactive Neck: Other: Large neck circumference, no JVD, nontender Resp: Other: Decreased breath sounds at the bases, no increased work of breathing Cardio: Other: Regular rate, regular rhythm, 2+ bilateral radial pedal pulses GI: Other: Obese, nontender, soft, positive bowel sounds : Other: Bailey catheter in place, light yellow clear urine present Skin: Other: Buttocks not visualized due to patient's positioning and depends being in place, she has an old scar above the left knee, she has some irritation to the corner of the left side of her mouth, skin is warm to touch Neuro: Other: Alert and oriented x4, speech is clear but slow, no difficulty with word finding, chronic facial droop, hemiplegia of the left upper and lower extremity with flexion contractures of fingers of the left hand, increased tone of the left upper extremity, complete hemiplegia of left lower extremity, a normal tone with 4/5 manager membership strength a right hand, 4/5 strength in plantar flexion of the right foot Extrem: Other: No clubbing, cyanosis or edema, flexion contractures as mentioned under neuro exam, generalized muscle wasting of extremities the left upper and lower greater than right Psych: Other: Pleasant and cooperative
[2022-07-11 18:42] LABS: Potassium 5.2 mmol/L (3.4-5.0)
--- NOTE | 2022-07-11 19:01 | PC.NURSE ---
c/o sob after eating this shift, coughing, cxr ordered possible aspiration
[2022-07-11] MEDS: INSULIN GLARGINE (*BKC) 100 UNITS/ML 7 UNITS SUB-Q (20:52)
[2022-07-11] MEDS: HALOPERIDOL 5 MG TABLET PO (20:53)
[2022-07-11] MEDS: LATANOPROST 0.005% OP SOLN 2.5 ML BTL 1 DROP EACH EYE (20:54)
[2022-07-11 21:39] LABS: Glucose Point of Care 217 mg/dl (65-105)
[2022-07-12] VITALS (9 sets, daily range): BP systolic 124–173; BP diastolic 56–78; PULSE 78–82; RESP 16–20; TEMP 36.3–36.6; O2SAT 97–100
--- NOTE | 2022-07-12 | ECG_ITS ---
Measurements Intervals [place] Rate: 78 P: 39 TX: 142 QRS: -21 QRSD: 121 T: 33 QT: 423 QTc: 482 Interpretive Statements SINUS RHYTHM POSSIBLE RIGHT VENTRICULAR CONDUCTION DELAY BORDERLINE ECG COMPARED TO ECG 01/26/2021 09:04:25 SINUS RHYTHM NOW PRESENT Electronically Signed On 07-12-2022 15:22:52 CDT by Rolf Morgan M.D.
[2022-07-12] MEDS: ERTAPENEM SODIUM 0.5 GM in SODIUM CHLORIDE 0.9% IV 50 ML IVPB (02:30)
[2022-07-12] MEDS: SODIUM CHLORIDE 0.9% IV 1,000 ML 125 ML IV CONT ×3 (02:33→21:02)
[2022-07-12] MEDS: hydrALAZINE HCL 20 MG/ML VIAL 10 MG IV PUSH ×2 (06:01→20:21)
[2022-07-12 06:51] LABS: Basophils Absolute Auto 0.1 K/mm3 (0.0-0.1); Basophils Percent Auto 0.5 % (0.2-1.2); Eosinophils Absolute Auto 0.2 K/mm3 (0-0.3); Eosinophils Percent Auto 1.2 % (0-4.4); Hematocrit 25.5 % (37.0-47.0); Immature Granulocyte Absolute 0.08 K/mm3 (0.00-0.031); Immature Granulocyte Percent A 0.5 % (0-0.5); Lymphocytes Absolute Auto 2.02 K/mm3 (0.9-3.2); Lymphocytes Percent Auto 13.1 % (18.3-44.2); Mean Corpuscular HGB Conc 31.4 g/dl (32-36); Mean Corpuscular Hemoglobin 30.3 pg (26-34); Mean Corpuscular Volume 96.6 fl (80-100); Mean Platelet Volume 9.7 fl (7.4-10.4); Monocytes Absolute Auto 0.8 K/mm3 (0.1-0.6); Monocytes Percent Auto 5.3 % (2.6-8.5); Neutrophils Absolute Auto 12.2 K/mm3 (1.3-6.7); Neutrophils Percent Auto 79.4 % (45.5-73.1); Platelet Count Result 561 k/mm3 (150-375); Red Blood Count 2.64 M/mm3 (4.2-5.4); Red Cell Distribution Width 13.2 % (11.5-14.5); White Blood Count 15.4 K/mm3 (4.5-10.0)
[2022-07-12 07:10] LABS: Alanine Aminotransferase 39 U/L (6-35); Albumin Level 3.3 g/dL (3.5-5.1); Alkaline Phosphatase 184 U/L (38-126); Anion Gap 8 mmol/L (8-16); Aspartate Amino Transferase 30 U/L (14-36); Bilirubin,Total 0.2 mg/dL (0.2-1.3); Blood Urea Nitrogen 51 mg/dL (7-17); Calcium 8.1 mg/dL (8.4-10.2); Carbon Dioxide 22 mmol/L (22-30); Chloride 106 mmol/L (98-107); Estimated CRCL calculation 31 ml/min; Estimated Glomerular Filt Rate 26; Glucose 201 mg/dL (65-110); Potassium 5.4 mmol/L (3.4-5.0); Sodium 136 mmol/L (137-145)
[2022-07-12 08:03] LABS: Glucose Point of Care 194 mg/dl (65-105)
[2022-07-12] MEDS: amLODIPine BESYLATE 5 MG TABLET 10 MG PO (08:51)
[2022-07-12] MEDS: ASPIRIN 81 MG ENTERIC TABLET PO (08:52)
[2022-07-12] MEDS: INSULIN ASPART (*BKC) 100 UNITS/ML SUB-Q ×3 (08:52→13:19)
[2022-07-12] MEDS: ATORVASTATIN 20 MG TABLET PO (08:52)
[2022-07-12] MEDS: carvediloL 12.5 MG TABLET PO ×2 (08:52→20:12)
[2022-07-12] MEDS: SERTRALINE HCL 50 MG TABLET PO (08:52)
[2022-07-12] MEDS: BENZTROPINE MESYLATE 0.5 MG TABLET PO (08:52)
[2022-07-12] MEDS: DORZOLAMIDE HCL 2% OPHTH DROPS 1 DROP EACH EYE ×2 (08:53→18:28)
[2022-07-12] MEDS: ENOXAPARIN 30 MG/0.3 ML SYRINGE SUB-Q (08:53)
[2022-07-12] MEDS: FERROUS SULFATE 324 MG TABLET PO ×2 (08:53→18:28)
[2022-07-12] MEDS: LIDOCAINE 5% PATCH 1 PATCH TRANSDERM (08:53)
--- NOTE | 2022-07-12 10:50 | PCSTNOTE ---
Please refer to the Bedside Swallow Evaluation in the EMR. Please note, silent aspiration cannot be ruled out at bedside.
[2022-07-12 11:47] LABS: Glucose Point of Care 207 mg/dl (65-105)
--- NOTE | 2022-07-12 12:37 | PC.NURSE ---
Patient trasferred for Barium Swallow Study via stretcher at 0533
[2022-07-12] MEDS: ACETAMINOPHEN 325 MG TABLET 650 MG PO ×2 (13:20→23:57)
--- NOTE | 2022-07-12 13:27 | PCSTNOTE ---
Modified barium swallow study, swallowing function WFL for pureed, mixed, and solid consistencies. Some residual of thin liquids at tongue base which moved down into pyriform sinuses. Cleared with multiple swallows. Recommend continue with current diet (Level 6, soft and bite sized) and thin liquids. No speech therapy indicated. Thank you for the referral of this patient.
[2022-07-12 14:31] LABS: INR 1.1; Prothrombin Time 14.1 Seconds (11.1-14.7)
[2022-07-12] MEDS: SODIUM POLYSTYRENE SULFONONATE 15 GM/60 ML BTL 30 GM PO (14:36)
[2022-07-12] MEDS: DEXTROSE 50% 25 GM/50 ML SYRINGE IV PUSH (14:36)
[2022-07-12] MEDS: INSULIN HUMAN REGULAR (*BKC) 100 UNITS/ML 10 UNITS IV PUSH (14:47)
[2022-07-12 15:29] LABS: Glucose Point of Care 190 mg/dl (65-105)
[2022-07-12 16:11] LABS: Glucose Point of Care 175 mg/dl (65-105)
--- NOTE | 2022-07-12 16:22 | WPDURCON ---
Assessment and Plan Assessment and plan (1) Pyuria: Code(s): R82.81 - Pyuria Status: Acute Assessment and Plan: Urine Culture from 07/10/22 was negative, repeating one at this time would likely result negative as well d/t being on Ertapenem. Her WBC is improving on antibiotics and she is afebrile. (2) Gross hematuria: Code(s): R31.0 - Gross hematuria Status: Acute Assessment and Plan: Continue to irrigate bland q 4 and PRN and if urine doesn't clear or your having to do this too often, initiate a 3 way bland and start CBI. If CBI is started, wean to off when clear, restart if urine becomes bloody when CBI is stopped. Anticoagulants are being held at this time. Order a CT to further evaluate. Cysto in 07/2020 was negative, at this time, not necessary to scope again, likely secondary to trauma and anticoagulants when bland was replaced yesterday since urine culture was negative. However, we will keep her NPO after midnight and re-assess in the morning once CT is back to see if a repeat Cysto is necessary. Will continue to monitor. Catheter is draining well, no concern for dislodged catheter or clotting at this time. Urology Consult Note HPI Date Seen: 07/12/22 Time Seen: 16:22 Requesting Physician: Dk Bennett DO Primary Care Provider: Radha Haddad Consult Narrative Reason for consult: Gross Hematuria Narrative: Jasmin Lopez is a 52 year old female who presented to the ER yesterday with nausea, abdominal pain, and a bland catheter that is not draining. She has a history of CVA and Atonic Bladder requiring a truck terminal manager bland catheter with monthly changes. She is a patient of Dr. Beebe at [facility] who is her urologist according to the nurse. In the ER she had her bland changed and 1000cc of urine was drained. A urine culture was obtained on 07/10/22 which was negative. She has since developed gross hematuria today that does clear with manual irrigation of her bland. The nurse reports that bedside irrigation was easily accomplished and no large clots were removed. Her bland is draining but is dark red in color. She has a WBC which is decreasing to 15.4 today from 19.0 yesterday, and creatinine is also improving since her catheter was changed to 2.40 from 3.20 yesterday. Her baseline creatinine is 1.20 in 11/07. She has been seen previously by our staff while hospitalized here at [facility]. She had a cystoscopy on 08/16/[address] Estrella and it was normal. She also had a CT abdomen/pelvis with contrast in 01/2021 which was normal. She is afebrile at this time as well. Her nurse reports that she is menstrating and that she still has regular menstrual cycles which last 3-5 days. She is unable to provide a thorough medical history and all information was obtained from her nurse and her chart. Review of Systems Review of Systems: ROS unobtainable: Yes unobtainable due to medical condition PMFSH Past Medical History Medical History Anxiety Arthritis B12 deficiency July 2020 Cataracts, bilateral Cerebrovascular disease CVA 2014 and September 2019. The CVA 2018 involved the right caudate nucleus, right frontal and right parietal regions resulting in chronic left-sided deficits and delayed speech Chronic indwelling Bland catheter since July 2020. Patient had recurrent urinary retention and hydronephrosis when Bland catheter was discontinued. Followed by Dr. Estrella Chronic kidney disease, stage 3 Diabetes Diabetic retinopathy Glaucoma HLD (hyperlipidemia) Hypertension, essential IDDM (insulin dependent diabetes mellitus) 10/09/2021 hemoglobin A1c 8.5 Intracranial carotid stenosis, bilateral severe Iron deficiency anemia July 2020 due to nutritional deficiencies KENDRA (obstructive sleep apnea) Not on CPAP Peripheral polyneuropathy Schizophrenia, undifferentiated Surgical History Surgical History (Re
--- NOTE | 2022-07-12 16:28 | PM.IMPN ---
Progress Note: A&P Assessment and Plan (1) Urinary tract infection: Qualifiers: Hematuria presence: with hematuria Urinary tract infection type: acute cystitis Qualified Code(s): N30.01 - Acute cystitis with hematuria Code(s): N39.0 - Urinary tract infection, site not specified Status: Acute Assessment and Plan: Blood and urine cultures pending. Given history of ESBL Klebsiella UTI, will continue ertapenem (2) Hematuria: Code(s): R31.9 - Hematuria, unspecified Status: Acute Assessment and Plan: Will consult urology. Patient was supposedly scheduled for a cystoscopy at [facility]. (3) Acute hyperkalemia: Code(s): E87.5 - Hyperkalemia Status: Acute Assessment and Plan: Potassium 5.4 this AM, will given insulin/D50 and kayexolate. Recheck in evening (4) Acute kidney injury superimposed on chronic kidney disease: Code(s): N17.9 - Acute kidney failure, unspecified; N18.9 - Chronic kidney disease, unspecified Status: Acute Assessment and Plan: Likely due to Bailey obstruction. Baseline creatinine around 1.5. Continue to monitor. Maintenance IV fluids (5) Transaminitis: Code(s): R74.01 - Elevation of levels of liver transaminase levels Status: Acute Assessment and Plan: Continue to monitor (6) IDDM (insulin dependent diabetes mellitus): Code(s): E11.9 - Type 2 diabetes mellitus without complications; Z79.4 - terminal carman (current) use of insulin Status: Chronic Assessment and Plan: Lantus increased to 12 U and increase NovoLog to 8 units with meals (7) Hypertension, essential: Code(s): I10 - Essential (primary) hypertension Status: Chronic Assessment and Plan: Continue carvedilol, amlodipine. Holding chlorthalidone (8) CVA (cerebral vascular accident): Qualifiers: CVA mechanism: unspecified Qualified Code(s): I63.9 - Cerebral infarction, unspecified Code(s): I63.9 - Cerebral infarction, unspecified Status: Acute Assessment and Plan: Continue statin. Holding ASA due to hematuria Subjective Date/time seen: 07/12/22 16:28 Patient examined, chart reviewed. RN reports patient has been having bloody urine output since this a.m. no clots noted. Patient reports back pain, however controlled with medications no other complaints Review of Systems Review of Systems: ROS unobtainable: Yes unobtainable due to medical condition Exam Narrative: Weight 90.8 kg BMI 29.6 Const: General: comfortable Other: Chronically debilitated, obese, appears older than stated age HENMT: Other: Mucous membranes are dry, no oral pharyngeal erythema, crowded posterior oropharynx chronic facial droop, irritation the skin of left side of the mouth Eyes: Other: Positive conjunctival pallor, no scleral icterus, pupils are equal and reactive Neck: Other: Large neck circumference, no JVD, nontender Resp: Effort & Inspection: normal respiratory effort Other: Decreased breath sounds at the bases, no increased work of breathing Cardio: Rate: regular rate Other: Regular rate, regular rhythm, 2+ bilateral radial pedal pulses GI: GI Palp: Yes Soft to palpation and No Tenderness to palpation present (GI) Other: Obese, nontender, soft, positive bowel sounds : Other: no bladder distention Urinary Catheter: Urinary Catheter: patent and draining, urine dark and urine red Skin: Other: Buttocks not visualized due to patient's positioning and depends being in place, she has an old scar above the left knee, she has some irritation to the corner of the left side of her mouth, skin is warm to touch Neuro: Other: Alert and oriented x4, speech is clear but slow, no difficulty with word finding, chronic facial droop, hemiplegia of the left upper and lower extremity with flexion contractures of fingers of the left hand, increased tone of the left upper extremity, comple
--- NOTE | 2022-07-12 16:35 | PC.NURSE ---
Patient states she still has periods that last 3-5 days monthly. Patient is unsure when her last period occurred. Pt complaining of lower back pain, abdominal cramping, labia edema, and bleeding/clots found in depends x2. Hematuria also witnessed upon RNs 1000 focused assessment. 0800 RN assessment showed no signs of blood in bland. Hospitalist notified. Urology consult ordered/confirmed. 1600 Urology, Iman Holland, visited patient. Awaiting new orders.
[2022-07-12] MEDS: WATER FOR IRRIGATION, STERILE 1,000 ML BOTTLE 1000 ML (16:55)
[2022-07-12 17:13] LABS: Hematocrit 25.5 % (37.0-47.0)
[2022-07-12 17:26] LABS: Anion Gap 7 mmol/L (8-16); Blood Urea Nitrogen 47 mg/dL (7-17); Calcium 8.2 mg/dL (8.4-10.2); Carbon Dioxide 24 mmol/L (22-30); Chloride 108 mmol/L (98-107); Estimated CRCL calculation 35 ml/min; Estimated Glomerular Filt Rate 30; Glucose 164 mg/dL (65-110); Potassium 4.7 mmol/L (3.4-5.0); Sodium 139 mmol/L (137-145)
[2022-07-12] MEDS: INSULIN ASPART (*BKC) 100 UNITS/ML 8 UNITS SUB-Q (18:28)
[2022-07-12] MEDS: HALOPERIDOL 5 MG TABLET PO (20:12)
[2022-07-12] MEDS: LATANOPROST 0.005% OP SOLN 2.5 ML BTL 1 DROP EACH EYE (20:15)
[2022-07-12] MEDS: INSULIN GLARGINE (*BKC) 100 UNITS/ML 8 UNITS SUB-Q (20:19)
[2022-07-12 21:10] LABS: Glucose Point of Care 105 mg/dl (65-105)
[2022-07-12] MEDS: ONDANSETRON INJ 4 MG/2 ML VIAL IV PUSH (23:44)
[2022-07-13] MEDS: ERTAPENEM SODIUM 0.5 GM in SODIUM CHLORIDE 0.9% IV 50 ML IVPB (01:36)
[2022-07-13] MEDS: SODIUM CHLORIDE 0.9% IV 1,000 ML 125 ML IV CONT (05:21)
[2022-07-13 06:00] VITALS: BP 152/62; PULSE 77; RESP 18; TEMP 37.2; O2SAT 98
[2022-07-13 08:18] LABS: Glucose Point of Care 145 mg/dl (65-105)
[2022-07-13] MEDS: LIDOCAINE 5% PATCH 1 PATCH TRANSDERM (08:54)
[2022-07-13 08:55] VITALS: PULSE 79
[2022-07-13] MEDS: FERROUS SULFATE 324 MG TABLET PO ×2 (08:55→16:35)
[2022-07-13] MEDS: carvediloL 12.5 MG TABLET PO ×2 (08:55→20:25)
[2022-07-13] MEDS: amLODIPine BESYLATE 5 MG TABLET 10 MG PO (08:56)
[2022-07-13] MEDS: BENZTROPINE MESYLATE 0.5 MG TABLET PO (08:56)
[2022-07-13] MEDS: ATORVASTATIN 20 MG TABLET PO (08:57)
[2022-07-13] MEDS: DORZOLAMIDE HCL 2% OPHTH DROPS 1 DROP EACH EYE ×2 (08:57→16:35)
[2022-07-13] MEDS: SERTRALINE HCL 50 MG TABLET PO (08:57)
--- NOTE | 2022-07-13 10:15 | PC.NURSE ---
I received a message that pt's mother, Julia, called wanting an update. I returned the call but was unable to speak with Julia. I left a voice message stating I was attempting to return her call at 10:14am.
--- NOTE | 2022-07-13 11:36 | WPDUROPN2 ---
Progress Note: A&P Assessment and Plan (1) Gross hematuria: Code(s): R31.0 - Gross hematuria Status: Acute Assessment and Plan: Improved on CBI. She does have notable blood from her right kidney, however upon discussion and review of imaging with Dr. Rapp, he doesn't suspect her anemia is caused from the gross hematuria. She should have further evaluation from her anemia. Continue to hold anticoagulants until hematuria resolves. Urine culture negative. She has a Urologist at [facility] who follows with her. We recommend CBI and wean to off when blood ceases. She will continue monthly catheter changes and f/u with her urologist at [facility] for a Cystoscopy, right ureteroscopy with right retrograde pyelogram to further evalate, however this is not an emergent procedure at this time. Continue to irrigate as needed for clots. (2) Acute kidney injury superimposed on chronic kidney disease: Code(s): N17.9 - Acute kidney failure, unspecified; N18.9 - Chronic kidney disease, unspecified Status: Acute Assessment and Plan: Creatinine continues to improve since bland is draining and in place. (3) Bacteriuria with pyuria: Code(s): R82.71 - Bacteriuria; R82.81 - Pyuria Status: Acute Assessment and Plan: Urine culture is negative. I would not recommend treatment of a UTI unless she becomes symptomatic. Gross hematuria doesn't appear to be caused by infection at this time, and there are no obstructive stones present. Subjective Subjective Date/Time Seen: 07/13/22 11:36 The patient had a 3 way bland placed last night d/t inabilty to clear urine with irrigation and CBI was started. Some small clots were noted passing and removed with irrigation by the nurse at the bedside. Her urine is draining well this morning on medium flow CBI, it is light pink/clear. Her CT scan reveals Mild right hydroureteronephrosis. There is increased attenuation in the dependent aspect of the right renal pelvis and upper pole calyx likely representing blood. 2 cm cyst at the upper pole of the right kidney. Left kidney and ureter are normal. No evident urolithiasis. She is otherwise doing well, but does state she has some mild right flank pain. Review of Systems Cardiovascular: Cardiovascular: Denies chest pain Respiratory: Respiratory: Reports no additional respiratory complaints Gastrointestinal: Gastrointestinal: Reports abdominal pain (RLQ), Reports nausea and Denies vomiting Genitourinary: Genitourinary: Reports hematuria and Denies flank pain Exam Const: General: cooperative and comfortable Resp: Effort & Inspection: normal respiratory effort Cardio: Rate: regular rate GI: GI Palp: Yes Soft to palpation and Yes Tenderness to palpation present (GI) (RLQ) : General: Yes bladder normal to inspection and Yes no CVA tenderness Urinary Catheter: Urinary Catheter: patent and draining, urine clear and urine pink Extrem: Right lower extremity: no edema Left lower extremity: no edema Objective Data Vital Signs Vital Signs: Vital Signs - 24 hr 07/12/22 14:00 07/12/22 17:33 07/12/22 20:12 Temperature 97.4 F L 98 F Pulse Rate 78 79 79 Respiratory Rate 19 20 Blood Pressure 124/56 L 151/75 H Pulse Oximetry 98 99 Oxygen Delivery 07/12/22 20:00 07/12/22 22:00 07/12/22 20:20 Temperature 97.7 F 97.7 F Pulse Rate 79 78 78 Respiratory Rate 20 17 20 Blood Pressure 144/66 H 173/78 H Pulse Oximetry 99 100 98 Oxygen Delivery Room Air 07/13/22 06:00 07/13/22 08:55 07/13/22 08:00 Temperature 98.9 F Pulse Rate 77 79 Respiratory Rate 18 Blood Pressure 152/62 H Pulse Oximetry 98 Oxygen Delivery Room Air Intake/Output Intake/Output: Intake & Output 07/10/22 07/11/22 07/12/22 07/13/22 23:59 23:59 23:59 23:59 Intake Total 5610 4290 1050 Output Total 1750 5700 85119 Balance 7584 -7408 -51104 Meds/Results Medications: Acti
[2022-07-13 11:46] LABS: Glucose Point of Care 203 mg/dl (65-105)
[2022-07-13] MEDS: INSULIN ASPART (*BKC) 100 UNITS/ML SUB-Q (12:19)
[2022-07-13] MEDS: INSULIN ASPART (*BKC) 100 UNITS/ML 8 UNITS SUB-Q ×2 (12:19→16:40)
--- NOTE | 2022-07-13 12:33 | PM.IMPN ---
Progress Note: A&P Assessment and Plan (1) Urinary tract infection: Qualifiers: Hematuria presence: with hematuria Urinary tract infection type: acute cystitis Qualified Code(s): N30.01 - Acute cystitis with hematuria Code(s): N39.0 - Urinary tract infection, site not specified Status: Acute Assessment and Plan: Blood and urine cultures no growth today. Urology does not recommend treating UTI given negative urine culture. Patient's leukocytosis is unexplained at this point. No symptoms and patient is afebrile. Will check procalcitonin. (2) Hematuria: Code(s): R31.9 - Hematuria, unspecified Status: Acute Assessment and Plan: Urology consulted, patient currently on CBI. Hemoglobin stable (3) Acute hyperkalemia: Code(s): E87.5 - Hyperkalemia Status: Acute Assessment and Plan: Resolved (4) Acute kidney injury superimposed on chronic kidney disease: Code(s): N17.9 - Acute kidney failure, unspecified; N18.9 - Chronic kidney disease, unspecified Status: Acute Assessment and Plan: Likely due to Bailey obstruction. Baseline creatinine around 1.5. Continue to monitor. Maintenance IV fluids decreased due to concern of fluid overload. (5) Transaminitis: Code(s): R74.01 - Elevation of levels of liver transaminase levels Status: Acute Assessment and Plan: Continue to monitor (6) IDDM (insulin dependent diabetes mellitus): Code(s): E11.9 - Type 2 diabetes mellitus without complications; Z79.4 - senior care (current) use of insulin Status: Chronic Assessment and Plan: Lantus 12 U and NovoLog to 8 units with meals (7) Hypertension, essential: Code(s): I10 - Essential (primary) hypertension Status: Chronic Assessment and Plan: Continue carvedilol, amlodipine. Holding chlorthalidone (8) CVA (cerebral vascular accident): Qualifiers: CVA mechanism: unspecified Qualified Code(s): I63.9 - Cerebral infarction, unspecified Code(s): I63.9 - Cerebral infarction, unspecified Status: Acute Assessment and Plan: Continue statin. Holding ASA due to hematuria Subjective Date/time seen: 07/13/22 12:33 Patient examined, chart reviewed. No new events. Patient was started on CBI early this morning due to worsening hematuria. Hemoglobin stable. Chest x-ray showing increased pulmonary vascular congestion. Patient denies any symptoms Review of Systems Review of Systems: 10 point ROS reviewed, negative unless otherwise specified per HPI Exam Narrative: Weight 90.8 kg BMI 29.6 Const: General: comfortable Other: Chronically debilitated, obese, appears older than stated age HENMT: Other: Mucous membranes are moist, no oral pharyngeal erythema, crowded posterior oropharynx chronic facial droop, irritation the skin of left side of the mouth Eyes: Other: Positive conjunctival pallor, no scleral icterus, pupils are equal and reactive Neck: Other: Large neck circumference, no JVD, nontender Resp: Effort & Inspection: normal respiratory effort Other: Coarse breath sounds Cardio: Rate: regular rate Other: Regular rate, regular rhythm, 2+ bilateral radial pedal pulses GI: GI Palp: Yes Soft to palpation and No Tenderness to palpation present (GI) Other: Obese, nontender, soft, positive bowel sounds : Other: no bladder distention Urinary Catheter: Urinary Catheter: patent and draining, urine dark and urine red Skin: Other: Buttocks not visualized due to patient's positioning and depends being in place, she has an old scar above the left knee, she has some irritation to the corner of the left side of her mouth, skin is warm to touch. RN reports no skin breakdown on back Neuro: Other: Alert and oriented x4, speech is clear but slow, no difficulty with word finding, chronic facial droop, hemiplegia of the left upper and lower extremity with f
[2022-07-13 12:50] LABS: Basophils Absolute Auto 0.1 K/mm3 (0.0-0.1); Basophils Percent Auto 0.7 % (0.2-1.2); Eosinophils Absolute Auto 0.2 K/mm3 (0-0.3); Eosinophils Percent Auto 1.8 % (0-4.4); Hematocrit 24.7 % (37.0-47.0); Hemoglobin 7.5 g/dL (12.0-15.0); Immature Granulocyte Absolute 0.06 K/mm3 (0.00-0.031); Immature Granulocyte Percent A 0.5 % (0-0.5); Lymphocytes Absolute Auto 1.95 K/mm3 (0.9-3.2); Lymphocytes Percent Auto 15.2 % (18.3-44.2); Mean Corpuscular HGB Conc 30.4 g/dl (32-36); Mean Corpuscular Hemoglobin 30.1 pg (26-34); Mean Corpuscular Volume 99.2 fl (80-100); Mean Platelet Volume 9.3 fl (7.4-10.4); Monocytes Absolute Auto 0.7 K/mm3 (0.1-0.6); Monocytes Percent Auto 5.5 % (2.6-8.5); Neutrophils Absolute Auto 9.8 K/mm3 (1.3-6.7); Neutrophils Percent Auto 76.3 % (45.5-73.1); Platelet Count Result 545 k/mm3 (150-375); Red Blood Count 2.49 M/mm3 (4.2-5.4); Red Cell Distribution Width 13.4 % (11.5-14.5); White Blood Count 12.8 K/mm3 (4.5-10.0)
[2022-07-13 13:02] LABS: Anion Gap 9 mmol/L (8-16); Blood Urea Nitrogen 36 mg/dL (7-17); Calcium 8.1 mg/dL (8.4-10.2); Carbon Dioxide 22 mmol/L (22-30); Chloride 107 mmol/L (98-107); Estimated CRCL calculation 46 ml/min; Estimated Glomerular Filt Rate 41; Glucose 199 mg/dL (65-110); Potassium 4.8 mmol/L (3.4-5.0); Sodium 138 mmol/L (137-145)
[2022-07-13 13:19] LABS: Procalcitonin 0.3 ng/mL
[2022-07-13 14:00] VITALS: BP 132/61; PULSE 73; RESP 20; TEMP 36.5; O2SAT 98
[2022-07-13] MEDS: FUROSEMIDE INJ 40 MG/4 ML VIAL 20 MG IV PUSH (14:41)
[2022-07-13] MEDS: SODIUM CHLORIDE 0.9% IV 1,000 ML 90 ML IV CONT (16:34)
[2022-07-13 16:46] LABS: Glucose Point of Care 118 mg/dl (65-105)
[2022-07-13] MEDS: ACETAMINOPHEN 325 MG TABLET 650 MG PO (16:57)
[2022-07-13 20:24] LABS: Glucose Point of Care 71 mg/dl (65-105)
[2022-07-13 20:25] VITALS: PULSE 76
[2022-07-13] MEDS: HALOPERIDOL 5 MG TABLET PO (20:25)
[2022-07-13] MEDS: LATANOPROST 0.005% OP SOLN 2.5 ML BTL 1 DROP EACH EYE (20:25)
[2022-07-13 22:09] VITALS: BP 136/61; PULSE 80; RESP 20; TEMP 36.1; O2SAT 98
[2022-07-14] MEDS: SODIUM CHLORIDE 0.9% IV 1,000 ML 90 ML IV CONT (04:15)
[2022-07-14 06:11] LABS: Basophils Absolute Auto 0.1 K/mm3 (0.0-0.1); Basophils Percent Auto 0.9 % (0.2-1.2); Eosinophils Absolute Auto 0.2 K/mm3 (0-0.3); Eosinophils Percent Auto 1.7 % (0-4.4); Hematocrit 24.6 % (37.0-47.0); Hemoglobin 7.5 g/dL (12.0-15.0); Immature Granulocyte Absolute 0.04 K/mm3 (0.00-0.031); Immature Granulocyte Percent A 0.3 % (0-0.5); Lymphocytes Absolute Auto 2.39 K/mm3 (0.9-3.2); Lymphocytes Percent Auto 20.5 % (18.3-44.2); Mean Corpuscular HGB Conc 30.5 g/dl (32-36); Mean Corpuscular Hemoglobin 30.4 pg (26-34); Mean Corpuscular Volume 99.6 fl (80-100); Monocytes Absolute Auto 0.7 K/mm3 (0.1-0.6); Monocytes Percent Auto 5.6 % (2.6-8.5); Neutrophils Absolute Auto 8.3 K/mm3 (1.3-6.7); Platelet Count Result 491 k/mm3 (150-375); Red Blood Count 2.47 M/mm3 (4.2-5.4); Red Cell Distribution Width 13.1 % (11.5-14.5); White Blood Count 11.7 K/mm3 (4.5-10.0)
[2022-07-14 06:25] LABS: Anion Gap 8 mmol/L (8-16); Blood Urea Nitrogen 31 mg/dL (7-17); Calcium 8.6 mg/dL (8.4-10.2); Carbon Dioxide 20 mmol/L (22-30); Chloride 107 mmol/L (98-107); Estimated CRCL calculation 49 ml/min; Estimated Glomerular Filt Rate 45; Glucose 182 mg/dL (65-110); Potassium 4.5 mmol/L (3.4-5.0); Sodium 135 mmol/L (137-145)
[2022-07-14 06:56] VITALS: BP 182/68; PULSE 80; RESP 20; TEMP 36.6; O2SAT 98
[2022-07-14] MEDS: LIDOCAINE 5% PATCH 1 PATCH TRANSDERM (08:28)
[2022-07-14] MEDS: INSULIN ASPART (*BKC) 100 UNITS/ML 8 UNITS SUB-Q ×2 (08:28→12:49)
[2022-07-14] MEDS: SERTRALINE HCL 50 MG TABLET PO (08:29)
[2022-07-14] MEDS: amLODIPine BESYLATE 5 MG TABLET 10 MG PO (08:29)
[2022-07-14] MEDS: ATORVASTATIN 20 MG TABLET PO (08:29)
[2022-07-14] MEDS: DORZOLAMIDE HCL 2% OPHTH DROPS 1 DROP EACH EYE ×2 (08:29→17:34)
[2022-07-14] MEDS: FERROUS SULFATE 324 MG TABLET PO ×2 (08:29→17:33)
[2022-07-14] MEDS: carvediloL 12.5 MG TABLET PO ×2 (08:29→20:40)
[2022-07-14] MEDS: BENZTROPINE MESYLATE 0.5 MG TABLET PO (08:29)
[2022-07-14 08:36] LABS: Glucose Point of Care 178 mg/dl (65-105)
[2022-07-14 09:42] VITALS: BP 150/56
[2022-07-14 12:10] LABS: Glucose Point of Care 219 mg/dl (65-105)
[2022-07-14] MEDS: INSULIN ASPART (*BKC) 100 UNITS/ML SUB-Q (12:50)
[2022-07-14 14:36] VITALS: BP 155/62; PULSE 80; RESP 16; TEMP 36.8; O2SAT 100
[2022-07-14] MEDS: ACETAMINOPHEN 325 MG TABLET 650 MG PO (15:29)
[2022-07-14 16:10] LABS: Glucose Point of Care 100 mg/dl (65-105)
--- NOTE | 2022-07-14 16:13 | PM.IMPN ---
Progress Note: A&P Assessment and Plan (1) Urinary tract infection: Qualifiers: Hematuria presence: with hematuria Urinary tract infection type: acute cystitis Qualified Code(s): N30.01 - Acute cystitis with hematuria Code(s): N39.0 - Urinary tract infection, site not specified Status: Acute Assessment and Plan: Blood and urine cultures no growth today. Urology does not recommend treating UTI given negative urine culture. Patient's leukocytosis is unexplained at this point. No symptoms and patient is afebrile. Procalcitonin normal. Patient's antibiotic stopped 07/13, white count trending down. (2) Hematuria: Code(s): R31.9 - Hematuria, unspecified Status: Acute Assessment and Plan: Urology consulted, patient currently on CBI. Hemoglobin stable (3) Acute hyperkalemia: Code(s): E87.5 - Hyperkalemia Status: Acute Assessment and Plan: Resolved (4) Acute kidney injury superimposed on chronic kidney disease: Code(s): N17.9 - Acute kidney failure, unspecified; N18.9 - Chronic kidney disease, unspecified Status: Acute Assessment and Plan: Resolved. Likely due to Bailey obstruction. Baseline creatinine around 1.5. Continue to monitor. IV fluids stopped. (5) Transaminitis: Code(s): R74.01 - Elevation of levels of liver transaminase levels Status: Acute Assessment and Plan: Continue to monitor (6) IDDM (insulin dependent diabetes mellitus): Code(s): E11.9 - Type 2 diabetes mellitus without complications; Z79.4 - senior living (current) use of insulin Status: Chronic Assessment and Plan: Lantus 12 U and NovoLog to 8 units with meals (7) Hypertension, essential: Code(s): I10 - Essential (primary) hypertension Status: Chronic Assessment and Plan: Continue carvedilol, amlodipine. Holding chlorthalidone (8) CVA (cerebral vascular accident): Qualifiers: CVA mechanism: unspecified Qualified Code(s): I63.9 - Cerebral infarction, unspecified Code(s): I63.9 - Cerebral infarction, unspecified Status: Acute Assessment and Plan: Continue statin. Holding ASA due to hematuria Subjective Date/time seen: 07/14/22 16:13 Patient seen with mother at bedside. Chart reviewed. No new events, patient is still on CBI. Urine appears to be clearing up. Review of Systems Review of Systems: 10 point ROS reviewed, negative unless otherwise specified per HPI Exam Narrative: Weight 90.8 kg BMI 29.6 Const: General: comfortable Other: Chronically debilitated, obese, appears older than stated age HENMT: Other: Mucous membranes are moist, no oral pharyngeal erythema, crowded posterior oropharynx chronic facial droop, irritation the skin of left side of the mouth Eyes: Other: Positive conjunctival pallor, no scleral icterus, pupils are equal and reactive Neck: Other: Large neck circumference, no JVD, nontender Resp: Effort & Inspection: normal respiratory effort Other: Coarse breath sounds Cardio: Rate: regular rate Other: Regular rate, regular rhythm, 2+ bilateral radial pedal pulses GI: GI Palp: Yes Soft to palpation and No Tenderness to palpation present (GI) Other: Obese, nontender, soft, positive bowel sounds : Other: no bladder distention Urinary Catheter: Urinary Catheter: patent and draining, urine dark and urine red Skin: Other: Buttocks not visualized due to patient's positioning and depends being in place, she has an old scar above the left knee, she has some irritation to the corner of the left side of her mouth, skin is warm to touch. RN reports no skin breakdown on back Neuro: Other: Alert and oriented x4, speech is clear but slow, no difficulty with word finding, chronic facial droop, hemiplegia of the left upper and lower extremity with flexion contractures of fingers of the left hand, increased tone of the left upper
[2022-07-14 20:17] LABS: Glucose Point of Care 178 mg/dl (65-105)
[2022-07-14 20:40] VITALS: PULSE 90
[2022-07-14] MEDS: LATANOPROST 0.005% OP SOLN 2.5 ML BTL 1 DROP EACH EYE (20:40)
[2022-07-14] MEDS: HALOPERIDOL 5 MG TABLET PO (20:40)
[2022-07-14] MEDS: INSULIN GLARGINE (*BKC) 100 UNITS/ML 8 UNITS SUB-Q (20:41)
[2022-07-14 22:00] VITALS: BP 150/69; PULSE 90; RESP 20; TEMP 36.4; O2SAT 98
[2022-07-14 23:59] LABS: Glucose Point of Care 140 mg/dl (65-105)
[2022-07-15 05:58] LABS: Basophils Absolute Auto 0.1 K/mm3 (0.0-0.1); Basophils Percent Auto 0.9 % (0.2-1.2); Eosinophils Absolute Auto 0.2 K/mm3 (0-0.3); Eosinophils Percent Auto 1.6 % (0-4.4); Hematocrit 25.6 % (37.0-47.0); Hemoglobin 7.9 g/dL (12.0-15.0); Immature Granulocyte Absolute 0.04 K/mm3 (0.00-0.031); Immature Granulocyte Percent A 0.3 % (0-0.5); Lymphocytes Absolute Auto 2.57 K/mm3 (0.9-3.2); Lymphocytes Percent Auto 20.7 % (18.3-44.2); Mean Corpuscular HGB Conc 30.9 g/dl (32-36); Mean Corpuscular Hemoglobin 30.4 pg (26-34); Mean Corpuscular Volume 98.5 fl (80-100); Mean Platelet Volume 9.2 fl (7.4-10.4); Monocytes Absolute Auto 0.8 K/mm3 (0.1-0.6); Monocytes Percent Auto 6.1 % (2.6-8.5); Neutrophils Absolute Auto 8.8 K/mm3 (1.3-6.7); Neutrophils Percent Auto 70.4 % (45.5-73.1); Platelet Count Result 522 k/mm3 (150-375); Red Cell Distribution Width 13.2 % (11.5-14.5); White Blood Count 12.4 K/mm3 (4.5-10.0)
[2022-07-15 06:00] VITALS: BP 156/65; PULSE 82; RESP 20; TEMP 36.2; O2SAT 100
[2022-07-15 06:12] LABS: Anion Gap 10 mmol/L (8-16); Blood Urea Nitrogen 27 mg/dL (7-17); Carbon Dioxide 21 mmol/L (22-30); Chloride 108 mmol/L (98-107); Estimated CRCL calculation 56 ml/min; Estimated Glomerular Filt Rate 53; Glucose 169 mg/dL (65-110); Potassium 4.6 mmol/L (3.4-5.0); Sodium 139 mmol/L (137-145)
[2022-07-15 08:05] LABS: Glucose Point of Care 195 mg/dl (65-105)
[2022-07-15] MEDS: INSULIN ASPART (*BKC) 100 UNITS/ML 8 UNITS SUB-Q (08:49)
[2022-07-15] MEDS: DORZOLAMIDE HCL 2% OPHTH DROPS 1 DROP EACH EYE (08:50)
[2022-07-15] MEDS: amLODIPine BESYLATE 5 MG TABLET 10 MG PO (08:50)
[2022-07-15] MEDS: ACETAMINOPHEN 325 MG TABLET 650 MG PO (08:50)
[2022-07-15] MEDS: SERTRALINE HCL 50 MG TABLET PO (08:51)
[2022-07-15] MEDS: LIDOCAINE 5% PATCH 1 PATCH TRANSDERM (08:51)
[2022-07-15] MEDS: carvediloL 12.5 MG TABLET PO (08:51)
[2022-07-15] MEDS: ATORVASTATIN 20 MG TABLET PO (08:51)
[2022-07-15] MEDS: FERROUS SULFATE 324 MG TABLET PO (08:51)
[2022-07-15] MEDS: BENZTROPINE MESYLATE 0.5 MG TABLET PO (08:51)
--- NOTE | 2022-07-15 11:00 | WPDUROPN2 ---
Progress Note: A&P Assessment and Plan (1) Gross hematuria: Code(s): R31.0 - Gross hematuria Status: Acute Assessment and Plan: 52F with chronic urinary retention with GH, now cleared on CBI - she can go - she has f/u with sherry to discuss SPT placement - will need follow up imaging to document clearance of clot in the right renal pelvis or URS to evaluate for cause - urine culture was negative; should not need abx on dc from uro perspective Kelli [facility] Subjective Subjective Date/Time Seen: 07/15/22 11:00 urine tap water clear on very slow CBI CT reviewed from a few days ago creat 1.3 Review of Systems Review of Systems: ROS unobtainable: Yes unobtainable due to medical condition Exam Urinary Catheter: Urinary Catheter: urine clear Objective Data Vital Signs Vital Signs: Vital Signs - 24 hr 07/14/22 14:36 07/14/22 20:40 07/14/22 22:00 Temperature 36.8 C 36.4 C Pulse Rate 80 90 90 Respiratory Rate 16 20 Blood Pressure 155/62 H 150/69 H Pulse Oximetry 100 98 Oxygen Delivery 07/15/22 06:00 07/15/22 08:00 Temperature 36.2 C L Pulse Rate 82 Respiratory Rate 20 Blood Pressure 156/65 H Pulse Oximetry 100 Oxygen Delivery Room Air Intake/Output Intake/Output: Intake & Output 07/12/22 07/13/22 07/14/22 07/15/22 23:59 23:59 23:59 23:59 Intake Total 4290 2600 2510 550 Output Total 5700 38303 1943 5140 [id number] [id number] Meds/Results Medications: Active Medications Generic Name Dose Route Start Last Admin Trade Name Freq PRN Reason Stop Dose Admin Acetaminophen 650 mg 07/11/22 07:36 07/15/22 08:50 Acetaminophen 325 Mg Tablet PO 650 mg Q4H PRN Administration Pain 1-5 Or Fever Amlodipine Besylate 10 mg 07/11/22 09:00 07/15/22 08:50 Amlodipine Besylate 5 Mg Tablet PO 10 mg QAM VITO Administration Aspirin 81 mg 07/11/22 09:00 07/12/22 08:52 Aspirin 81 Mg Enteric Tablet PO 81 mg QAM VITO Administration Atorvastatin Calcium 20 mg 07/11/22 09:00 07/15/22 08:51 Atorvastatin 20 Mg Tablet PO 20 mg DAILY VITO Administration Belladonna Alkaloids/Opium 1 supp.rect 07/12/22 23:38 07/13/22 01:06 Belladonna/Opium (*Crx) 16.2/60 Mg Rectal Suppository RECTAL 1 supp.rect Q12H PRN Administration Bladder Spasm Benztropine Mesylate 0.5 mg 07/11/22 09:00 07/15/22 08:51 Benztropine Mesylate 0.5 Mg Tablet PO 0.5 mg DAILY VITO Administration Carvedilol 12.5 mg 07/11/22 09:00 07/15/22 08:51 Carvedilol 12.5 Mg Tablet PO 12.5 mg Q12HR VITO Administration Dextrose 12.5 gm 07/11/22 07:38 Dextrose 50% 25 Gm/50 Ml Syringe IV PUSH PRN PRN Hypoglycemia Protocol Dorzolamide HCl 1 drop 07/11/22 09:00 07/15/22 08:50 Dorzolamide Hcl 2% Ophth Drops EACH EYE 1 drop BID VITO Administration Ergocalciferol 50,000 unit 07/11/22 09:00 07/11/22 08:53 Ergocalciferol 50,000 Unit Capsule PO 50,000 unit We@0900 VITO Administration Ferrous Sulfate 324 mg 07/11/22 08:00 07/15/22 08:51 Ferrous Sulfate 324 Mg Tablet PO 324 mg BIDWM VITO Administration Glucagon 1 mg 07/11/22 07:38 Glucagon For Inj 1 Mg Vial IM PRN PRN Hypoglycemia Protocol Glucose 15 gm 07/11/22 07:38 Glucose Oral Gel 15 Gm Of Glucse In 37.5 Gm Tube PO PRN PRN Hypoglycemia Protocol Haloperidol 5 mg 07/11/22 21:00 07/14/22 20:40 Haloperidol 5 Mg Tablet PO 5 mg HS VITO Administration Hydralazine HCl 10 mg 07/11/22 07:46 07/12/22 20:21 Hydralazine Hcl 20 Mg/Ml Vial IV PUSH 10 mg Q4H PRN Administration SBP greater than 160 Dextrose 1,000 mls @ 100 mls/hr 07/11/22 07:38 Dextrose 5% 1,000 Ml IVPB PRN PRN Hypoglycemia Protocol Insulin Aspart 3 - 6 units 07/11/22 12:00 07/15/22 08:51 Insulin Aspart (*Bkc) 100 Units/Ml SUB-Q Not Given TIDWM VITO Protocol Insul
[2022-07-15 11:26] LABS: Glucose Point of Care 161 mg/dl (65-105)
--- NOTE | 2022-07-15 11:27 | PM.DS ---
DS: Admitting Diagnosis Discharge Date 07/15/2022 Admitting Diagnosis Bailey catheter not draining DS: Discharge Diagnosis Discharge Diagnosis (1) Urinary tract infection: Qualifiers: Hematuria presence: with hematuria Urinary tract infection type: acute cystitis Qualified Code(s): N30.01 - Acute cystitis with hematuria Code(s): N39.0 - Urinary tract infection, site not specified Status: Acute Assessment and Plan: Blood and urine cultures no growth today. Urology does not recommend treating UTI given negative urine culture. Patient's leukocytosis is unexplained at this point. No symptoms and patient is afebrile. Procalcitonin normal. Patient's antibiotic stopped 07/13, white count trending down. (2) Hematuria: Code(s): R31.9 - Hematuria, unspecified Status: Acute Assessment and Plan: Urology consulted, patient currently on CBI. Hemoglobin stable (3) Acute hyperkalemia: Code(s): E87.5 - Hyperkalemia Status: Acute Assessment and Plan: Resolved (4) Acute kidney injury superimposed on chronic kidney disease: Code(s): N17.9 - Acute kidney failure, unspecified; N18.9 - Chronic kidney disease, unspecified Status: Acute Assessment and Plan: Resolved. Likely due to Bailey obstruction. Baseline creatinine around 1.5. Continue to monitor. IV fluids stopped. (5) Transaminitis: Code(s): R74.01 - Elevation of levels of liver transaminase levels Status: Acute Assessment and Plan: Continue to monitor (6) IDDM (insulin dependent diabetes mellitus): Code(s): E11.9 - Type 2 diabetes mellitus without complications; Z79.4 - vermin exterminator (current) use of insulin Status: Chronic Assessment and Plan: Lantus 12 U and NovoLog to 8 units with meals (7) Hypertension, essential: Code(s): I10 - Essential (primary) hypertension Status: Chronic Assessment and Plan: Continue carvedilol, amlodipine. Holding chlorthalidone (8) CVA (cerebral vascular accident): Qualifiers: CVA mechanism: unspecified Qualified Code(s): I63.9 - Cerebral infarction, unspecified Code(s): I63.9 - Cerebral infarction, unspecified Status: Acute Assessment and Plan: Continue statin. Holding ASA due to hematuria DS: Summary Hospital Course Reason for hospitalization: Bailey catheter not draining Narrative: 52-year-old female with a complex past medical history including multiple CVAs, severe carotid artery disease, type 2 diabetes mellitus, chronic kidney disease, chronic urinary retention with chronic indwelling Bailey catheter with history of ESBL Klebsiella UTI who presented to the ER with dysfunction urine catheter.? The patient reported that she has been having some abdominal discomfort and nausea for 2 days.? Her Bailey catheter was changed a 2 or 3 days ago due to her symptoms.? Then on the morning of the her urine stops draining.? Her abdominal pain worsened.? She denies having any fevers or chills.? However her urine had been darker and more turbid over the last 3 days.? Bladder scan performed in the ER demonstrated over 900 mL of urinary retention.? She denies having any constipation.? She does not think she has been having any changes in her stools.? She denies any chest pain or shortness of breath.? She has not been having cough or congestion.? She reports that her appetite has been stable despite some associated nausea with her abdominal symptoms.? She has not had any vomiting.? She has chronic hemiplegia of the left upper and lower extremity due to prior stroke.? She gets up to the wheelchair daily.? She can not stand to pivot but cannot ambulate.? She denies any headache or visual changes.? Her blood pressures on arrival to the ER were elevated to the 180s systolic.? She did miss her evening dose of antihypertensives. Hospital Course: today patient clinically stable seen by [facility]
--- NOTE | 2022-07-15 12:59 | PCOTNOTE ---
Patient is dependent and wheelchair bound. Spoke with physician Nahomy, and he reported patient is being discharged and to disregard therapy orders as they were a mistake.
== END 2022-07-15 13:05 | DRG 699 ==
LOC: ANHED 07-11 02:06 → ANH3MEDSUR 07-11 03:11
PROVIDERS: Internal Medicine; Admitting Provider Internal Medicine; Emergency Provider Nurse Practitioner Family; Visit Provider Family Medicine
DX: T83.098A Other mechanical complication of other urinary catheter, initial encounter (principal); I69.354 Hemiplegia and hemiparesis following cerebral infarction affecting left non-dominant side; N17.9 Acute kidney failure, unspecified; I69.328 Other speech and language deficits following cerebral infarction; R31.0 Gross hematuria; R33.9 Retention of urine, unspecified; R82.71 Bacteriuria; R82.81 Pyuria; E87.5 Hyperkalemia; I65.23 Occlusion and stenosis of bilateral carotid arteries; I12.9 Hypertensive chronic kidney disease with stage 1 through stage 4 chronic kidney disease, or unspecified chronic kidney disease; N18.31 Chronic kidney disease, stage 3a; N31.2 Flaccid neuropathic bladder, not elsewhere classified; D50.9 Iron deficiency anemia, unspecified; E11.319 Type 2 diabetes mellitus with unspecified diabetic retinopathy without macular edema; E11.42 Type 2 diabetes mellitus with diabetic polyneuropathy; E11.22 Type 2 diabetes mellitus with diabetic chronic kidney disease; E53.8 Deficiency of other specified B group vitamins; E78.5 Hyperlipidemia, unspecified; H40.9 Unspecified glaucoma; M19.90 Unspecified osteoarthritis, unspecified site; F20.9 Schizophrenia, unspecified; F41.9 Anxiety disorder, unspecified; Z87.891 Personal history of nicotine dependence; Z79.82 Long term (current) use of aspirin; Z99.3 Dependence on wheelchair
CPT/HCPCS: 36415; 71045; 74018; 74176; 80048; 80053; 80076; 81001; 82948; 84132; 84145; 85014; 85018; 85025; 85610; 87040; 87086; 92610; 92611; 93005; 96361; 96365; 96366; 96372; 96375; 96376; 99285; A9270; G0378; J0360; J0610; J1335; J1650; J1815; J1940; J2405; J7030

== ENCOUNTER 2022-08-05 09:21 | Observation (INO) | payer MEDICARE, MEDICAID, SELFPAY ==
--- NOTE | ~2022-08-05 | CT_ITS ---
EXAMINATION: CT abdomen pelvis w con DATE: 08/05/2022 11:08 INDICATION: Low abdominal pain. Nausea and vomiting. TECHNIQUE: Computed tomography (CT) of the abdomen and pelvis was performed with 100 mL Omnipaque 350 intravenous contrast. Automated exposure control and iterative reconstruction technique were employe d. The dose-length product was 1079.23 mGy-cm. COMPARISON: CT abdomen and pelvis 07/12/2022 FINDINGS: The visualized portions of the lung bases demonstrate calcified pleural plaques on the righ t. Calcified right hilar lymph nodes are consistent with old granulomatous disease. No pleural effusi on. The heart size is normal. There are coronary artery calcifications. No pericardial effusion. The liver and gallbladder are normal. Calcifications in the spleen are consistent with old granulomatous disease. The pancreas and adrenal glands are normal. There are cysts in the kidneys measuring up to 2 .4 cm on the right. The bladder is decompressed by a Bailey catheter. There is diffuse bladder wall th ickening. Stool distends the rectum. The appendix is normal. There are no pathologically enlarged lym ph nodes. There is no free intraperitoneal fluid. There are small fibroids in the uterus. There is ch ronic heterotopic ossification adjacent to the ischial tuberosities, left worse than right. There is chronic subcutaneous fat stranding posterior to the ischial tuberosities and proximal left femur, con sistent with pressure necrosis. There is no evidence of osteomyelitis. There is mild thoracolumbar sp ondylosis. IMPRESSION: 1. Stool distends the rectum. 2. Diffuse bladder wall thickening again seen, consistent with cystitis. 3. 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 No evidence of os teomyelitis. Reviewed, dictated and finalized at location A. IMPRESSION: 1. Stool distends the rectum. 2. Diffuse bladder wall thickening again seen, consistent with cystitis. 3. Pressure necrosis posterior to the ischial tuberosities and proximal left fe mur. No evidence of osteomyelitis.
--- NOTE | ~2022-08-05 | XR_ITS ---
EXAMINATION: XR chest 1V portable Exam Date/Time: 08/05/2022 17:38 CDT HISTORY: peresistent vomiting, CVA, r/o aspiration;hx of diabetes Comparison: 07/13/2022. RESULT: Lines, tubes, and devices: None. Lungs and pleura: Clear. Cardiomediastinal silhouette: Stable. Other: No acute osseous or upper abdominal finding. IMPRESSION: No acute cardiopulmonary process. Reviewed, dictated and finalized at location K.
--- NOTE | 2022-08-05 09:24 | ED.NAVMDI ---
HPI - Nausea/Vomiting/Diarrhea General Chief complaint: Abdominal Pain <ИРИНА Arredondo Last Filed: 08/05/22 18:42> Stated complaint: N/V <ИРИНА Arredondo Last Filed: 08/05/22 18:42> Source: patient, family and old records reviewed <ИРИНА Arredondo Last Filed: 08/05/22 18:42> Mode of arrival: EMS <ИРИНА Arredondo Filed: 08/05/22 18:42> Limitations: clinical condition <ИРИНА Arredondo Last Filed: 08/05/22 18:42> History of Present Illness HPI Narrative: Patient is a 52 y/o female, with PMHx of HTN, HLD, IDDM, schizophrenia, CVA 2019 with residual L sided deficits, who presents to the ED via EMS with c/o nausea and vomiting. Patient's mother at bedside assisted in providing patient's information. She lives with patient and is her primary caregiver. Per mother, patient developed nausea and vomiting around 9-10 PM last night. She had a few episodes of emesis, but felt fine afterwards. Nausea and vomiting continued into this morning and patient was unable to keep down any food or fluid, which prompted their presentation. Patient was also reporting lower abdominal pain, headache, and lower back pain. Patient last had a small BM this morning. No known fever. No recent cough or cold symptoms. Patient has chronic indwelling Bailey catheter. Per patient's records, she was recently admitted to the hospital here from 07/11 - 07/15 for acute kidney injury and suspected UTI. Urine culture did not show any growth however. Per records, patient's baseline creatinine around 1.5. <ИРИНА Arredondo Last Filed: 08/05/22 18:42> Related Data Home medications: Home Medications Medication Instructions Recorded Confirmed dorzolamide 2 % eye drops (Trusopt) 1 drp ophthalmic (eye) BID 10/04/19 07/11/22 latanoprost 0.005 % eye drops 1 drp ophthalmic (eye) BID 10/04/19 07/11/22 (Xalatan) insulin aspart U-100 100 unit/mL 6 unit subcut TID PRN Hyperglycemia 01/17/21 07/11/22 (3 mL) subcutaneous pen (Novolog Flexpen U-100 Insulin aspart) haloperidol 5 mg tablet 5 mg PO HS 10/16/21 07/11/22 insulin glargine 100 unit/mL (3 7 unit subcut HS 10/16/21 07/11/22 mL) subcutaneous pen (Basaglar KwikPen U-100 Insulin) atorvastatin 20 mg tablet 20 mg PO DAILY 07/10/22 07/11/22 carvedilol 12.5 mg tablet 12.5 mg PO BID 07/10/22 07/11/22 <Milady Mcclain PA-C - Last Filed: 08/05/22 18:42> Allergies/Adverse reactions: Allergies Allergy/AdvReac Type Severity Reaction Status Date / Time amoxicillin Allergy Mild Rash Verified 07/11/22 04:32 Penicillins Allergy Mild Unknown Verified 07/11/22 04:32 <Milady Mcclain PA-C - Last Filed: 08/05/22 18:42> Review of Systems Review of Systems: CONSTITUTIONAL: Denies fever, chills, or sweats. ENT: Denies rhinorrhea, congestion. CARDIOVASCULAR: Denies chest pain. RESPIRATORY: Denies cough or dyspnea. GASTROINTESTINAL: Reports lower ABD pain, N/V. Denies constipation. GENITOURINARY: Denies dysuria or hematuria. MUSCULOSKELETAL: Reports lower back pain. NEUROLOGICAL: Reports SARMIENTO. <Milady Mcclain PA-C - Last Filed: 08/05/22 18:42> All systems reviewed & are unremarkable except as noted in HPI and below <Milady Mcclain PA-C - Last Filed: 08/05/22 18:42> [facility] Past Medical History Medical History: Medical History Anxiety Arthritis B12 deficiency July 2020 Cataracts, bilateral Cerebrovascular disease CVA 2014 and September 2019. The CVA 2018 involved the right caudate nucleus, right frontal and right parietal regions resulting in chronic left-sided deficits and delayed speech Chronic indwelling Bailey catheter since July 2020. Patient had recurrent urinary retention and hydronephrosis when Bailey catheter was discontinued. Followed by Dr. Estrella Chronic kidney disease, stage 3 Diab
[2022-08-05 09:27] VITALS: BP 213/94; PULSE 98; RESP 20; TEMP 37.1; O2SAT 99
[2022-08-05] MEDS: SODIUM CHLORIDE 0.9% IV 1,000 ML 999 ML IV CONT ×2 (09:45→17:34)
[2022-08-05] MEDS: ONDANSETRON INJ 4 MG/2 ML VIAL IV PUSH ×2 (09:46→16:12)
[2022-08-05 10:20] LABS: Basophils Absolute Auto 0.1 K/mm3 (0.0-0.1); Basophils Percent Auto 0.7 % (0.2-1.2); Eosinophils Percent Auto 0.2 % (0-4.4); Hematocrit 30.4 % (37.0-47.0); Immature Granulocyte Absolute 0.03 K/mm3 (0.00-0.031); Immature Granulocyte Percent A 0.3 % (0-0.5); Lymphocytes Absolute Auto 1.81 K/mm3 (0.9-3.2); Lymphocytes Percent Auto 16.1 % (18.3-44.2); Mean Corpuscular HGB Conc 32.9 g/dl (32-36); Mean Corpuscular Volume 94.1 fl (80-100); Mean Platelet Volume 10.9 fl (7.4-10.4); Monocytes Absolute Auto 0.6 K/mm3 (0.1-0.6); Monocytes Percent Auto 5.2 % (2.6-8.5); Neutrophils Absolute Auto 8.7 K/mm3 (1.3-6.7); Neutrophils Percent Auto 77.5 % (45.5-73.1); Platelet Count Result 294 k/mm3 (150-375); Red Blood Count 3.23 M/mm3 (4.2-5.4); Red Cell Distribution Width 12.5 % (11.5-14.5); White Blood Count 11.2 K/mm3 (4.5-10.0)
[2022-08-05 10:36] LABS: Appearance Urine Cloudy (Clear); Bilirubin Urine Negative (Negative); Blood Urine 2+ (Negative); Color Urine Yellow (Yellow); Glucose Urine UA 1+ mg/dL (Negative); Ketones Urine Negative (Negative); Leukocyte Esterase Ur 1+ LEU/UL (Negative); Nitrate Urine Negative (Negative); Protein Urine 3+ mg/dL (Negative); Urobilinogen Urine 0.2 mg/dL (<2.0); pH Urine 8.5 (5.0-9.0)
[2022-08-05] MEDS: PROMETHAZINE HCL 25 MG/ML AMPUL 12.5 MG IV PUSH (10:36)
[2022-08-05 10:41] LABS: Alanine Aminotransferase 34 U/L (6-35); Albumin Level 4.3 g/dL (3.5-5.1); Alkaline Phosphatase 135 U/L (38-126); Anion Gap 11 mmol/L (8-16); Aspartate Amino Transferase 28 U/L (14-36); Bilirubin,Total 0.3 mg/dL (0.2-1.3); Blood Urea Nitrogen 27 mg/dL (7-17); Calcium 9.4 mg/dL (8.4-10.2); Carbon Dioxide 29 mmol/L (22-30); Chloride 103 mmol/L (98-107); Estimated Glomerular Filt Rate 41; Glucose 285 mg/dL (65-110); Lipase 58 U/L (23-300); Potassium 4.1 mmol/L (3.4-5.0); Sodium 143 mmol/L (137-145)
[2022-08-05] MEDS: hydrALAZINE HCL 20 MG/ML VIAL 10 MG IV PUSH (10:42)
[2022-08-05 10:51] LABS: Bacteria Urine 3+ /hpf; RBC Urine >75 /hpf (0-2); WBC Clumps Urine Present /HPF; WBC Urine >75 /hpf
[2022-08-05 11:14] LABS: Add Urine Microscopic? YES
[2022-08-05] MEDS: BISACODYL 5 MG TABLET EC PO (13:01)
[2022-08-05] MEDS: polyethylene glycoL 3350 17 GM POWD.PACK PO (13:01)
[2022-08-05] MEDS: ERTAPENEM 1 GM/NS 50 ML 1 GM/50 ML BAG IVPB (15:40)
[2022-08-05] MEDS: METOCLOPRAMIDE HCL INJ 10 MG/2 ML VIAL IV PUSH (17:34)
[2022-08-05 18:19] LABS: SARS-CoV-2 RNA PCR Negative
[2022-08-05 19:22] VITALS: BP 194/90; PULSE 98; RESP 17; O2SAT 97
--- NOTE | 2022-08-05 19:22 | PC.NURSE ---
Report received Charly gibson RN. Assumed care of patient at this time. Patient awaiting bed placement for admission to hospital.
[2022-08-05 20:19] VITALS: PULSE 100
[2022-08-05] MEDS: METOPROLOL TARTRATE INJ 5 MG/5 ML VIAL IV PUSH (20:19)
[2022-08-05 20:21] VITALS: BP 216/94; PULSE 98; RESP 15; O2SAT 97
[2022-08-05 20:25] VITALS: BP 198/93
[2022-08-05 20:30] VITALS: BP 192/73; PULSE 93; RESP 16; TEMP 36.1; O2SAT 100
--- NOTE | 2022-08-05 20:42 | ADMGEN ---
This patient, Jasmin Lopez, was admitted to [facility] Surg Room 330-02. Patient/family oriented to hospital policies and general routines including ID bracelet, bed and alarms, visiting hours, pain management, procedures, bathroom and other care routines, personal items, smoking policy, room service/diet, and visiting hours. Information on how to activate the Rapid Response Team has been discussed. Patient/Family are encouraged to report perceived risks to care and to ask questions if they do not understand what they are told or what they should do.
--- NOTE | 2022-08-06 01:12 | PC.NURSE ---
Pt arrived to the unit at 2028. Pt has DTI on left ischium. Pt arrived to the hospital with bland catheter inserted. Bland has been changed out. Pt has no complaints of pain at this time. Pt to be kept off of left side. Pt blood pressure was elevated, Provider was notified by Karis. Per Karis, provider wanted to see pt before she treats. Will continue to monitor pt.
--- NOTE | 2022-08-06 03:00 | PM.IMHP ---
H&P: HPI History of Present Illness Date/Time: 08/06/22 0300 Chief Complaint: Nausea/vomiting Narrative: Patient is a 52-year-old female with a past medical history of hypertension, diabetes, hyperlipidemia, anemia who presented to the ED with complaints of nausea and vomiting. Patient stated that she had only vomited once however patient is not reliable due to past CVA. According to the note the mother stated that the patient vomited around 9-10 p.m. on the and then had a few more episodes the morning of the . Patient was unable to keep fluid or food down. Currently patient states that she feels fine. She denies any nausea, vomiting, diarrhea, constipation, weakness or fatigue. She did state that she had a BM yesterday. She denies any chest pain, shortness of breath, urinary difficulties, syncope or falls. She denies any abdominal pain as well. Patient does have a chronic urinary catheter that was switched out today. Patient also has a decubitus ulcer on her left ischium. Patient is resting comfortably at this time. Patient is being admitted to the hospital service as observation Review of Systems Review of Systems: All systems reviewed & are unremarkable except as noted in HPI and below PMFSH Past Medical History Medical History Anxiety Arthritis B12 deficiency July 2020 Cataracts, bilateral Cerebrovascular disease CVA 2014 and September 2019. The CVA 2019 involved the right caudate nucleus, right frontal and right parietal regions resulting in chronic left-sided deficits and delayed speech Chronic indwelling Bailey catheter since July 2020. Patient had recurrent urinary retention and hydronephrosis when Bailey catheter was discontinued. Followed by Dr. Estrella Chronic kidney disease, stage 3 Diabetes Diabetic retinopathy Glaucoma HLD (hyperlipidemia) Hypertension, essential IDDM (insulin dependent diabetes mellitus) 10/09/2021 hemoglobin A1c 8.5 Intracranial carotid stenosis, bilateral severe Iron deficiency anemia July 2020 due to nutritional deficiencies KENDRA (obstructive sleep apnea) Not on CPAP Peripheral polyneuropathy Schizophrenia, undifferentiated Surgical History Surgical History H/O removal of cyst History of cystoscopy Family History Family History Grandparent Diabetes mellitus Father Family history of cardiovascular disease Other Cerebrovascular accident Social History Social History Social History: Single. Resides in subsidized apartment in [place], [place] (the [facility]). She is dependent upon her mother for activities of daily living. She is wheelchair dependent. Years smoked: 5 Smoking status: Never smoker Alcohol intake: never Drinks per week: 1 Substance use: never Substance use type: does not use Additional occupation/education comments: She has been on disability since a young age due to her schizophrenia. She now has multiple physical disabilities. Gender identity (if verbalized by the patient): Female Spiritual care concerns: No Agree to blood products: Yes Meds Home Medications and Allergies Home Medications Medication Instructions Recorded Confirmed Type dorzolamide 2 % eye drops (Trusopt) 1 drp ophthalmic (eye) BID 10/04/19 08/05/22 History insulin aspart U-100 100 unit/mL See Rx Instructions .Route 01/17/21 08/05/22 History (3 mL) subcutaneous pen (Novolog .COMPLEX PRN Hyperglycemia Flexpen U-100 Insulin aspart) blood sugar diagnostic (FreeStyle #100 ea 04/07/21 08/05/22 Rx Test strips) blood-glucose meter (FreeStyle #1 ea 04/07/21 08/05/22 Rx Lite Meter kit) flash glucose scanning reader #1 ea 07/11/21 08/05/22 Rx (FreeStyle Gi 14 Day [place]) flash glucose sensor (F
[2022-08-06 05:56] VITALS: BP 137/77; PULSE 90; RESP 20; TEMP 36.1; O2SAT 97
[2022-08-06] MEDS: hydrALAZINE HCL 20 MG/ML VIAL 10 MG IV PUSH (06:50)
[2022-08-06 07:09] LABS: Basophils Absolute Auto 0.1 K/mm3 (0.0-0.1); Basophils Percent Auto 0.4 % (0.2-1.2); Eosinophils Percent Auto 0.2 % (0-4.4); Hematocrit 30.9 % (37.0-47.0); Hemoglobin 9.6 g/dL (12.0-15.0); Immature Granulocyte Absolute 0.06 K/mm3 (0.00-0.031); Immature Granulocyte Percent A 0.3 % (0-0.5); Lymphocytes Absolute Auto 3.59 K/mm3 (0.9-3.2); Lymphocytes Percent Auto 18.2 % (18.3-44.2); Mean Corpuscular HGB Conc 31.1 g/dl (32-36); Mean Corpuscular Volume 96.6 fl (80-100); Mean Platelet Volume 11.5 fl (7.4-10.4); Monocytes Absolute Auto 1.6 K/mm3 (0.1-0.6); Monocytes Percent Auto 7.9 % (2.6-8.5); Neutrophils Absolute Auto 14.4 K/mm3 (1.3-6.7); Platelet Count Result 326 k/mm3 (150-375); Red Cell Distribution Width 12.9 % (11.5-14.5); White Blood Count 19.7 K/mm3 (4.5-10.0)
[2022-08-06 07:21] LABS: Alanine Aminotransferase 27 U/L (6-35); Albumin Level 4.4 g/dL (3.5-5.1); Alkaline Phosphatase 116 U/L (38-126); Anion Gap 17 mmol/L (8-16); Aspartate Amino Transferase 21 U/L (14-36); Bilirubin,Total 0.2 mg/dL (0.2-1.3); Blood Urea Nitrogen 32 mg/dL (7-17); Calcium 9.5 mg/dL (8.4-10.2); Carbon Dioxide 24 mmol/L (22-30); Chloride 105 mmol/L (98-107); Estimated Glomerular Filt Rate 36; Glucose 209 mg/dL (65-110); Potassium 3.7 mmol/L (3.4-5.0); Sodium 146 mmol/L (137-145)
[2022-08-06 07:25] LABS: Transferrin 173 mg/dL (206-381)
[2022-08-06 07:34] LABS: Immature Reticulocyte Fraction 10.3 % (3.0-15.9); Reticulocyte Hemoglobin Conten 33.4 pg (28.2-35.7); Reticulocyte Percent 1.89 % (0.7-4.3); Reticulocytes Absolute 0.06 B/L (32.2-175.7)
[2022-08-06 07:55] LABS: Iron 42 ug/dL (37-170)
[2022-08-06 08:05] LABS: Percent Iron Saturation 18 % (20-50)
[2022-08-06 08:23] LABS: Hemoglobin A1C 7.3 % (<5.7)
[2022-08-06 08:26] LABS: Folic Acid > 20.0 ng/mL (2.76->20)
[2022-08-06 08:28] LABS: Thyroid Stimulating Hormone Reflex 0.926 uIU/mL (0.465-4.68)
[2022-08-06 08:46] LABS: Glucose Point of Care 225 mg/dl (65-105)
[2022-08-06] MEDS: INSULIN ASPART (*BKC) 100 UNITS/ML SUB-Q ×2 (09:52→11:45)
[2022-08-06] MEDS: FERROUS SULFATE 324 MG TABLET PO (11:04)
[2022-08-06 11:05] VITALS: PULSE 90
[2022-08-06] MEDS: carvediloL 12.5 MG TABLET PO ×2 (11:05→22:03)
[2022-08-06] MEDS: BENZTROPINE MESYLATE 0.5 MG TABLET PO (11:05)
[2022-08-06] MEDS: SERTRALINE HCL 50 MG TABLET PO (11:05)
[2022-08-06] MEDS: ENOXAPARIN 40 MG/0.4 ML SYRINGE SUB-Q (11:06)
[2022-08-06] MEDS: ATORVASTATIN 40 MG TABLET PO (11:06)
[2022-08-06] MEDS: LIDOCAINE 5% PATCH 1 PATCH TRANSDERM (11:06)
[2022-08-06] MEDS: ASPIRIN 81 MG ENTERIC TABLET PO (11:06)
[2022-08-06] MEDS: ZINC OXIDE 20% OINT 30 GM TUBE 1 APPLIC TOPICAL (11:07)
[2022-08-06] MEDS: BRIMONIDINE TARTRATE 0.2% OP SOLN 5 ML BTL 1 DROP EACH EYE ×2 (11:07→17:31)
[2022-08-06] MEDS: DORZOLAMIDE HCL 2% OPHTH DROPS 1 DROP EACH EYE ×2 (11:07→17:31)
[2022-08-06] MEDS: BISACODYL 10 MG SUPPOSITORY RECTAL (11:07)
[2022-08-06] MEDS: BACLOFEN 10 MG TABLET PO ×3 (11:07→17:31)
[2022-08-06] MEDS: ACETAMINOPHEN 325 MG TABLET 650 MG PO (11:22)
[2022-08-06 11:41] LABS: Glucose Point of Care 302 mg/dl (65-105)
[2022-08-06] MEDS: DEXTROSE 5%/0.45% SOD CHL 1,000 ML 100 ML IV CONT ×2 (12:02→22:03)
[2022-08-06 14:00] VITALS: BP 130/70; PULSE 84; RESP 18; TEMP 35.9; O2SAT 98
[2022-08-06 16:30] LABS: Glucose Point of Care 176 mg/dl (65-105)
--- NOTE | 2022-08-06 17:41 | P.PNIM_ITS ---
Progress Note: A&P Assessment and Plan (1) Fecal impaction: Code(s): K56.41 - Fecal impaction Status: Acute Assessment and Plan: * Abd/pel CT shows fecal impaction * Miralax, Colace, and suppository ordered * Clear liquids for now * Probably the reason for the nausea and vomiting * Trend BMs 08/06/2022 interval history: 52-year-old female was brought to the emergency depart with complaint abdominal pain nausea or vomit CT scan of abdomen showed fecal impaction most likely resulting in her symptoms, patient is being treated with Colace MiraLax and rectal suppository, patient is also dehydrated secondary to poor p.o. and nausea and vomiting will gently hydrate the patient and monitor. patient is bed ridden unable to participate in PT OT. (2) Anemia: Qualifiers: Anemia type: unspecified type Qualified Code(s): D64.9 - Anemia, unspecified Code(s): D64.9 - Anemia, unspecified Status: Acute Assessment and Plan: * H/H 10.0/30.4 * Continue home iron * Could be a combination of iron deficiency and chronic disease * anemia labs ordered * Adjust therapy as indicated (3) Urinary tract infection: Qualifiers: Hematuria presence: with hematuria Urinary tract infection type: acute cystitis Qualified Code(s): N30.01 - Acute cystitis with hematuria Code(s): N39.0 - Urinary tract infection, site not specified Status: Acute Assessment and Plan: * UA does appear infectious * she does have a chronic Bailey that was changed on 08/05/22 * Probably related to the chronic catheter * CT of the abdomen shows cystitis * Urine culture pending * Continue ceftriaxone * Adjust therapy to culture results (4) Chronic kidney disease: Code(s): N18.9 - Chronic kidney disease, unspecified Status: Acute Assessment and Plan: * BUN/Cr 27/1.60 * Continue to trend labs * Seems to be stable * Baseline Cr appears to be 1.30-1.6 * Trend urine output * Could be from the UTI (5) Diabetes: Qualifiers: Diabetes mellitus type: type 2 Diabetes mellitus terminal superintendent insulin use: with custodial use Diabetes mellitus complication status: with circulatory complication Diabetes mellitus complication detail: with other circulatory complications Qualified Code(s): E11.59 - Type 2 diabetes mellitus with other circulatory complications; Z79.4 - terminal operator (current) use of insulin Code(s): E11.9 - Type 2 diabetes mellitus without complications Status: Acute Assessment and Plan: * Current glucose is 285 * Check A1c * Continue home lantus * ISS * Accu Cheks AC/HS * hypoglycemia protocol * Trend glucose * adjust therapy as indicated (6) Uncontrolled hypertension: Code(s): I10 - Essential (primary) hypertension Status: Acute Assessment and Plan: * BP is 192/73 * Continue home carvedilol, hold the chlorthalidone due to renal function * Hydralazine x 1 * Trend blood pressure * adjust therapy as indicated (7) HLD (hyperlipidemia): Qualifiers: Hyperlipidemia type: unspecified Qualified Code(s): E78.5 - Hyperlipidemia, unspecified Code(s): E78.5 - Hyperlipidemia, unspecified Status: Chronic Assessment and Plan: * Continue home atorvastatin (8) Open wound of left hip: Code(s): S71.002A - Unspecified open wound, left hip, initial encounter Status: Acute
--- NOTE | 2022-08-06 17:41 | PM.IMPN ---
Progress Note: A&P Assessment and Plan (1) Fecal impaction: Code(s): K56.41 - Fecal impaction Status: Acute Assessment and Plan: Abd/pel CT shows fecal impaction Miralax, Colace, and suppository ordered Clear liquids for now Probably the reason for the nausea and vomiting Trend BMs 08/06/2022 interval history: 52-year-old female was brought to the emergency depart with complaint abdominal pain nausea or vomit CT scan of abdomen showed fecal impaction most likely resulting in her symptoms, patient is being treated with Colace MiraLax and rectal suppository, patient is also dehydrated secondary to poor p.o. and nausea and vomiting will gently hydrate the patient and monitor. patient is bed ridden unable to participate in PT OT. (2) Anemia: Qualifiers: Anemia type: unspecified type Qualified Code(s): D64.9 - Anemia, unspecified Code(s): D64.9 - Anemia, unspecified Status: Acute Assessment and Plan: H/H 10.0/30.4 Continue home iron Could be a combination of iron deficiency and chronic disease anemia labs ordered Adjust therapy as indicated (3) Urinary tract infection: Qualifiers: Hematuria presence: with hematuria Urinary tract infection type: acute cystitis Qualified Code(s): N30.01 - Acute cystitis with hematuria Code(s): N39.0 - Urinary tract infection, site not specified Status: Acute Assessment and Plan: UA does appear infectious she does have a chronic Bailey that was changed on 08/05/22 Probably related to the chronic catheter CT of the abdomen shows cystitis Urine culture pending Continue ceftriaxone Adjust therapy to culture results (4) Chronic kidney disease: Code(s): N18.9 - Chronic kidney disease, unspecified Status: Acute Assessment and Plan: BUN/Cr 27/1.60 Continue to trend labs Seems to be stable Baseline Cr appears to be 1.30-1.6 Trend urine output Could be from the UTI (5) Diabetes: Qualifiers: Diabetes mellitus type: type 2 Diabetes mellitus terminal clerk insulin use: with terminal clerk use Diabetes mellitus complication status: with circulatory complication Diabetes mellitus complication detail: with other circulatory complications Qualified Code(s): E11.59 - Type 2 diabetes mellitus with other circulatory complications; Z79.4 - snf (current) use of insulin Code(s): E11.9 - Type 2 diabetes mellitus without complications Status: Acute Assessment and Plan: Current glucose is 285 Check A1c Continue home lantus ISS Accu Cheks AC/HS hypoglycemia protocol Trend glucose adjust therapy as indicated (6) Uncontrolled hypertension: Code(s): I10 - Essential (primary) hypertension Status: Acute Assessment and Plan: BP is 192/73 Continue home carvedilol, hold the chlorthalidone due to renal function Hydralazine x 1 Trend blood pressure adjust therapy as indicated (7) HLD (hyperlipidemia): Qualifiers: Hyperlipidemia type: unspecified Qualified Code(s): E78.5 - Hyperlipidemia, unspecified Code(s): E78.5 - Hyperlipidemia, unspecified Status: Chronic Assessment and Plan: Continue home atorvastatin (8) Open wound of left hip: Code(s): S71.002A - Unspecified open wound, left hip, initial encounter Status: Acute Assessment and Plan: Presumably a pressure wound on the left hip Wound care consult CT indicates necrosis Consider consulting general surgery Wound care per note Subjective Date/time seen: 08/06/22 17:41 Chief Complaint: Nausea/vomiting HPI-Narrative: Patient is a 52-year-old female with a past medical history of hypertension, diabetes, hyperlipidemia, anemia who presented to the ED with complaints of nausea and vomiting.? Patient stated that she had only vomited once however patient i
[2022-08-06] MEDS: INSULIN GLARGINE (*BKC) 100 UNITS/ML 15 UNITS SUB-Q (21:57)
[2022-08-06] MEDS: HALOPERIDOL 5 MG TABLET PO (21:57)
[2022-08-06 22:00] VITALS: BP 156/80; PULSE 86; RESP 20; TEMP 36.2; O2SAT 99
[2022-08-06 22:03] VITALS: PULSE 85
[2022-08-06 22:18] LABS: Glucose Point of Care 211 mg/dl (65-105)
--- NOTE | 2022-08-07 03:02 | PC.NURSE ---
Pt has had no change in status this shift. Pt is a q2hr turn. Pt is compliant with turning. Pt has DTI to L buttock and sacrum that is starting to open up. Pt is resting comfortably in bed. Pt has no complaints at this time. Will continue to monitor pt.
[2022-08-07 06:00] VITALS: BP 149/72; PULSE 80; RESP 18; TEMP 36.6; O2SAT 100
[2022-08-07 08:02] LABS: Glucose Point of Care 240 mg/dl (65-105)
[2022-08-07] MEDS: INSULIN ASPART (*BKC) 100 UNITS/ML SUB-Q ×2 (08:23→12:03)
[2022-08-07] MEDS: DEXTROSE 5%/0.45% SOD CHL 1,000 ML 100 ML IV CONT (08:27)
[2022-08-07] MEDS: BACLOFEN 10 MG TABLET PO ×2 (08:29→12:05)
[2022-08-07] MEDS: LIDOCAINE 5% PATCH 1 PATCH TRANSDERM (08:31)
[2022-08-07] MEDS: ENOXAPARIN 40 MG/0.4 ML SYRINGE SUB-Q (08:32)
[2022-08-07] MEDS: BENZTROPINE MESYLATE 0.5 MG TABLET PO (08:34)
[2022-08-07] MEDS: SERTRALINE HCL 50 MG TABLET PO (08:35)
[2022-08-07] MEDS: ATORVASTATIN 40 MG TABLET PO (08:35)
[2022-08-07] MEDS: ASPIRIN 81 MG ENTERIC TABLET PO (08:35)
[2022-08-07 08:36] VITALS: PULSE 88
[2022-08-07] MEDS: BRIMONIDINE TARTRATE 0.2% OP SOLN 5 ML BTL 1 DROP EACH EYE (08:36)
[2022-08-07] MEDS: carvediloL 12.5 MG TABLET PO (08:36)
[2022-08-07] MEDS: FERROUS SULFATE 324 MG TABLET PO (08:36)
[2022-08-07] MEDS: DORZOLAMIDE HCL 2% OPHTH DROPS 1 DROP EACH EYE (08:36)
[2022-08-07 10:53] LABS: Hemoglobin 9.2 g/dL (12.0-15.0); Mean Corpuscular HGB Conc 32.9 g/dl (32-36); Mean Corpuscular Hemoglobin 30.4 pg (26-34); Mean Corpuscular Volume 92.4 fl (80-100); Mean Platelet Volume 10.9 fl (7.4-10.4); Platelet Count Result 278 k/mm3 (150-375); Red Blood Count 3.03 M/mm3 (4.2-5.4); Red Cell Distribution Width 12.5 % (11.5-14.5); White Blood Count 11.9 K/mm3 (4.5-10.0)
[2022-08-07 11:02] LABS: Anion Gap 13 mmol/L (8-16); Blood Urea Nitrogen 33 mg/dL (7-17); Calcium 8.9 mg/dL (8.4-10.2); Carbon Dioxide 21 mmol/L (22-30); Chloride 102 mmol/L (98-107); Estimated CRCL calculation 32 ml/min; Estimated Glomerular Filt Rate 34; Glucose 270 mg/dL (65-110); Magnesium 2.2 mg/dL (1.6-2.3); Potassium 3.9 mmol/L (3.4-5.0); Sodium 136 mmol/L (137-145)
--- NOTE | 2022-08-07 12:28 | P.DS_ITS ---
DS: Admitting Diagnosis Discharge Date 08/07/2022 Admitting Diagnosis Nausea and vomiting DS: Discharge Diagnosis Discharge Diagnosis (1) Fecal impaction: Code(s): K56.41 - Fecal impaction Status: Acute Assessment and Plan: * Abd/pel CT shows fecal impaction * Miralax, Colace, and suppository ordered * Clear liquids for now * Probably the reason for the nausea and vomiting * Trend BMs 08/06/2022 interval history: 52-year-old female was brought to the emergency depart with complaint abdominal pain nausea or vomit CT scan of abdomen showed fecal impaction most likely resulting in her symptoms, patient is being treated with Colace MiraLax and rectal suppository, patient is also dehydrated secondary to poor p.o. and nausea and vomiting will gently hydrate the patient and monitor. patient is bed ridden unable to participate in PT OT. (2) Anemia: Qualifiers: Anemia type: unspecified type Qualified Code(s): D64.9 - Anemia, unspecified Code(s): D64.9 - Anemia, unspecified Status: Acute Assessment and Plan: * H/H 10.0/30.4 * Continue home iron * Could be a combination of iron deficiency and chronic disease * anemia labs ordered * Adjust therapy as indicated (3) Urinary tract infection: Qualifiers: Hematuria presence: with hematuria Urinary tract infection type: acute cystitis Qualified Code(s): N30.01 - Acute cystitis with hematuria Code(s): N39.0 - Urinary tract infection, site not specified Status: Acute Assessment and Plan: * UA does appear infectious * she does have a chronic Bailey that was changed on 08/05/22 * Probably related to the chronic catheter * CT of the abdomen shows cystitis * Urine culture pending * Continue ceftriaxone * Adjust therapy to culture results (4) Chronic kidney disease: Code(s): N18.9 - Chronic kidney disease, unspecified Status: Acute Assessment and Plan: * BUN/Cr 27/1.60 * Continue to trend labs * Seems to be stable * Baseline Cr appears to be 1.30-1.6 * Trend urine output * Could be from the UTI (5) Diabetes: Qualifiers: Diabetes mellitus type: type 2 Diabetes mellitus lobsterman insulin use: with intermediate use Diabetes mellitus complication status: with circulatory complication Diabetes mellitus complication detail: with other circulatory complications Qualified Code(s): E11.59 - Type 2 diabetes mellitus with other circulatory complications; Z79.4 - [facility] (current) use of insulin Code(s): E11.9 - Type 2 diabetes mellitus without complications Status: Acute Assessment and Plan: * Current glucose is 285 * Check A1c * Continue home lantus * ISS * Accu Cheks AC/HS * hypoglycemia protocol * Trend glucose * adjust therapy as indicated (6) Uncontrolled hypertension: Code(s): I10 - Essential (primary) hypertension Status: Acute Assessment and Plan: * BP is 192/73 * Continue home carvedilol, hold the chlorthalidone due to renal function * Hydralazine x 1 * Trend blood pressure * adjust therapy as indicated (7) HLD (hyperlipidemia): Qualifiers: Hyperlipidemia type: unspecified Qualified Code(s): E78.5 - Hyperlipidemia, unspecified Code(s): E78.5 - Hyperlipidemia, unspecified Status: Chronic Assessment and Plan: * Continue home atorvastatin (8) Open wound
--- NOTE | 2022-08-07 12:28 | PM.DS ---
DS: Admitting Diagnosis Discharge Date 08/07/2022 Admitting Diagnosis Nausea and vomiting DS: Discharge Diagnosis Discharge Diagnosis (1) Fecal impaction: Code(s): K56.41 - Fecal impaction Status: Acute Assessment and Plan: Abd/pel CT shows fecal impaction Miralax, Colace, and suppository ordered Clear liquids for now Probably the reason for the nausea and vomiting Trend BMs 08/06/2022 interval history: 52-year-old female was brought to the emergency depart with complaint abdominal pain nausea or vomit CT scan of abdomen showed fecal impaction most likely resulting in her symptoms, patient is being treated with Colace MiraLax and rectal suppository, patient is also dehydrated secondary to poor p.o. and nausea and vomiting will gently hydrate the patient and monitor. patient is bed ridden unable to participate in PT OT. (2) Anemia: Qualifiers: Anemia type: unspecified type Qualified Code(s): D64.9 - Anemia, unspecified Code(s): D64.9 - Anemia, unspecified Status: Acute Assessment and Plan: H/H 10.0/30.4 Continue home iron Could be a combination of iron deficiency and chronic disease anemia labs ordered Adjust therapy as indicated (3) Urinary tract infection: Qualifiers: Hematuria presence: with hematuria Urinary tract infection type: acute cystitis Qualified Code(s): N30.01 - Acute cystitis with hematuria Code(s): N39.0 - Urinary tract infection, site not specified Status: Acute Assessment and Plan: UA does appear infectious she does have a chronic Bailey that was changed on 08/05/22 Probably related to the chronic catheter CT of the abdomen shows cystitis Urine culture pending Continue ceftriaxone Adjust therapy to culture results (4) Chronic kidney disease: Code(s): N18.9 - Chronic kidney disease, unspecified Status: Acute Assessment and Plan: BUN/Cr 27/1.60 Continue to trend labs Seems to be stable Baseline Cr appears to be 1.30-1.6 Trend urine output Could be from the UTI (5) Diabetes: Qualifiers: Diabetes mellitus type: type 2 Diabetes mellitus correction insulin use: with correction use Diabetes mellitus complication status: with circulatory complication Diabetes mellitus complication detail: with other circulatory complications Qualified Code(s): E11.59 - Type 2 diabetes mellitus with other circulatory complications; Z79.4 - termite technician (current) use of insulin Code(s): E11.9 - Type 2 diabetes mellitus without complications Status: Acute Assessment and Plan: Current glucose is 285 Check A1c Continue home lantus ISS Accu Cheks AC/HS hypoglycemia protocol Trend glucose adjust therapy as indicated (6) Uncontrolled hypertension: Code(s): I10 - Essential (primary) hypertension Status: Acute Assessment and Plan: BP is 192/73 Continue home carvedilol, hold the chlorthalidone due to renal function Hydralazine x 1 Trend blood pressure adjust therapy as indicated (7) HLD (hyperlipidemia): Qualifiers: Hyperlipidemia type: unspecified Qualified Code(s): E78.5 - Hyperlipidemia, unspecified Code(s): E78.5 - Hyperlipidemia, unspecified Status: Chronic Assessment and Plan: Continue home atorvastatin (8) Open wound of left hip: Code(s): S71.002A - Unspecified open wound, left hip, initial encounter Status: Acute Assessment and Plan: Presumably a pressure wound on the left hip Wound care consult CT indicates necrosis Consider consulting general surgery Wound care per note DS: Summary Hospital Course Reason for hospitalization: Nausea/vomiting Narrative: Patient is a 52-year-old female with a past medical history of hypertension, diabetes, hyperlipidemia, anemia who presented to the ED with compl
[2022-08-07 21:24] LABS: Glucose Point of Care 284 mg/dl (65-105)
== END 2022-08-07 13:55 | disposition home or self-care (01) ==
LOC: ANHED 18:27 → ANH3MEDSUR 19:51
PROVIDERS: Nurse Practitioner; Physician Assistant; Admitting Provider Family Medicine; Emergency Provider General Practice; Visit Provider Family Medicine
DX: K56.41 Fecal impaction (principal); D64.9 Anemia, unspecified; B96.1 Klebsiella pneumoniae [K. pneumoniae] as the cause of diseases classified elsewhere; N30.01 Acute cystitis with hematuria; I12.9 Hypertensive chronic kidney disease with stage 1 through stage 4 chronic kidney disease, or unspecified chronic kidney disease; N18.30 Chronic kidney disease, stage 3 unspecified; S71.002A Unspecified open wound, left hip, initial encounter; E11.22 Type 2 diabetes mellitus with diabetic chronic kidney disease; E11.59 Type 2 diabetes mellitus with other circulatory complications; E11.319 Type 2 diabetes mellitus with unspecified diabetic retinopathy without macular edema; E11.42 Type 2 diabetes mellitus with diabetic polyneuropathy; E78.5 Hyperlipidemia, unspecified; I69.354 Hemiplegia and hemiparesis following cerebral infarction affecting left non-dominant side; F20.9 Schizophrenia, unspecified; R51.9 Headache, unspecified; M54.50 Low back pain, unspecified; Z96.0 Presence of urogenital implants; H40.9 Unspecified glaucoma; F41.9 Anxiety disorder, unspecified; E66.9 Obesity, unspecified; Z68.25 Body mass index [BMI] 25.0-25.9, adult; I65.23 Occlusion and stenosis of bilateral carotid arteries; G47.33 Obstructive sleep apnea (adult) (pediatric); Z20.822 Contact with and (suspected) exposure to COVID-19; L89.229 Pressure ulcer of left hip, unspecified stage; Z87.891 Personal history of nicotine dependence; Z79.1 Long term (current) use of non-steroidal anti-inflammatories (NSAID); Z79.4 Long term (current) use of insulin; Z79.899 Other long term (current) drug therapy; Z82.49 Family history of ischemic heart disease and other diseases of the circulatory system; Z83.3 Family history of diabetes mellitus
CPT/HCPCS: 36415; 71045; 74177; 80048; 80053; 81001; 82607; 82728; 82746; 82948; 83036; 83540; 83550; 83690; 83735; 84443; 84466; 85025; 85027; 85046; 87077; 87086; 87147; 87181; 87186; 96361; 96365; 96367; 96372; 96375; 96376; 99285; A9270; C9803; G0378; J0131; J0360; J0696; J1335; J1650; J1815; J2405; J2550; J2765; J7030; Q9967; U0003; U0005

== ENCOUNTER 2022-11-14 10:18 | Outpatient (CLI) | payer MEDICARE, MEDICAID, SELFPAY ==
[2022-11-14 20:38] LABS: Kit Draw Collected
== END 2022-11-14 10:19 | disposition home or self-care (01) ==
LOC: ANHGOSHLAB 10:21
DX: E78.00 Pure hypercholesterolemia, unspecified (principal); E11.59 Type 2 diabetes mellitus with other circulatory complications; I15.2 Hypertension secondary to endocrine disorders; Z11.4 Encounter for screening for human immunodeficiency virus [HIV]; Z11.59 Encounter for screening for other viral diseases
CPT/HCPCS: 36415